=== PATIENT | female | born 1955 | race Two or more races ===

== ENCOUNTER 2020-03-09 16:33 | Outpatient (REF) | payer OTHER, SELFPAY | END 2020-03-09 16:34 | disposition home or self-care (01) | LOC: HO.LAB 16:33 | PROVIDERS: Visit Provider Internal Medicine | DX: Z20.828 Contact with and (suspected) exposure to other viral communicable diseases (principal) | CPT/HCPCS: C9803; U0003 ==

== ENCOUNTER 2020-04-06 12:45 | Outpatient (REF) | payer OTHER, SELFPAY ==
--- NOTE | 2020-04-06 | US_ITS ---
EXAMINATION: US THYROID CLINICAL INFORMATION: Nontoxic goiter. COMPARISON: CT neck 10/24/2016. TECHNIQUE: Linear transducer peters-scale and color Doppler examination with attention to the region of the thyroid. FINDINGS: SIZE: Measurements of the thyroid lobes and nodules are given in sagittal, anteroposterior and transverse dimensions respectively. Right Thyroid Lobe: 4.9 x 1.2 x 1.0 cm, volume 3.1 mL. Parenchyma: The gland echotexture is homogeneous. Thyroid vascularity is normal. Left Thyroid Lobe: 3.2 x 1.0 x 1.2 cm, volume 2.0 mL. Parenchyma: The gland echotexture is homogeneous. Thyroid vascularity is normal. Isthmus: 0.3 cm in maximum AP dimension. RIGHT THYROID LOBE: No nodules. ISTHMUS: No nodules. LEFT THYROID LOBE: No nodules. NODES: No lymphadenopathy is seen in the tissue surrounding the thyroid gland. US/US thyroid IMPRESSION: Normal thyroid ultrasound study..
== END 2020-04-06 12:46 | disposition home or self-care (01) ==
LOC: HO.US 12:45
PROVIDERS: Visit Provider Internal Medicine
DX: E04.9 Nontoxic goiter, unspecified (principal)
CPT/HCPCS: 76536

== ENCOUNTER 2020-07-27 12:19 | Outpatient (REF) | payer OTHER, SELFPAY ==
--- NOTE | ~2020-07-27 | XR_ITS ---
EXAMINATION: XR HAND, RIGHT CLINICAL INFORMATION: Pain right fingers. COMPARISON: None TECHNIQUE: PA, lateral, and oblique views of the right hand. FINDINGS: There is no acute or healing fracture, dislocation, or destructive process. The ulnar variance is neutral. The pronator quadratus fat pad appears normal. There is no carpal joint narrowing or erosive change or definite chondrocalcinosis. MCP joints show no focal narrowing or erosive change. There is borderline spur lateral base 1st proximal phalanx. The interphalangeal joints show no erosive changes. There are mild degenerative changes with joint narrowing and spurring 2nd and 3rd finger DIP joints. There is borderline degenerative changes 5th DIP joint and small spur lateral base interphalangeal joint thumb. XR/XR hand RT min 3V IMPRESSION: 1. No fracture, destructive process, or erosive changes. 2. Mild spurring lateral base 1st proximal phalanx and interphalangeal joint thumb. 3. Degenerative changes DIP joints, greatest index and 3rd finger.
== END 2020-07-27 12:20 | disposition home or self-care (01) ==
LOC: HO.XRAY 12:19
PROVIDERS: PCP Internal Medicine; Visit Provider Internal Medicine
DX: M79.644 Pain in right finger(s) (principal)
CPT/HCPCS: 73130

== ENCOUNTER → 2020-09-06 15:13 | Outpatient (BNVA) | payer OTHER, SELFPAY | PROVIDERS: PCP Internal Medicine; Visit Provider Urology | DX: Z13.89 Encounter for screening for other disorder (principal) | CPT/HCPCS: 99212 ==

== ENCOUNTER → 2021-02-20 12:58 | Outpatient (BNVA) | payer MEDICARE, SELFPAY | PROVIDERS: PCP Internal Medicine; Visit Provider Internal Medicine Pulmonary Disease | DX: J45.909 Unspecified asthma, uncomplicated (principal); R06.00 Dyspnea, unspecified | CPT/HCPCS: 99202 ==

== ENCOUNTER 2021-03-07 12:16 | Outpatient (REF) | payer MEDICARE, SELFPAY ==
--- NOTE | ~2021-03-07 | US_ITS ---
EXAMINATION: US RETROPERITONEAL COMPLETE (RENAL) CLINICAL INFORMATION: Microscopic hematuria, frequency. COMPARISON: Renal ultrasound 06/17/2019 and 11/26/2018. KUB 11/04/2018 and 02/18/2018. CT abdomen and pelvis 11/20/2017. TECHNIQUE: Real-time imaging of the kidneys and bladder. Exam is limited due to body habitus. FINDINGS: RIGHT KIDNEY: 10.9 x 5.3 x 4.8 cm (SAG x AP x TRV). The kidney is normal in size, contour, and echogenicity. Renal cortical thickness is normal. There is a 3 mm echogenic density in the midpole with twinkle artifact suggestive of a small stone. There are 2 small cysts exophytic to the lower pole measuring 9 mm. LEFT KIDNEY: 10.1 x 5.7 x 4.6 cm (SAG x AP x TRV). Visualization of the left kidney is limited due to body habitus, particularly the lower pole. The kidney is normal in size, contour, and echogenicity. Renal cortical thickness is normal. No calculi or focal parenchymal lesions. No hydronephrosis. BLADDER: Well distended and normal. Bilateral ureteral jets are demonstrated. Prevoid bladder volume is 278 mL. Postvoid bladder volume is 28.8 mL. US/US retroperitoneal comp IMPRESSION: Limited exam. Small right renal stone. Small right renal cysts.
--- NOTE | ~2021-03-07 | XR_ITS ---
EXAMINATION: XR CHEST CLINICAL INFORMATION: Asthma. COMPARISON: 09/17/2016 TECHNIQUE: 2 views of the chest were obtained. FINDINGS: Some overall increased markings similar to previous exam. These may be chronic. No convincing evidence for peripheral infiltrate. There is no effusion. The cardiac silhouette is felt to be comparable to previous. The hilar regions are indistinct but not felt to be increasing or enlarged from previous. [id number] degeneration in the thoracic spine. No acute compression injury. XR/XR chest 2V IMPRESSION: Indistinct central hilar structures and some increased markings in the lungs which may be chronic. No area of acute infiltrate. Findings may be consistent with airways/central airways disease. No acute finding.
== END 2021-03-07 12:17 | disposition home or self-care (01) ==
LOC: HO.US 12:16
PROVIDERS: PCP Internal Medicine; Visit Provider Internal Medicine
DX: J45.909 Unspecified asthma, uncomplicated (principal); R31.29 Other microscopic hematuria; R35.0 Frequency of micturition
CPT/HCPCS: 71046; 76770

== ENCOUNTER → 2021-03-13 13:47 | Outpatient (BNVA) | payer MEDICARE, SELFPAY | PROVIDERS: PCP Internal Medicine; Visit Provider Internal Medicine Pulmonary Disease | DX: R06.00 Dyspnea, unspecified (principal) | CPT/HCPCS: 99212 ==

== ENCOUNTER → 2021-03-27 09:27 | Outpatient (BNVA) | payer MEDICARE, SELFPAY | DX: N20.0 Calculus of kidney (principal) | CPT/HCPCS: Q3014 ==

== ENCOUNTER 2021-04-04 13:04 | Outpatient (REF) | payer MEDICARE, SELFPAY ==
--- NOTE | ~2021-04-04 | MM_ITS ---
EXAMINATION: MM SCREENING DIGITAL BREAST TOMOSYNTHESIS, BILATERAL CLINICAL INFORMATION: Screening. Asymptomatic. The lifetime risk of breast cancer based on the Tyrer-Cuzick Model is 2%. COMPARISON: Mammography: 11/08/2019, 11/02/2018, 10/30/2017 TECHNIQUE: Digital breast tomosynthesis is performed in both the craniocaudal and mediolateral oblique views along with computer-aided detection (CAD). Synthesized 2D images are generated from the tomosynthesis. Additional left CC view is provided. FINDINGS: There are scattered areas of fibroglandular density (ACR BI-RADS breast composition Category b). There are no significant masses, abnormal calcifications, or other abnormalities. Tiny circumscribed nodule central right breast is similar to prior exam. There are scattered bilateral vascular calcifications. The axilla and skin contours are unremarkable. MM/MM tomosynthesis screening BI IMPRESSION: No significant changes from prior studies. ASSESSMENT: BI-RADS 2: Benign RECOMMENDATION: Routine annual mammography screening. This patient's information was entered into a reminder system with a target due date for their next mammogram.
== END 2021-04-04 13:05 | disposition home or self-care (01) ==
LOC: HO.MAMMO 13:04
PROVIDERS: Visit Provider Internal Medicine
DX: Z12.31 Encounter for screening mammogram for malignant neoplasm of breast (principal)
CPT/HCPCS: 77063; 77067

== ENCOUNTER 2021-04-16 13:32 | Outpatient (REF) | payer MEDICARE, SELFPAY ==
--- NOTE | 2021-04-16 16:25 | PFT_ITS ---
Forced vital capacity moderately decreased. FEV1 slightly decreased. FEV1/FVC ratio is normal. [id number] is normal. MVV slightly decreased. Post bronchodilator therapy, there is no significant change. Total lung capacity and residual volume are both moderately decreased. Diffusion capacity normal. CONCLUSION: 1. Moderate degree of restrictive pulmonary disorder. 2. obstructive airway disorder and no response to bronchodilator therapy. MD NENA Roa/DYLANL / [phone]
== END 2021-04-16 13:33 | disposition home or self-care (01) ==
LOC: HO.RESP 13:32
PROVIDERS: PCP Internal Medicine; Visit Provider Internal Medicine Pulmonary Disease
DX: R06.00 Dyspnea, unspecified (principal); J45.909 Unspecified asthma, uncomplicated
CPT/HCPCS: 94060; 94727; 94729

== ENCOUNTER → 2021-05-11 14:08 | Outpatient (BNVA) | payer MEDICARE, SELFPAY | PROVIDERS: PCP Internal Medicine; Visit Provider Internal Medicine Pulmonary Disease | DX: R06.00 Dyspnea, unspecified (principal) | CPT/HCPCS: Q3014 ==

== ENCOUNTER 2021-08-28 14:58 | Outpatient (REF) | payer OTHER, SELFPAY ==
--- NOTE | ~2021-08-28 | US_ITS ---
EXAMINATION: US RETROPERITONEAL LIMITED (RENAL ONLY) CLINICAL INFORMATION: Kidney stone. COMPARISON: Previous ultrasound most recent March [address] of the abdomen and pelvis from 2018 TECHNIQUE: Grayscale and color imaging of the kidneys FINDINGS: RIGHT KIDNEY: 11 x 5 x 5.5 cm (SAG x AP x TRV). The kidney is normal in size, contour, and echogenicity. Renal cortical thickness is normal. There are 3 simple cysts, largest measuring 1.2 x 0.9 x 1.2 cm in the upper pole. No calculi. No hydronephrosis. LEFT KIDNEY: 12.1 x 4.9 x 5.3 cm (SAG x AP x TRV). The kidney is normal in size, contour, and echogenicity. Renal cortical thickness is normal. No calculi or focal parenchymal lesions. No hydronephrosis. US/US renal BI IMPRESSION: Small right renal cysts. No stone seen.
== END 2021-08-28 14:59 | disposition home or self-care (01) ==
LOC: HO.US 14:58
PROVIDERS: Visit Provider Urology
DX: N20.0 Calculus of kidney (principal)
CPT/HCPCS: 76775

== ENCOUNTER → 2021-09-13 10:16 | Outpatient (BNVA) | payer OTHER, SELFPAY | PROVIDERS: PCP Internal Medicine; Visit Provider Internal Medicine Pulmonary Disease | DX: J45.909 Unspecified asthma, uncomplicated (principal); R06.00 Dyspnea, unspecified | CPT/HCPCS: 99212 ==

== ENCOUNTER → 2021-09-18 09:25 | Outpatient (BNVA) | payer OTHER, SELFPAY | PROVIDERS: PCP Internal Medicine | DX: N28.1 Cyst of kidney, acquired (principal); N20.0 Calculus of kidney | CPT/HCPCS: Q3014 ==

== ENCOUNTER 2021-12-26 14:34 | Outpatient (REF) | payer OTHER, SELFPAY ==
--- NOTE | ~2021-12-26 | XR_ITS ---
EXAMINATION: XR CHEST 2 VIEWS CLINICAL INFORMATION: Dyspnea. COMPARISON: Prior chest radiographs, most recently 03/07/2021. TECHNIQUE: Frontal and lateral views of the chest were obtained. FINDINGS: The heart, great vessels, pulmonary vasculature and mediastinum are normal. The lungs show no focal infiltrate, effusion or pneumothorax. There is chronic, mild elevation of the right hemidiaphragm. There is no acute osseous abnormality. There is multi-level mild thoracic spondylosis. XR/XR chest 2V IMPRESSION: No active cardiopulmonary disease.
== END 2021-12-26 14:35 | disposition home or self-care (01) ==
LOC: HO.XRAY 14:34
PROVIDERS: PCP Internal Medicine; Visit Provider Internal Medicine Pulmonary Disease
DX: J45.909 Unspecified asthma, uncomplicated (principal); G47.33 Obstructive sleep apnea (adult) (pediatric); R06.00 Dyspnea, unspecified; E66.9 Obesity, unspecified
CPT/HCPCS: 71046; 99212

== ENCOUNTER 2022-04-05 13:08 | Outpatient (REF) | payer OTHER, SELFPAY ==
--- NOTE | ~2022-04-05 | MM_ITS ---
EXAMINATION: MM SCREENING DIGITAL BREAST TOMOSYNTHESIS, BILATERAL CLINICAL INFORMATION: Screening. Asymptomatic. The lifetime risk of breast cancer based on the Tyrer-Cuzick Model is 2%. COMPARISON: Mammography: 04/04/2021, 11/08/2019, 11/02/2018 TECHNIQUE: Digital breast tomosynthesis is performed in both the craniocaudal and mediolateral oblique views along with computer-aided detection (CAD). Synthesized 2D images are generated from the tomosynthesis. FINDINGS: There are scattered areas of fibroglandular density (ACR BI-RADS breast composition Category b). There are no significant masses, abnormal calcifications, or other abnormalities. Parenchymal pattern is similar to prior studies. There is no developing density or architectural abnormality. The axilla and skin contours are unremarkable. No significant changes. MM/MM tomosynthesis screening BI IMPRESSION: No mammographic evidence of malignancy. ASSESSMENT: BI-RADS 1: Negative RECOMMENDATION: Routine annual mammography screening. This patient's information was entered into a reminder system with a target due date for their next mammogram.
== END 2022-04-05 13:09 | disposition home or self-care (01) ==
LOC: HO.MAMMO 13:08
PROVIDERS: PCP Internal Medicine; Visit Provider Internal Medicine
DX: Z12.31 Encounter for screening mammogram for malignant neoplasm of breast (principal)
CPT/HCPCS: 77063; 77067

== ENCOUNTER → 2022-05-21 08:45 | Outpatient (BNVA) | payer OTHER, SELFPAY | PROVIDERS: PCP Internal Medicine; Visit Provider Nurse Practitioner Family | DX: K21.9 Gastro-esophageal reflux disease without esophagitis (principal); K59.04 Chronic idiopathic constipation; R13.10 Dysphagia, unspecified | CPT/HCPCS: 99202 ==

== ENCOUNTER 2022-07-10 14:54 | Outpatient (REF) | payer OTHER, SELFPAY ==
--- NOTE | ~2022-07-10 | US_ITS ---
EXAMINATION: US RETROPERITONEAL LIMITED (RENAL ONLY) CLINICAL INFORMATION: Cyst of kidney, acquired. COMPARISON: Ultrasound retroperitoneal limited (renal only) 08/28/2021. Ultrasound retroperitoneal complete (renal) 03/07/2021. X-ray abdomen KUB 11/04/2018 and 02/18/2018. CT abdomen and pelvis without contrast 11/20/2017. TECHNIQUE: Real-time imaging of the kidneys. FINDINGS: RIGHT KIDNEY: 10.4 x 5.1 x 5.1 cm (SAG x AP x TRV). The kidney is normal in size, contour, and echogenicity. Renal cortical thickness is normal. No renal calculi or hydronephrosis. There is anechoic cyst in the lower pole measuring 0.7 x 0.8 x 0.7 cm, 0.8 x 0.8 x 1.1 cm and midpole measuring 1.2 x 1.2 x 1.2 cm. LEFT KIDNEY: 10.4 x 5.5 x 5.5 cm (SAG x AP x TRV). The kidney is normal in size, contour, and echogenicity. Renal cortical thickness is normal. No calculi or focal parenchymal lesions. No hydronephrosis. US/US renal BI IMPRESSION: 1. Three right renal cysts. 2. No echogenic stones or hydronephrosis seen.
== END 2022-07-10 14:55 | disposition home or self-care (01) ==
LOC: HO.US 14:54
PROVIDERS: PCP Internal Medicine; Visit Provider Nurse Practitioner Family
DX: N20.0 Calculus of kidney (principal); N28.1 Cyst of kidney, acquired
CPT/HCPCS: 76775

== ENCOUNTER → 2022-07-30 13:49 | Outpatient (BNVA) | payer OTHER, SELFPAY | PROVIDERS: PCP Internal Medicine; Visit Provider Internal Medicine Pulmonary Disease | DX: J32.9 Chronic sinusitis, unspecified (principal); J45.909 Unspecified asthma, uncomplicated; G47.33 Obstructive sleep apnea (adult) (pediatric); I73.9 Peripheral vascular disease, unspecified; Z99.89 Dependence on other enabling machines and devices | CPT/HCPCS: 99212 ==

== ENCOUNTER → 2022-09-19 09:22 | Outpatient (BNVA) | payer OTHER, SELFPAY | PROVIDERS: PCP Internal Medicine; Visit Provider Nurse Practitioner Family | DX: N20.0 Calculus of kidney (principal); N28.1 Cyst of kidney, acquired; R39.15 Urgency of urination; R35.0 Frequency of micturition | CPT/HCPCS: 51798; 99212 ==

== ENCOUNTER 2023-01-14 13:02 | Outpatient (AMB) | payer OTHER, SELFPAY ==
--- NOTE | 2023-01-14 13:13 | A.OFFVIS_ITS ---
Intake Intake Visit Reasons: Urgency- follow up Intake Note: Patient is present for follow up frequency/urgency Urology Medications: Oxybutynin, Vitamin B6, ?Pyridium Blood Thinner: none PVR: 44ml's Rail Flaw Detector Operator Required: Yes Rail Flaw Detector Operator Name: EMILY Accompanied by: Spouse Allergies aspirin [ASA] Allergy (Severe, Verified 01/14/23 21:31) FACIAL SWELLING AND DIFFICUTLY SWALLOWING, swelling feathers Allergy (Unknown, Verified 01/14/23 21:31) unknown ibuprofen [From MOTRIN] Allergy (Unknown, Verified 01/14/23 21:31) UNKNOWN Penicillins [PENICILLINS] Allergy (Unknown, Verified 01/14/23 21:31) UNKNOWN hamster Allergy (Unknown, Uncoded 01/14/23 21:31) Unknown Ibuprofen Allergy (Unknown, Uncoded 01/14/23 21:31) hives pcn Allergy (Unknown, Uncoded 01/14/23 21:31) swelling SEAFOOD Allergy (Unknown, Uncoded 01/14/23 21:31) UNKNOWN seafood Allergy (Unknown, Uncoded 01/14/23 21:31) anaphylaxis Medication List - Last Reconciled 01/14/23 by CHELITA Cain-RAFITA atenolol 50 mg PO BEDTIME atorvastatin 40 mg PO DAILY budesonide-formoterol 160-4.5 mcg/actuation (Symbicort) 2 puffs PO BID calcium carbonate-vitamin D3 600 mg-5 mcg (200 unit) 0 tabs PO cetirizine 10 mg PO DAILY cyclobenzaprine 5 mg PO TID PRN ergocalciferol (vitamin D2) 0 mcg PO fluticasone propionate 44 mcg/actuation (Flovent HFA) 2 puffs inhalation BID furosemide 40 mg PO QAM levothyroxine (Synthroid) 50 mcg PO DAILY losartan 50 mg PO DAILY metformin 500 mg PO mirabegron ER (Myrbetriq) 25 mg PO DAILY 90 days nitrofurantoin macrocrystal 50 mg PO BEDTIME 90 days omeprazole 20 mg PO DAILY polyethylene glycol 3350 (Miralax) 17 grams PO DAILY pyridoxine (vitamin B6) 100 mg PO DAILY 90 days sennosides (Natural Senna Laxative) 8.6 mg PO BEDTIME tolnaftate 1% (Antifungal (tolnaftate)) 1 spray topical DAILY HPI HPI Comments History of Present Illness Details Chen is a pleasant Romansh speaking 67 year old female patient Gopi Ledesma who was accompanied by her at today's visit. She presents to the office today for a follow up of her nephrolithiasis and going lower urinary tract symptoms. She has a PMH of JAYCE, asthma, renal cyst, hypertension, hyperlipidemia, and PVD. In discussion with the patient today she reports to be doing and feeling well. She reports compliance with vitamin B6 daily. However, she reports having stopped taking oxybutynin 5 mg daily as she feels this was not working well for her and reports noting facial swelling with this medication. She reports she continues with urinary urgency, urinary diane quency, and episodes of incontinence if not near a bathroom. When asked she reports having had 8 vaginal births in the past. She reports labors varied from short and long. However, most if not all of her babies were average size. She does report following up with a urologist in [place] many years ago and undergoing surgery however she is not sure if it was related to gynecology verses urology. She reports being told many years ago in [place] that she had a prolapsed bladder. However, she reports believing she underwent surgical intervention for repair. Discussed physical assessment of the area for further assessment evaluation. However, patient reports having pulmonology appointment and less than 20 minutes. In discussion with the patient today obtaining HPI information. information is vague and patient reports symptoms vary and are not consistent however then at times reports symptoms to be daily. She reports some days she feels her urinary symptoms are within normal limits however at times continues with urinary frequency and dysuria. In office urinalysis results reviewed with the patient today. PVR 44mL. Discussed pelvic floor therapy verses trial of new medications. Discussed at length importance of drinking adequate amount of water daily. When asked she denies hematuria, dysuria, foul smelling urine, changes to urinary stream, flank pain, fever, and or chills. [facility] Medical History Renal cyst History of kidney stones Sciatica Chronic low back pain Peripheral vascular disease Obesity Hyperlipidemia Acquired hypothyroidism H/O anaphylactic shock H/O ovarian cancer Renal stones Serrated adenoma of colon Surgical History History of surgery Family History Father Prostate cancer Paternal Aunt Breast cancer Maternal Uncle Diabetes Gangrene Social History Alcohol intake: never Patient Tobacco Use Status: Never used Tobacco Review of Systems Const Reports as per HPI Eyes Reports no additional complaints and Reports decreased night vision ENT Reports no additional complaints Card Reports as per HPI Resp Reports as per HPI GI Reports as per HPI Reports as per HPI Musc Reports no additional complaints Neuro Reports no additional complaints Psych Reports no additional complaints Endo Reports no additional complaints Monty/Lymph Reports no additional complaints Aller/Immun Reports no additional complaints Physical Exam Const General: cooperative, healthy appearing, comfortable, no acute distress, well developed, alert and awake Orientation/consciousness: patient oriented x3 Limitations: no limitations HEENT Head: Yes normal to inspection, Yes normocephalic and Yes atraumatic Ears: hearing grossly normal bilaterally Eyes General: appearance normal, both eyes and all related structures Neck Neck: Yes normal visual inspection and Yes trachea midline Chest Chest palpation & inspection: normal inspection of the chest Resp Effort & Inspection: normal respiratory effort and able to speak in complete sentences Cardio Rate: regular rate GI Inspection: Yes normal to inspection General: Yes no CVA tenderness Back/Spine/Pelvis Back: no CVA tenderness Skin General skin exam: no rashes or lesions noted Neuro General: patient oriented x3 Extrem General: Yes normal to inspection Psych Appearance: grossly normal and well kempt Mental Status: mental status grossly normal Speech and movement: Normal speech and movement present and Clear speech present Affect: normal affect Attitude: cooperative Thought process: Normal thought process present Thought content: Normal thought content present Insight: Fair insight present (Psych) Judgement: Fair judgement present (Psych) Office Procedures Post Void Residual Post Residual Void Post Void Residual (PVR): 44 [id number] Void Residual by ultrasound Results AMB Urinalysis, Automated UA Leukoctes 0 Madeleine/uL Last Edit by Betzaida Sheets on 01/14/23 13:48 UA Nitrite Last Edit by Betzaida Sheets on 01/14/23 13:48 UA Urobilinogen 0.2 mg/dL Last Edit by Betzaida Sheets on 01/14/23 13:48 UA Protein 0 mg/dL Last Edit by Betzaida Sykesoz on 01/14/23 13:48 UA pH 8.5 Last Edit by Acshefalidomenica Sykesoz on 01/14/23 13:48 UA Blood 0 Ronald/uL Last Edit by Betzaida Sykesoz on 01/14/23 13:48 UA Specific [place] 1.015 Last Edit by Acsharlene Monyoz on 01/14/23 13:48 UA Ketone Last Edit by Acsharlene Monyoz on 01/14/23 13:48 UA Bilirubin 0 mg/dL Last Edit by Acsharlene Monyoz on 01/14/23 13:48 UA Glucose 0 mg/dL Last Edit by Betzaida Monyoz on 01/14/23 13:48 Results Reviewed Results Reviewed: Laboratory Last Values Urine pH (Auto) 8.5 01/14/23 13:36 Specific [place] (Auto) 1.015 01/14/23 13:36 Urine Protein (Auto) 0 mg/dL 01/14/23 13:36 Glucose (UA)(Auto) 0 mg/dL 01/14/23 13:36 Urine Blood (Auto) 0 Ronald/uL 01/14/23 13:36 Urine Bilirubin (Auto) 0 mg/dL 01/14/23 13:36 Urine Urobilinogen (Auto) 0.2 mg/dL 01/14/23 13:36 Leukocyte Esterase (Auto) 0 Madeleine/uL 01/14/23 13:36 Assessment & Plan Assessment & Plan (1) Urinary urgency: Code(s): R39.15 - Urgency of urination (2) Urinary frequency: Code(s): R35.0 - Frequency of micturition (3) Nephrolithiasis: Code(s): N20.0 - Calculus of kidney (4) Renal cyst: Code(s): N28.1 - Cyst of kidney, acquired Plan In office urinalysis results reviewed with the patient today; as noted above. PVR 44 mL. Stop oxybutynin as patient reports to have stopped taking this medication due to facial swelling. Start Myrbetriq as discussed and prescribed. Discussed at length lifestyle modifications to assist with lower urinary tract symptoms. Continue vitamin B6. Educated, instructed, encouraged to continue drinking plenty of water daily. Continue adding 1 oz of lemon juice to water daily. Discussed near future in office cystoscopy if symptoms persist and/or worsen. Follow-up in 6 weeks with PVR; or sooner with any issues, concerns, and or questions. Orders: Orders AMB Urinalysis Automated Today Z13.9 - Encounter for screening, unspecified AMB Post Void Residual by ultrasound Today R35.0 - Frequency of micturition US retroperitoneal comp Today N20.0 - Calculus of kidney, N28.1 - Cyst of kidney, acquired, R35.0 - Frequency of micturition, R39.15 - Urgency of urination Medications: New mirabegron ER (Myrbetriq) 25 mg PO DAILY 90 days 90 tabs 1RF N32.81 - Overactive bladder, R35.1 - Nocturia Discontinued oxybutynin chloride ER Discontinued Reason: Doctor's Order 5 mg PO DAILY 90 days 90 tabs 1RF Patient Instructions: The patient had an opportunity to ask questions regarding the treatment plan. All questions were answered. Physical exam, labs, and imaging were discussed and reviewed in detail. As well as risks, benefits, and discussion of treatment choices. No major barriers to understanding were identified. The patient expressed understanding and agreement with the above treatment plan. The patient was made aware they should contact our office by phone for worsening of their current condition, the appearance of new symptoms, or with any questions or concerns. Compliance is encouraged with any medications and follow up testing that is ordered. It is a privilege to be allowed the opportunity to participate in? your urological care.? Again, if you have any questions or concerns If you have any questions or concerns please do not hesitate to contact me. The office is [phone]. This note is constructed using voice recognition software. While every effort has been made to ensure accuracy hall supervisor errors may have been included. Yours sincerely, DINA Cain Coding Level of Care Code Est Pt Level 4 (25051) Diagnoses Urinary urgency R39.15 Urinary frequency R35.0 Nephrolithiasis N20.0 Renal cyst N28.1 CPT Codes Post Residual Void - PVR CPT Code: 37876-Leiy Void Residual by ultrasound ([id number])
== END 2023-01-14 14:14 | disposition home or self-care (01) ==
PROVIDERS: PCP Internal Medicine; Visit Provider Nurse Practitioner Family
DX: R39.15 Urgency of urination (principal); R35.0 Frequency of micturition; N20.0 Calculus of kidney; N28.1 Cyst of kidney, acquired
CPT/HCPCS: 99214

== ENCOUNTER → 2023-01-14 13:02 | Outpatient (BNVA) | payer OTHER, SELFPAY | PROVIDERS: PCP Internal Medicine; Visit Provider Nurse Practitioner Family | DX: G47.33 Obstructive sleep apnea (adult) (pediatric) (principal); J45.909 Unspecified asthma, uncomplicated; R06.00 Dyspnea, unspecified; Z79.899 Other long term (current) drug therapy; Z99.89 Dependence on other enabling machines and devices; R39.15 Urgency of urination; R35.0 Frequency of micturition; N20.0 Calculus of kidney; N28.1 Cyst of kidney, acquired | CPT/HCPCS: 51798; 81003; 99212 ==

== ENCOUNTER 2023-01-14 14:23 | Outpatient (AMB) | payer OTHER, SELFPAY ==
[2023-01-14 14:24] VITALS: BP 107/62; PULSE 62; O2SAT 95; BMI 37.7
--- NOTE | 2023-01-14 14:24 | MHC.OFFVIS ---
Intake Vital Signs 01/14/23 14:24 Height 5 ft 1 in Weight 199 lb 8.293 oz BMI 37.7 BP 107/62 Blood Pressure Location Rt brachial Position Sitting Pulse 62 Pulse Source Doppler Pulse Oximetry (%) 95 Oxygen Delivery Method Room Air Intake Visit Reasons: Obstructive sleep apnea Allergies aspirin [ASA] Allergy (Severe, Verified 01/14/23 14:26) FACIAL SWELLING AND DIFFICUTLY SWALLOWING, swelling feathers Allergy (Unknown, Verified 01/14/23 14:26) unknown ibuprofen [From MOTRIN] Allergy (Unknown, Verified 01/14/23 14:26) UNKNOWN Penicillins [PENICILLINS] Allergy (Unknown, Verified 01/14/23 14:26) UNKNOWN hamster Allergy (Unknown, Uncoded 01/14/23 13:35) Unknown Ibuprofen Allergy (Unknown, Uncoded 01/14/23 13:35) hives pcn Allergy (Unknown, Uncoded 01/14/23 13:35) swelling SEAFOOD Allergy (Unknown, Uncoded 01/14/23 13:35) UNKNOWN seafood Allergy (Unknown, Uncoded 01/14/23 13:35) anaphylaxis HPI Obstructive sleep apnea HPI Details 67-year-old lady, nonsmoker, with underlying obesity, CAD, PVD, followed for asthma, dyspnea on exertion, and JAYCE on CPAP. Patient states that her asthma symptoms have been well controlled on Symbicort and as needed albuterol MDI. She denies any recent exacerbations. She continues on Lasix 40 mg daily with good control of all lower extremity edema and orthopnea. Patient also states that her sleep apnea symptoms are well controlled on current CPAP therapy. [facility] Medical History Renal cyst History of kidney stones Sciatica Chronic low back pain Peripheral vascular disease Obesity Hyperlipidemia Acquired hypothyroidism H/O anaphylactic shock H/O ovarian cancer Renal stones Serrated adenoma of colon Surgical History History of surgery Family History Father Prostate cancer Paternal Aunt Breast cancer Maternal Uncle Diabetes Gangrene Social History Alcohol intake: never Patient Tobacco Use Status: Never used Tobacco Review of Systems Const Denies daytime sleepiness, Denies excessive sweating, Denies fatigue, Denies fever(s), Denies lethargy, Denies malaise, Denies night sweats, Denies snoring and Denies weight loss Eyes Denies blurry vision and Denies itchy eyes ENT Denies nasal congestion, Denies post nasal drip, Denies sinus pain, Denies sinus pressure and Denies other ( Thrush) Card Denies chest pain, Denies pedal edema, Denies dyspnea, Denies orthopnea and Denies paroxysmal nocturnal dyspnea Resp Denies cough, Denies hemoptysis, Denies excessive phlegm production, Denies dyspnea, Denies snoring and Denies wheezing GI Denies abdominal pain and Denies heartburn Musc Denies myalgias, Denies arthralgias and Denies joint swelling Skin/Breast Denies rash Neuro Denies memory loss and Denies seizure-like activity Psych Denies abnormal sleep pattern, Denies anxiety and Denies memory loss Endo Denies excessive sweating, Denies fatigue and Denies heat intolerance Monty/Lymph Denies easy bruising Aller/Immun Denies itchy eyes, Denies seasonal rhinorrhea and Denies wheezing Physical Exam Vital Signs: Last Vital Signs Pulse 62 01/14/23 14:24 BP 107/62 01/14/23 14:24 Pulse Ox 95 01/14/23 14:24 Oxygen Delivery Method Room Air 01/14/23 14:24 BMI result Body Mass Index 37.7 Const General: no acute distress and alert Nutritional Appearance: obese Orientation/consciousness: Other orientation findings ( oriented) HEENT Head: Yes atraumatic Eyes General: appearance normal, both eyes and all related structures Sclerae: sclerae normal EOM: EOMs intact bilaterally Neck Neck: Yes supple Lymphatic: no lymphadenopathy noted Resp Effort & Inspection: normal respiratory effort and no use of accessory muscles Auscultation: clear to auscultation bilaterally Cardio Rate: regular rate Rhythm: regular rhythm Heart sounds: no gallops, no murmurs and no rubs Skin General skin exam: other ( warm) Extrem General: No clubbing, No cyanosis and No edema Results AMB Urinalysis, Automated UA Leukoctes 0 Madeleine/uL Last Edit by Betzaida Sheets on 01/14/23 13:48 UA Nitrite Last Edit by Betzaida Sheets on 01/14/23 13:48 UA Urobilinogen 0.2 mg/dL Last Edit by Betzaida Sheets on 01/14/23 13:48 UA Protein 0 mg/dL Last Edit by Betzaida Sheets on 01/14/23 13:48 UA pH 8.5 Last Edit by Betzaida Sheets on 01/14/23 13:48 UA Blood 0 Ronald/uL Last Edit by Betzaida Sheets on 01/14/23 13:48 UA Specific [place] 1.015 Last Edit by Betzaida Sheets on 01/14/23 13:48 UA Ketone Last Edit by Betzaida Sheets on 01/14/23 13:48 UA Bilirubin 0 mg/dL Last Edit by Betzaida Sheets on 01/14/23 13:48 UA Glucose 0 mg/dL Last Edit by Betzaida Sheets on 01/14/23 13:48 Assessment & Plan Assessment & Plan (1) Asthma: Code(s): J45.909 - Unspecified asthma, uncomplicated Plan: Well controlled on Symbicort and albuterol MDI. Continue current regimen. (2) JAYCE (obstructive sleep apnea): Code(s): G47.33 - Obstructive sleep apnea (adult) (pediatric) Plan: Well controlled on current CPAP therapy. Continue CPAP therapy. (3) Dyspnea on exertion: Code(s): R06.00 - Dyspnea, unspecified Plan: Orthopnea, lower extremity edema, and dyspnea on exertion now well controlled on current regimen of Lasix 40 mg daily. Continue current regimen. Coding Level of Care Code Est Pt Level 4 (26485) Diagnoses Asthma J45.909 JAYCE (obstructive sleep apnea) G47.33 Dyspnea on exertion R06.00
== END 2023-01-14 14:46 | disposition home or self-care (01) ==
PROVIDERS: PCP Internal Medicine; Visit Provider Internal Medicine Pulmonary Disease
DX: J45.909 Unspecified asthma, uncomplicated (principal); G47.33 Obstructive sleep apnea (adult) (pediatric); R06.00 Dyspnea, unspecified
CPT/HCPCS: 99214

== ENCOUNTER 2023-02-25 13:34 | Outpatient (AMB) | payer OTHER, SELFPAY ==
--- NOTE | 2023-02-25 13:48 | A.OFFVIS_ITS ---
Intake Intake Visit Reasons: 6w/US/PVR Intake Note: Patient is present for follow up frequency/urgency/PVR Urology Medications: D/C Oxybutynin, Myrbetriq Blood Thinner: none PVR: 61ml's Chief Controller Station Required: Yes Chief Controller Station Name: Keshia Accompanied by: Spouse Allergies aspirin [ASA] Allergy (Severe, Verified 02/25/23 13:57) FACIAL SWELLING AND DIFFICUTLY SWALLOWING, swelling mirabegron [From Myrbetriq] Allergy (Intermediate, Verified 02/25/23 14:24) Headache feathers Allergy (Unknown, Verified 02/25/23 13:57) unknown ibuprofen [From MOTRIN] Allergy (Unknown, Verified 02/25/23 13:57) UNKNOWN Penicillins [PENICILLINS] Allergy (Unknown, Verified 02/25/23 13:57) UNKNOWN hamster Allergy (Unknown, Uncoded 02/25/23 13:57) Unknown Ibuprofen Allergy (Unknown, Uncoded 02/25/23 13:57) hives pcn Allergy (Unknown, Uncoded 02/25/23 13:57) swelling SEAFOOD Allergy (Unknown, Uncoded 02/25/23 13:57) UNKNOWN seafood Allergy (Unknown, Uncoded 02/25/23 13:57) anaphylaxis Medication List - Last Reconciled 02/25/23 by CHELITA Cain-RAFITA atenolol 50 mg PO BEDTIME atorvastatin 40 mg PO DAILY budesonide-formoterol 160-4.5 mcg/actuation (Symbicort) 2 puffs PO BID calcium carbonate-vitamin D3 600 mg-5 mcg (200 unit) 0 tabs PO cetirizine 10 mg PO DAILY cyclobenzaprine 5 mg PO TID PRN ergocalciferol (vitamin D2) 0 mcg PO fluticasone propionate 44 mcg/actuation (Flovent HFA) 2 puffs inhalation BID furosemide 40 mg PO QAM levothyroxine (Synthroid) 50 mcg PO DAILY losartan 50 mg PO DAILY metformin 500 mg PO nitrofurantoin macrocrystal 50 mg PO BEDTIME 90 days omeprazole 20 mg PO DAILY polyethylene glycol 3350 (Miralax) 17 grams PO DAILY pyridoxine (vitamin B6) 100 mg PO DAILY 90 days sennosides (Natural Senna Laxative) 8.6 mg PO BEDTIME tolnaftate 1% (Antifungal (tolnaftate)) 1 spray topical DAILY HPI HPI Comments History of Present Illness Details Chen is a pleasant Mohawk speaking 67 year old female patient Gopi Ledesma who was accompanied by her at today's visit. She presents to the office today for a follow up of her nephrolithiasis and going lower urinary tract symptoms. She has a PMH of JAYCE, asthma, renal cyst, hypertension, hyperlipidemia, and PVD. In discussion with the patient today she reports to be doing and feeling well. Of note, patient was seen approximately 6 weeks ago at which time a retroperitoneal ultrasound was ordered for further assessment evaluation in the patient was started on 25 mg of Myrbetriq daily for ongoing lower urinary tract symptoms. In review of patient's chart does not ap pear retroperitoneal ultrasound was completed. Patient reports having finished trial of Myrbetriq and feels symptoms have improved however discusses experiencing lightheadedness, headache, and dizziness while taking this medication. She reports compliance with vitamin B6 daily. When asked she reports having had 8 vaginal births in the past. She reports labors varied from short and long. However, most if not all of her babies were average size. She does report following up with a urologist in [place] many years ago and undergoing surgery however she is not sure if it was related to gynecology verses urology. She reports being told many years ago in [place] that she had a prolapsed bladder. However, she reports believing she underwent surgical intervention for repair. In office urinalysis results reviewed with the patient today. PVR 61mL. Discussed pelvic floor therapy verses trial of new medications however, patient reports no bothersome urinary issues at this time. Discussed at length importance of drinking adequate amount of water daily. When asked she denies hematuria, dysuria, foul smelling urine, changes to urinary stream, flank pain, fever, and or chills. PFSH Medical History Renal cyst History of kidney stones Sciatica Chronic low back pain Peripheral vascular disease Obesity Hyperlipidemia Acquired hypothyroidism H/O anaphylactic shock H/O ovarian cancer Renal stones Serrated adenoma of colon Surgical History History of surgery Family History Father Prostate cancer Paternal Aunt Breast cancer Maternal Uncle Diabetes Gangrene Social History Alcohol intake: never Patient Tobacco Use Status: Never used Tobacco Review of Systems Const Reports as per HPI Eyes Reports no additional complaints and Reports decreased night vision ENT Reports no additional complaints Card Reports as per HPI Resp Reports as per HPI GI Reports as per HPI Reports as per HPI Musc Reports no additional complaints Neuro Reports no additional complaints Psych Reports no additional complaints Endo Reports no additional complaints Monty/Lymph Reports no additional complaints Aller/Immun Reports no additional complaints Physical Exam Const General: cooperative, healthy appearing, comfortable, no acute distress, well developed, alert and awake Orientation/consciousness: patient oriented x3 Limitations: no limitations HEENT Head: Yes normal to inspection, Yes normocephalic and Yes atraumatic Ears: hearing grossly normal bilaterally Eyes General: appearance normal, both eyes and all related structures Neck Neck: Yes normal visual inspection and Yes trachea midline Chest Chest palpation & inspection: normal inspection of the chest Resp Effort & Inspection: normal respiratory effort and able to speak in complete sentences Cardio Rate: regular rate GI Inspection: Yes normal to inspection General: Yes no CVA tenderness Back/Spine/Pelvis Back: no CVA tenderness Skin General skin exam: no rashes or lesions noted Neuro General: patient oriented x3 Extrem General: Yes normal to inspection Psych Appearance: grossly normal and well kempt Mental Status: mental status grossly normal Speech and movement: Normal speech and movement present and Clear speech present Affect: normal affect Attitude: cooperative Thought process: Normal thought process present Thought content: Normal thought content present Insight: Fair insight present (Psych) Judgement: Fair judgement present (Psych) Office Procedures Post Void Residual Post Residual Void Post Void Residual (PVR): 61 [id number] Void Residual by ultrasound Results AMB Urinalysis, Automated UA Leukoctes 0 Madeleine/uL Last Edit by Betzaida Sheets on 02/25/23 14:08 UA Nitrite Negative Last Edit by Betzaida Sheets on 02/25/23 14:08 UA Urobilinogen 0.2 mg/dL Last Edit by Betzaida Sheets on 02/25/23 14:08 UA Protein 0 mg/dL Last Edit by Betzaida Sheets on 02/25/23 14:08 UA pH 6.0 Last Edit by Betzaida Sheets on 02/25/23 14:08 UA Blood 0 Ronald/uL Last Edit by Betzaida Sheets on 02/25/23 14:08 UA Specific [place] 1.015 Last Edit by Betzaida Sheets on 02/25/23 14:08 UA Ketone Negative Last Edit by Betzaida Sheets on 02/25/23 14:08 UA Bilirubin 0 mg/dL Last Edit by Betzaida Sheets on 02/25/23 14:08 UA Glucose 0 mg/dL Last Edit by Betzaida Sheets on 02/25/23 14:08 Results Reviewed Results Reviewed: Laboratory Last Values Urine pH (Auto) 6.0 02/25/23 13:51 Specific [place] (Auto) 1.015 02/25/23 13:51 Urine Protein (Auto) 0 mg/dL 02/25/23 13:51 Glucose (UA)(Auto) 0 mg/dL 02/25/23 13:51 Urine Ketones (Auto) Negative 02/25/23 13:51 Urine Blood (Auto) 0 Ronald/uL 02/25/23 13:51 Urine Nitrite (Auto) Negative 02/25/23 13:51 Urine Bilirubin (Auto) 0 mg/dL 02/25/23 13:51 Urine Urobilinogen (Auto) 0.2 mg/dL 02/25/23 13:51 Leukocyte Esterase (Auto) 0 Madeleine/uL 02/25/23 13:51 Assessment & Plan Assessment & Plan (1) Renal cyst: Code(s): N28.1 - Cyst of kidney, acquired (2) Nephrolithiasis: Code(s): N20.0 - Calculus of kidney (3) Urinary urgency: Code(s): R39.15 - Urgency of urination (4) Urinary frequency: Code(s): R35.0 - Frequency of micturition Plan In office urinalysis results reviewed with the patient today; as noted above. PVR 61 mL. Will obtain retroperitoneal ultrasound for further assessment evaluation as david hylton Patient reports significant improvement in lower urinary tract symptoms Stop Myrbetriq; will add to allergy list She denies any bothersome urinary issues or concerns at this time. Educated, encouraged, just the importance of drinking plenty of water daily. Continue vitamin B6 as discussed and prescribed. Follow-up in 6 months with imaging to be completed prior; or sooner with any issues, concerns, and or questions. Orders: Orders AMB Post Void Residual by ultrasound Today R35.0 - Frequency of micturition AMB Urinalysis Automated Today Z13.9 - Encounter for screening, unspecified Medications: Discontinued mirabegron ER (Myrbetriq) Discontinued Reason: Doctor's Order 25 mg PO DAILY 90 days 90 tabs 1RF N32.81 - Overactive bladder, R35.1 - Nocturia Patient Instructions: The patient had an opportunity to ask questions regarding the treatment plan. All questions were answered. Physical exam, labs, and imaging were discussed and reviewed in detail. As well as risks, benefits, and discussion of treatment choices. No major barriers to understanding were identified. The patient exp ressed understanding and agreement with the above treatment plan. The patient was made aware they should contact our office by phone for worsening of their current condition, the appearance of new symptoms, or with any questions or concerns. Compliance is encouraged with any medications and follow up testing that is ordered. It is a privilege to be allowed the opportunity to participate in? your urological care.? Again, if you have any questions or concerns If you have any questions or concerns please do not hesitate to contact me. The office is [phone]. This note is constructed using voice recognition software. While every effort has been made to ensure accuracy salon/spa manager errors may have been included. Yours sincerely, DIAN Cain Coding Level of Care Code Est Pt Level 3 (39177) Diagnoses Renal cyst N28.1 Nephrolithiasis N20.0 Urinary urgency R39.15 Urinary frequency R35.0 CPT Codes Post Residual Void - PVR CPT Code: 11305-Lgxq Void Residual by ultrasound ([id number])
== END 2023-02-25 15:20 | disposition home or self-care (01) ==
PROVIDERS: PCP Internal Medicine; Visit Provider Nurse Practitioner Family
DX: N28.1 Cyst of kidney, acquired (principal); N20.0 Calculus of kidney; R39.15 Urgency of urination; R35.0 Frequency of micturition
CPT/HCPCS: 99213

== ENCOUNTER → 2023-02-25 13:34 | Outpatient (BNVA) | payer OTHER, SELFPAY | PROVIDERS: PCP Internal Medicine; Visit Provider Nurse Practitioner Family | DX: N20.0 Calculus of kidney (principal); N28.1 Cyst of kidney, acquired; R39.15 Urgency of urination; R35.0 Frequency of micturition | CPT/HCPCS: 51798; 81003; 99212 ==

== ENCOUNTER 2023-03-17 13:16 | Outpatient (REF) | payer OTHER, SELFPAY ==
--- NOTE | ~2023-03-17 | US_ITS ---
EXAMINATION: US RETROPERITONEAL LIMITED (RENAL ONLY) CLINICAL INFORMATION: Urgency of urination. COMPARISON: Ultrasound retroperitoneal limited 07/10/2022 and 08/28/2021. X-ray abdomen KUB 11/04/2018 and 02/18/2018. CT abdomen and pelvis without contrast 11/20/2017. TECHNIQUE: Real-time imaging of the kidneys. FINDINGS: RIGHT KIDNEY: 10.5 x 5.1 x 5.5 cm (SAG x AP x TRV). The kidney is normal in size, contour, and echogenicity. Renal cortical thickness is normal. No renal calculi or hydronephrosis. Previously noted mid renal cyst is not seen on the current study. Simple 1.2 x 0.9 x 0.9 cm lateral lower pole and simple 0.7 x 0.7 x 0.7 cm lateral lower pole cyst are seen. No imaging follow-up is recommended. LEFT KIDNEY: 11.6 x 5.6 x 4.2 cm (SAG x AP x TRV). The kidney is normal in size, contour, and echogenicity. Renal cortical thickness is normal. No calculi or focal parenchymal lesions. No hydronephrosis. Ultrasound of the bladder has been rescheduled because the patient was not prepped for this study today. This study is rescheduled for 03/31/2023. US/US renal BI IMPRESSION: 1. No significant abnormality of the right kidney. 2. Normal appearance of the left kidney.
== END 2023-03-17 13:17 | disposition home or self-care (01) ==
LOC: HO.US 13:16
PROVIDERS: Visit Provider Nurse Practitioner Family
DX: N20.0 Calculus of kidney (principal); R35.0 Frequency of micturition; R39.15 Urgency of urination
CPT/HCPCS: 76775

== ENCOUNTER 2023-03-31 09:56 | Outpatient (REF) | payer OTHER, SELFPAY ==
[2023-03-31 11:23] LABS: MANUAL DIFF FLAG NO
[2023-03-31 11:40] LABS: Basophils Percent Auto 0.5 % (0-2); Eosinophils Absolute Auto 0.1 X10*3/uL (0.0-0.4); Eosinophils Percent Auto 1.6 % (0-4); Hematocrit 40.1 % (37.0-47.0); Hemoglobin 12.3 g/dl (12.0-16.0); Imm Gran Abs Auto 0.04 X10*3/uL (0.00-0.03); Imm Gran Pct Auto 0.5 % (0.0-0.4); Lymphocytes Absolute Auto 3.4 X10*3/uL (1.2-4.9); Lymphocytes Percent Auto 41.1 % (20-40); Mean Corpuscular HGB Conc 30.7 g/dl (31.0-35.0); Mean Corpuscular Hemoglobin 31.1 pg (27.0-33.0); Mean Corpuscular Volume 101.5 fL (80.0-98.0); Mean Platelet Volume 12.4 fL (9.4-12.3); Monocytes Absolute Auto 0.6 X10*3/uL (0.1-1.2); Monocytes Percent Auto 7.2 % (2-11); Neutrophils Absolute Auto 4.1 x10*3/uL (2.0-8.3); Neutrophils Percent Auto 49.1 % (45-73); Platelet Count 198 X10*3/uL (160-400); Red Blood Count 3.95 X10*6/uL (4.20-5.50); Red Cell Distribution Width 13.4 % (11.0-16.0); White Blood Count 8.4 X10*3/uL (4.8-10.8)
[2023-03-31 11:50] LABS: Alanine Aminotransferase 16 U/L (0-31); Albumin Level 4.1 g/dL (3.5-5.0); Alkaline Phosphatase 92 U/L (39-117); Anion Gap 12 (12-20); Aspartate Amino Transferase 16 U/L (5-31); Bilirubin Direct 0.2 mg/dL (0.0-0.5); Bilirubin Total 0.7 mg/dL (0.0-1.0); Blood Urea Nitrogen 14 mg/dL (9-16); Calcium 9.5 mg/dL (8.4-10.2); Carbon Dioxide 29 mmol/L (22-29); Chloride 105 mmol/L (96-108); Cholesterol 161 mg/dL (<200); Estimated Glomerular Filt Rate > 60; Glucose Random 107 mg/dL (60-115); HDL Cholesterol 44 mg/dL (>40); LDL Cholesterol Calculated 84 mg/dL (<100); Potassium 4.1 mmol/L (3.3-5.1); Sodium 142 mmol/L (135-145); Total Protein 8.1 g/dL (6.5-8.0); Triglycerides 166 mg/dL (<150)
[2023-03-31 12:10] LABS: TSH reflex Free T4 2.32 uIU/mL (0.32-4.0)
== END 2023-03-31 09:57 | disposition home or self-care (01) ==
LOC: HO.HHCL 09:56
PROVIDERS: Visit Provider Internal Medicine
DX: E03.9 Hypothyroidism, unspecified (principal); I10 Essential (primary) hypertension
CPT/HCPCS: 36415; 80048; 80061; 80076; 84443; 85025

== ENCOUNTER 2023-03-31 15:18 | Outpatient (REF) | payer OTHER, SELFPAY ==
--- NOTE | ~2023-03-31 | US_ITS ---
EXAMINATION: US PELVIS LIMITED (BLADDER) CLINICAL INFORMATION: Urinary urgency. COMPARISON: Renal ultrasound 03/17/2023 and 07/10/2022. X-ray KUB 11/04/2018 and 02/18/2018. CT abdomen and pelvis 11/20/2017. TECHNIQUE: Real-time imaging of the bladder. FINDINGS: BLADDER: Partially distended. Bilateral ureteral jets are demonstrated. Prevoid bladder volume is 126 mL. Postvoid bladder volume is 2 mL. US/US bladder IMPRESSION: Postvoid bladder volume of 2 mL with visualization of the bilateral ureteral jets.
== END 2023-03-31 15:19 | disposition home or self-care (01) ==
LOC: HO.US 15:18
PROVIDERS: PCP Internal Medicine; Visit Provider Nurse Practitioner Family
DX: R39.15 Urgency of urination (principal); R35.0 Frequency of micturition; N20.0 Calculus of kidney
CPT/HCPCS: 76857

== ENCOUNTER 2023-04-14 12:12 | Outpatient (REF) | payer OTHER, SELFPAY | END 2023-04-14 12:13 | disposition home or self-care (01) | LOC: HO.MAMMO 12:12 | PROVIDERS: PCP Internal Medicine; Visit Provider Internal Medicine | DX: Z13.89 Encounter for screening for other disorder (principal) ==

== ENCOUNTER 2023-05-14 13:24 | Outpatient (REF) | payer OTHER, SELFPAY ==
--- NOTE | ~2023-05-14 | US_ITS ---
EXAMINATION: MM DIAGNOSTIC DIGITAL BREAST TOMOSYNTHESIS, BILATERAL US BREAST LIMITED, RIGHT CLINICAL INFORMATION: 68-year-old female, complaining of right breast pain in the 4:00 and 6:00 locations. Patient also due for bilateral screening. COMPARISON: Mammography: 04/05/2022, 04/04/2021, 11/08/2019, 11/02/2018 TECHNIQUE: Digital breast tomosynthesis is performed in both the craniocaudal and mediolateral oblique views along with computer-aided detection (CAD). Synthesized 2D images are generated from the tomosynthesis. Areas of right breast pain were marked by the technologist, as guided by the patient. FINDINGS: There are scattered areas of fibroglandular density (ACR BI-RADS breast composition Category b). There are bilateral vascular and a few scattered rare secretory calcifications. There is an oval circumscribed small mass in the mid right breast along the nipple line on the MLO projection, stable from prior examinations and presumably a cyst or small fibroadenoma given stability. This is benign, unchanged from 2019. There are no mammographic abnormalities identified in the 6:00 or 4:00 regions of the right breast, near or abutting the markers. No correlation to the regions of breast pain. Otherwise, there are no suspicious masses, suspicious grouped calcifications, or areas of architectural distortion in either breast. The parenchymal pattern is stable from prior exams. ULTRASOUND: CLINICAL INFORMATION: As above. COMPARISON: None TECHNIQUE: Targeted sonographic evaluation right breast was performed using a high frequency linear transducer. Attention was given to the regions of right breast pain 4:00 and 6:00 axes. The right breast lower inner quadrant and lower outer quadrant were scanned. Selected archived documentation. FINDINGS: RIGHT BREAST: There is a mixture of fatty and fibroglandular tissue. No suspicious mass is seen. There is no pathologic acoustic shadowing. No cystic abnormality. No ultrasonographic correlate to the region of breast pain identified. US/US breast RT limited mamm only IMPRESSION: There are no findings suspicious for malignancy in either breast. Regions of right breast pain 4:00 and 6:00 show no ultrasonographic or mammographic correlates. Recommend clinical assessment and management. Otherwise, recommend resuming routine annual screening mammography. OVERALL ASSESSMENT: Mammography: BI-RADS 2 - Benign Findings Ultrasound: BI-RADS 2 - Benign Findings RECOMMENDATION: 1. Patient should be managed based on the clinical impression. 2. Otherwise, routine annual screening mammography. This patient's information was entered into a reminder system with a target due date for their next mammogram.
== END 2023-05-14 13:25 | disposition home or self-care (01) ==
LOC: HO.MAMMO 13:24
PROVIDERS: PCP Internal Medicine; Visit Provider Internal Medicine
DX: N64.4 Mastodynia (principal)
CPT/HCPCS: 76642; 77062; 77066

== ENCOUNTER → 2023-05-14 14:00 | Outpatient (BNV) | payer OTHER, SELFPAY | PROVIDERS: PCP Internal Medicine; Visit Provider Radiology Diagnostic Radiology | DX: R92.1 Mammographic calcification found on diagnostic imaging of breast (principal) | CPT/HCPCS: 76642; 77062; 77066 ==

== ENCOUNTER 2023-08-26 13:36 | Outpatient (AMB) | payer OTHER, SELFPAY ==
--- NOTE | 2023-08-26 14:05 | MHC.OFFVIS ---
Intake Visit Reasons: 6 month f/u w/ US(set) Intake Note: Patient is present for follow up nephrolithiasis and ultrasound results Urology Medications: none Blood Thinner: none Geophysical Drafter Required: Yes Geophysical Drafter Name: LUKAS NIELSEN-CMI Accompanied by: Unknown Allergies aspirin [ASA] Allergy (Severe, Verified 08/26/23 17:16) FACIAL SWELLING AND DIFFICUTLY SWALLOWING, swelling mirabegron [From Myrbetriq] Allergy (Intermediate, Verified 08/26/23 17:16) Headache feathers Allergy (Unknown, Verified 08/26/23 17:16) unknown ibuprofen [From MOTRIN] Allergy (Unknown, Verified 08/26/23 17:16) UNKNOWN Penicillins [PENICILLINS] Allergy (Unknown, Verified 08/26/23 17:16) UNKNOWN hamster Allergy (Unknown, Uncoded 08/26/23 17:16) Unknown Ibuprofen Allergy (Unknown, Uncoded 08/26/23 17:16) hives pcn Allergy (Unknown, Uncoded 08/26/23 17:16) swelling SEAFOOD Allergy (Unknown, Uncoded 08/26/23 17:16) UNKNOWN seafood Allergy (Unknown, Uncoded 08/26/23 17:16) anaphylaxis Medication List - Last Reconciled 08/26/23 by CHELITA Cain-RAFITA atenolol 50 mg PO BEDTIME atorvastatin 40 mg PO DAILY budesonide-formoterol 160-4.5 mcg/actuation 2 puffs PO BID 30 days calcium carbonate-vitamin D3 600 mg-5 mcg (200 unit) 0 tabs PO cetirizine 10 mg PO DAILY cyclobenzaprine 5 mg PO TID PRN ergocalciferol (vitamin D2) 0 mcg PO fluticasone propionate 44 mcg/actuation (Flovent HFA) 2 puffs inhalation BID furosemide 40 mg PO QAM levothyroxine (Synthroid) 50 mcg PO DAILY losartan 50 mg PO DAILY metformin 500 mg PO omeprazole 20 mg PO DAILY polyethylene glycol 3350 (Miralax) 17 grams PO DAILY sennosides (Natural Senna Laxative) 8.6 mg PO BEDTIME tolnaftate 1% (Antifungal (tolnaftate)) 1 spray topical DAILY HPI Comments Details: Chen is a pleasant Greenlandic speaking 68 year old female patient Gopi Ledesma who was accompanied by her daughter at todays office visit. She presents to the office today for a follow up of her nephrolithiasis and going lower urinary tract symptoms. She has a PMH of JAYCE, asthma, renal cyst, hypertension, hyperlipidemia, and PVD. In discussion with the patient today she reports to be doing and feeling well. Retroperitoneal ultrasound results reviewed with the patient today. Bilateral kidneys with no calculi or hydronephrosis noted. Right kidney with previously noted mid renal cyst is not seen on current study. 1.2 cm and 0.7 cm right lateral lower pole cysts are seen. No imaging follow-up is recommended per radiology report. The bladder is partially distended. Bladder jets are demonstrated. Pre void bladder volume is approximately 130 mL. Postvoid bladder volume is approximately 0 mL. In office urinalysis results reviewed with the patient today. When asked patient denies any bothersome urinary issues or concerns. When asked she denies hematuria, dysuria, foul smelling urine, changes to urinary stream, flank pain, fever, and or chills. She otherwise offers no other issues or concerns at this time. [facility]LY [facility] Medical History Renal cyst History of kidney stones Sciatica Chronic low back pain Peripheral vascular disease Obesity Hyperlipidemia Acquired hypothyroidism H/O anaphylactic shock H/O ovarian cancer Renal stones Serrated adenoma of colon Surgical History History of surgery Family History Father Prostate cancer Paternal Aunt Breast cancer Maternal Uncle Diabetes Gangrene Social History Alcohol intake: never Patient Tobacco Use Status: Never used Tobacco Review of Systems Const Reports as per HPI Eyes Reports no additional complaints and Reports decreased night vision ENT Reports no additional complaints Card Reports as per HPI Resp Reports as per HPI GI Reports as per HPI Reports as per HPI Musc Reports no additional complaints Neuro Reports no additional complaints Psych Reports no additional complaints Endo Reports no additional complaints Monty/Lymph Reports no additional complaints Aller/Immun Reports no additional complaints Physical Exam Const General: cooperative, healthy appearing, comfortable, no acute distress, well developed, alert and awake Orientation/consciousness: patient oriented x3 Limitations: no limitations HEENT Head: Yes normal to inspection, Yes normocephalic and Yes atraumatic Ears: hearing grossly normal bilaterally Eyes General: appearance normal, both eyes and all related structures Neck Neck: Yes normal visual inspection and Yes trachea midline Chest Chest palpation & inspection: normal inspection of the chest Resp Effort & Inspection: normal respiratory effort and able to speak in complete sentences Cardio Rate: regular rate GI Inspection: Yes normal to inspection General: Yes no CVA tenderness Back/Spine/Pelvis Back: no CVA tenderness Skin General skin exam: no rashes or lesions noted Neuro General: patient oriented x3 Extrem General: Yes normal to inspection Psych Appearance: grossly normal and well kempt Mental Status: mental status grossly normal Speech and movement: Normal speech and movement present and Clear speech present Affect: normal affect Attitude: cooperative Thought process: Normal thought process present Thought content: Normal thought content present Insight: Fair insight present (Psych) Judgement: Fair judgement present (Psych) Results AMB Urinalysis, Automated UA Leukoctes 0 Madeleine/uL Last Edit by Wikipixel on 08/26/23 14:13 UA Nitrite Negative Last Edit by Wikipixel on 08/26/23 14:13 UA Urobilinogen 0.2 mg/dL Last Edit by Wikipixel on 08/26/23 14:13 UA Protein 0 mg/dL Last Edit by Wikipixel on 08/26/23 14:13 UA pH 7.0 Last Edit by Wikipixel on 08/26/23 14:13 UA Blood 0 Ronald/uL Last Edit by Wikipixel on 08/26/23 14:13 UA Specific [place] 1.010 Last Edit by Wikipixel on 08/26/23 14:13 UA Ketone Negative Last Edit by Wikipixel on 08/26/23 14:13 UA Bilirubin 0 mg/dL Last Edit by Wikipixel on 08/26/23 14:13 UA Glucose 0 mg/dL Last Edit by Wikipixel on 08/26/23 14:13 Results Reviewed Results Reviewed: Laboratory Last Values Urine pH (Auto) 7.0 08/26/23 14:12 Specific [place] (Auto) 1.010 08/26/23 14:12 Urine Protein (Auto) 0 mg/dL 08/26/23 14:12 Glucose (UA)(Auto) 0 mg/dL 08/26/23 14:12 Urine Ketones (Auto) Negative 08/26/23 14:12 Urine Blood (Auto) 0 Ronald/uL 08/26/23 14:12 Urine Nitrite (Auto) Negative 08/26/23 14:12 Urine Bilirubin (Auto) 0 mg/dL 08/26/23 14:12 Urine Urobilinogen (Auto) 0.2 mg/dL 08/26/23 14:12 Leukocyte Esterase (Auto) 0 Madeleine/uL 08/26/23 14:12 Date of Service: 03/17/23 EXAMINATION: US RETROPERITONEAL LIMITED (RENAL ONLY) FINDINGS: RIGHT KIDNEY: 10.5 x 5.1 x 5.5 cm (SAG x AP x TRV). The kidney is normal in size, contour, and echogenicity. Renal cortical thickness is normal. No renal calculi or hydronephrosis. Previously noted mid renal cyst is not seen on the current study. Simple 1.2 x 0.9 x 0.9 cm lateral lower pole and simple 0.7 x 0.7 x 0.7 cm lateral lower pole cyst are seen. No imaging follow-up is recommended. LEFT KIDNEY: 11.6 x 5.6 x 4.2 cm (SAG x AP x TRV). The kidney is normal in size, contour, and echogenicity. Renal cortical thickness is normal. No calculi or focal parenchymal lesions. No hydronephrosis. Ultrasound of the bladder has been rescheduled because the patient was not prepped for this study today. This study is rescheduled for 03/31/2023. IMPRESSION: 1. No significant abnormality of the right kidney. 2. Normal appearance of the left kidney. Date of Service: 03/31/23 EXAMINATION: US PELVIS LIMITED (BLADDER) FINDINGS: BLADDER: Partially distended. Bilateral ureteral jets are demonstrated. Prevoid bladder volume is 126 mL. Postvoid bladder volume is 2 mL. IMPRESSION: Postvoid bladder volume of 2 mL with visualization of the bilateral ureteral jets. Assessment & Plan Assessment & Plan (1) Renal cyst: Code(s): N28.1 - Cyst of kidney, acquired Category: Medical (2) Nephrolithiasis: Code(s): N20.0 - Calculus of kidney Category: Medical Plan In office urinalysis results reviewed with the patient today; as noted above. Recent retroperitoneal ultrasound results reviewed with the patient today; as noted above. Patient currently denies any bothersome urinary issues or concerns. Discussed, educated, and stressed the importance of drinking water daily. Follow-up in 6 months with [facility]; or sooner with any issues, concerns, and or questions. Orders: Orders AMB Urinalysis Automated Today Z13.9 - Encounter for screening, unspecified Patient Instructions: The patient had an opportunity to ask questions regarding the treatment plan. All questions were answered. Physical exam, labs, and imaging were discussed and reviewed in detail. As well as risks, benefits, and discussion of treatment choices. No major barriers to understanding were identified. The patient expressed understanding and agreement with the above treatment plan. The patient was made aware they should contact our office by phone for worsening of their current condition, the appearance of new symptoms, or with any questions or concerns. Compliance is encouraged with any medications and follow up testing that is ordered. It is a privilege to be allowed the opportunity to participate in? your urological care.? Again, if you have any questions or concerns If you have any questions or concerns please do not hesitate to contact me. The office is [phone]. This note is constructed using voice recognition software. While every effort has been made to ensure accuracy stereo equipment salesperson errors may have been included. Yours sincerely, DINA Cain Coding Level of Care Code Est Pt Level 3 (04303) Diagnoses Renal cyst N28.1 Nephrolithiasis N20.0
== END 2023-08-26 14:40 | disposition home or self-care (01) ==
PROVIDERS: PCP Internal Medicine; Visit Provider Nurse Practitioner Family
DX: N28.1 Cyst of kidney, acquired (principal); N20.0 Calculus of kidney; Z13.9 Encounter for screening, unspecified
CPT/HCPCS: 99213

== ENCOUNTER → 2023-08-26 13:36 | Outpatient (BNVA) | payer OTHER, SELFPAY | PROVIDERS: PCP Internal Medicine; Visit Provider Nurse Practitioner Family | DX: N28.1 Cyst of kidney, acquired (principal); N20.0 Calculus of kidney; I10 Essential (primary) hypertension; E78.5 Hyperlipidemia, unspecified | CPT/HCPCS: 81003; 99212 ==

== ENCOUNTER 2023-09-02 14:18 | Outpatient (AMB) | payer OTHER, SELFPAY ==
--- NOTE | 2023-09-02 14:19 | MHC.OFFVIS ---
Vital Signs 09/02/23 14:20 Height 5 ft Weight 205 lb BMI 40.0 BP 112/60 Blood Pressure Location Rt brachial Position Sitting Pulse 63 Pulse Source Doppler Pulse Oximetry (%) 96 Oxygen Delivery Method Room Air Intake Visit Reasons: jayce Junior Administrative Assistant Required: Yes Junior Administrative Assistant Name: Ines Palma RyderGonzales Allergies aspirin [ASA] Allergy (Severe, Verified 08/26/23 17:16) FACIAL SWELLING AND DIFFICUTLY SWALLOWING, swelling mirabegron [From Myrbetriq] Allergy (Intermediate, Verified 08/26/23 17:16) Headache feathers Allergy (Unknown, Verified 08/26/23 17:16) unknown ibuprofen [From MOTRIN] Allergy (Unknown, Verified 08/26/23 17:16) UNKNOWN Penicillins [PENICILLINS] Allergy (Unknown, Verified 08/26/23 17:16) UNKNOWN hamster Allergy (Unknown, Uncoded 08/26/23 17:16) Unknown Ibuprofen Allergy (Unknown, Uncoded 08/26/23 17:16) hives pcn Allergy (Unknown, Uncoded 08/26/23 17:16) swelling SEAFOOD Allergy (Unknown, Uncoded 08/26/23 17:16) UNKNOWN seafood Allergy (Unknown, Uncoded 08/26/23 17:16) anaphylaxis HPI HPI jayce: Details: 68-year-old lady, nonsmoker, with underlying obesity, CAD, PVD, followed for asthma, dyspnea on exertion, and JAYCE on CPAP. Patient states that her asthma symptoms have been well controlled on Symbicort and as needed albuterol MDI. She denies any recent exacerbations. She continues on Lasix 40 mg daily with good control of all lower extremity edema and orthopnea. Patient sleep apnea symptoms are well controlled CPAP therapy. She denies any recent exacerbations. [facility] Medical History Renal cyst History of kidney stones Sciatica Chronic low back pain Peripheral vascular disease Obesity Hyperlipidemia Acquired hypothyroidism H/O anaphylactic shock H/O ovarian cancer Renal stones Serrated adenoma of colon Surgical History History of surgery Family History Father Prostate cancer Paternal Aunt Breast cancer Maternal Uncle Diabetes Gangrene Social History Alcohol intake: never Patient Tobacco Use Status: Never used Tobacco Review of Systems Const Denies daytime sleepiness, Denies excessive sweating, Denies fatigue, Denies fever(s), Denies lethargy, Denies malaise, Denies night sweats, Denies snoring and Denies weight loss Eyes Denies blurry vision and Denies itchy eyes ENT Denies nasal congestion, Denies post nasal drip, Denies sinus pain, Denies sinus pressure and Denies other ( Thrush) Card Denies chest pain, Denies pedal edema, Denies dyspnea, Denies orthopnea and Denies paroxysmal nocturnal dyspnea Resp Denies cough, Denies hemoptysis, Denies excessive phlegm production, Denies dyspnea, Denies snoring and Denies wheezing GI Denies abdominal pain and Denies heartburn Musc Denies myalgias, Denies arthralgias and Denies joint swelling Skin/Breast Denies rash Neuro Denies memory loss and Denies seizure-like activity Psych Denies abnormal sleep pattern, Denies anxiety and Denies memory loss Endo Denies excessive sweating, Denies fatigue and Denies heat intolerance Monty/Lymph Denies easy bruising Aller/Immun Denies itchy eyes, Denies seasonal rhinorrhea and Denies wheezing Physical Exam Vital Signs: Last Vital Signs Pulse 63 09/02/23 14:20 BP 112/60 09/02/23 14:20 Pulse Ox 96 09/02/23 14:20 Oxygen Delivery Method Room Air 09/02/23 14:20 BMI result Body Mass Index 40.0 Const General: no acute distress and alert Nutritional Appearance: obese Orientation/consciousness: Other orientation findings ( oriented) HEENT Head: Yes atraumatic Eyes General: appearance normal, both eyes and all related structures Sclerae: sclerae normal EOM: EOMs intact bilaterally Neck Neck: Yes supple Lymphatic: no lymphadenopathy noted Resp Effort & Inspection: normal respiratory effort and no use of accessory muscles Auscultation: clear to auscultation bilaterally Cardio Rate: regular rate Rhythm: regular rhythm Heart sounds: no gallops, no murmurs and no rubs Skin General skin exam: other ( warm) Extrem General: No clubbing, No cyanosis and No edema Assessment & Plan Assessment & Plan (1) Asthma: Code(s): J45.909 - Unspecified asthma, uncomplicated Category: Medical Plan: Well controlled on current regimen of Symbicort and albuterol MDI. Continue current regimen. (2) JAYCE (obstructive sleep apnea): Code(s): G47.33 - Obstructive sleep apnea (adult) (pediatric) Category: Medical Plan: Well controlled on current CPAP therapy. Continue CPAP therapy. (3) Dyspnea on exertion: Code(s): R06.00 - Dyspnea, unspecified Category: Medical Plan: Orthopnea and lower extremity edema well controlled on current regimen of Lasix 40 mg daily. Continue current regimen. Coding Level of Care Code Est Pt Level 4 (33030) Diagnoses Asthma J45.909 JAYCE (obstructive sleep apnea) G47.33 Dyspnea on exertion R06.00
[2023-09-02 14:20] VITALS: BP 112/60; PULSE 63; O2SAT 96; BMI 40.0
== END 2023-09-02 14:42 | disposition home or self-care (01) ==
PROVIDERS: PCP Internal Medicine; Visit Provider Internal Medicine Pulmonary Disease
DX: J45.909 Unspecified asthma, uncomplicated (principal); G47.33 Obstructive sleep apnea (adult) (pediatric); R06.00 Dyspnea, unspecified
CPT/HCPCS: 99214

== ENCOUNTER → 2023-09-02 14:18 | Outpatient (BNVA) | payer OTHER, SELFPAY | PROVIDERS: PCP Internal Medicine; Visit Provider Internal Medicine Pulmonary Disease | DX: G47.33 Obstructive sleep apnea (adult) (pediatric) (principal); J45.909 Unspecified asthma, uncomplicated; R06.00 Dyspnea, unspecified | CPT/HCPCS: 99212 ==

== ENCOUNTER 2023-09-09 10:53 | Outpatient (AMB) | payer OTHER, SELFPAY ==
--- NOTE | 2023-09-09 10:55 | A.OFFVIS_ITS ---
Vital Signs 09/09/23 10:56 Height 5 ft Weight 205 lb BMI 40.0 BP 131/66 Blood Pressure Location Lt brachial Position Sitting Pulse 65 Intake Visit Reasons: follow up constipation Intake Note: Patient follow up for Constipation. Patient cc: diarrhea, abdominal pain/bloating, some fatigue, denies any other GI issues. Summer Internship Required: Yes Accompanied by: Daughter Allergies aspirin [ASA] Allergy (Severe, Verified 09/09/23 10:55) FACIAL SWELLING AND DIFFICUTLY SWALLOWING, swelling mirabegron [From Myrbetriq] Allergy (Intermediate, Verified 09/09/23 10:55) Headache feathers Allergy (Unknown, Verified 09/09/23 10:55) unknown ibuprofen [From MOTRIN] Allergy (Unknown, Verified 09/09/23 10:55) UNKNOWN Penicillins [PENICILLINS] Allergy (Unknown, Verified 09/09/23 10:55) UNKNOWN hamster Allergy (Unknown, Uncoded 08/26/23 17:16) Unknown Ibuprofen Allergy (Unknown, Uncoded 08/26/23 17:16) hives pcn Allergy (Unknown, Uncoded 08/26/23 17:16) swelling SEAFOOD Allergy (Unknown, Uncoded 08/26/23 17:16) UNKNOWN seafood Allergy (Unknown, Uncoded 08/26/23 17:16) anaphylaxis HPI HPI follow up constipation: Details: LAST VISIT Dysphagia Will start patient on omeprazole. If her symptoms no approved for I will send her for barium swallow. Patient will also be sent for upper endoscopy. She does have acid reflux. Has been treated in the past, currently not on any medication. GERD (gastroesophageal reflux disease) Discussed with patient avoiding dietary triggers and late night snacking. Staying upright for minimal 3 hours after meals discussed with patient. Patient will be started on omeprazole. When patient returns we will discuss her going for upper endoscopy as well Constipation Will start patient on MiraLax and senna. Patient was also encouraged to increase fluid and activity to promote better bowel motility. I will see her in 6 weeks, sooner on as needed basis. Patient is agreeable to this plan and verbalizes understanding of instructions. She was given the opportunity to ask questions and all questions answered ? Thank you for allowing me to participate in her care Plan Medications New polyethylene glycol 3350 (Miralax) 17 grams PO DAILY 510 grams 2RF sennosides (Natural Senna Laxative) 8.6 mg PO BEDTIME 90 tabs 3RF constipation K59.00 omeprazole 20 mg PO DAILY 90 caps 2RF K21.9 TODAY'S VISIT Patient is here today for follow-up. Patient missed her appointment last year. Patient was supposed to follow-up in July of last year. Patient reports that she has been experiencing frequent postprandial abdominal bloating, feeling gassy. Cramping in the left upper and right upper quadrant. Patient reports that she is not moving her bowels. Constipated for couple days then loose stools. Patient states that she only take Senokot occasionally. Patient goes to latter-day every evening at 07:00 o'clock and she is not taking senna. Patient is not taking MiraLax. Patient takes Pepto-Bismol every day before going to latter-day. Patient reports that she ran out of omeprazole is not taking any PPI. Reports reflux, epigastric burning even when drinking water. Patient denies any nausea or vomiting. Reports dyspepsia without dysphagia or odynophagia. Last colonoscopy in 2018 and recommendation is made for 10 year colonoscopy, however after reviewing biopsy patient had serrated adenoma without high-grade dysplasia or carcinoma and should probably go for another colonoscopy. Patient denies melena, hematochezia, unintentional weight loss or ribbon like stools. [facility] Medical History Renal cyst History of kidney stones Sciatica Chronic low back pain Peripheral vascular disease Obesity Hyperlipidemia Acquired hypothyroidism H/O anaphylactic shock H/O ovarian cancer Renal stones Serrated adenoma of colon Surgical History History of surgery Family History Father Prostate cancer Paternal Aunt Breast cancer Maternal Uncle Diabetes Gangrene Social History Alcohol intake: never Patient Tobacco Use Status: Never used Tobacco Review of Systems Const Denies weight gain and Denies weight loss ENT Reports no additional complaints, Denies dysphagia and Denies odynophagia Card Reports no additional complaints Resp Reports no additional complaints GI Reports abdominal pain (LUQ, RUQ), Denies belching, Denies melena, Reports bloating, Reports constipation, Denies dysphagia, Denies excessive flatus, Reports dyspepsia, Reports heartburn, Denies diarrhea, Reports loose stools, Denies nausea, Denies odynophagia and Denies vomiting Reports no additional complaints Musc Reports no additional complaints Neuro Reports no additional complaints Psych Reports no additional complaints Endo Reports no additional complaints Physical Exam Vital Signs: Last Vital Signs Pulse 65 09/09/23 10:56 BP 131/66 09/09/23 10:56 BMI result Body Mass Index 40.0 Const General: healthy appearing and no acute distress Nutritional Appearance: obese Orientation/consciousness: patient oriented x3 Resp Effort & Inspection: normal respiratory effort, able to speak in complete sentences, no tracheal deviation and symmetric chest movement Auscultation: clear to auscultation bilaterally Cardio Rate: regular rate GI Inspection: Yes normal to inspection, Yes distended and Yes obesity Palpation (GI): Soft to palpation, not firm, nontender and No hepatosplenomegaly present Auscultation: Hypoactive bowel sounds present General: Yes no CVA tenderness Back/Spine/Pelvis Back: no CVA tenderness Skin General skin exam: elasticity normal, turgor normal and dry skin Neuro General: patient oriented x3 Psych Appearance: grossly normal Mental Status: mental status grossly normal Judgement: Good judgement present (Psych) Assessment & Plan Assessment & Plan (1) Dysphagia: Code(s): R13.10 - Dysphagia, unspecified Qualifiers: Dysphagia type: pharyngoesophageal phase Qualified Code(s): R13.14 - Dysphagia, pharyngoesophageal phase (2) GERD (gastroesophageal reflux disease): Code(s): K21.9 - Gastro-esophageal reflux disease without esophagitis Qualifiers: Esophagitis presence: esophagitis presence not specified Qualified Code(s): K21.9 - Gastro-esophageal reflux disease without esophagitis (3) Constipation: Code(s): K59.00 - Constipation, unspecified Qualifiers: Constipation type: slow transit constipation Qualified Code(s): K59.01 - Slow transit constipation (4) Postprandial epigastric pain: Code(s): R10.13 - Epigastric pain (5) Postprandial abdominal bloating: Code(s): R14.0 - Abdominal distension (gaseous) (6) Abdominal pain, LUQ (left upper quadrant): Code(s): R10.12 - Left upper quadrant pain Plan Patient was encouraged to take Senokot every day. Take MiraLax as well to help her eliminate her bowels better. Simethicone on as needed basis. Will change PPI to pantoprazole. Discussed with patient avoiding dietary triggers and late night snacking. Staying upright for minimum 3 hours after meals discussed with patient. Patient will return in 6 weeks so we can discuss going for colonoscopy and upper endoscopy. Both patient and her daughter are agreeable to plan of care and verbalizes understanding of instructions. They were given the opportunity to ask questions and all questions answered. Thank you for allowing me to participate in her care Medications: New pantoprazole take one tablet half an hour before breakfast 40 mg PO DAILY 90 tabs 2RF K21.9 - Gastro-esophageal reflux disease without esophagitis simethicone (Gas Relief (simethicone)) 125 mg PO TID-QID PRN 120 caps 2RF abdominal distention Refilled polyethylene glycol 3350 (Miralax) 17 grams PO DAILY 510 grams 2RF sennosides (Natural Senna Laxative) 8.6 mg PO BEDTIME 90 tabs 3RF constipation K59.00 - Constipation, unspecified Discontinued omeprazole Discontinued Reason: Duplicate 20 mg PO DAILY 90 caps 2RF K21.9 - Gastro- esophageal reflux disease without esophagitis Coding Level of Care Code Est Pt Level 4 (87347) Diagnoses Pharyngoesophageal dysphagia R13.14 Dysphagia type: pharyngoesophageal phase Gastroesophageal reflux disease, unspecified whether esophagitis present K21.9 Esophagitis presence: esophagitis presence not specified Slow transit constipation K59.01 Constipation type: slow transit constipation Postprandial epigastric pain R10.13 Postprandial abdominal bloating R14.0 Abdominal pain, LUQ (left upper quadrant) R10.12 Time Spent (min) 35 Comment 20 minutes spent with patient and additional 15 minutes spent reviewing her records
[2023-09-09 10:56] VITALS: BP 131/66; PULSE 65; BMI 40.0
== END 2023-09-09 11:32 | disposition home or self-care (01) ==
PROVIDERS: PCP Internal Medicine; Visit Provider Nurse Practitioner Family
DX: R13.14 Dysphagia, pharyngoesophageal phase (principal); K21.9 Gastro-esophageal reflux disease without esophagitis; K59.01 Slow transit constipation; R10.13 Epigastric pain; R14.0 Abdominal distension (gaseous); R10.12 Left upper quadrant pain
CPT/HCPCS: 99214

== ENCOUNTER → 2023-09-09 10:53 | Outpatient (BNVA) | payer OTHER, SELFPAY | PROVIDERS: PCP Internal Medicine; Visit Provider Nurse Practitioner Family | DX: K59.01 Slow transit constipation (principal); R13.14 Dysphagia, pharyngoesophageal phase; K21.9 Gastro-esophageal reflux disease without esophagitis; R10.13 Epigastric pain; R14.0 Abdominal distension (gaseous); R10.12 Left upper quadrant pain | CPT/HCPCS: 99212 ==

== ENCOUNTER 2023-10-22 11:34 | Outpatient (AMB) | payer OTHER, SELFPAY ==
--- NOTE | 2023-10-22 11:39 | A.OFFVIS_ITS ---
Vital Signs 10/22/23 11:50 Height 5 ft Weight 205 lb 0.478 oz BMI 40.0 BP 140/64 H Blood Pressure Location Rt brachial Position Sitting Pulse 58 Pulse Source Pulse Oximeter Pulse Oximetry (%) 94 Oxygen Delivery Method Room Air Intake Visit Reasons: 6 weeks follow up Intake Note: Chen presents in office today for a scheduled 6 week FUV. CC: Pt was rx'd simethicone, senna, pantoprazole, and miralax at their last visit. Pt reports that, since starting the medication, her sx have been well managed and she denies any complications. Optical Engineering Technician Required: Yes Optical Engineering Technician Name: Mindi [id number] Allergies aspirin [ASA] Allergy (Severe, Verified 10/22/23 11:49) FACIAL SWELLING AND DIFFICUTLY SWALLOWING, swelling mirabegron [From Myrbetriq] Allergy (Intermediate, Verified 10/22/23 11:49) Headache feathers Allergy (Unknown, Verified 10/22/23 11:49) unknown ibuprofen [From MOTRIN] Allergy (Unknown, Verified 10/22/23 11:49) UNKNOWN Penicillins [PENICILLINS] Allergy (Unknown, Verified 10/22/23 11:49) UNKNOWN hamster Allergy (Unknown, Uncoded 08/26/23 17:16) Unknown Ibuprofen Allergy (Unknown, Uncoded 08/26/23 17:16) hives pcn Allergy (Unknown, Uncoded 08/26/23 17:16) swelling SEAFOOD Allergy (Unknown, Uncoded 08/26/23 17:16) UNKNOWN seafood Allergy (Unknown, Uncoded 08/26/23 17:16) anaphylaxis HPI HPI 6 weeks follow up: Details: LAST VISIT Dysphagia GERD (gastroesophageal reflux disease) Constipation Postprandial epigastric pain Postprandial abdominal bloating Abdominal pain, LUQ (left upper quadrant) Plan Patient was encouraged to take Senokot every day. Take MiraLax as well to help her eliminate her bowels better. Simethicone on as needed basis. Will change PPI to pantoprazole. Discussed with patient avoiding dietary triggers and late night snacking. Staying upright for minimum 3 hours after meals discussed with patient. Patient will return in 6 weeks so we can discuss going for colonoscopy and upper endoscopy. Both patient and her daughter are agreeable to plan of care and verbalizes understanding of instructions. They were given the opportunity to ask questions and all questions answered. ? Thank you for allowing me to participate in her care Medications New pantoprazole take one tablet half an hour before breakfast 40 mg PO DAILY 90 tabs 2RF K21.9 simethicone (Gas Relief (simethicone)) 125 mg PO TID-QID PRN 120 caps 2RF abdominal distention Refilled polyethylene glycol 3350 (Miralax) 17 grams PO DAILY 510 grams 2RF sennosides (Natural Senna Laxative) 8.6 mg PO BEDTIME 90 tabs 3RF constipation K59.00 Discontinued omeprazole Discontinued Reason: Duplicate 20 mg PO DAILY 90 caps 2RF K21.9 TODAY'S VISIT Patient is here today for follow-up. Patient reports that she has been feeling well since last visit. States that pantoprazole is working for her much better. Denies any dyspepsia, dysphagia or odynophagia. Denies any acid reflux. Patient also change some of the food that she is eating. Patient is taking MiraLax in the morning and Senokot at bedtime and she reports that she is moving her bowels better now. Patient denies any melena, hematochezia, unintentional weight loss or ribbon like stools. Patient reports to be feeling well and denies any GI concerning symptoms today. [facility] Medical History Renal cyst History of kidney stones Sciatica Chronic low back pain Peripheral vascular disease Obesity Hyperlipidemia Acquired hypothyroidism H/O anaphylactic shock H/O ovarian cancer Renal stones Serrated adenoma of colon Surgical History History of surgery Family History Father Prostate cancer Paternal Aunt Breast cancer Maternal Uncle Diabetes Gangrene Social History Alcohol intake: never Patient Tobacco Use Status: Never used Tobacco Review of Systems Const Denies weight gain and Denies weight loss ENT Reports no additional complaints, Denies dysphagia and Denies odynophagia Card Reports no additional complaints Resp Reports no additional complaints GI Denies abdominal pain, Denies belching, Denies melena, Denies bloating, Denies change in bowel habits, Denies dysphagia, Denies excessive flatus, Denies dyspepsia, Reports heartburn (occasional), Denies diarrhea, Denies loose stools, Denies nausea, Denies odynophagia and Denies vomiting Musc Reports no additional complaints Neuro Reports no additional complaints Psych Reports no additional complaints Endo Reports no additional complaints Physical Exam Vital Signs: Last Vital Signs Pulse 58 10/22/23 11:50 BP 140/64 H 10/22/23 11:50 Pulse Ox 94 10/22/23 11:50 Oxygen Delivery Method Room Air 10/22/23 11:50 BMI result Body Mass Index 40.0 Const General: healthy appearing and no acute distress Nutritional Appearance: obese Orientation/consciousness: patient oriented x3 Resp Effort & Inspection: normal respiratory effort, able to speak in complete sentences, no tracheal deviation and symmetric chest movement Auscultation: clear to auscultation bilaterally Cardio Rate: regular rate GI Inspection: Yes normal to inspection, Yes distended and Yes obesity Palpation (GI): Soft to palpation, not firm, nontender and No hepatosplenomegaly present Auscultation: Hypoactive bowel sounds present General: Yes no CVA tenderness Back/Spine/Pelvis Back: no CVA tenderness Skin General skin exam: elasticity normal, turgor normal and dry skin Neuro General: patient oriented x3 Psych Appearance: grossly normal Mental Status: mental status grossly normal Judgement: Good judgement present (Psych) Assessment & Plan Assessment & Plan (1) Dysphagia: Code(s): R13.10 - Dysphagia, unspecified Qualifiers: Dysphagia type: unspecified Qualified Code(s): R13.10 - Dysphagia, unspecified (2) GERD (gastroesophageal reflux disease): Code(s): K21.9 - Gastro-esophageal reflux disease without esophagitis Qualifiers: Esophagitis presence: esophagitis presence not specified Qualified Code(s): K21.9 - Gastro-esophageal reflux disease without esophagitis (3) Constipation: Code(s): K59.00 - Constipation, unspecified Qualifiers: Constipation type: slow transit constipation Qualified Code(s): K59.01 - Slow transit constipation (4) Postprandial epigastric pain: Code(s): R10.13 - Epigastric pain (5) Postprandial abdominal bloating: Code(s): R14.0 - Abdominal distension (gaseous) (6) Abdominal pain, LUQ (left upper quadrant): Code(s): R10.12 - Left upper quadrant pain Plan Dysphagia and epigastric pain postprandially results. Patient can continue take pantoprazole in the morning. Continue avoiding dietary triggers and late night snacking. Staying upright for minimum 3 hours after meals discussed with patient. Patient reports that her pain in the left upper quadrant has resolved as well, she is moving her bowels better now. Patient will return in 4 months, we will discuss going for colonoscopy and upper endoscopy. Patient will call o ur office if she will have any GI concerning symptoms. She is agreeable to this plan and verbalizes understanding of instructions. She was given the opportunity to ask questions and all questions answered. Thank you for allowing me to participate in her care Coding Level of Care Code Est Pt Level 3 (23578) Diagnoses Dysphagia, unspecified type R13.10 Dysphagia type: unspecified Gastroesophageal reflux disease, unspecified whether esophagitis present K21.9 Esophagitis presence: esophagitis presence not specified Slow transit constipation K59.01 Constipation type: slow transit constipation Postprandial epigastric pain R10.13 Postprandial abdominal bloating R14.0 Abdominal pain, LUQ (left upper quadrant) R10.12 Time Spent (min) 25 Comment 15 minutes spent with patient and additional 10 minutes spent reviewing her records
[2023-10-22 11:50] VITALS: BP 140/64; PULSE 58; O2SAT 94; BMI 40.0
== END 2023-10-22 13:35 | disposition home or self-care (01) ==
PROVIDERS: PCP Internal Medicine; Visit Provider Nurse Practitioner Family
DX: R13.10 Dysphagia, unspecified (principal); K21.9 Gastro-esophageal reflux disease without esophagitis; K59.01 Slow transit constipation; R10.13 Epigastric pain; R14.0 Abdominal distension (gaseous); R10.12 Left upper quadrant pain
CPT/HCPCS: 99213

== ENCOUNTER → 2023-10-22 11:34 | Outpatient (BNVA) | payer OTHER, SELFPAY | PROVIDERS: PCP Internal Medicine; Visit Provider Nurse Practitioner Family | DX: R13.10 Dysphagia, unspecified (principal); R14.0 Abdominal distension (gaseous); R10.12 Left upper quadrant pain | CPT/HCPCS: 99212 ==

== ENCOUNTER 2023-12-21 11:48 | Emergency (ER) | payer OTHER, SELFPAY ==
--- NOTE | ~2023-12-21 | CT_ITS ---
EXAMINATION: CT HEAD W/O IV CONTRAST CT FACIAL BONES WITH IV CONTRAST CLINICAL INFORMATION: History of headache and right-sided facial pain and right jaw pain, status post surgery. COMPARISON: None TECHNIQUE: Head - Contiguous axial imaging of the head was performed from the skull base to the vertex without the administration of intravenous contrast. Facial bones - Volumetric, helical CT acquisition of the facial bones was obtained during intravenous administration of 85 mL Omnipaque 350; in addition to the standard set of axial images, multiplanar reformatted images were provided in the coronal and sagittal imaging planes. This CT examination was performed using dose optimization techniques as appropriate, variously including the following: *Automated exposure control *Adjustment of mA and/or kV according to patient size (this includes techniques or standardized protocols for targeted exams where dose is matched to indication/reason for exam; i.e. extremities or head) *Use of iterative reconstruction technique DLP: 1118 mGy-cm (total) FINDINGS: HEAD: No evidence of intracranial hemorrhage, major vascular territory infarction, focal mass effect or midline shift. Rock to white matter differentiation is preserved. Mild parenchymal volume loss with commensurate prominence of ventricles and sulci. No hydrocephalus or extra-axial fluid collections. The calvarium is intact and the mastoid air cells and middle ear cavities are clear. FACIAL BONES: The globes and orbital gagnon, including lamina papyracea, are intact. There is a slightly odd shape of each globe which could reflect presence of staphylomas in which scleral-uveal coats are chronically stretched. The orbital apex, optic canals, and retrobulbar fat planes are normal. The maxilla and mandible are intact. There is severe joint space loss with subchondral cystic change and osteophyte formation at the right temporomandibular joint. No evidence of active periodontal disease. Nasal bones, pterygoid plates and zygomatic arches are normal. The paranasal sinuses are well-aerated and the ostiomeatal units are patent. No air-fluid levels within the paranasal sinuses. There is a retropharyngeal course of each internal carotid artery. No soft tissue mass or fluid collection within the face or proximal neck. No focal soft tissue edema. Parotid and submandibular glands are unremarkable. A borderline enlarged level 2A lymph node of the right neck is [address] axis dimension. CT/CT facial bones w IV con IMPRESSION: * No intracranial hemorrhage or other acute intracranial pathology. * The horizontal and vertical buttresses of the face are intact. No acute maxillofacial bone injury. * No evidence of sinusitis, soft tissue abscess or soft tissue mass. 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 * Borderline enlarged level 2A lymph node in the right neck is 1 cm short axis dimension.
--- NOTE | ~2023-12-21 | XR_ITS ---
EXAMINATION: XR chest 2V CLINICAL INFORMATION: Shortness of breath COMPARISON: 2021 TECHNIQUE: XR chest 2V, 2 Views Lungs and Kami: Both lungs are clear. Pleura: Normal. Costophrenic angles are sharp. No pneumothorax. Heart: The heart is normal in size. Mediastinum: The mediastinum is within normal limits.. Bones: Skeletal structures included are normal for patient's age. XR/XR chest 2V IMPRESSION: No radiographic evidence of acute cardiopulmonary disease.
--- NOTE | 2023-12-21 11:50 | ED.GENADULT ---
HPI - General Adult General Chief complaint: Dental/Oral Stated complaint: jaw pain Time Seen by Provider: 12/21/23 12:11 Source: patient, family, RN notes reviewed and hospice consultant Mode of arrival: ambulatory Limitations: language barrier History of Present Illness ED Provider: Jodee Hurd PA-C HPI narrative: This is a 68-year-old female, with a history of CAD, PVD hyperlipidemia, and hypothyroidism, who presents emergency department with complaints of right dental pain status post having molar removed 1 month ago. Patient states that approximately 1 month ago she was seen at the dentist with she had x-rays performed of her dentition which required her to use the molds, she states that later on that evening she developed right-sided facial pain. She states that she then had a mole removed. She states that her facial pain has only worsened. She denies any fevers, chills, chest pain, shortness for breath, abdominal pain, nausea, vomiting or diarrhea. No dental pain, no other complaints or concerns at this time. MD complaint: Right-sided facial pain Onset (ago): month(s) Radiation: non-radiation Relieving factors: none Exacerbating factors: none Associated symptoms: denies other symptoms Treatments prior to arrival: none Related Data Home Medications ?Medication ?Instructions ?Recorded ?Confirmed atorvastatin 40 mg tablet 40 mg PO DAILY 09/06/20 09/19/22 cyclobenzaprine 5 mg tablet 5 mg PO TID PRN 09/06/20 09/19/22 levothyroxine 50 mcg tablet 50 mcg PO DAILY 09/06/20 09/19/22 (Synthroid) losartan 50 mg tablet 50 mg PO DAILY 09/06/20 09/19/22 tolnaftate 1 % topical spray 1 spray topical DAILY 09/06/20 09/19/22 (Antifungal (tolnaftate)) atenolol 50 mg tablet 50 mg PO BEDTIME 09/18/21 09/19/22 calcium carbonate 600 mg-vitamin 0 tab PO 09/18/21 09/19/22 D3 5 mcg (200 unit) tablet cetirizine 10 mg tablet 10 mg PO DAILY 09/18/21 09/19/22 ergocalciferol (vitamin D2) 1,250 0 mcg PO 09/18/21 09/19/22 mcg (50,000 unit) capsule metformin 500 mg tablet 500 mg PO 09/18/21 09/19/22 Previous Rx's ?Medication ?Instructions ?Recorded budesonide-formoterol HFA 160 2 puff PO BID 30 days #10.2 grams 08/07/23 mcg-4.5 mcg/actuation aerosol inhaler polyethylene glycol 3350 17 17 g PO DAILY #510 grams 09/09/23 gram/dose oral powder (Miralax) sennosides 8.6 mg tablet (Natural 8.6 mg PO BEDTIME constipation #90 09/09/23 Senna Laxative) tabs simethicone 125 mg capsule (Gas 125 mg PO TID-QID PRN abdominal 09/09/23 Relief (simethicone)) distention #120 caps pantoprazole 40 mg tablet,delayed 40 mg PO DAILY #90 tabs 12/08/23 release furosemide 40 mg tablet 40 mg PO QAM #30 tabs 12/11/23 oxycodone 5 mg tablet 2.5 mg (1/2 x 5 mg) PO Q6H PRN 12/21/23 severe pain (scale score 7-10) #4 tabs prednisone 20 mg tablet 20 mg PO DAILY 4 days #4 tabs 12/21/23 Allergies Allergy/AdvReac Type Severity Reaction Status Date / Time aspirin [ASA] Allergy Severe FACIAL Verified 12/21/23 11:58 SWELLING AND DIFFICUTLY SWALLOWING, swelling mirabegron [From Myrbetriq] Allergy Intermediate Headache Verified 12/21/23 11:58 feathers Allergy Unknown unknown Verified 12/21/23 11:58 ibuprofen [From MOTRIN] Allergy Unknown UNKNOWN Verified 12/21/23 11:58 Penicillins [PENICILLINS] Allergy Unknown UNKNOWN Verified 12/21/23 11:58 hamster Allergy Unknown Unknown Uncoded 08/26/23 17:16 Ibuprofen Allergy Unknown hives Uncoded 08/26/23 17:16 pcn Allergy Unknown swelling Uncoded 08/26/23 17:16 SEAFOOD Allergy Unknown UNKNOWN Uncoded 08/26/23 17:16 seafood Allergy Unknown anaphylaxis Uncoded 08/26/23 17:16 Review of Systems Review of Systems: Yes all other systems are reviewed and are negative Constitutional: Constitutional: Reports as per [facility] Past Medical History Medical History Renal cyst History of kidney stones Sciatica Chronic low back pain Peripheral vascular disease Obesity Hyperlipidemia Acquired hypothyroidism H/O anaphylactic shock H/O ovarian cancer Renal stones Serrated adenoma of colon Surgical History History of surgery Family History Family History Father Prostate cancer Paternal Aunt Breast cancer Maternal Uncle Diabetes Gangrene Social History Social History Unable to assess alcohol history related to: Unknown Alcohol intake: never Patient Tobacco Use Status: Never used Tobacco Smoked in Last 30 Days: No Use of substances other than those prescribed or required for medical reasons: Unknown Advance Directives: Yes Advance Directives Information Provided: Yes Advance Directives on File: No Physical Exam ED Vital Signs: Vital Signs - 24 hr 12/21/23 11:52 12/21/23 18:04 Temperature 98.7 F 97.7 F Pulse Rate 86 71 Respiratory Rate 18 16 Blood Pressure 155/55 H 150/92 H Pulse Oximetry 96 99 Oxygen Delivery Method Room Air Room Air BMI result Body Mass Index 40.1 Const General: cooperative, comfortable and no acute distress Orientation/consciousness: patient oriented x3 Limitations: no limitations HENMT Other: Tenderness palpation along the right TMJ, no edema noted. Dentition in poor repair, no gingival erythema, fluctuance or induration. No evidence of abscess. She is speaking in full sentences under no acute distress. Head: Yes normal to inspection, Yes normocephalic and Yes atraumatic Ears: hearing grossly normal bilaterally and TM's normal bilaterally General nose exam: Normal external nose present Face and sinus: Yes normal facial exam Mouth: Normal oral and palatal mucosa present, oropharynx normal and moist mucous membranes Throat: Yes posterior oropharynx normal Eyes General: appearance normal, both eyes and all related structures Eyelids: Yes eyelids normal Conjunctivae: conjunctivae normal Sclerae: sclerae normal Pupils: Equal, round and reactive pupils present EOM: EOMs intact bilaterally Neck Neck: Yes normal visual inspection, Yes full ROM and Yes no lymphadenopathy Lymphatic: no lymphadenopathy noted Chest Chest palpation & inspection: normal inspection of the chest Resp Effort & Inspection: normal respiratory effort and able to speak in complete sentences Auscultation: clear to auscultation bilaterally, no crackles, no rales, no rhonchi and no wheezes Cardio Rate: regular rate Rhythm: regular rhythm Heart sounds: S1 normal heart sound present and S2 normal heart sound present GI Inspection: Yes normal to inspection Skin General skin exam: no rashes or lesions noted Trauma: no lacerations or abrasions Wounds: no wounds Neuro General: patient oriented x3 and moves all extremities Cranial nerves: Yes CN's II-XII intact bilaterally and Yes Equal, round and reactive pupils present Cognition (Neuro): normal cognition Motor exam (neuro): 5/5 motor strength present throughout Extrem General: Yes normal to inspection Right upper extremity: normal to inspection Left upper extremity: normal to inspection Right lower extremity: normal to inspection Left lower extremity: normal to inspection Course Course Course Narrative: This is a Rapid Medical Exam performed in triage by Tiara Robins PA-C. Full HPI, ROS and PE to be performed by primary ED provider. 68 year-old F w/ PMHx asthma, JAYCE, nephrolithiasis, presenting to the ED c/o R sided facial/dental pain s/p molar removal 1 mos ago. States they are planning another procedure. Also reports SOB & dysuria. PE: diaphoretic, +r sided facial ttp & mild swelling. poor dentition. uvula midline Plan: EKG, labs, CXR, UA Reevaluation(s) Reevaluation #1: Workup returns, labs within normal limits, CT facial bones revealing severe osteoarthritis of the right TMJ, as well as borderline enlarged level 2 a lymph node in the right neck. I discussed these findings with patient, electronics processing supervisor at bedside as well as and daughter. They will follow-up with her PCP tomorrow. Patient reports that her pain is severe therefore was given oral oxycodone and prednisone. Given strict return precautions. She understands and agrees with plan. Patient stable for discharge. Medications Administered Discontinued Medications Generic Name Dose Route Start Last Admin Trade Name Freq PRN Reason Stop Dose Admin Iohexol 85 ml 12/21/23 14:29 12/21/23 14:30 Iohexol 350 Mg/Ml 100 Ml Infus..Btl IV 12/21/23 14:30 85 ml ONCE ONE Administration Oxycodone HCl 2.5 mg 12/21/23 17:45 12/21/23 17:53 Oxycodone Hcl Immed Release 5 Mg Tablet PO 12/21/23 17:46 2.5 mg ONCE ONE Administration Prednisone 20 mg 12/21/23 17:45 12/21/23 17:53 Prednisone 20 Mg Tablet PO 12/21/23 17:46 20 mg ONCE ONE Administration Medical Decision Making Medical Decision Making [facility] Narrative: This is a 24-hpeo-mia-female who presents emergency department with complaints of right-sided facial pain x1 month. On arrival, vital signs within normal limits. She has exquisite tenderness overlying her right TMJ, she is able to open and close her jaw however reporting this is painful. She has been taking Tylenol for her symptoms which has provided her without any relief. Given recent surgery, concern for infection. She has no obvious overlying erythema, warmth, or edema to her face, or within the oral cavity. Other differentials considered including ACS. Labs, EKG, face CT, head CT, and chest x-ray ordered, EKG also ordered Differential Diagnosis Differential Diagnoses: The differential diagnosis associated with the presentation includes TMJ, abscess, dental decay, dental fracture Lab Data [facility] Lab Attestation statement: I reviewed the patient's lab results. No leukocytosis, stable H&H, troponin less than 2.7, BNP 46. 12/21/23 12:35 12/21/23 12:35 Labs: Lab Results 12/21/23 Range/Units 12:35 WBC 10.7 (4.8-10.8) X10*3/uL RBC 3.83 L (4.20-5.50) X10*6/uL Hgb 12.3 (12.0-16.0) g/dl Hct 38.2 (37.0-47.0) % MCV 99.7 H (80.0-98.0) fL MCH 32.1 (27.0-33.0) pg MCHC 32.2 (31.0-35.0) g/dl RDW 13.4 (11.0-16.0) % Plt Count 208 (160-400) X10*3/uL MPV 12.0 (9.4-12.3) fL Immature Gran % (Auto) 0.4 (0.0-0.4) % Neut % (Auto) 66.4 (45-73) % Lymph % (Auto) 25.2 (20-40) % [place] % (Auto) 7.2 (2-11) % Eos % (Auto) 0.5 (0-4) % Baso % (Auto) 0.3 (0-2) % Lymph # (Auto) 2.7 (1.2-4.9) X10*3/uL [place] # (Auto) 0.8 (0.1-1.2) X10*3/uL Eos # (Auto) 0.1 (0.0-0.4) X10*3/uL Baso # (Auto) 0.0 (0.0-0.2) X10*3/uL Abs Immat Gran (auto) 0.04 H (0.00-0.03) X10*3/uL Absolute Neuts (auto) 7.1 (2.0-8.3) x10*3/uL Absolute Nucleated RBC 0.000 (0.0-0.012) X10*3/uL Nucleated RBC % (auto) 0.0 (0.0-0.2) /100WBC Sodium 142 (135-145) mmol/L Potassium 4.0 (3.3-5.1) mmol/L Chloride 105 (96-108) mmol/L Carbon Dioxide 26 (22-29) mmol/L Anion Gap 15 (12-20) BUN 10 (9-16) mg/dL Creatinine 0.83 (0.5-1.4) mg/dL Estim Creat Clear Calc 64.2 Estimated GFR > 60 Random Glucose 116 H (60-115) mg/dL Calcium 9.7 (8.4-10.2) mg/dL Magnesium 2.0 (1.6-2.6) mg/dL Total Bilirubin 1.1 H (0.0-1.0) mg/dL Direct Bilirubin 0.4 (0.0-0.5) mg/dL AST 16 (5-31) U/L ALT 20 (0-31) U/L Alkaline Phosphatase 86 (39-117) U/L Troponin I High Sens < 2.7 (<3.5-17.0) ng/L B-Natriuretic Peptide 46 (<100) pg/mL Total Protein 7.9 (6.5-8.0) g/dL Albumin 4.2 (3.5-5.0) g/dL Urine Color Yellow Urine Appearance Clear Urine pH 7.0 (5.0-9.0) Ur Specific [place] <= 1.005 (1.005-1.025) Urine Protein Negative (Neg-Trace) mg/dL Urine Glucose (UA) Negative (Negative) mg/dL Urine Ketones Negative (Negative) mg/dL Urine Blood Negative (Negative) Urine Nitrite Negative (Negative) Ur Leukocyte Esterase Negative (Negative) Independent Interpretation I performed an independent interpretation of an: EKG Interpretation: EKG NSR at a ventricular rate of 79 beats per minute, SC interval 120, QT QTC 360/for 12, no ST elevation or depression. Similar-appearing EKG from September 10, 2018 Radiology Impression Discussion of test interpretation with radiology: I have reviewed the radiologist's reading. Radiologist Impression: CT/CT facial bones w IV con IMPRESSION: * No intracranial hemorrhage or other acute intracranial pathology. * The horizontal and vertical buttresses of the face are intact. No acute maxillofacial bone injury. * No evidence of sinusitis, soft tissue abscess or soft tissue mass. 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 * Borderline enlarged level 2A lymph node in the right neck is 1 cm short axis dimension. Dictated By: Kofi Rosado MD XR/XR chest 2V IMPRESSION: No radiographic evidence of acute cardiopulmonary disease. Dictated By: Vivienne Loredo MD Independent Historian Clinical information obtained from an independent historian. History obtained from or confirmed by: Spouse Discharge Plan Discharge Clinical Impression: Osteoarthritis of right temporomandibular joint Patient Disposition: Home, Self-Care Instructions: Osteoarthritis (ED) Additional Instructions: You were seen in the emergency department due to right-sided jaw pain. Your workup today was reassuring. You have severe osteoarthritis of the right TMJ. Please continue taking Tylenol as needed for pain. I also started you on prednisone 20 mg for the next 5 days, start this tomorrow as this may help decrease inflammation. You may take oxycodone only needed for severe pain only. We gave you a dose in the department today. Any new or worsening symptoms occur including but not limited to fevers, chills, severe chest pain, shortness breath, severe headache, please return for re-evaluation. Prescriptions: New prednisone 20 mg tablet 20 mg PO DAILY 4 Days Qty: 4 0RF oxycodone 5 mg tablet 2.5 mg PO Q6H PRN (Reason: severe pain (scale score 7-10)) Qty: 4 0RF Rx Instructions: Partial Fill upon patient request. No Action budesonide-formoterol 160-4.5 mcg/actuation HFA aerosol inhaler 2 puff PO BID 30 Days Qty: 10.2 6RF pantoprazole 40 mg tablet,delayed release (DR/EC) 40 mg PO DAILY Qty: 90 2RF Rx Instructions: take one tablet half an hour before breakfast furosemide 40 mg tablet 40 mg PO QAM Qty: 30 6RF atorvastatin 40 mg tablet 40 mg PO DAILY Antifungal (tolnaftate) 1 % aerosol,spray 1 spray topical DAILY cyclobenzaprine 5 mg tablet 5 mg PO TID PRN losartan 50 mg tablet 50 mg PO DAILY levothyroxine [Synthroid] 50 mcg tablet 50 mcg PO DAILY ergocalciferol (vitamin D2) 1,250 mcg (50,000 unit) capsule 0 mcg PO atenolol 50 mg tablet 50 mg PO BEDTIME cetirizine 10 mg tablet 10 mg PO DAILY metformin 500 mg tablet 500 mg PO calcium carbonate-vitamin D3 600 mg-5 mcg (200 unit) tablet 0 tab PO polyethylene glycol 3350 [Miralax] 17 gram/dose powder 17 g PO DAILY Qty: 510 2RF sennosides [Natural Senna Laxative] 8.6 mg tablet 8.6 mg PO BEDTIME Qty: 90 3RF simethicone [Gas Relief (simethicone)] 125 mg capsule 125 mg PO TID-QID PRN (Reason: abdominal distention) Qty: 120 2RF Interventions: ED Discharge Assessment Last Done: 12/21/23 18:04 Discharge Date/Time: 12/21/23 18:05 Print Language: Kinyarwanda
[2023-12-21 11:52] VITALS: BP 155/55; PULSE 86; RESP 18; TEMP 37.1; O2SAT 96; BMI 40.1
--- NOTE | 2023-12-21 11:56 | ECG_ITS ---
Test Reason : SOB Blood Pressure : / mmHG Vent. Rate : 079 BPM Atrial Rate : 079 BPM P-R Int : 120 ms QRS Dur : 082 ms QT Int : 360 ms P-R-T Axes : -03 -17 037 degrees QTc Int : 412 ms Normal sinus rhythm Nonspecific ST abnormality Abnormal ECG When compared with ECG of 10-SEP-2018 09:19, No significant change was found Referred By: Tiara Robins Electronically Signed By:GEGE NICHOLSON
[2023-12-21 12:40] LABS: MANUAL DIFF FLAG NO
[2023-12-21 12:43] LABS: Basophils Percent Auto 0.3 % (0-2); Eosinophils Absolute Auto 0.1 X10*3/uL (0.0-0.4); Eosinophils Percent Auto 0.5 % (0-4); Hematocrit 38.2 % (37.0-47.0); Hemoglobin 12.3 g/dl (12.0-16.0); Imm Gran Abs Auto 0.04 X10*3/uL (0.00-0.03); Imm Gran Pct Auto 0.4 % (0.0-0.4); Lymphocytes Absolute Auto 2.7 X10*3/uL (1.2-4.9); Lymphocytes Percent Auto 25.2 % (20-40); Mean Corpuscular HGB Conc 32.2 g/dl (31.0-35.0); Mean Corpuscular Hemoglobin 32.1 pg (27.0-33.0); Mean Corpuscular Volume 99.7 fL (80.0-98.0); Monocytes Absolute Auto 0.8 X10*3/uL (0.1-1.2); Monocytes Percent Auto 7.2 % (2-11); Neutrophils Absolute Auto 7.1 x10*3/uL (2.0-8.3); Neutrophils Percent Auto 66.4 % (45-73); Platelet Count 208 X10*3/uL (160-400); Red Blood Count 3.83 X10*6/uL (4.20-5.50); Red Cell Distribution Width 13.4 % (11.0-16.0); White Blood Count 10.7 X10*3/uL (4.8-10.8)
[2023-12-21 12:50] LABS: Appearance Urine Clear; Color Urine Yellow; Glucose Urine UA Negative (Negative); Leukocyte Esterase Urine Negative (Negative); Nitrite Urine Negative (Negative); Specific Gravity - Urine <= 1.005 (1.005-1.025); Urine Blood Negative (Negative); Urine Ketones Negative (Negative); Urine Protein Negative (Neg-Trace)
[2023-12-21 12:58] LABS: Alanine Aminotransferase 20 U/L (0-31); Albumin Level 4.2 g/dL (3.5-5.0); Alkaline Phosphatase 86 U/L (39-117); Anion Gap 15 (12-20); Aspartate Amino Transferase 16 U/L (5-31); Bilirubin Direct 0.4 mg/dL (0.0-0.5); Bilirubin Total 1.1 mg/dL (0.0-1.0); Blood Urea Nitrogen 10 mg/dL (9-16); Calcium 9.7 mg/dL (8.4-10.2); Carbon Dioxide 26 mmol/L (22-29); Chloride 105 mmol/L (96-108); Creatinine Clr Calc Pharmacy 64.2; Estimated Glomerular Filt Rate > 60; Glucose Random 116 mg/dL (60-115); Sodium 142 mmol/L (135-145); Total Protein 7.9 g/dL (6.5-8.0)
[2023-12-21 13:01] LABS: B Type Natriuretic Peptide 46 pg/mL (<100)
[2023-12-21 13:06] LABS: Troponin-I High Sensitivity < 2.7 ng/L (<3.5-17.0)
[2023-12-21] MEDS: iohexoL 350 MG/ML 100 ML INFUS..BTL 85 ML IV (14:30)
[2023-12-21] MEDS: predniSONE 20 MG TABLET PO (17:53)
[2023-12-21] MEDS: oxyCODONE HCl Immed Release 5 MG TABLET 2.5 MG PO (17:53)
[2023-12-21 18:04] VITALS: BP 150/92; PULSE 71; RESP 16; TEMP 36.5; O2SAT 99
== END 2023-12-21 18:05 | disposition home or self-care (01) ==
PROVIDERS: Physician Assistant; Emergency Provider Emergency Medicine; PCP Internal Medicine
DX: R68.84 Jaw pain (principal); R51.9 Headache, unspecified; R06.02 Shortness of breath; R94.31 Abnormal electrocardiogram [ECG] [EKG]; I25.10 Atherosclerotic heart disease of native coronary artery without angina pectoris; Z79.899 Other long term (current) drug therapy
CPT/HCPCS: 36415; 70450; 70487; 71046; 80048; 80076; 81003; 83735; 83880; 84484; 85025; 93005; 99284; Q9967

== ENCOUNTER 2024-02-20 12:05 | Outpatient (AMB) | payer OTHER, SELFPAY ==
[2024-02-20 12:11] VITALS: BP 120/56; PULSE 68; O2SAT 93; BMI 40.6
--- NOTE | 2024-02-20 12:11 | MHC.OFFVIS ---
Vital Signs 02/20/24 12:11 Height 5 ft Weight 208 lb 1.862 oz BMI 40.6 BP 120/56 L Blood Pressure Location Lt brachial Position Sitting Pulse 68 Pulse Source Pulse Oximeter Pulse Oximetry (%) 93 Oxygen Delivery Method Room Air Intake Visit Reasons: GERD and Constipation Intake Note: Relevant Flags or Indicators ? Requires Child Care Education Coordinator? Tangela Siddiqui presents in office today for a scheduled ~2 month FUV. CC; Since last visit; labs ordered ? recent ED visit. Rx ordered ? no. Diagnostics/images ordered ? recent ED visit. Relevant GI Sx as reported per pt? Reflux ?Painful Swallowing ? Fecal abnormalities o?? Discolored -- Pt states that it has been very dark lately. o?? Constipation Pt also reporting R flank / back pain -- chronic sx. ? Hx of any recent surgeries? None Child Care Education Coordinator Required: Yes Child Care Education Coordinator Services: Child Care Education Coordinator Present Child Care Education Coordinator Name: [facility] batter [facility] Accompanied by: Family/Other Allergies aspirin [ASA] Allergy (Severe, Verified 02/20/24 12:12) FACIAL SWELLING AND DIFFICUTLY SWALLOWING, swelling mirabegron [From Myrbetriq] Allergy (Intermediate, Verified 02/20/24 12:12) Headache feathers Allergy (Unknown, Verified 02/20/24 12:12) unknown ibuprofen [From MOTRIN] Allergy (Unknown, Verified 02/20/24 12:12) UNKNOWN Penicillins [PENICILLINS] Allergy (Unknown, Verified 02/20/24 12:12) UNKNOWN hamster Allergy (Unknown, Uncoded 08/26/23 17:16) Unknown Ibuprofen Allergy (Unknown, Uncoded 08/26/23 17:16) hives pcn Allergy (Unknown, Uncoded 08/26/23 17:16) swelling SEAFOOD Allergy (Unknown, Uncoded 08/26/23 17:16) UNKNOWN seafood Allergy (Unknown, Uncoded 08/26/23 17:16) anaphylaxis HPI HPI GERD and Constipation: Details: LAST VISIT: Dysphagia GERD (gastroesophageal reflux disease) Constipation Postprandial epigastric pain Postprandial abdominal bloating Abdominal pain, LUQ (left upper quadrant) Plan Dysphagia and epigastric pain postprandially results. Patient can continue take pantoprazole in the morning. Continue avoiding dietary triggers and late night snacking. Staying upright for minimum 3 hours after meals discussed with patient. Patient reports that her pain in the left upper quadrant has resolved as well, she is moving her bowels better now. Patient will return in 4 months, we will discuss going for colonoscopy and upper endoscopy. Patient will call our office if she will have any GI concerning symptoms. She is agreeable to this plan and verbalizes understanding of instructions. She was given the opportunity to ask questions and all questions answered. TODAY'S VISIT Patient is here today for follow-up. Patient reports that she continues to have trouble swallowing different type of food. Sometimes feels like the food is sticking specially rice or bread. Patient is taking pantoprazole in the morning and for the most part states that her acid reflux is suppressed. Patient continues to have constipation. Take Senokot in the evening, however she is not having bowel movements daily. Bowel movements every 2-3 days and does not feel like she empties completely. Patient does admit occasional postprandial loose stool. Denies melena, hematochezia, unintentional weight loss or ribbon like stools. Patient is planning to go to [place] for [place] till middle of May. Patient reports occasional abdominal cramping specially if no bowel movements. Cramping usually in the middle of her abdomen and upper abdomen above the umbilicus. [facility] Medical History Renal cyst History of kidney stones Sciatica Chronic low back pain Peripheral vascular disease Obesity Hyperlipidemia Acquired hypothyroidism H/O anaphylactic shock H/O ovarian cancer Renal stones Serrated adenoma of colon Surgical History History of surgery Family History Father Prostate cancer Paternal Aunt Breast cancer Maternal Uncle Diabetes Gangrene Social History Unable to assess alcohol history related to: Unknown Alcohol intake: never Patient Tobacco Use Status: Never used Tobacco Review of Systems Const Denies weight gain and Denies weight loss ENT Reports no additional complaints, Reports dysphagia and Denies odynophagia Card Reports no additional complaints Resp Reports no additional complaints GI Denies abdominal pain, Denies belching, Denies melena, Denies bloating, Denies change in bowel habits, Reports constipation, Reports dysphagia, Denies excessive flatus, Denies dyspepsia, Reports heartburn, Denies diarrhea, Denies loose stools, Denies nausea, Denies odynophagia and Denies vomiting Reports no additional complaints Musc Reports no additional complaints Neuro Reports no additional complaints Psych Reports no additional complaints Endo Reports no additional complaints Physical Exam Vital Signs: Last Vital Signs Pulse 68 02/20/24 12:11 BP 120/56 L 02/20/24 12:11 Pulse Ox 93 02/20/24 12:11 Oxygen Delivery Method Room Air 02/20/24 12:11 BMI result Body Mass Index 40.6 Const General: healthy appearing and no acute distress Nutritional Appearance: obese Orientation/consciousness: patient oriented x3 Resp Effort & Inspection: normal respiratory effort, able to speak in complete sentences, no tracheal deviation and symmetric chest movement Auscultation: clear to auscultation bilaterally Cardio Rate: regular rate GI Inspection: Yes normal to inspection, Yes distended and Yes obesity Palpation (GI): Soft to palpation, not firm, nontender and No hepatosplenomegaly present Auscultation: Hypoactive bowel sounds present General: Yes no CVA tenderness Back/Spine/Pelvis Back: no CVA tenderness Skin General skin exam: elasticity normal, turgor normal and dry skin Neuro General: patient oriented x3 Psych Appearance: grossly normal Mental Status: mental status grossly normal Judgement: Good judgement present (Psych) Assessment & Plan Assessment & Plan (1) Dysphagia: Code(s): R13.10 - Dysphagia, unspecified Qualifiers: Dysphagia type: pharyngoesophageal phase Qualified Code(s): R13.14 - Dysphagia, pharyngoesophageal phase (2) GERD (gastroesophageal reflux disease): Code(s): K21.9 - Gastro-esophageal reflux disease without esophagitis Qualifiers: Esophagitis presence: esophagitis presence not specified Qualified Code(s): K21.9 - Gastro-esophageal reflux disease without esophagitis (3) Constipation: Code(s): K59.00 - Constipation, unspecified Qualifiers: Constipation type: slow transit constipation Qualified Code(s): K59.01 - Slow transit constipation (4) Postprandial epigastric pain: Code(s): R10.13 - Epigastric pain (5) Postprandial abdominal bloating: Code(s): R14.0 - Abdominal distension (gaseous) (6) Abdominal pain, LUQ (left upper quadrant): Code(s): R10.12 - Left upper quadrant pain (7) Family history of colon cancer: Code(s): Z80.0 - Family history of malignant neoplasm of digestive organs Plan Continues to have mid, upper abdominal pain and left upper abdominal pain. Exam is negative, abdomen is soft, normal bowel sounds. Will start patient on Dulcolax. Increase fluid intake and activity to promote better bowel motility. Continue taking pantoprazole daily. Patient will call our office before she goes to [place] if she will continue to have symptoms we might change her PPI to Nexium. I will see her in May when she returns. Message sent to surgical schedulers to book upper endoscopy and colonoscopy for patient. We will discuss prep and what to expect before during and after procedure next visit. Patient was instructed to avoid dietary triggers and late night snacking. Eating smaller meals and more often. She is agreeable to current plan of care and verbalizes understanding of instructions. She was given the opportunity to ask questions and all questions answered. Thank you for allowing me to participate in her care Medications: New bisacodyl (Dulcolax (bisacodyl)) 10 mg (2 x 5 mg) PO BEDTIME 180 tabs 4RF Refilled pantoprazole take one tablet half an hour before breakfast 40 mg PO DAILY 90 tabs 2RF K21.9 - Gastro-esophageal reflux disease without esophagitis Discontinued sennosides (Natural Senna Laxative) Discontinued Reason: Doctor's Order 8.6 mg PO BEDTIME 90 tabs 3RF constipation K59.00 - Constipation, unspecified Coding Level of Care Code Est Pt Level 3 (93752) Diagnoses Pharyngoesophageal dysphagia R13.14 Dysphagia type: pharyngoesophageal phase Gastroesophageal reflux disease, unspecified whether esophagitis present K21.9 Esophagitis presence: esophagitis presence not specified Slow transit constipation K59.01 Constipation type: slow transit constipation Postprandial epigastric pain R10.13 Postprandial abdominal bloating R14.0 Abdominal pain, LUQ (left upper quadrant) R10.12 Family history of colon cancer Z80.0 Time Spent (min) 30 Comment 20 minutes spent with patient and additional 10 minutes spent reviewing her records
== END 2024-02-20 12:46 | disposition home or self-care (01) ==
PROVIDERS: PCP Internal Medicine; Visit Provider Nurse Practitioner Family
DX: R13.14 Dysphagia, pharyngoesophageal phase (principal); K21.9 Gastro-esophageal reflux disease without esophagitis; K59.01 Slow transit constipation; R10.13 Epigastric pain; R14.0 Abdominal distension (gaseous); R10.12 Left upper quadrant pain; Z80.0 Family history of malignant neoplasm of digestive organs
CPT/HCPCS: 99213

== ENCOUNTER → 2024-02-20 12:05 | Outpatient (BNVA) | payer OTHER, SELFPAY | PROVIDERS: PCP Internal Medicine; Visit Provider Nurse Practitioner Family | DX: R13.14 Dysphagia, pharyngoesophageal phase (principal); K21.9 Gastro-esophageal reflux disease without esophagitis; K59.01 Slow transit constipation; R10.13 Epigastric pain; R10.12 Left upper quadrant pain; R14.0 Abdominal distension (gaseous); Z80.0 Family history of malignant neoplasm of digestive organs | CPT/HCPCS: 99212 ==

== ENCOUNTER 2024-02-24 13:21 | Outpatient (AMB) | payer OTHER, SELFPAY ==
--- NOTE | 2024-02-24 13:32 | A.OFFVIS_ITS ---
Intake Visit Reasons: 6m/PVR Intake Note: Patient presents today for follow up on: urgency and frequency Urology Medications: none Blood Thinner: none PVR:0ml's Flower Arranger Required: Yes Flower Arranger Name: EMILY MIGUELMAYKEL Accompanied by: Unknown Allergies aspirin [ASA] Allergy (Severe, Verified 02/24/24 20:29) FACIAL SWELLING AND DIFFICUTLY SWALLOWING, swelling mirabegron [From Myrbetriq] Allergy (Intermediate, Verified 02/24/24 20:29) Headache feathers Allergy (Unknown, Verified 02/24/24 20:29) unknown ibuprofen [From MOTRIN] Allergy (Unknown, Verified 02/24/24 20:29) UNKNOWN Penicillins [PENICILLINS] Allergy (Unknown, Verified 02/24/24 20:29) UNKNOWN hamster Allergy (Unknown, Uncoded 02/24/24 20:29) Unknown Ibuprofen Allergy (Unknown, Uncoded 02/24/24 20:29) hives pcn Allergy (Unknown, Uncoded 02/24/24 20:29) swelling SEAFOOD Allergy (Unknown, Uncoded 02/24/24 20:29) UNKNOWN seafood Allergy (Unknown, Uncoded 02/24/24 20:29) anaphylaxis Medication List - Last Reconciled 02/24/24 by CHELITA Cain-RAFITA atenolol 50 mg PO BEDTIME atorvastatin 40 mg PO DAILY bisacodyl (Dulcolax (bisacodyl)) 10 mg (2 x 5 mg) PO BEDTIME budesonide-formoterol 160-4.5 mcg/actuation 2 puffs PO BID 30 days calcium carbonate-vitamin D3 600 mg-5 mcg (200 unit) 0 tabs PO cetirizine 10 mg PO DAILY cyclobenzaprine 5 mg PO TID PRN ergocalciferol (vitamin D2) 0 mcg PO furosemide 40 mg PO QAM levothyroxine (Synthroid) 50 mcg PO DAILY losartan 50 mg PO DAILY metformin 500 mg PO pantoprazole 40 mg PO DAILY polyethylene glycol 3350 (Miralax) 17 grams PO DAILY simethicone (Gas Relief (simethicone)) 125 mg PO TID-QID PRN tolnaftate 1% (Antifungal (tolnaftate)) 1 spray topical DAILY HPI Comments Details: Chen is a pleasant Bulgarian speaking 68 year old female patient Gopi Ledesma who was accompanied by her significant other at [facility] office. She has a PMH of JAYCE, asthma, renal cyst, hypertension, hyperlipidemia, and PVD. She presents to the office today for follow-up of her nephrolithiasis and ongoing lower urinary tract symptoms. In discussion with the patient today she reports having had no bothersome urinary issues or concerns since her last office visit here 6 months ago. We discussed obtaining more recent renal imaging as patient with a history of nephrolithiasis. In office urinalysis results reviewed with the patient today. When asked patient denies any bothersome urinary issues or concerns. When asked she denies hematuria, dysuria, foul smelling urine, changes to urinary stream, flank pain, fever, and or chills. She otherwise offers no other issues or concerns at this time. [facility] Medical History Renal cyst History of kidney stones Sciatica Chronic low back pain Peripheral vascular disease Obesity Hyperlipidemia Acquired hypothyroidism H/O anaphylactic shock H/O ovarian cancer Renal stones Serrated adenoma of colon Surgical History History of surgery Family History Father Prostate cancer Paternal Aunt Breast cancer Maternal Uncle Diabetes Gangrene Social History Unable to assess alcohol history related to: Unknown Alcohol intake: never Patient Tobacco Use Status: Never used Tobacco Review of Systems Const Reports as per HPI Eyes Reports no additional complaints and Reports decreased night vision ENT Reports no additional complaints Card Reports as per HPI Resp Reports as per HPI GI Reports as per HPI Reports as per HPI Musc Reports no additional complaints Neuro Reports no additional complaints Psych Reports no additional complaints Endo Reports no additional complaints Monty/Lymph Reports no additional complaints Aller/Immun Reports no additional complaints Physical Exam Const General: cooperative, healthy appearing, comfortable, no acute distress, well developed, alert and awake Orientation/consciousness: patient oriented x3 Limitations: no limitations HEENT Head: Yes normal to inspection, Yes normocephalic and Yes atraumatic Ears: hearing grossly normal bilaterally Eyes General: appearance normal, both eyes and all related structures Neck Neck: Yes normal visual inspection and Yes trachea midline Chest Chest palpation & inspection: normal inspection of the chest Resp Effort & Inspection: normal respiratory effort and able to speak in complete sentences Cardio Rate: regular rate GI Inspection: Yes normal to inspection General: Yes no CVA tenderness Back/Spine/Pelvis Back: no CVA tenderness Skin General skin exam: no rashes or lesions noted Neuro General: patient oriented x3 Extrem General: Yes normal to inspection Psych Appearance: grossly normal and well kempt Mental Status: mental status grossly normal Speech and movement: Normal speech and movement present and Clear speech present Affect: normal affect Attitude: cooperative Thought process: Normal thought process present Thought content: Normal thought content present Insight: Fair insight present (Psych) Judgement: Fair judgement present (Psych) Office Procedures Post Void Residual Post Residual Void Post Void Residual (PVR): 0 [id number]-[id number] Void Residual by ultrasound Results AMB Urinalysis, Automated UA Leukoctes 0 Madeleine/uL Last Edit by Animeeple on 02/24/24 14:08 UA Nitrite Last Edit by Animeeple on 02/24/24 14:08 UA Urobilinogen 0.2 mg/dL Last Edit by Animeeple on 02/24/24 14:08 UA Protein 0 mg/dL Last Edit by Animeeple on 02/24/24 14:08 UA pH 8.0 Last Edit by Animeeple on 02/24/24 14:08 UA Blood 0 Ronald/uL Last Edit by Animeeple on 02/24/24 14:08 UA Specific [place] 1.005 Last Edit by Animeeple on 02/24/24 14:08 UA Ketone Last Edit by Animeeple on 02/24/24 14:08 UA Bilirubin 0 mg/dL Last Edit by Animeeple on 02/24/24 14:08 UA Glucose 0 mg/dL Last Edit by Animeeple on 02/24/24 14:08 Results Reviewed Results Reviewed: Laboratory Last Values Urine pH (Auto) 8.0 02/24/24 13:39 Specific [place] (Auto) 1.005 02/24/24 13:39 Urine Protein (Auto) 0 mg/dL 02/24/24 13:39 Glucose (UA)(Auto) 0 mg/dL 02/24/24 13:39 Urine Blood (Auto) 0 Ronald/uL 02/24/24 13:39 Urine Bilirubin (Auto) 0 mg/dL 02/24/24 13:39 Urine Urobilinogen (Auto) 0.2 mg/dL 02/24/24 13:39 Leukocyte Esterase (Auto) 0 Madeleine/uL 02/24/24 13:39 Assessment & Plan Assessment & Plan (1) Renal cyst: Code(s): N28.1 - Cyst of kidney, acquired Category: Medical (2) Nephrolithiasis: Code(s): N20.0 - Calculus of kidney Category: Medical Plan In office urinalysis results reviewed with the patient today; as noted above. She currently denies any bothersome urinary issues or concerns. She reports be happy with current voiding parameters. Will obtain KUB for further assessment evaluation as patient with a history of nephrolithiasis previous imaging 6 months ago noted no nephrolithiasis. Discussed, educated, and stressed the importance of adequate hydration relation to nephrolithiasis. Follow-up in 1-3 months once imaging is completed; or sooner with any issues, concerns, and or questions. Orders: Orders AMB Urinalysis Automated Today Z13.9 - Encounter for screening, unspecified AMB Post Void Residual by ultrasound Today R35.0 - Frequency of micturition XR KUB Today N20.0 - Calculus of kidney Patient Instructions: The patient had an opportunity to ask questions regarding the treatment plan. All questions were answered. Physical exam, labs, and imaging were discussed and reviewed in detail. As well as risks, benefits, and discussion of treatment choices. No major barriers to understanding were identified. The patient expressed understanding and agreement with the above treatment plan. The patient was made aware they should contact our office by phone for worsening of their current condition, the appearance of new symptoms, or with any questions or concerns. Compliance is encouraged with any medications and follow up testing that is ordered. It is a privilege to be allowed the opportunity to participate in? your urological care.? Again, if you have any questions or concerns If you have any questions or concerns please do not hesitate to contact me. The office is [phone]. This note is constructed using voice recognition software. While every effort has been made to ensure accuracy dispensing optician errors may have been included. Yours sincerely, CHELITA Cain-RAFITA Coding Level of Care Code Est Pt Level 3 (72897) Complex EM visit Add On G2211 Diagnoses Renal cyst N28.1 Nephrolithiasis N20.0 CPT Codes Post Residual Void - PVR CPT Code: 72929-Sgmw Void Residual by ultrasound ([id number])
== END 2024-02-24 14:14 | disposition home or self-care (01) ==
PROVIDERS: PCP Internal Medicine; Visit Provider Nurse Practitioner Family
DX: N28.1 Cyst of kidney, acquired (principal); N20.0 Calculus of kidney; Z13.9 Encounter for screening, unspecified
CPT/HCPCS: 99213; G2211

== ENCOUNTER → 2024-02-24 13:21 | Outpatient (BNVA) | payer OTHER, SELFPAY | PROVIDERS: PCP Internal Medicine; Visit Provider Nurse Practitioner Family | DX: N28.1 Cyst of kidney, acquired (principal); N20.0 Calculus of kidney; R35.0 Frequency of micturition | CPT/HCPCS: 51798; 81003; 99212 ==

== ENCOUNTER 2024-03-03 14:16 | Outpatient (AMB) | payer OTHER, SELFPAY ==
[2024-03-03 14:27] VITALS: BP 108/67; PULSE 66; O2SAT 96; BMI 40.8
--- NOTE | 2024-03-03 14:27 | MHC.OFFVIS ---
Vital Signs 03/03/24 14:27 Height 5 ft Weight 209 lb BMI 40.8 BP 108/67 Blood Pressure Location Rt brachial Position Sitting Pulse 66 Pulse Source Doppler Pulse Oximetry (%) 96 Oxygen Delivery Method Room Air Intake Visit Reasons: jayce Research And Evaluation Manager Required: Yes Research And Evaluation Manager Name: Ines Palma RyderGonzales Allergies aspirin [ASA] Allergy (Severe, Verified 03/03/24 14:28) FACIAL SWELLING AND DIFFICUTLY SWALLOWING, swelling mirabegron [From Myrbetriq] Allergy (Intermediate, Verified 03/03/24 14:28) Headache feathers Allergy (Unknown, Verified 03/03/24 14:28) unknown ibuprofen [From MOTRIN] Allergy (Unknown, Verified 03/03/24 14:28) UNKNOWN Penicillins [PENICILLINS] Allergy (Unknown, Verified 03/03/24 14:28) UNKNOWN hamster Allergy (Unknown, Uncoded 02/24/24 20:29) Unknown Ibuprofen Allergy (Unknown, Uncoded 02/24/24 20:29) hives pcn Allergy (Unknown, Uncoded 02/24/24 20:29) swelling SEAFOOD Allergy (Unknown, Uncoded 02/24/24 20:29) UNKNOWN seafood Allergy (Unknown, Uncoded 02/24/24 20:29) anaphylaxis HPI HPI jayce: Details: 68-year-old lady, nonsmoker, with underlying obesity, CAD, PVD, followed for asthma, dyspnea on exertion, and JAYCE on CPAP. Patient states that her asthma symptoms have been well controlled on Symbicort and as needed albuterol MDI. She denies any recent exacerbations. Patient's sleep apnea symptoms are controlled on CPAP therapy. Recently she was not fully compliant with her diuretic regimen that led to worsening fluid retention and orthopnea with paroxysmal nocturnal dyspnea. [facility] Medical History Renal cyst History of kidney stones Sciatica Chronic low back pain Peripheral vascular disease Obesity Hyperlipidemia Acquired hypothyroidism H/O anaphylactic shock H/O ovarian cancer Renal stones Serrated adenoma of colon Surgical History History of surgery Family History Father Prostate cancer Paternal Aunt Breast cancer Maternal Uncle Diabetes Gangrene Social History Unable to assess alcohol history related to: Unknown Alcohol intake: never Patient Tobacco Use Status: Never used Tobacco Review of Systems Const Denies daytime sleepiness, Denies excessive sweating, Denies fatigue, Denies fever(s), Denies lethargy, Denies malaise, Denies night sweats, Denies snoring and Denies weight loss Eyes Denies blurry vision and Denies itchy eyes ENT Denies nasal congestion, Denies post nasal drip, Denies sinus pain, Denies sinus pressure and Denies other ( Thrush) Card Denies chest pain, Reports pedal edema, Denies dyspnea, Reports orthopnea and Reports paroxysmal nocturnal dyspnea Resp Denies cough, Denies hemoptysis, Denies excessive phlegm production, Denies dyspnea, Denies snoring and Denies wheezing GI Denies abdominal pain and Denies heartburn Musc Denies myalgias, Denies arthralgias and Denies joint swelling Skin/Breast Denies rash Neuro Denies memory loss and Denies seizure-like activity Psych Denies abnormal sleep pattern, Denies anxiety and Denies memory loss Endo Denies excessive sweating, Denies fatigue and Denies heat intolerance Monty/Lymph Denies easy bruising Aller/Immun Denies itchy eyes, Denies seasonal rhinorrhea and Denies wheezing Physical Exam Vital Signs: Last Vital Signs Pulse 66 03/03/24 14:27 BP 108/67 03/03/24 14:27 Pulse Ox 96 03/03/24 14:27 Oxygen Delivery Method Room Air 03/03/24 14:27 BMI result Body Mass Index 40.8 Const General: no acute distress and alert Nutritional Appearance: not obese Orientation/consciousness: Other orientation findings ( oriented) HEENT Head: Yes atraumatic Eyes General: appearance normal, both eyes and all related structures Sclerae: sclerae normal EOM: EOMs intact bilaterally Neck Neck: Yes supple Lymphatic: no lymphadenopathy noted Resp Effort & Inspection: normal respiratory effort and no use of accessory muscles Auscultation: clear to auscultation bilaterally Cardio Rate: regular rate Rhythm: regular rhythm Heart sounds: no gallops, no murmurs and no rubs Skin General skin exam: other ( warm) Extrem General: No clubbing, No cyanosis and Yes edema (1+ bilateral) Office Procedures 6 Minute Walk SPO2 % at rest: 95 Pulse at rest: 65 SPO2 % during excercise: 94 Pulse during excercise: 90 SPO2 % after excercise: 95 Pulse after excercise: 83 Distance in yards walked: 290 Antonina Score: 2 Performance Observations:: pt walked for 290 yds, no dyspnea but pt. c/o of vertigo, has been happening quite often. No respiratory distress no need of oxygen at this time 10014 - 6 Minute Walk Assessment & Plan Assessment & Plan (1) JAYCE (obstructive sleep apnea): Code(s): G47.33 - Obstructive sleep apnea (adult) (pediatric) Category: Medical Plan: Well controlled on CPAP therapy. Continue CPAP therapy. (2) Asthma: Code(s): J45.909 - Unspecified asthma, uncomplicated Category: Medical Plan: Well controlled on current regimen of Symbicort and albuterol MDI. Continue current regimen. (3) Dyspnea on exertion: Code(s): R06.00 - Dyspnea, unspecified Category: Medical Plan: Appears to be related to worsening lower extremity edema and fluid retention as patient has not been using her diuretic consistently. Patient has been encouraged to continue with her furosemide 40 mg daily on a consistent basis and to reassess symptoms. In office supplemental oxygen evaluation/6 minute walk test performed. At this time patient does not require supplemental oxygen to maintain normal oximetry with exertion. (4) Orthopnea: Code(s): R06.01 - Orthopnea Category: Medical Plan: Secondary to fluid retention, expect to improve with consistent diuretic use. Orders: Orders AMB 6 minute walk Today G47.33 - Obstructive sleep apnea (adult) (pediatric) Coding Level of Care Code Est Pt Level 4 (62754) Complex EM visit Add On G2211 Diagnoses JAYCE (obstructive sleep apnea) G47.33 Asthma J45.909 Dyspnea on exertion R06.00 Orthopnea R06.01 CPT Codes Coding ([id number])
[2024-03-03 15:03] VITALS: PULSE 65; O2SAT 95
== END 2024-03-03 15:00 | disposition home or self-care (01) ==
LOC: HO.HPS 14:17
PROVIDERS: PCP Internal Medicine; Visit Provider Internal Medicine Pulmonary Disease
DX: G47.33 Obstructive sleep apnea (adult) (pediatric) (principal); J45.909 Unspecified asthma, uncomplicated; R06.00 Dyspnea, unspecified; R06.01 Orthopnea
CPT/HCPCS: 94618; 99214; G2211

== ENCOUNTER → 2024-03-03 14:16 | Outpatient (BNVA) | payer OTHER, SELFPAY | PROVIDERS: PCP Internal Medicine; Visit Provider Internal Medicine Pulmonary Disease | DX: G47.33 Obstructive sleep apnea (adult) (pediatric) (principal); J45.909 Unspecified asthma, uncomplicated; E66.9 Obesity, unspecified; R06.00 Dyspnea, unspecified; Z68.41 Body mass index [BMI] 40.0-44.9, adult; Z99.89 Dependence on other enabling machines and devices | CPT/HCPCS: 94618; 99212 ==

== ENCOUNTER 2024-06-03 09:03 | Outpatient (REF) | payer OTHER, SELFPAY ==
--- NOTE | ~2024-06-03 | XR_ITS ---
EXAMINATION: XR ABDOMEN 1 VIEW (KUB) HISTORY: N20.0 - Calculus of kidney COMPARISON: Comparison is made with the prior examination dated 11/04/2018. FINDINGS: Three supine views of the abdomen are submitted. The bowel gas pattern is unremarkable, without evidence of mechanical obstruction. There is a moderate amount of stool throughout the colon. There are phleboliths in the pelvis. No calcifications are identified overlying the renal shadows. There are surgical clips in the right upper quadrant. There are no abnormal soft tissue masses. The bones are intact. XR/XR KUB IMPRESSION: No suspicious calcifications are identified. Electronically signed by: Earle Vigil MD 06/03/2024 10:11 AM AJITH
--- OUTSIDE RECORDS SUMMARY | 2024-06-03 12:07 | XMS_ITS | Encounter Summary ---
Author Organization [employer] Address [address] [place] [address] [address] [place] [address] Care Team Providers Care Digital Imager Name Role Phone Michelle Coombs MD Primary Care Provide r Reason for Visit * Reason Comments Med Refill Encounter Details Date Type Department Care Team (Late st Contact Info) Description 03/11/2023 Refill [facility] [address] [place] [address] [phone] Michelle Coombs MD [address] [place] [address] [phone] Social History Tobacco Use Types Packs/Day Years Used Date Smoking Tobacco: Never Assessed Comments Unknown Sex and Gender Information Value Date Recorded Sex Assigned at Female 03/04/2022 10:17 AM EDT Legal Sex Female 10:17 AM EDT Gender Identity Female 03/04/2022 10:17 AM EDT Sexual Orientation Straight 03/04/2022 10 :17 AM EDT documented as of this encounter Plan of Treatment Upcoming Encounters Date Type Department Care Team (Late Contact Info) Description 07/21/2024 2:15 PM EDT Office Visit [facility] [address] [place], [place] [phone] Michelle Coombs MD [address] [place], [place] [phone] documented as of this encounter Visit Diagnoses Not on filedocumented in this encounter Care Teams Digital Imager Relationship Specialty Start Date End Date Michelle Coombs MD [address] [place] [address] PCP - General Family Medicine 11/30/18 documented as of this encounter
--- OUTSIDE RECORDS SUMMARY | 2024-06-03 12:07 | XMS_ITS | Encounter Summary ---
Author Organization [employer] Address [address] [place] [address] [address] [place] [address] Care Team Providers Care Manager Field Sales Name Role Phone Michelle Coombs MD Primary Care Provide r Encounter Details Date Type Department Care Team (Late Contact Info) Description 05/21/2022 Orders Only [facility] [address] [place] [address] Florence Hahn ANP [address] [place] [address] Social History Tobacco Use Types Packs/Day Years [...] Description 07/21/2024 2:15 PM EDT Office Visit [facility] [address] [place], [place] [phone] Michelle Coombs MD [address] [place], [place] [phone] documented as of this encounter Visit Diagnoses Not on filedocumented in this encounter Care Teams Manager Field Sales Relationship Specialty Start Date End Date Michelle Coombs MD [address] [place] [address] PCP - General Family Medicine 11/30/18 documented as of this encounter
--- OUTSIDE RECORDS SUMMARY | 2024-06-03 12:07 | XMS_ITS | Clinical Summary ---
Author Organization [employer] Address [address] [place] [address] [address] [place] [address] Care Team Providers Care Cafe Site Attendant Name Role Phone Michelle Coombs MD Primary Care Provide r Allergies Active Allergy Reactions Criticality Noted Date Comments Aspirin 08/16/2016 Other reaction(s): swelling Ibuprofen High 08/24/2016 Other reaction(s): Hives Lisinopril 12/04/2016 Other reaction(s): burning lips Shellfish Allergy 07/01/2023 Medications omeprazole (PriLOSEC) [address] capsule Take 1 capsule by mouth every 12 (twelve) hours. 1 Active Symbicort 160-4.5 MCG/ACT inhaler 3 Active ergocalciferol (Vitamin D2) 1.25 MG (30136 UT) capsule TAKE 1 CAPSULE BY MOUTH ONCE WEEKLY FRIDAY MORNING 2 Active furosemide (Lasix) 40 MG tablet 3 Active oxybutynin XL (Ditropan-XL) 5 MG 24 hr tablet TAKE 1 TABLET BY MOUTH EVERYDAY AT NOON 2 Active HM ClearLax 17 GM/SCOOP powder 3 Active pyridoxine (Vitamin B-6) 100 MG tablet 3 Active senna (Senokot) 8.6 MG tablet 3 Active Myrbetriq 25 MG 24 hr tablet Take 25 mg by mouth in the morning. 3 Active tiZANidine (Zanaflex) 4 MG tabletIndications :Costochondritis Take 1 tablet (4 mg) by mouth every 8 (eight) hours if needed for muscle spasms for up to 10 days. 30 tablet 3 Active Calcium + Vitamin D3 600-5 MG-MCG tabletIndications :Vitamin D deficiency TAKE 2 TABLETS BY MOUTH EVERY DAY IN THE EVENING 180 tablet 3 4 Active atenolol (Tenormin) 50 MG tablet TAKE 1 TABLET BY MOUTH AT BEDTIME 90 tablet 3 4 Active Acetaminophen Extra Strength 500 MG tabletIndications :Breast pain, right TAKE 2 TABLETS BY MOUTH EVERY 8 HOURS NEEDED FOR MILD PAIN 30 tablet 1 4 Active atorvastatin (Lipitor) 40 MG tablet TAKE 1 TABLET BY MOUTH AT BEDTIME 90 tablet 3 4 Active metFORMIN (Glucophage) 500 MG tablet TAKE 1 TABLET BY MOUTH TWICE DAILY IN THE MORNING AND IN THE EVENING 180 tablet 3 4 Active levothyroxine (Synthroid, Levoxyl) 50 MCG tablet TAKE 1 TABLET BY MOUTH EVERY MORNING 90 tablet 3 4 Active losartan (Cozaar) 50 MG tabletIndications :Essential hypertension TAKE 1 TABLET BY MOUTH EVERYDAY AT NOON 90 tablet 4 Active cetirizine (ZyrTEC) 10 MG tabletIndications :Seasonal allergic rhinitis, unspecified trigger TAKE 1 TABLET BY MOUTH EVERYDAY AT NOON 90 tablet 4 Active Active Problems Problem Noted Date Diagnosed Date Acute bacterial conjunctivitis of left eye 06/30 Blurring of visual image 06/30/2023 Epigastric pain 06/30/2023 H. pylori infection 06/30/2023 Excessive tear production 06/30/2023 Impaired glucose tolerance 06/30/2023 Major depressive disorder 06/30/2023 Microscopic hematuria 06/30/2023 Pain in left arm 06/30/2023 Pigmented skin lesion 06/30/2023 Tremor 06/30/2023 Breast pain, right 04/16/2023 Costochondritis 04/16/2023 Serrated polyp of colon 04/10/2023 Positive colorectal cancer screening using Colog uard test 04/10/2023 Rash and nonspecific skin eruption 03/19/2023 Acute conjunctivitis of both eyes 03/19/2023 Colon cancer screening 03/19/2023 Assessment & Plan (07/01/2023 11:24 AM EST): Patient with positive cologuard waiting for GI appointment for colonoscopy Constipation 06/10/2022 Dyspnea on exertion 06/10/2022 Osteoarthritis of right knee 06/10/2022 Prediabetes 06/10/2022 Assessment & Plan (04/14/2024 2:45 PM EST): Today extensive discussion was done about life style modifications I advise healthy diet (low calorie) and cardiovascular exercise Assessment & Plan (07/01/2023 11:24 AM EST): Today extensive discussion was done about life style modifications I advise healthy diet (low calorie) and cardiovascular exercise Assessment & Plan (03/19/2023 11:02 AM EST): Today extensive discussion was done about life style modifications I advise healthy diet (low calorie) and cardiovascular exercise Peripheral arterial occlusive disease 10/22/2019 Arthralgia of temporomandibular joint 09/07/2018 Chest discomfort 09/07/2018 Tremor of both hands 09/07/2018 Trapezius muscle spasm 06/09/2018 Tinea cruris 11/17/2017 Kidney stone 11/03/2017 Osteoarthritis of hip 04/01/2017 Pain in female pelvis 10/11/2016 Current episode of major dep ressive disorder without prior episode 09/17/2016 Acquired hypothyroidism 08/16/2016 Fibromyalgia 08/16/2016 Assessment & Plan (04/14/2024 2:45 PM EST): Patient was educated about multidisciplinary approach for her condition, it was advise cardiovascular exercise, maintain hydration, treat anxiety/depression and take medications as directed Essential hypertension 08/16/2016 Assessment & Plan (04/14/2024 2:44 PM EST): I advised: - Aerobic exercise to reduce BP. Initial goal of 30 min walk 3-5x/week. Increase as tolerated. - low-sodium diet (goal: <2g/day) and heart healthy diet such as DASH to reduce BP and prevent ASCVD. - Home BP monitoring 1-2 x day with goal of <140/90. - Seek immediate medical attention for chest pain, palpitations, SOB, syncope, or sudden changes in mental status. - Do not change or discontinue current prescriptions without first consulting health care provider Assessment & Plan (07/01/2023 11:23 AM EST): Maintenance: BMP: up to date Lipid Panel: up to date ASCVD Risk: on atorvastatin 40mg daily - Aerobic exercise to reduce BP. Initial goal of 30 min walk 3-5x/week. Increase as tolerated. - low-sodium diet (goal: <2g/day) and heart healthy diet such as DASH to reduce BP and prevent ASCVD. - Home BP monitoring 1-2 x day with goal of <140/90. - Seek immediate medical attention for chest pain, palpitations, SOB, syncope, or sudden changes in mental status. - Do not change or discontinue current prescriptions without first consulting health care provider Assessment & Plan (03/19/2023 11:01 AM EST): Maintenance: BMP: ordered Lipid Panel: ordered ASCVD Risk: on atorvastatin 40mg - Aerobic exercise to reduce BP. Initial goal of 30 min walk 3-5x/week. Increase as tolerated. - low-sodium diet (goal: <2g/day) and heart healthy diet such as DASH to reduce BP and prevent ASCVD. - Home BP monitoring 1-2 x day with goal of <140/90. - Seek immediate medical attention for chest pain, palpitations, SOB, syncope, or sudden changes in mental status. - Do not change or discontinue current prescriptions without first consulting health care provider Hyperlipidemia 08/16/2016 Obesity (BMI 30-39.9) 08/16/2016 Resolved Problems Problem Noted Date Diagnosed Date Resolved Date Impairment of balance 01/20/20182023 Encounters Date Type Department Care Team Description 06/03/2024 Orders Only [facility] External Provider, [facility] 04/14/2024 Refill [facility] [address] [place] [address] Michelle Bergman MD Essential hypertension; Seasonal allergic rhinitis, unspecified trigger 04/14/2024 Telephone [facility] [address] [place] [address] Michelle Coombs MD Med Refill 04/09/2024 3:15 PM EST Telemedicine [facility] [address] [place] [address] Michelle Coombs MD Essential hypertension (Primary Dx); Fibromyalgia; Prediabetes 04/09/2024 Telephone [facility] [address] [place] [address] Michelle Coombs MD Pre-visit Planning 04/09/2024 Travel 03/04/2024 Refill [facility] [address] [place] [address] Michelle Coombs MD from Last 3 Months Immunizations Name Administration Dates Next Due Influenza High-dose Quadriva lent Preservative Free 03/19/2023,02/15/2022 Influenza injectable quadriv alent preservative free 04/10/2021,06/09/2018,02/25/2017 Influenza, High Dose Seasona l, Preservative Free 03/25/2019 Pneumococcal Conjugate PCV 13 06/09/2018 Pneumococcal Conjugate PCV 20 03/19/2023 RSV Bivalent 07/04/2023 Tdap 11/18/2018 Zoster, live 04/01/2017 Family History Medical History Relation Name Comments Prostate cancer Father Uterine cancer Mother Relation Name Status Comments Father Mother Social History Tobacco Use Types Packs/Day Years Used Date Smoking Tobacco: Never Smokeless Tobacco: Never Tobacco Cessation:Counseling Given: Not Answered Depression Answer Date Recorded Patient Health Questionnaire-9 Score 0 04/16/2023 Patient Health Questionnaire-9 Score 0 04/16/2023 Last PHQ-9: Questionnaire Data Not on file 1 06/17/2022 Housing Stability Answer Date Recorded What is your housing situation today? I have erin fern 04/16/[address] you li ve. Do you have problems with any of the following? None of the above 04/16/2023 Food Insecurity Answer Date Recorded Within the past 12 months, y ou worried that your food would run out before you got money to buy more: Never True 04/16/2023 Within the past 12 months,th e food you bought just didn't last and you didn't have enough money to get more: Never True Transportation Answer Date Recorded In the past 12 months, has l ack of transportation kept you from medical appts, meetings, work or from getting things needed for daily living? No 04/16/2023 Utilities Answer Date Recorded In the past 12 months, has t he electric, gas, oil or water company threatened to shut off services in your home? No 04/16/2023 Depression Answer Date Recorded Patient Health Questionnaire-2 Score 0 04/16/2023 Comments Unknown Sex and Gender Information Value Date Recorded Sex Assigned at Female 03/04/2022 10:17 AM EDT Legal Sex Female 10:17 AM EDT Gender Identity Female 03/04/2022 10:17 AM EDT Sexual Orientation Straight 03/04/2022 10 :17 AM EDT Last Filed Vital Signs Vital Sign Reading Time Taken Comments Blood Pressure 135/68 07/01/2023 10:50 AM EST Pulse 68 07/01/2023 10:50 AM EST Temperature 36.1 ??C (97 ??F) 07/01/2023 10:50 AM EST Respiratory Rate 18 07/01/2023 10:50 AM EST Oxygen Saturation 91% 07/01/2023 10:50 AM EST Inhaled Oxygen Concentration - - Weight 92.2 kg (203 lb 3.2 oz) 07/01/2023 10:50 AM EST Height 152.4 cm (5') 07/01/2023 10:50 AM EST Body Mass Index 39.68 07/01/2023 10:50 AM EST Plan of Treatment Upcoming Encounters Date Type Department Care Team (Late st Contact Info) Description 07/21/2024 2:15 PM EDT Office Visit [facility] [address] [place] [address] Michelle Coombs MD [address] [place] [address] Health Maintenance Due Date Last Done Comments CT Colonography 1955 FIT 1955 FOBT 1955 Sigmoidoscopy 1955 Alcohol/Substance Use Screening 1965 Hepatitis C Screening 1971 Zoster Vaccines (2 of 3) 05/27/2017 04/01/2017 Colonoscopy 05/23/2022 05/23/2017 Colorectal Cancer Screening 04/01/2023 COVID-19 Vaccine ( season) 2024 04/10/2021, 07/25/2020, 07/04/2020 Influenza Vaccine (#1) 2024 3, 02/15/2022, 04/10/2021, Additional history exists Diabetes: Hemoglobin A1C 03/19/2024 023, 02/20/2022, 08/14/2021, Additional history exists Tobacco Screening 04/03/2024 04/03/2023 Depression Screening 04/16/2024 04/16/2023, 04/16/20 SDOH Screening 04/16/2024 04/16/2023 Mammogram 05/14/2024 05/14/2023, 05/05, 04/05/2022, Additional history exists FIT DNA/Cologuard 03/31/2026 03/31/2023 Lipid Panel 03/31/2028 03/31/2023, 02/02, 08/14/2021, Additional history exists DTaP/Tdap/Td Vaccines (2 - Td or Tdap) 11/18/2028 11/18/2018 Pneumococcal Vaccine: 50+ Years Completed 03/19/2023, 06/09/2018 RSV Patients and Patients Aged 60 years or older Completed 07/04/2023 HIB Vaccines Aged Out No longer eligi ble based on patient's age to complete this topic HPV Vaccines Aged Out No longer eligi ble based on patient's age to complete this topic Hepatitis A Vaccines Aged Out No long er eligible based on patient's age to complete this topic Hepatitis B Vaccines Aged Out No long er eligible based on patient's age to complete this topic IPV Vaccines Aged Out No longer eligi ble based on patient's age to complete this topic Meningococcal Vaccine Aged Out No zamzam cece eligible based on patient's age to complete this topic RSV under 20 months Aged Out No longe r eligible based on patient's age to complete this topic Rotavirus Vaccines Aged Out No longer eligible based on patient's age to complete this topic Procedures Procedure Name Priority Date/Time Associated Diagnosis Comments XR KUB AND UPRIGHT 2 VIEWS Routine 06/03/2024 9:15 AM EST BI MAMMOGRAM DIAGNOSTIC TOMOSYNTHESIS BILATERAL Routine 05/14/2023 2:25 PM EST LAB COLOGUARD?? COLON CANCER SCREEN Routine 03/31/2023 11:40 AM EST Colon cancer screening LIPID PANEL, STANDARD Routine 03/31/2023 9:58 AM EST Essential hypertension POCT GLYCATED HEMOGLOBIN, TOTAL Routine 03/19/2023 10:48 AM EST Prediabetes HM COLONOSCOPY Routine 05/23/2017 from Last 3 Months or Most Recently Relevant to Health Maintenance Results * XR KUB and Upright 2 Views (06/03/2024 9:15 AM EST) Anatomical Region Laterality Modality Radiographic Olga ging 06/03/2024 9:15 AM EST Narrative 06/03/2024 10:14 AM EST ? [facility] ?[address] ?[place] [address] ?XRay Report ? Signed ? Patient: Colon Colon,Chen ?MR#: MM ?? [id number] ? : 1955 ?Acct:[id number] ? Age/Sex: 69 / F ?ADM Date: 06/03/24 ? Loc: HO.XRAY ? Attending Dr: Tia MERLOS-BC ? Ordering Physician: Tia IrahetaBC ?? Date of Service: 06/03/24 ?? Procedure(s): XR KUB ?? Accession Number(s): [id number] ? cc: Michelle Coombs MD; Tia IrahetaP-BC ? EXAMINATION: ??XR ABDOMEN 1 VIEW (KUB) ? HISTORY: N20.0 - Calculus of kidney ? COMPARISON: Comparison is made with the prior examination dated ?? 11/04/2018. ? FINDINGS: ??Three supine views of the abdomen are submitted. ?? The bowel ?? gas pattern is unremarkable, without evidence of mechanical ?? obstruction. There is a moderate amount of stool throughout the colon. ? There are phleboliths in the pelvis. No calcifications are identified ?? overlying the renal shadows. There are surgical clips in the right ?? upper quadrant. ?? There are no abnormal soft tissue masses. ??The bones ?? are intact. ? XR/XR KUB ?? IMPRESSION: ?? No suspicious calcifications are identified. ? Electronically signed by: ??Earle Vigil MD ??06/03/2024 10:11 AM EST ? Dictated By: ?Earle Vigil MD ? Signed By: ?<Electronically signed by Earle Vigil MD in OV> ?06/03/24 1011 ? DD/ 0915 ? TD/TT: 06/03/2423 ? Media Job Titles: ? Procedure Note Donotrobertinterpreter, Image - 06/03/2024 [place] [address] XRay Report Signed Patient: Laith Ascencio#: MM [id number] : 1955cct:[id number] Age/Sex: 69 / FADM Date: 06/03/24 Loc: [facility] Attending Dr: Tia ARROYO Ordering Physician: Tia Iraheta Date of Service: 06/03/24 Procedure(s): XR KUB Accession Number(s): [id number] cc: Michelle Coombs MD; Tia Iraheta EXAMINATION: XR ABDOMEN 1 VIEW (KUB) HISTORY: N20.0 - Calculus of kidney COMPARISON: Comparison is made with the prior examination dated 11/04/2018. FINDINGS: Three supine views of the abdomen are submitted. The bowel gas pattern is unremarkable, without evidence of mechanical obstruction. There is a moderate amount of stool throughout the colon. There are phleboliths in the pelvis. No calcifications are identified overlying the renal shadows. There are surgical clips in the right upper quadrant. There are no abnormal soft tissue masses. The bones are intact. XR/XR KUB IMPRESSION: No suspicious calcifications are identified. Electronically signed by: Earle Vigil MD 06/03/2024 10:11 AM EST RP Dictated By: Earle Vigil MD Signed By: <Electronically signed by Earle Vigil MD in OV> 06/03/24 1011 DD/ TD/TT: 06/03/24 09 Media Job Titles: [facility] External Provider IMG XR PROCEDURES Final Result * BI Mammogram Diagnostic Tomosynthesis Bilateral (05/14/2023 2:25 PM EST) Anatomical Region Laterality Modality Breast Bilateral Mammography 05/14/2023 2:25 PM EST Narrative 05/14/2023 3:04 PM EST ? [facility] [place] ? [address] ?[place] [address] ? Mammography Report ? Signed ? Patient: Colon Colon,Chen ?MR#: MM ?? [id number] ? : 1955 ?Acct:[id number] ? Age/Sex: 68 / F ?ADM Date: 05/14/23 ? Loc: HO.MAMMO ? Attending Dr: Michelle Ledesma MD ? Ordering Physician: Michelle Coombs MD ?Results: ?? 1Negative ? Date of Service: 05/14/23 ?Follow Up: 1 Year From Orig ?? inal Mammogram ? Procedure(s): MM tomosynthesis diagnostic BI ?? Accession Number(s): [id number] ? cc: Michelle Coombs MD ? EXAMINATION: ?? MM DIAGNOSTIC DIGITAL BREAST TOMOSYNTHESIS, BILATERAL ?? US BREAST LIMITED, RIGHT ? CLINICAL INFORMATION: ? 68-year-old female, complaining of right breast pain in the 4:00 and ?? 6:00 locations. Patient also due for bilateral screening. ? COMPARISON: ?? Mammography: 04/05/2022, 04/04/2021, 11/08/2019, 11/02/2018 ? TECHNIQUE: ?? Digital breast tomosynthesis is performed in both the craniocaudal and ?? mediolateral oblique views along with computer-aided detection (CAD). ?? Synthesized 2D images are generated from the tomosynthesis. Areas of ?? right breast pain were marked by the technologist, as guided by the ?? patient. ? FINDINGS: ?? There are scattered areas of fibroglandular density (ACR BI-RADS breast ?? composition Category b). There are bilateral vascular and a few ?? scattered rare secretory calcifications. There is an oval circumscribed ?? small mass in the mid right breast along the nipple line on the MLO ?? projection, stable from prior examinations and presumably a cyst or ?? small fibroadenoma given stability. This is benign, unchanged from ?? 2019. ? There are no mammographic abnormalities identified in the 6:00 or 4:00 ?? regions of the right breast, near or abutting the markers. No ?? correlation to the regions of breast pain. ? Otherwise, there are no suspicious masses, suspicious grouped ?? calcifications, or areas of architectural distortion in either breast. ?? The parenchymal pattern is stable from prior exams. ? ULTRASOUND: ?? CLINICAL INFORMATION: ?? As above. ? COMPARISON: ?? None ? TECHNIQUE: ?? Targeted sonographic evaluation right breast was performed using a high ?? frequency linear transducer. Attention was given to the regions of ?? right breast pain 4:00 and 6:00 axes. The right breast lower inner ?? quadrant and lower outer quadrant were scanned. Selected archived ?? documentation. ? FINDINGS: ? RIGHT BREAST: There is a mixture of fatty and fibroglandular tissue. ?? No suspicious mass is seen. ??There is no pathologic acoustic shadowing. ?? No cystic abnormality. No ultrasonographic correlate to the region of ?? breast pain identified. ? MM/MM tomosynthesis diagnostic BI ?? IMPRESSION: ?? There are no findings suspicious for malignancy in either breast. ? Regions of right breast pain 4:00 and 6:00 show no ultrasonographic or ?? mammographic correlates. Recommend clinical assessment and management. ? Otherwise, recommend resuming routine annual screening mammography. ? OVERALL ASSESSMENT: ?? Mammography: BI-RADS 2 - Benign Findings ?? Ultrasound: BI-RADS 2 - Benign Findings ? RECOMMENDATION: ?? 1. Patient should be managed based on the clinical impression. ? 2. Otherwise, routine annual screening mammography. ? This patient's information was entered into a reminder system with a ?? target due date for their next mammogram. ? Dictated By: ?Elgin Hackett MD ? Signed By: ?<Electronically signed by Elgin Hackett MD in OV> ?05/14/23 1501 ? DD/ 1425 ? TD/TT: ? Media Job Titles: ? Procedure Note Willard, Image - 05/14/2023 [facility] [address] [place], [place] [address] Mammography Report Signed Patient: Laith Ascencio#: MM [id number] : 3Acct:[id number] Age/Sex: 68 / FADM Date: 05/14/23 Loc: HO.MAMMO Attending Dr: Michelle Ledesma MD Ordering Physician: Michelle Coombs MDResults: 1Negative Date of Service: 05/14/23Follow Up: 1 Year From Orig inal Mammogram Procedure(s): MM tomosynthesis diagnostic BI Accession Number(s): [id number] cc: Michelle Coombs MD EXAMINATION: MM DIAGNOSTIC DIGITAL BREAST TOMOSYNTHESIS, BILATERAL US BREAST LIMITED, RIGHT CLINICAL INFORMATION: 68-year-old female, complaining of right breast pain in the 4:00 and 6:00 locations. Patient also due for bilateral screening. COMPARISON: Mammography: 04/05/2022, 04/04/2021, 11/08/2019, 11/02/2018 TECHNIQUE: Digital breast tomosynthesis is performed in both the craniocaudal and mediolateral oblique views along with computer-aided detection (CAD). Synthesized 2D images are generated from the tomosynthesis. Areas of right breast pain were marked by the technologist, as guided by the patient. FINDINGS: There are scattered areas of fibroglandular density (ACR BI-RADS breast composition Category b). There are bilateral vascular and a few scattered rare secretory calcifications. There is an oval circumscribed small mass in the mid right breast along the nipple line on the MLO projection, stable from prior examinations and presumably a cyst or small fibroadenoma given stability. This is benign, unchanged from 2019. There are no mammographic abnormalities identified in the 6:00 or 4:00 regions of the right breast, near or abutting the markers. No correlation to the regions of breast pain. Otherwise, there are no suspicious masses, suspicious grouped calcifications, or areas of architectural distortion in either breast. The parenchymal pattern is stable from prior exams. ULTRASOUND: CLINICAL INFORMATION: As above. COMPARISON: None TECHNIQUE: Targeted sonographic evaluation right breast was performed using a high frequency linear transducer. Attention was given to the regions of right breast pain 4:00 and 6:00 axes. The right breast lower inner quadrant and lower outer quadrant were scanned. Selected archived documentation. FINDINGS: RIGHT BREAST: There is a mixture of fatty and fibroglandular tissue. No suspicious mass is seen. There is no pathologic acoustic shadowing. No cystic abnormality. No ultrasonographic correlate to the region of breast pain identified. MM/MM tomosynthesis diagnostic BI IMPRESSION: There are no findings suspicious for malignancy in either breast. Regions of right breast pain 4:00 and 6:00 show no ultrasonographic or mammographic correlates. Recommend clinical assessment and management. Otherwise, recommend resuming routine annual screening mammography. OVERALL ASSESSMENT: Mammography: BI-RADS 2 - Benign Findings Ultrasound: BI-RADS 2 - Benign Findings RECOMMENDATION: 1. Patient should be managed based on the clinical impression. 2. Otherwise, routine annual screening mammography. This patient's information was entered into a reminder system with a target due date for their next mammogram. Dictated By: Elgin Hackett MD Signed By: <Electronically signed by Elgin Hackett MD in OV> 05/14/23 1501 DD/ 1425 TD/TT: Media Job Titles: Michelle Ledesma MD IMG BI PROCEDURES Fin al Result * (ABNORMAL) Cologuard?? colon cancer screening (03/31/2023 11:40 AM EST) Cologuard Result Positive( A) Negative 04/07/2023 5:40 PM EST [employer] (CLIA #:[id number]) Comment: POSITIVE TEST RESULT. A positive Cologuard result should be followed with a colonoscopy or visual examination of the colon. The normal value (reference range) for this assay is negative. TEST DESCRIPTION: Composite algorithmic analysis of stool DNA-biomarkers with hemoglobin immunoassay. ?? Quantitative values of individual biomarkers are not reportable and are not associated with individual biomarker result reference ranges. Cologuard is intended for colorectal cancer screening of adults of either sex, 45 years or older, who are at average-risk for colorectal cancer (CRC). Cologuard has been approved for use by the [place] FDA. The performance of Cologuard was established in a cross sectional study of average-risk adults aged 50-84. Cologuard performance in patients ages 45 to 49 years was estimated by sub-group analysis of near-age groups. Colonoscopies performed for a positive result may find as the most clinically significant lesion: colorectal cancer [4.0%], advanced adenoma (including sessile serrated polyps greater than or equal to 1cm diameter) [20%] or non- advanced adenoma [31%]; or no colorectal neoplasia [45%]. These estimates are derived from a prospective cross-sectional screening study of 10,000 individuals at average risk for colorectal cancer who were screened with both Cologuard and colonoscopy. (Urmila Yu al, N Engl J Med 2014;370(14):6228-2088.) Cologuard may produce a false negative or false positive result (no colorectal cancer or precancerous polyp present at colonoscopy follow up). A negative Cologuard test result does not guarantee the absence of CRC or advanced adenoma (pre-cancer). The current Cologuard screening interval is every 3 years. ([place] [employer] and [place] Multi-Society Task Force). Cologuard performance data in a 10,000 patient pivotal study using colonoscopy as the reference method can be accessed at the following location: [email or web address].com/results. Additional description of the Cologuard test process, warnings and precautions can be found at www.SnoopWallrd.com. Stool specimen (specimen) 03/31/2023 11:40 AM EST 04/01/2023 5:06 PM EST Michelle Ledesma MD LAB MOLECULAR DIAGNOS TICS ORDERABLES Final Result [facility] (CLIA #:[id number]) [place] [address], * (ABNORMAL) Lipid Panel, Standard (03/31/2023 9:58 AM EST) Triglycerides 166(H) <150 mg/dL [facility] Comment:Desirable Triglyceri de: less than 150 mg/dLBorderline High Triglyceride 150-199 mg/dLHigh Triglyceride: 200-499 mg/dLVery High Triglyceride: greater than or equal to 5OO mg/dL Cholesterol 161 <200 mg/dL [facility] Comment:Desirable Cholestero l: less than 200 mg/dLBorderline High Cholesterol: 200-239 mg/dLHigh Cholesterol: greater than 239 mg/dL LDL Cholesterol Calculated 84 <100 mg/dL [facility] Comment:Desirable LDL: less than 100 mg/dLNear Optimal/Above Optimal LDL: 110- 129 mg/dLBorderline High LDL: 130-159 mg/dLHigh LDL: 160-189 mg/dLVery High LDL: greater than or equal to 190 mg/dL HDL Cholesterol 44 >40 mg/dL [facility] Comment:Desirable HDL: great er than 40 mg/dL Note: This HDL assay may give artificially low results in patients with liver disease. Blood Venous blood specimen / Unknown 03/31/2023 9:58 AM EST 03/31/2023 11:20 AM EST Michelle Ledesma MD LAB BLOOD ORDERABLES Final Result [facility] [address] [place] [phone] * (ABNORMAL) POCT A1C (03/19/2023 10:48 AM EST) Hemoglobin A1C 6.2(A) 4.0 - 6.0 % Blood 03/19/2023 10:4 8 AM EST Michelle Ledesma MD POINT OF CARE TEST EN TER/EDIT ORDERABLES Final Result * Colonoscopy (05/23/2017) Historical Provider HEALTH MAINTENANCE Final Result from Last 3 Months or Most Recently Relevant to Health Maintenance Insurance [facility] [id number] Care Teams Cafe Site Attendant Relationship Specialty Start Date End Date Michelle Coombs MD [address] [place] [address] PCP - General Family Medicine 11/30/18
--- OUTSIDE RECORDS SUMMARY | 2024-06-03 12:07 | XMS_ITS | Encounter Summary ---
Author Organization [email or web address] Address [address] [place] [address] 7 [place] [address] Care Team Providers Care Group Dynamics Instructor Name Role Phone Michelle Coombs MD Primary Care Provide r Reason for Visit * Reason Comments Med Refill Encounter Details Date Type Department Care Team ([facility] st Contact Info) Description 10/01/2023 Refill [facility] [address] [place] [address] Michelle Coombs MD [address] [place], [place] [phone] Costochondritis Social History Tobacco Use Types Packs/Day Years Used Date Smoking Tobacco: Never Smokeless Tobacco: Never Depression Answer Date Recorded Patient Health Questionnaire-9 Score 0 04/16/2023 Patient Health Questionnaire-9 Score 0 04/16/2023 Last PHQ-9: Questionnaire Data Not on file 1 06/17/2022 Housing Stability Answer Date Recorded What is your housing situation today? 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
--- OUTSIDE RECORDS SUMMARY | 2024-06-03 12:07 | XMS_ITS | Encounter Summary ---
Author Organization [employer] Address [address] [place] [address] 7 [place] [address] Care Team Providers Care Organic Chemist Name Role Phone Michelle Coombs MD Primary Care Provide r Reason for Visit * Reason Onset Date Comments Triage 08/05/2022 Encounter Details Date Type Department Care Team ([facility] st Contact Info) Description 08/05/2022 Telephone [facility] [address] [place], [place] [phone] Michelle Coombs MD [address] [place], [place] [phone] Triage Social History Tobacco Use Types Packs/Day Years Used Date Smoking Tobacco: Never Assessed Comments Unknown Sex and Gender Information Value Date Recorded Sex Assigned at Female 03/04/2022 10:17 AM EDT Legal Sex Female 10:17 AM EDT Gender Identity Female 03/04/2022 10:17 AM EDT Sexual Orientation Straight 03/04/2022 10 :17 AM EDT documented as of this encounter Miscellaneous Notes * Telephone Encounter - Shima Strauss RN - 08/05/2022 1:09 PM EDT Triage call with [employer] [place] [id number] Pt spouse, Jose, reports Pt has had Covid since 08/01. Pt was tested x2 and positive each time. Pt Main symptoms are cough, fever. Pt is not having difficulty breathing and has used nebulizer treatment with good effect. Pt fever is tactile no thermometer. Home care information reviewed. Pt is given the phone number for tele visit for possible paxlovid, though Pt is feeling better today. [phone] given to Pt spouse who wrote this down on a paper. Pt spouse is asking about home covid tests referred to [facility] pharmacy. No further questions offered. Protocol Used: COVID-19 - Diagnosed or Suspected (Adult) Protocol-Based Disposition: Home Care Positive Triage Question: * [1] COVID-19 diagnosed by positive lab test (e.g., PCR, rapid self-test kit) AND [2] mild symptoms (e.g., cough, fever, others) AND [3] no complications or SOB * All higher-acuity triage questions were negative Care Advice Discussed: * Reassurance and Education - Positive COVID-19 Lab Test and Mild Symptoms * General Care Advice for COVID-19 Symptoms * Cough Medicines * Humidifier * Coughing Spells * Pain and Fever Medicines * Mild Stomach and Intestinal Symptoms During COVID-19 Illness * Reasons To Call Back - Fever over 103 F (39.4 C) - Fever lasts over 3 days - Fever returns after being gone for 24 hours - Chest pain or difficulty breathing occurs - You become worse * Telephone Encounter - Tiffanie Tyson - 08/05/2022 11:23 AM EDT Symptom: COVID-19 Suspected Outcome: Schedule a same-day appointment or talk to a nurse or provider today Reason: No high acuity concerns reported by caller The caller accepted this outcome Please contact pt Spouse at [phone] Requesting for the Treatment documented in this encounter Plan of Treatment Upcoming Encounters Date Type Department Care Team (Late st Contact Info) Description 07/21/2024 2:15 PM EDT Office Visit [facility] [address] [place] [phone] Michelle Coombs MD [address] [place], [place] [phone] documented as of this encounter Visit Diagnoses Not on filedocumented in this encounter Care Teams Organic Chemist Relationship Specialty Start Date End Date Michelle Coombs MD [address] [place] [address] PCP - General Family Medicine 11/30/18 documented as of this encounter
--- OUTSIDE RECORDS SUMMARY | 2024-06-03 12:07 | XMS_ITS | Encounter Summary ---
Author Organization [employer] [facility] Address [address] [place] [address] 7 [place] [address] Care Team Providers Care Tip Cementer Name Role Phone Michelle Coombs MD Primary Care Provide r Encounter Details Date Type Department Care Team (Late Contact Info) Description 01/21/2023 Orders Only [facility] [address] [place] [phone] Provider, Bbuba, Social History Tobacco Use Types Packs/Day Years [...] Upcoming Encounters Date Type Department Care Team ([facility] Contact Info) Description 07/21/2024 2:15 PM EDT Office Visit [facility] [address] [place] [address] [phone] Michelle Coombs MD [address] [place] [address] [phone] documented as of this encounter Procedures Procedure Name Priority Date/Time Associated Diagnosis Comments COLONOSCOPY Routine 05/23/2017 documented in this encounter Results * Hm Colonoscopy (05/23/2017) Historical Provider HEALTH MAINTENANCE Final Result documented in this encounter Visit Diagnoses Not on filedocumented in this encounter Care Teams Tip Cementer Relationship Specialty Start Date End Date Michelle Coombs MD [address] [place] [address] PCP - General Family Medicine 11/30/18 documented as of this encounter
== END 2024-06-03 09:04 | disposition home or self-care (01) ==
LOC: HO.XRAY 09:03
PROVIDERS: PCP Internal Medicine; Visit Provider Nurse Practitioner Family
DX: N20.0 Calculus of kidney (principal)
CPT/HCPCS: 74018

== ENCOUNTER → 2024-06-03 09:08 | Outpatient (BNV) | payer OTHER, SELFPAY | PROVIDERS: PCP Internal Medicine; Visit Provider Radiology Diagnostic Radiology | DX: N20.0 Calculus of kidney (principal) | CPT/HCPCS: 74018 ==

== ENCOUNTER 2024-06-03 14:04 | Outpatient (AMB) | payer OTHER, SELFPAY ==
--- NOTE | 2024-06-03 14:07 | A.OFFVIS_ITS ---
Intake Visit Reasons: Follow-up in 3 months with KUB prior Intake Note: Patient presents today for tele visit follow up on: kidney stone and kub -ray * imaging completed: 06/03/24 Urology Medications: none Blood Thinner: none Software Systems Engineer Required: Yes Software Systems Engineer Name: Allergies aspirin [ASA] Allergy (Severe, Verified 06/03/24 14:24) FACIAL SWELLING AND DIFFICUTLY SWALLOWING, swelling mirabegron [From Myrbetriq] Allergy (Intermediate, Verified 06/03/24 14:24) Headache feathers Allergy (Unknown, Verified 06/03/24 14:24) unknown ibuprofen [From MOTRIN] Allergy (Unknown, Verified 06/03/24 14:24) UNKNOWN Penicillins [PENICILLINS] Allergy (Unknown, Verified 06/03/24 14:24) UNKNOWN hamster Allergy (Unknown, Uncoded 06/03/24 14:24) Unknown Ibuprofen Allergy (Unknown, Uncoded 06/03/24 14:24) hives pcn Allergy (Unknown, Uncoded 06/03/24 14:24) swelling SEAFOOD Allergy (Unknown, Uncoded 06/03/24 14:24) UNKNOWN seafood Allergy (Unknown, Uncoded 06/03/24 14:24) anaphylaxis Medication List - Last Reconciled 06/03/24 by CHELITA Cain-RAFITA atenolol 50 mg PO BEDTIME atorvastatin 40 mg PO DAILY bisacodyl (Dulcolax (bisacodyl)) 10 mg (2 x 5 mg) PO BEDTIME budesonide-formoterol 160-4.5 mcg/actuation 2 puffs PO BID 30 days calcium carbonate-vitamin D3 600 mg-5 mcg (200 unit) 0 tabs PO cetirizine 10 mg PO DAILY cyclobenzaprine 5 mg PO TID PRN ergocalciferol (vitamin D2) 0 mcg PO furosemide 40 mg PO QAM levothyroxine (Synthroid) 50 mcg PO DAILY losartan 50 mg PO DAILY metformin 500 mg PO pantoprazole 40 mg PO DAILY polyethylene glycol 3350 (Miralax) 17 grams PO DAILY simethicone (Gas Relief (simethicone)) 125 mg PO TID-QID PRN tolnaftate 1% (Antifungal (tolnaftate)) 1 spray topical DAILY HPI Comments Details: Chen is a pleasant Dutch speaking 69 year old female patient Gopi Ledesma who was accompanied by her significant other at [facility] office. She has a PMH of JAYCE, asthma, renal cyst, hypertension, hyperlipidemia, and PVD. She is being followed up on today via telehealth for her history of nephrolithasis. In discussion with the patient today she reports to be doing and feeling well. She denies having had any bothersome urinary issues or concerns since her last office visit here. She discusses having recently come back from [place] and has been experiencing a fungal like rash underneath her left breast. Recent KUB results reviewed with the patient today. 05/29 no suspicious calcified locations are identified. When asked she denies hematuria, dysuria, foul smelling urine, changes to urinary stream, flank pain, fever, and or chills. She otherwise offers no other issues or concerns at this time. [facility] Medical History Renal cyst History of kidney stones Sciatica Chronic low back pain Peripheral vascular disease Obesity Hyperlipidemia Acquired hypothyroidism H/O anaphylactic shock H/O ovarian cancer Renal stones Serrated adenoma of colon Surgical History History of surgery Family History Father Prostate cancer Paternal Aunt Breast cancer Maternal Uncle Diabetes Gangrene Social History Unable to assess alcohol history related to: Unknown Alcohol intake: never Patient Tobacco Use Status: Never used Tobacco Review of Systems Const Reports as per HPI Eyes Reports no additional complaints and Reports decreased night vision ENT Reports no additional complaints Card Reports as per HPI Resp Reports as per HPI GI Reports as per HPI Reports as per HPI Musc Reports no additional complaints Neuro Reports no additional complaints Psych Reports no additional complaints Endo Reports no additional complaints Monty/Lymph Reports no additional complaints Aller/Immun Reports no additional complaints Physical Exam Const General: cooperative Orientation/consciousness: oriented to person Resp Effort & Inspection: able to speak in complete sentences Neuro General: oriented to person Psych Speech and movement: Clear speech present Attitude: cooperative Thought process: Normal thought process present Thought content: Normal thought content present Insight: Fair insight present (Psych) Judgement: Fair judgement present (Psych) Telehealth Telehealth Telehealth Platform: Sensus Experience Location of provider rendering services: practice address Location of patient: address on file Patient Identification confirmed using: Name, : Yes Telehealth method: voice only Patient verbally consented to treatment: Yes Patient verbally consented to billing insurance company: Yes Patient informed of any privacy concerns related to visit: Yes Minutes spent on Phone/Video with Pt.: 15 Results Reviewed Results Reviewed: Date of Service: 06/03/24 Procedure(s): XR KUB HISTORY: N20.0 - Calculus of kidney COMPARISON: Comparison is made with the prior examination dated 11/04/2018. FINDINGS: Three supine views of the abdomen are submitted. The bowel gas pattern is unremarkable, without evidence of mechanical obstruction. There is a moderate amount of stool throughout the colon. There are phleboliths in the pelvis. No calcifications are identified overlying the renal shadows. There are surgical clips in the right upper quadrant. There are no abnormal soft tissue masses. The bones are intact. IMPRESSION: No suspicious calcifications are identified. Assessment & Plan Assessment & Plan (1) Nephrolithiasis: Code(s): N20.0 - Calculus of kidney Category: Medical Plan Recent KUB results reviewed with the patient today; as noted above. Patient currently denies any bothersome urinary issues or concerns. She reports be happy with current voiding parameters. Discussed, educated, and stressed the importance of adequate hydration relation to nephrolithiasis as well as overall health and well-being. Continue adding 1 oz of lemon juice to water daily. Will obtain renal ultrasound in 6 months. Follow-up in 6 months with imaging to be completed prior; or sooner with any issues, concerns, and or questions. Orders: Orders US renal BI 6 Months N20.0 - Calculus of kidney Medications: New nystatin apply to affected area 1 appl topical TID 60 grams 0RF 30 days Patient Instructions: The patient had an opportunity to ask questions regarding the treatment plan. All questions were answered. Physical exam, labs, and imaging were discussed and reviewed in detail. As well as risks, benefits, and discussion of treatment choices. No major barriers to understanding were identified. The patient expressed understanding and agreement with the above treatment plan. The patient was made aware they should contact our office by phone for worsening of their current condition, the appearance of new symptoms, or with any questions or concerns. Compliance is encouraged with any medications and follow up testing that is ordered. It is a privilege to be allowed the opportunity to participate in? your urological care.? Again, if you have any questions or concerns If you have any questions or concerns please do not hesitate to contact me. The office is [phone]. This note is constructed using voice recognition software. While every effort has been made to ensure accuracy chair trimmer errors may have been included. Yours sincerely, DINA Cain Coding Level of Care Code Tele Est Pt Level 3 (09666) Diagnoses Nephrolithiasis N20.0
--- OUTSIDE RECORDS SUMMARY | 2024-06-03 17:56 | XMS_ITS | Encounter Summary ---
Author Organization [employer] Address [address] [place] [address] 7 [place] [address] Care Team Providers Care Photographer Name Role Phone Michelle Coombs MD Primary Care Provide r Reason for Visit * Reason Comments Med Refill Encounter Details Date Type Department Care Team ([facility] st Contact Info) Description 10/01/2023 Refill [facility] [address] [place] [phone] Michelle Coombs MD [address] [place], [place] [phone] Costochondritis Social History Tobacco Use Types Packs/Day [...] Description 07/21/2024 2:15 PM EDT Office Visit [facility] [address] [place] [phone] Michelle Coombs MD [address] [place] [address] documented as of this encounter 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
--- OUTSIDE RECORDS SUMMARY | 2024-06-03 17:56 | XMS_ITS | Encounter Summary ---
Author Organization [employer] [facility] Address [address] [place] [address] 7 [place] [address] Care Team Providers Care Safety Tech Name Role Phone Michelle Coombs MD Primary Care Provide r Reason for Visit * Reason Comments Med Refill Encounter Details Date Type Department Care Team (Late st Contact Info) Description 03/11/2023 Refill [facility] [address] [place] [phone] Michelle Coombs MD [address] [place] [address] [phone] Social History Tobacco Use Types Packs/Day Years [...] Description 07/21/2024 2:15 PM EDT Office Visit [facility] [address] [place], [place] [phone] Michelle Coombs MD [address] [place], [place] [phone] documented as of this encounter Visit Diagnoses Not on filedocumented in this encounter Care Teams Safety Tech Relationship Specialty Start Date End Date Michelle Coombs MD [address] [place] [address] PCP - General Family Medicine 11/30/18 documented as of this encounter
--- OUTSIDE RECORDS SUMMARY | 2024-06-03 17:57 | XMS_ITS | Clinical Summary ---
Author Organization [employer] Address [address] [place] [address] 7t [place] [address] Care Team Providers Care Rn Traveling Name Role Phone Michelle Coombs MD Primary [...] 3 Active ergocalciferol (Vitamin D2) 1.25 MG (05523 UT) capsule TAKE 1 CAPSULE BY MOUTH [...] Department Care Team Description 06/03/2024 Orders Only [facility] External Provider, [facility] 04/14/2024 Refill [facility]INE [address] [place] [address] Michelle Bergman MD Essential hypertension; Seasonal allergic rhinitis, unspecified trigger 04/14/2024 Telephone [facility]INE [address] [place] [address] Michelle Coombs MD Med Refill 04/09/2024 3:15 PM EST Telemedicine [facility]INE [address] [place] [address] Michelle Coomsb MD Essential hypertension (Primary Dx); Fibromyalgia; Prediabetes 04/09/2024 Telephone [facility]INE [address] [place] [address] Michelle Coombs MD Pre-visit Planning 04/09/2024 Travel 03/04/2024 Refill [facility] [address] [place] [address] Michelle Coombs MD from Last 3 Months [...] 2:15 PM EDT Office Visit [facility] [address] [place] [address] Michelle Coombs MD [address] [place] [address] Health Maintenance Due Date Last Done Comments [...] EST Narrative 06/03/2024 10:14 AM EST ? [facility] ?[address] ?[place] [address] ?XRay Report ? Signed ? Patient: Colon Colon,Chen ?MR#: MM ?? [id number] ? : 1955 ?Acct:[id number] ? Age/Sex: 69 / F ?ADM Date: 06/03/24 ? Loc: HO.XRAY ? Attending Dr: Tia MERLOS-BC ? Ordering Physician: Tai IrahetaBC ?? Date of Service: 06/03/24 ?? Procedure(s): XR KUB ?? Accession Number(s): [id number] ? cc: Michelle Coombs MD; Tia IrahetaP-BC [...] ? DD/ 0915 ? TD/TT: 06/03/2423 ? Bag Filler: ? Procedure Note Donotrobertinterpreter, Image - 06/03/2024 [place] [address] XRay Report Signed Patient: Laith Ascencio#: MM [id number] : 1955cct:[id number] Age/Sex: 69 / FADM Date: 06/03/24 Loc: RODRIGO Attending Dr: Tia ARROYO Ordering Physician: Tia Iraheta Date of Service: 06/03/24 Procedure(s): XR KUB Accession Number(s): [id number] cc: Michelle Coombs MD; Tia Iraheta EXAMINATION: [...] OV> 06/03/24 1011 DD/ TD/TT: 06/03/24 09 Bag Filler: [facility] External Provider IMG XR PROCEDURES Final Result * BI Mammogram Diagnostic Tomosynthesis Bilateral (05/14/2023 2:25 PM EST) Anatomical Region Laterality Modality Breast Bilateral Mammography 05/14/2023 2:25 PM EST Narrative 05/14/2023 3:04 PM EST ? [facility] [place] ? [address] ?[place] [address] ? Mammography Report ? Signed ? Patient: Colon Colon,Chen ?MR#: MM ?? [id number] ? : 1955 ?Acct:[id number] ? Age/Sex: 68 / F ?ADM Date: 05/14/23 ? Loc: HO.MAMMO ? Attending Dr: Michelle Ledesma MD ? Ordering Physician: Michelle Coomsb MD ?Results: ?? 1Negative ? Date of Service: 05/14/23 ?Follow Up: 1 Year From Orig ?? inal Mammogram ? Procedure(s): MM tomosynthesis diagnostic BI ?? Accession Number(s): [id number] ? cc: Michelle Coombs MD ? EXAMINATION: [...] 1501 ? DD/ 1425 ? TD/TT: ? Bag Filler: ? Procedure Note Willard, Image - 05/14/2023 [facility] [address] [place], [place] [address] Mammography Report Signed Patient: Laith Ascencio#: [id number] : 3Acct:[id number] Age/Sex: 68 / FADM Date: 05/14/23 Loc: HO.MAMMO Attending Dr: Michelle Ledesma MD Ordering Physician: Michelle Coombs MDResults: 1Negative Date of Service: 05/14/23Follow Up: 1 Year From Orig inal Mammogram Procedure(s): MM tomosynthesis diagnostic BI Accession Number(s): [id number] cc: Michelle Coombs MD EXAMINATION: MM DIAGNOSTIC [...] in OV> 05/14/23 1501 DD/ 1425 TD/TT: Bag Filler: Michelle Ledesma MD IMG BI PROCEDURES Fin al Result * (ABNORMAL) Cologuard?? colon cancer screening (03/31/2023 11:40 AM EST) Cologuard Result Positive( A) Negative 04/07/2023 5:40 PM EST [facility] (CLIA #:[id number]) Comment: POSITIVE TEST RESULT. A positive Cologuard [...] (Urmila Yu al, N Engl J Med 2014;370(14):3578-3147.) Cologuard may produce a false negative or false positive result (no colorectal cancer or precancerous polyp present at colonoscopy follow up). A negative Cologuard test result does not guarantee the absence of CRC or advanced adenoma (pre-cancer). The current Cologuard screening interval is every 3 years. ([place] [employer] Society and U.S. Multi-Society Task Force). Cologuard performance data in a 10,000 patient pivotal study using colonoscopy as the reference method can be accessed at the following location: www.ePetWorld.com/results. Additional description of the Cologuard test process, warnings and precautions can be found at www.Plantigard.com. Stool specimen (specimen) 03/31/2023 11:40 AM EST 04/01/2023 5:06 PM EST Michelle Ledesma MD LAB MOLECULAR DIAGNOS TICS ORDERABLES Final Result [facility] (CLIA #:[id number]) [place] [address], * (ABNORMAL) Lipid Panel, Standard (03/31/2023 9:58 AM EST) Triglycerides 166(H) <150 mg/dL [facility] Comment:Desirable Triglyceri de: less than 150 mg/dLBorderline High Triglyceride 150-199 mg/dLHigh Triglyceride: 200-499 mg/dLVery High Triglyceride: greater than or equal to 5OO mg/dL Cholesterol 161 <200 mg/dL [facility] Comment:Desirable Cholestero l: less than 200 mg/dLBorderline High Cholesterol: 200-239 mg/dLHigh Cholesterol: greater than 239 mg/dL LDL Cholesterol Calculated 84 <100 mg/dL [facility] Comment:Desirable LDL: less than 100 mg/dLNear Optimal/Above Optimal LDL: 110- 129 mg/dLBorderline High LDL: 130-159 mg/dLHigh LDL: 160-189 mg/dLVery High LDL: greater than or equal to 190 mg/dL HDL Cholesterol 44 >40 mg/dL [facility] Comment:Desirable HDL: great er than 40 mg/dL Note: This HDL assay may give artificially low results in patients with liver disease. Blood Venous blood specimen / Unknown 03/31/2023 9:58 AM EST 03/31/2023 11:20 AM EST Michelle Ledesma MD LAB BLOOD ORDERABLES Final Result [facility] [address] [place] [address] [phone] * (ABNORMAL) POCT A1C (03/19/2023 10:48 AM EST) Hemoglobin A1C 6.2(A) 4.0 - 6.0 % Blood 03/19/2023 10:4 8 AM EST Michelle Ledesma MD POINT OF CARE TEST EN TER/EDIT ORDERABLES Final Result * Colonoscopy (05/23/2017) Historical Provider HEALTH MAINTENANCE Final Result from Last 3 Months or Most Recently Relevant to Health Maintenance Insurance [facility] [place] [id number] Care Teams Rn Traveling Relationship Specialty Start Date End Date Michelle Coombs MD [address] [place] [address] PCP - General Family Medicine 11/30/18
--- OUTSIDE RECORDS SUMMARY | 2024-06-03 17:57 | XMS_ITS | Encounter Summary ---
Author Organization [employer] [facility] Address [address] [place] [address] 7 [place] [address] Care Team Providers Care Community Relations Representative Name Role Phone Michelle Coombs MD Primary Care Provide r Encounter Details Date Type Department Care Team (Late Contact Info) Description 01/21/[address] [facility] MEDICINE [address] [place] [phone] Provider, Bubba, Social History Tobacco Use Types Packs/Day Years [...] Upcoming Encounters Date Type Department Care Team ([facility] Contact Info) Description 07/21/2024 2:15 PM EDT Office Visit [facility] MEDICINE [address] [place] [address] [phone] Michelle Coombs MD [address] [place] [address] [phone] documented as of this encounter Procedures Procedure Name Priority Date/Time Associated Diagnosis Comments COLONOSCOPY Routine 05/23/2017 documented in this encounter Results * Hm Colonoscopy (05/23/2017) Historical Provider HEALTH MAINTENANCE Final Result documented in this encounter Visit Diagnoses Not on filedocumented in this encounter Care Teams Community Relations Representative Relationship Specialty Start Date End Date Michelle Coombs MD [address] [place] [address] PCP - General Family Medicine 11/30/18 documented as of this encounter
--- OUTSIDE RECORDS SUMMARY | 2024-06-03 17:57 | XMS_ITS | Encounter Summary ---
Author Organization [employer] Address [address] [place] [address] 7 [place] [address] Care Team Providers Care Proteomics Scientist Name Role Phone Michelle Coombs MD Primary Care Provide r Reason for Visit * Reason Onset Date Comments Triage 08/05/2022 Encounter Details Date Type Department Care Team ([facility] st Contact Info) Description 08/05/2022 Telephone [facility] MEDICINE [address] [place], [place] [phone] Michelle Coombs MD [address] [place], [place] [phone] Triage Social History Tobacco Use Types Packs/Day [...] 08/05/2022 1:09 PM EDT Triage call with [employer] [place] [id number] Pt spouse, Jose, reports Pt [...] paxlovid, though Pt is feeling better today. [phone] given to Pt spouse who wrote this down on a paper. Pt spouse is asking about home covid tests referred to [facility] pharmacy. No further questions offered. Protocol [...] this outcome Please contact pt Spouse at [phone] Requesting for the Treatment documented in this encounter Plan of Treatment Upcoming Encounters Date Type Department Care Team (Late st Contact Info) Description 07/21/2024 2:15 PM EDT Office Visit [facility] MEDICINE [address] [place] [address] Michelle Coombs MD [address] [place], [place] [phone] documented as of this encounter Visit Diagnoses Not on filedocumented in this encounter Care Teams Proteomics Scientist Relationship Specialty Start Date End Date Michelle Coombs MD [address] [place] [address] PCP - General Family Medicine 11/30/18 documented as of this encounter
--- OUTSIDE RECORDS SUMMARY | 2024-06-03 17:57 | XMS_ITS | Encounter Summary ---
Author Organization [employer] Address [address] [facility] 7t [place] [address] Care Team Providers Care Director Part Name Role Phone Michelle Coombs MD Primary Care Provide r Encounter Details Date Type Department Care Team ([facility] Contact Info) Description 06/03/2024 Orders Only [facility] External Provider, [facility] Social History Tobacco Use Types Packs/Day Years [...] the past 12 months, has t he [employer], gas, oil or water [employer] threatened to shut off services in your [...] Description 07/21/2024 2:15 PM EDT Office Visit [facility] MEDICINE [address] [place] [address] Michelle Coombs MD [address] [place] [address] documented as of this encounter Procedures Procedure Name Priority Date/Time Associated Diagnosis Comments XR KUB AND UPRIGHT 2 VIEWS Routine 06/03/2024 9:15 AM EST documented in this encounter Results * XR KUB and Upright 2 Views (06/03/2024 9:15 AM EST) Anatomical Region Laterality Modality Radiographic Olga ging 06/03/2024 9:15 AM EST Narrative 06/03/2024 10:14 AM EST ? [facility] ?[address] ?[place] [address] ?XRay Report ? Signed ? Patient: Colon Colon,Chen ?MR#: MM ?? [id number] ? : 1955 ?Acct:[id number] ? Age/Sex: 69 / F ?ADM Date: 01/30/25 ? Loc: HO.XRAY ? Attending Dr: Tia Iraheta GENERAL OPHTHALMOLOGIST-BC ? Ordering Physician: Tia Iraheta ?? Date of Service: 06/03/24 ?? Procedure(s): XR KUB ?? Accession Number(s): [id number] ? cc: Michelle Coombs MD; Tia Iraheta ? EXAMINATION: ??XR ABDOMEN 1 VIEW (KUB) [...] ??Earle Vigil MD ??06/03/2024 10:11 AM EST ?? RP ? Dictated By: ?Earle Vigil MD ? Signed By: ?<Electronically signed by Earle Vigil MD in OV> ?06/03/24 1011 ? DD/ ? TD/TT: 06/03/[address] ? Dental Manager: ? Procedure Note Jazlynerik, Image - 06/03/2024 [place] [address] XRay Report Signed Patient: Laith Ascencio#: [id number] : 3Acct:[id number] Age/Sex: 69 / FADM Date: 06/03/24 Loc: RODRIGO Attending Dr: Tia ARROYO Ordering Physician: Tia Iraheta Date of Service: 06/03/24 Procedure(s): XR KUB Accession Number(s): [id number] cc: Michelle Coombs MD; Tia Iraheta EXAMINATION: [...] Vigil MD in OV> 06/03/24 1011 DD/ 0915 TD/TT: 06/03/24 0923 Dental Manager: [facility] External Provider IMG XR PROCEDURES Final Result documented in this encounter Visit Diagnoses Not on filedocumented in this encounter Additional Health Concerns Assessment Noted Time PHQ-9 Depression Total Score: 0 04/16/20 23 11:45 AM EST documented as of this encounter Care Teams Director Part Relationship Specialty Start Date End Date Michelle Coombs MD [address] [place] [phone] PCP - General Family Medicine 11/30/18 documented as of this encounter
--- OUTSIDE RECORDS SUMMARY | 2024-06-03 17:57 | XMS_ITS | Encounter Summary ---
Author Organization [employer] Address [address] [place] [address] 7 [place] [address] Care Team Providers Care Fiber Glass Worker Name Role Phone Michelle Coombs MD Primary Care Provide r Encounter Details Date Type Department Care Team (Late Contact Info) Description 05/21/2022 Orders Only [facility] [address] [place] [address] Florence Hahn ANP [address] [place] [address] Social History Tobacco Use Types Packs/Day Years [...] Description 07/21/2024 2:15 PM EDT Office Visit [facility] MEDICINE [address] [place], [place] [phone] Michelle Coombs MD [address] [place], [place] [phone] documented as of this encounter Visit Diagnoses Not on filedocumented in this encounter Care Teams Fiber Glass Worker Relationship Specialty Start Date End Date Michelle Coombs MD [address] [place] [address] PCP - General Family Medicine 11/30/18 documented as of this encounter
== END 2024-06-03 15:09 | disposition home or self-care (01) ==
LOC: HO.HUSH 14:04
PROVIDERS: PCP Internal Medicine; Visit Provider Nurse Practitioner Family
DX: N20.0 Calculus of kidney (principal)
CPT/HCPCS: 98013

== ENCOUNTER 2024-07-08 08:22 | Day surgery (SDC) | payer OTHER, SELFPAY ==
[2024-07-06 13:36] VITALS: BMI 40.6
--- NOTE | 2024-07-07 08:48 | HO.ANESPROP2 ---
Documented by User: Apryl Macias NP 07/07/24 08:49 HPI - Anesthesia Eval Consult details Narrative: 69yo F for Upper Endoscopy and Colonoscopy [facility] Active Problems Active Problems: All Active Problems Orthopnea (Acute) Sinusitis (Acute) JAYCE (obstructive sleep apnea) (Acute) Asthma (Acute) Dyspnea on exertion (Acute) Nephrolithiasis (Acute) Urinary frequency (Acute) Urinary urgency (Acute) Renal cyst (Acute) Past Medical History Medical History Renal cyst History of kidney stones Sciatica Chronic low back pain Peripheral vascular disease Obesity Hyperlipidemia Acquired hypothyroidism H/O ovarian cancer Renal stones Serrated adenoma of colon Family History Family History Father Prostate cancer Paternal Aunt Breast cancer Maternal Uncle Diabetes Gangrene Surgical History Surgical History History of surgery Social History Social History Do you presently have visiting nurse or other home services: No Unable to assess alcohol history related to: Unknown Alcohol intake: never Patient Tobacco Use Status: Never used Tobacco Use of substances other than those prescribed or required for medical reasons: No Have you been hit, kicked, punched, or otherwise hurt by someone within the past year? If so, by whom?: No Are you DNR?: No Advance Directives: No Advance Directives Information Provided: Yes Recently lost weight without trying: No Meds Allergies Allergy/AdvReac Type Severity Reaction Status Date / Time aspirin [ASA] Allergy Severe FACIAL Verified 06/03/24 14:24 SWELLING AND DIFFICUTLY SWALLOWING, swelling seafood Allergy Severe Anaphylaxis Verified 07/06/24 13:31 mirabegron [From Myrbetriq] Allergy Intermediate Headache Verified 06/03/24 14:24 feathers Allergy Unknown unknown Verified 06/03/24 14:24 ibuprofen [From MOTRIN] Allergy Unknown UNKNOWN Verified 06/03/24 14:24 Penicillins [PENICILLINS] Allergy Unknown UNKNOWN Verified 06/03/24 14:24 hamster Allergy Unknown Unknown Uncoded 06/03/24 14:24 Home Medications ?Medication ?Instructions ?Recorded ?Confirmed ?Last Taken ?Type atorvastatin 40 mg tablet 40 mg PO DAILY 09/06/20 07/06/24 Unknown History cyclobenzaprine 5 mg tablet 5 mg PO TID PRN Muscle Spasm 09/06/20 07/06/24 Unknown History levothyroxine 50 mcg tablet 50 mcg PO DAILY 09/06/20 07/06/24 Unknown History (Synthroid) losartan 50 mg tablet 50 mg PO DAILY 09/06/20 07/06/24 Unknown History tolnaftate 1 % topical spray 1 spray topical DAILY 09/06/20 07/06/24 Unknown History (Antifungal (tolnaftate)) atenolol 50 mg tablet 50 mg PO BEDTIME 09/18/21 07/06/24 Unknown History calcium 600 mg (as 1 tab PO DAILY 09/18/21 07/06/24 Unknown History carbonate)-vitamin D3 5 mcg (200 unit) tablet cetirizine 10 mg tablet 10 mg PO DAILY 09/18/21 07/06/24 Unknown History ergocalciferol (vitamin D2) 1,250 1,250 mcg PO DAILY 09/18/21 07/06/24 Unknown History mcg (50,000 unit) capsule metformin 500 mg tablet 500 mg PO BID 09/18/21 07/06/24 Unknown History Exam Height,Weight and Vital Signs: Height 5 ft Weight 94.347 kg Narrative Narrative: EKG 2023 Vent. Rate : 079 BPM Atrial Rate : 079 BPM P-R Int : 120 ms QRS Dur : 082 ms QT Int : 360 ms P-R-T Axes : -03 -17 037 degrees QTc Int : 412 ms Normal sinus rhythm Nonspecific ST abnormality Abnormal ECG When compared with ECG of 10-SEP-2018 09:19, No significant change was found Assessment and Plan Assessment Anesthesia Assessment: Chart Reviewed Documented by User: Jie Reyes MD 07/08/24 10:41 [facility] Past Medical History Medical History Renal cyst History of kidney stones Sciatica Chronic low back pain Peripheral vascular disease Obesity Hyperlipidemia Acquired hypothyroidism H/O ovarian cancer Renal stones Serrated adenoma of colon Family History Family History Father Prostate cancer Paternal Aunt Breast cancer Maternal Uncle Diabetes Gangrene Surgical History Surgical History History of surgery History of Problems with Anesthesia: No Social History Social History Do you presently have visiting nurse or other home services: No Unable to assess alcohol history related to: Unknown Alcohol intake: never Patient Tobacco Use Status: Never used Tobacco Use of substances other than those prescribed or required for medical reasons: No Have you been hit, kicked, punched, or otherwise hurt by someone within the past year? If so, by whom?: No Are you DNR?: No Advance Directives: No Advance Directives Information Provided: Yes Recently lost weight without trying: No Meds Allergies Allergy/AdvReac Type Severity Reaction Status Date / Time aspirin [ASA] Allergy Severe FACIAL Verified 06/03/24 14:24 SWELLING AND DIFFICUTLY SWALLOWING, swelling seafood Allergy Severe Anaphylaxis Verified 07/06/24 13:31 mirabegron [From Myrbetriq] Allergy Intermediate Headache Verified 06/03/24 14:24 feathers Allergy Unknown unknown Verified 06/03/24 14:24 ibuprofen [From MOTRIN] Allergy Unknown UNKNOWN Verified 06/03/24 14:24 Penicillins [PENICILLINS] Allergy Unknown UNKNOWN Verified 06/03/24 14:24 hamster Allergy Unknown Unknown Uncoded 06/03/24 14:24 Home Medications ?Medication ?Instructions ?Recorded ?Confirmed ?Last Taken ?Type atorvastatin 40 mg tablet 40 mg PO DAILY 09/06/20 07/06/24 Unknown History cyclobenzaprine 5 mg tablet 5 mg PO TID PRN Muscle Spasm 09/06/20 07/06/24 Unknown History levothyroxine 50 mcg tablet 50 mcg PO DAILY 09/06/20 07/06/24 Unknown History (Synthroid) losartan 50 mg tablet 50 mg PO DAILY 09/06/20 07/06/24 Unknown History tolnaftate 1 % topical spray 1 spray topical DAILY 09/06/20 07/06/24 Unknown History (Antifungal (tolnaftate)) atenolol 50 mg tablet 50 mg PO BEDTIME 09/18/21 07/06/24 Unknown History calcium 600 mg (as 1 tab PO DAILY 09/18/21 07/06/24 Unknown History carbonate)-vitamin D3 5 mcg (200 unit) tablet cetirizine 10 mg tablet 10 mg PO DAILY 09/18/21 07/06/24 Unknown History ergocalciferol (vitamin D2) 1,250 1,250 mcg PO DAILY 09/18/21 07/06/24 Unknown History mcg (50,000 unit) capsule metformin 500 mg tablet 500 mg PO BID 09/18/21 07/06/24 Unknown History Exam Airway Mallampati Class: III TM Dist: >3cm Neck ROM: Full Loose/Missing/Broken Teeth: Yes, Upper and Lower Heart: RRR Lungs: CTA Assessment and Plan Assessment Anesthesia Assessment: Anesthesia Plan Discussed Final Anesthetic Review History of Problems with Anesthesia: No NPO: Yes ASA Class: III Final Preanesthetic Review: Meds/Allgs Chart Reviewed, Consent Obtained/Reviewed and Anes Risks/Benef Reviewed Patient Risk: Intermediate Procedure Risk: Intermediate Anesthetic Plan Anesthetic Plan: MAC: Disposition: Standard PACU
[2024-07-08 09:00] VITALS: BP 158/50; PULSE 81; RESP 16; TEMP 36.7; O2SAT 96
[2024-07-08] MEDS: Lactated Ringers 1,000 ML 100 ML IVCONT (09:13)
[2024-07-08 09:18] LABS: Glucose, Whole Blood 108 mg/dL (60-115)
--- NOTE | 2024-07-08 09:47 | P.HPSUR_ITS ---
Pre-Procedural Eval Section A - 24 Hr Update-Section A only Date of Service: 07/08/24 Section B - Complete if H&P > 30 days Chief Complaint: Dysphagia, LUQ pain, hx of polyps Details of Present Illness: Renal cyst History of kidney stones Sciatica Chronic low back pain Peripheral vascular disease Obesity Hyperlipidemia Acquired hypothyroidism H/O anaphylactic shock H/O ovarian cancer Renal stones Serrated adenoma of colon Family History Father Prostate cancer Paternal Aunt Breast cancer Maternal Uncle Diabetes Gangrene Present Medications: see Short Stay Collaborative assessment Allergies: Allergies Allergy/AdvReac Type Severity Reaction Status Date / Time aspirin [ASA] Allergy Severe FACIAL Verified 06/03/24 14:24 SWELLING AND DIFFICUTLY SWALLOWING, swelling seafood Allergy Severe Anaphylaxis Verified 07/06/24 13:31 mirabegron [From Myrbetriq] Allergy Intermediate Headache Verified 06/03/24 14:24 feathers Allergy Unknown unknown Verified 06/03/24 14:24 ibuprofen [From MOTRIN] Allergy Unknown UNKNOWN Verified 06/03/24 14:24 Penicillins [PENICILLINS] Allergy Unknown UNKNOWN Verified 06/03/24 14:24 hamster Allergy Unknown Unknown Uncoded 06/03/24 14:24 Review of Systems Review of Systems Comment: Ten point ROS negative Exam Exam Comment: Gen appear: No acute distress HEENT: no icterus Chest: No overt resp distress Abd: soft, nontender, nondistended Psych: Stable affect, answering questions appropriately Neuro: A/Ox3 noted to move all extremities spontaneously Ext: no peripheral edema Plan Diagnosis/Plan: Unchanged I have reviewed the history and physical and performed a pertinent physical examination on my patient. No changes have occurred unless specified. Time Spent With Patient Time: Total time managing care of this patient today ____ minutes.
--- NOTE | 2024-07-08 10:53 | P.OPN-COLO_ITS ---
Colonoscopy Operative Note Operative Note Date of Service: 07/08/24 Narrative: Procedure: Upper endoscopy and colonoscopy Indication: Dysphagia, hx of polyps Endoscopist: Danielle Jara MD Anesthesia Provider: Dr Ladonna Reyes Anesthesia type: MAC Instrument: [id number]-H190 and [id number]-[id number] EGD Procedure:?? The procedure, indications, preparation and potential complications were reviewed with the patient with the help of English intepreter, who indicated understanding and gave written informed consent to proceed. The endoscope was introduced through the mouth, and advanced to the 2nd part of the duodenum. The mucosa was carefully examined on slow withdrawal of the endoscope. The patient tolerated the procedure well. There were no immediate complications.? EGD Findings:? * Esophagus:? Normal esophageal mucosa was noted. The Z-line was at 35 cm displaced upwards by hiatal hernia with the diaphragmatic pinch at 37 cm. Cold forceps biopsies were taken from middle and lower esophagus to rule out eosinophilic esophagitis. * Stomach:? Normal gastric mucosa. Retroflexion was performed in the cardia with a Hill grade 2 hiatal hernia. Random cold forceps biopsies were taken from the stomach. * Duodenum:? Normal duodenal mucosa. Additional intervention: Soft tip Savary wire was introduced through the biopsy channel of the gastroscope and advanced to the antrum. ?The gastroscope was then backed out. ?Savary Onur bougie was advanced over the guidewire and the esophagus was dilated to 18 mm with resistance felt. ?On relook, no heme or tear was noted. ? Colonoscopy Procedure:? The patient was then turned for the colonoscopy. A digital rectal exam was performed which was abnormal for ext hemorrhoids.? A distal attachment cap was affixed to the tip of the scope and the colonoscope was then inserted through the anus and advanced through the colon and advanced to the cecum at 75 cm and terminal ileum.? Appendiceal orifice and ileocecal valve were identified. Mucosa was carefully examined under high definition white light as the instrument was slowly withdrawn in a retrograde panoramic fashion. Retroflexion was performed in rectum. The procedure was not difficult. The quality of the prep was BBPS: 2+3+2 = adequate Withdrawal time 6 minutes Limitations: No limitations Findings: Mucosa: Normal colon and terminal ileum mucosa. Protruding lesions: * 1 sessile polyp of size 6 mm noted in the sigmoid colon. Cold snare polypectomy was performed. The polyp was completely removed and retrieved. * Medium internal hemorrhoids without stigmata of recent bleeding. Impression: 1. Normal esophagus (biopsy, dilation) 2. Hiatal hernia 3. Normal stomach (biopsy) 4. Normal duodenum 5. Normal colon and terminal ileum mucosa 6. One polyp removed 5. Internal hemorrhoids Recommendations:?? * Follow-up path results * Avoid NSAIDs * H Pylori treatment if biopsies + * Repeat colonoscopy for CRC screening in 7-10 years if polyp is an adenoma.
[2024-07-08 10:57] VITALS: BP 97/42; PULSE 66; RESP 18; TEMP 36.1; O2SAT 98
[2024-07-08 11:12] VITALS: BP 126/45; PULSE 77; RESP 18; TEMP 36.1; O2SAT 96
== END 2024-07-08 11:41 | disposition home or self-care (01) ==
PROVIDERS: PCP Internal Medicine; Visit Provider Internal Medicine
PROC: (CPT 45385; principal; 2024-07-08 10:20)
DX: Z12.11 Encounter for screening for malignant neoplasm of colon (principal); D12.5 Benign neoplasm of sigmoid colon; K64.8 Other hemorrhoids; Z86.0101 Personal history of adenomatous and serrated colon polyps; K21.00 Gastro-esophageal reflux disease with esophagitis, without bleeding; K44.9 Diaphragmatic hernia without obstruction or gangrene; R13.14 Dysphagia, pharyngoesophageal phase; E78.5 Hyperlipidemia, unspecified; E66.9 Obesity, unspecified; Z68.41 Body mass index [BMI] 40.0-44.9, adult; Z87.442 Personal history of urinary calculi; Z79.899 Other long term (current) drug therapy
CPT/HCPCS: 45385; 43248; 43239; 82947; 88305; 88313; 88342; C1769; J2003; J2704

== ENCOUNTER → 2024-07-08 08:22 | Outpatient (BNV) | payer OTHER, SELFPAY | PROVIDERS: PCP Internal Medicine; Visit Provider Internal Medicine | DX: Z12.11 Encounter for screening for malignant neoplasm of colon (principal); Z86.0100 Personal history of colon polyps, unspecified; D12.5 Benign neoplasm of sigmoid colon; K64.8 Other hemorrhoids; R13.10 Dysphagia, unspecified | CPT/HCPCS: 43239; 43248; 45385 ==

== ENCOUNTER 2024-07-22 09:13 | Outpatient (REF) | payer OTHER, SELFPAY ==
--- OUTSIDE RECORDS SUMMARY | 2024-07-22 09:57 | XMS_ITS | Encounter Summary ---
Author Organization [employer] Address [address] [place] [address] [address] [place] [address] Care Team Providers Care Warehouse Laborer Name Role Phone Michelle Coombs MD Primary Care Provide r Encounter Details Date Type Department Care Team ([facility] st Contact Info) Description 01/21/2023 Orders Only [facility] [address] [place] [address] Provider, Bubba, Social History Tobacco Use Types Packs/Day Years Used Date Smoking Tobacco: Never Assessed Comments Unknown Sex and Gender Information Value Date Recorded Sex Assigned at Female 03/04/2022 10:17 AM EDT Legal Sex Female 10:17 AM EDT Gender Identity Female 03/04/2022 10:17 AM EDT Sexual Orientation Straight 03/04/2022 10 :17 AM EDT documented as of this encounter Plan of Treatment Not on file documented as of this encounter Procedures Procedure Name Priority Date/Time Associated Diagnosis Comments COLONOSCOPY Routine 05/23/2017 documented in this encounter Results * Colonoscopy (05/23/2017) Historical Provider HEALTH MAINTENANCE Final Result documented in this encounter Visit Diagnoses Not on filedocumented in this encounter Care Teams Warehouse Laborer Relationship Specialty Start Date End Date Michelle Coombs MD [address] [place], [place] [phone] PCP - General Family Medicine 11/30/18 documented as of this encounter
--- OUTSIDE RECORDS SUMMARY | 2024-07-22 09:57 | XMS_ITS | Encounter Summary ---
Author Organization [employer] Address [address] [place] [address] [address] [place] [address] Care Team Providers Care Molding Manager Name Role Phone Michelle Coombs MD Primary Care Provide r Reason for Referral * Imaging (Routine) - Authorized Specialty Diagnoses / Procedures Referred By Rebeca schrader Referred To Contact Radiology Diagnoses Asymptomatic menopausal state Procedures BD DEXA Axial Michelle Coombs MD [address] [place] [id number] Phone: tel: fax: [address] Phone: tel: fax: Referral ID Status Reason Start Date Expiration Date V isits Requested Visits Authorized [id number] Authorized 07/21/2024 07/21/2025 1 1 * Imaging (Routine) - Authorized Specialty Diagnoses / Procedures Referred By Rebeca schrader Referred To Contact Radiology Diagnoses Breast cancer screening by mammogram Procedures BI Mammogram Screening Tomosynthesis Bilateral Michelle Coombs MD [address] [place] [id number] Phone: tel: fax: [address] Phone: tel: fax: Referral ID Status Reason Start Date Expiration Date V isits Requested Visits Authorized [id number] Authorized 07/21/2024 07/21/2025 1 1 Reason for Visit * Reason Comments Follow-up Encounter Details Date Type Department Care Team (Late st Contact Info) Description 07/21/2024 2:15 PM EDT Office Visit [facility] [address] [place] [address] Michelle Coombs MD [address] [place], [place] [phone] Chronic bilateral low back pain, unspecified whether sciatica present (Primary Dx); Essential hypertension; Prediabetes; Breast cancer screening by mammogram; Asymptomatic menopausal state; Dietary counseling; Exercise counseling; Class 3 severe obesity due to excess calories with serious comorbidity and body mass index (BMI) of 40.0 to 44.9 in adult (CMS/[facility]) Social History Tobacco Use Types Packs/Day Years [...] AM EDT documented as of this encounter Last Filed Vital Signs Vital Sign Reading Time Taken Comments Blood Pressure 140/60 07/21/2024 2:16 PM EDT Pulse 68 07/21/2024 2:16 PM EDT Temperature 36.6 ??C (97.8 ??F) 07/21/2024 2:16 PM ED T Respiratory Rate 20 07/21/2024 2:16 PM EDT Oxygen Saturation - - Inhaled Oxygen Concentration - - Weight 94.1 kg (207 lb 8 oz) 07/21/2024 2:16 PM EDT Height 152.4 cm (5') 07/21/2024 2:16 PM EDT Body Mass Index 40.52 07/21/2024 2:16 PM EDT documented in this encounter Progress Notes * Michelle Ledesma MD - 07/21/2024 2:15 PM EDT SUBJECTIVE: Chen Palma is a 69 y.o. year old female who presents for Chronic Disease Management . Acute Concerns: Patient reports she has been having acute on chronic lower back pain but states that when she takesTylenol it gets much better Patient presented with heart and endoscopy and colonoscopy done by GI she has a follow-up appointment with them for review of results reports current Patient is noted longer taking calcium with vitamin D she would like to know if she needs to keep taking vitamin D or not Social History Social History Narrative Not on file Patient Active Problem List Diagnosis Acquired hypothyroidism Fibromyalgia Constipation Dyspnea on exertion Essential hypertension Hyperlipidemia Osteoarthritis of hip Osteoarthritis of right knee Peripheral arterial occlusive disease (CMS/HCC) Prediabetes Arthralgia of temporomandibular joint Rash and nonspecific skin eruption Acute conjunctivitis of both eyes Colon cancer screening Serrated polyp of colon Positive colorectal cancer screening using Cologuard test Breast pain, right Costochondritis Acute bacterial conjunctivitis of left eye Blurring of visual image Chest discomfort Epigastric pain H. pylori infection Excessive tear production Impaired glucose tolerance Kidney stone Major depressive disorder Current episode of major depressive disorder without prior episode Microscopic hematuria Obesity (BMI 30-39.9) Pain in left arm Pigmented skin lesion Pain in female pelvis Tremor of both hands Tremor Trapezius muscle spasm Tinea cruris Chronic bilateral low back pain Breast cancer screening by mammogram Asymptomatic menopausal state Class 3 severe obesity due to excess calories with serious comorbidity and body mass index (BMI) of40.0 to 44.9 in adult ([facility]) Family History Problem Relation Name Age of Onset Uterine cancer Mother Prostate cancer Father Review of Systems Constitutional: Negative. HENT: Negative. Respiratory: Negative. Cardiovascular: Negative. Musculoskeletal: Positive for arthralgias, back pain and myalgias. OBJECTIVE: Vitals: 07/21/24 1416 BP: (!) 140/60 BP Location: Left arm Patient Position: Sitting BP Cuff Size: Large adult Pulse: 68 Resp: 20 Temp: 97.8 ??F (36.6 ??C) TempSrc: Temporal Weight: 207 lb 8 oz (94.1 kg) Height: 5' (1.524 m) Physical Exam Constitutional: Appearance: Normal appearance. Cardiovascular: Rate and Rhythm: Normal rate and regular rhythm. Pulmonary: Effort: Pulmonary effort is normal. Breath sounds: Normal breath sounds. Abdominal: General: Abdomen is flat. Palpations: Abdomen is soft. Musculoskeletal: Right lower leg: No edema. Left lower leg: No edema. Neurological: Mental Status: She is alert. Follow Up: Follow up in about 4 weeks (around 08/18/2024) for televisit review of labs weight discussion . Current Outpatient Medications on File Prior to Visit Medication Sig Dispense Refill Acetaminophen Extra Strength 500 MG tablet TAKE 2 TABLETS BY MOUTH EVERY 8 HOURS NEEDED FOR MILDPAIN 30 tablet 1 atenolol (Tenormin) 50 MG tablet TAKE 1 TABLET BY MOUTH AT BEDTIME 90 tablet 3 atorvastatin (Lipitor) 40 MG tablet TAKE 1 TABLET BY MOUTH AT BEDTIME 90 tablet 3 cetirizine (ZyrTEC) 10 MG tablet TAKE 1 TABLET BY MOUTH EVERYDAY AT NOON 90 tablet 0 ergocalciferol (Vitamin D2) 1.25 MG (09116 UT) capsule TAKE 1 CAPSULE BY MOUTH ONCE WEEKLY FRIDAYMOR furosemide (Lasix) 40 MG tablet HM ClearLax 17 GM/SCOOP powder levothyroxine (Synthroid, Levoxyl) 50 MCG tablet TAKE 1 TABLET BY MOUTH EVERY MORNING 90 tablet 3 losartan (Cozaar) 50 MG tablet TAKE 1 TABLET BY MOUTH EVERYDAY AT NOON 90 tablet 0 metFORMIN (Glucophage) 500 MG tablet TAKE 1 TABLET BY MOUTH TWICE DAILY IN THE MORNING AND IN THE EVENING 180 tablet 3 Myrbetriq 25 MG 24 hr tablet Take 25 mg by mouth in the morning. omeprazole (PriLOSEC) [address] capsule Take 1 capsule by mouth every 12 (twelve) hours. oxybutynin XL (Ditropan-XL) 5 MG 24 hr tablet TAKE 1 TABLET BY MOUTH EVERYDAY AT NOON pyridoxine (Vitamin B-6) 100 MG tablet senna (Senokot) 8.6 MG tablet Symbicort 160-4.5 MCG/ACT inhaler tiZANidine (Zanaflex) 4 MG tablet TAKE 1 TABLET BY MOUTH EVERY 8 HOURS NEEDED FOR MUSCLE SPASMS FOR UP TO 10 DAYS 30 tablet 0 [DISCONTINUED] Calcium + Vitamin D3 600-5 MG-MCG tablet TAKE 2 TABLETS BY MOUTH EVERY DAY IN THE EVENING 180 tablet 3 [DISCONTINUED] cetirizine (ZyrTEC) 10 MG tablet TAKE 1 TABLET BY MOUTH EVERYDAY AT NOON 90 tablet 0 [DISCONTINUED] losartan (Cozaar) 50 MG tablet TAKE 1 TABLET BY MOUTH EVERYDAY AT NOON 90 tablet 0 No current facility-administered medications on file prior to visit. Problem List Items Addressed This Visit Chronic bilateral low back pain - Primary Apply heat on affected area Acetaminophen as needed Essential hypertension Blood pressure borderline high I advised low-sodium diet and to take her medications every day as prescribed Relevant Medications zoster vaccine-recombinant adjuvanted (Shingrix) 50 MCG/0.5ML vaccine Other Relevant Orders CBC auto differential Comprehensive Metabolic Panel Hemoglobin A1c HIV-1/2 Antigen and Antibodies, Fourth Generation, with Reflexes Hepatitis C Antibody with Reflex to HCV, RNA, Quantitative, Real-Time PCR Lipid Panel, Standard Vitamin D, 25-Hydroxy, Total, Immunoassay TSH with Reflex to Free T4 Prediabetes Extensive counseling about healthy diet and exercise done today, A1c will be checked with labs Relevant Orders CBC auto differential Comprehensive Metabolic Panel Hemoglobin A1c HIV-1/2 Antigen and Antibodies, Fourth Generation, with Reflexes Hepatitis C Antibody with Reflex to HCV, RNA, Quantitative, Real-Time PCR Lipid Panel, Standard Vitamin D, 25-Hydroxy, Total, Immunoassay TSH with Reflex to Free T4 Breast cancer screening by mammogram Relevant Orders BI Mammogram Screening Tomosynthesis Bilateral Asymptomatic menopausal state Relevant Orders BD DEXA Axial Class 3 severe obesity due to excess calories with serious comorbidity and body mass index (BMI) of40.0 to 44.9 in adult ([facility]) Extensive counseling about healthy diet done today I will order labs and I will review them with patient for next steps for weight loss Other Visit Diagnoses Dietary counseling Exercise counseling documented in this encounter Miscellaneous Notes * Assessment & Plan Note - Michelle Ledesma MD - 07/21/2024 4:28 PM EDT Associated Problem(s): Chronic bilateral low back pain Apply heat on affected area Acetaminophen as needed * Assessment & Plan Note - Michelle Ledesma MD - 07/21/2024 4:28 PM EDT Associated Problem(s): Class 3 severe obesity due to excess calories with serious comorbidity and body mass index (BMI) of 40.0 to 44.9 in adult ([facility]) Extensive counseling about healthy diet done today I will order labs and I will review them with patient for next steps for weight loss * Assessment & Plan Note - Michelle Ledesma MD - 07/21/2024 4:27 PM EDT Associated Problem(s): Prediabetes Extensive counseling about healthy diet and exercise done today, A1c will be checked with labs * Assessment & Plan Note - Michelle Ledesma MD - 07/21/2024 4:27 PM EDT Associated Problem(s): Essential hypertension Blood pressure borderline high I advised low-sodium diet and to take her medications every day as prescribed documented in this encounter Plan of Treatment Scheduled Orders Name Type Priority Associated Diagnoses Orde r Schedule CBC auto differential Lab Routine Essential hypertension Prediabetes Expected: 07/21/2024 (Approximate), Expires: 07/21/2025 Comprehensive Metabolic Panel Lab Routine Essential hypertension Prediabetes Expected: 07/21/2024 (Approximate), Expires: 07/21/2025 Hemoglobin A1c Lab Routine Essential hypertension Prediabetes Expected: 07/21/2024 (Approximate), Expires: 07/21/2025 HIV-1/2 Antigen and Antibodies, Fourth Generation, with Reflexes Lab Routine Essential hypertension Prediabetes Expected: 07/21/2024 (Approximate), Expires: 07/21/2025 Hepatitis C Antibody with Reflex to HCV, RNA, Quantitative, Real-Time PCR Lab Routine Essential hypertension Prediabetes Expected: 07/21/2024, Expires: 07/21/2025 Lipid Panel, Standard Lab Routine Essential hypertension Prediabetes Expected: 07/21/2024 (Approximate), Expires: 07/21/2025 Vitamin D, 25-Hydroxy, Total, Immunoassay Lab Routine Essential hypertension Prediabetes Expected: 07/21/2024 (Approximate), Expires: 07/21/2025 TSH with Reflex to Free T4 Lab Routine Essential hypertension Prediabetes Expected: 07/21/2024 (Approximate), Expires: 07/21/2025 BI Mammogram Screening Tomosynthesis Bilateral Imaging Routine Breast cancer screening by mammogram Expected: 07/21/2024, Expires: 09/20/2025 BD DEXA Axial Imaging Routine Asymptomatic menopausal state Expected: 07/21/2024, Expires: 07/21/2025 documented as of this encounter Visit Diagnoses Diagnosis Chronic bilateral low back pain, unspecified whether sciatica present- Primary Essential hypertension Unspecified essential hypertension Prediabetes Other abnormal glucose Breast cancer screening by mammogram Asymptomatic menopausal state Dietary counseling Dietary surveillance and counseling Exercise counseling Class 3 severe obesity due to excess calories with serious comorbidity and body mass index (BMI) of 40.0 to 44.9 in adult (CMS/HCC) documented in this encounter Additional Health Concerns Assessment Noted Time PHQ-9 Depression Total Score: 0 04/16/20 23 11:45 AM EST documented as of this encounter Care Teams Molding Manager Relationship Specialty Start Date End Date Michelle Coombs MD [address] [place] [address] PCP - General Family Medicine 11/30/18 documented as of this encounter
--- OUTSIDE RECORDS SUMMARY | 2024-07-22 09:57 | XMS_ITS | Encounter Summary ---
Author Organization [employer] Address [address] [place] [address] Care Team Providers Care Technical Photographer Name Role Phone Michelle Coombs MD Primary Care Provide r Encounter Details Date Type Department Care Team (Latest Contact Info) Description 07/21/2024 Travel Social History Tobacco Use Types Packs/Day Years [...] on file documented as of this encounter Visit Diagnoses Not on filedocumented in this encounter Additional Health Concerns Assessment Noted Time PHQ-9 Depression Total Score: 0 04/16/20 11:45 AM EST documented as of this encounter Care Teams Technical Photographer Relationship Specialty Start Date End Date Michelle Coombs MD [address] [place] [address] PCP - General Family Medicine 11/30/18 documented as of this encounter
--- OUTSIDE RECORDS SUMMARY | 2024-07-22 09:57 | XMS_ITS | Clinical Summary ---
Author Organization [employer] Address [address] [place] [address] 7[address] [place] [address] Care Team Providers Care Air Quality Consultant Name Role Phone Michelle Coombs MD Primary Care Provide r Allergies Active Allergy Reactions Criticality Noted Date Comments Aspirin 08/16/2016 Other reaction(s): swelling Ibuprofen High 08/24/2016 Other reaction(s): Hives Lisinopril 12/04/2016 Other reaction(s): burning lips Shellfish Allergy 07/01/2023 Medications omeprazole (PriLOSEC) [address] capsule Take 1 capsule by mouth every 12 (twelve) hours. 08/03/19 21 Active Symbicort 160-4.5 MCG/ACT inhaler 05/17/19 23 Active ergocalciferol (Vitamin D2) 1.25 MG (44443 UT) capsule TAKE 1 CAPSULE BY MOUTH ONCE WEEKLY FRIDAY MORNING 04/17/20 22 Active furosemide (Lasix) 40 MG tablet 05/17/19 23 Active oxybutynin XL (Ditropan-XL) 5 MG 24 hr tablet TAKE 1 TABLET BY MOUTH EVERYDAY AT NOON 03/22/20 22 Active HM ClearLax 17 GM/SCOOP powder 05/21/19 23 Active pyridoxine (Vitamin B-6) 100 MG tablet 05/17/19 23 Active senna (Senokot) 8.6 MG tablet 05/21/19 23 Active Myrbetriq 25 MG 24 hr tablet Take 25 mg by mouth in the morning. 01/15/20 23 Active atorvastatin (Lipitor) 40 MG tablet TAKE 1 TABLET BY MOUTH AT BEDTIME 90 tablet 3 03/04/20 24 Active metFORMIN (Glucophage) 500 MG tablet TAKE 1 TABLET BY MOUTH TWICE DAILY IN THE MORNING AND IN THE EVENING 180 tablet 3 03/04/20 24 Active levothyroxine (Synthroid, Levoxyl) 50 MCG tablet TAKE 1 TABLET BY MOUTH EVERY MORNING 90 tablet 3 03/04/20 24 Active tiZANidine (Zanaflex) 4 MG tabletIndication s:Costochondriti s TAKE 1 TABLET BY MOUTH EVERY 8 HOURS NEEDED FOR MUSCLE SPASMS FOR UP TO 10 DAYS 30 tablet 06/29/19 25 Active Acetaminophen Extra Strength 500 MG tabletIndication s:Breast pain, right TAKE 2 TABLETS BY MOUTH EVERY 8 HOURS NEEDED FOR MILD PAIN 30 tablet 1 06/29/19 25 Active atenolol (Tenormin) 50 MG tablet TAKE 1 TABLET BY MOUTH AT BEDTIME 90 tablet 3 07/08/19 25 Active losartan (Cozaar) 50 MG tabletIndication s:Essential hypertension TAKE 1 TABLET BY MOUTH EVERYDAY AT NOON 90 tablet 07/17/19 25 Active cetirizine (ZyrTEC) 10 MG tabletIndication s:Seasonal allergic rhinitis, unspecified trigger TAKE 1 TABLET BY MOUTH EVERYDAY AT NOON 90 tablet 07/17/19 25 Active tiZANidine (Zanaflex) 4 MG tabletIndication s:Costochondriti s Take 1 tablet (4 mg) by mouth every 8 (eight) hours if needed for muscle spasms for up to 10 days. 30 tablet 04/16/20 23 025 Discontinued atenolol (Tenormin) 50 MG tablet TAKE 1 TABLET BY MOUTH AT BEDTIME 90 tablet 3 08/11/19 24 025 Discontinued Acetaminophen Extra Strength 500 MG tabletIndication s:Breast pain, right TAKE 2 TABLETS BY MOUTH EVERY 8 HOURS NEEDED FOR MILD PAIN 30 tablet 1 12/17/19 24 025 Discontinued losartan (Cozaar) 50 MG tabletIndication s:Essential hypertension TAKE 1 TABLET BY MOUTH EVERYDAY AT NOON 90 tablet 04/14/20 24 025 Discontinued cetirizine (ZyrTEC) 10 MG tabletIndication s:Seasonal allergic rhinitis, unspecified trigger TAKE 1 TABLET BY MOUTH EVERYDAY AT NOON 90 tablet 04/14/20 025 Discontinued Calcium + Vitamin D3 600-5 MG-MCG tabletIndication s:Vitamin D deficiency TAKE 2 TABLETS BY MOUTH EVERY DAY IN THE EVENING 180 tablet 3 06/10/19 25 025 Discontinued zoster vaccine-recombin ant adjuvanted (Shingrix) 50 MCG/0.5ML vaccineIndicatio ns:Essential hypertension Inject 0.5 mL (50 mcg) into the muscle 1 (one) time for 1 dose. 0.5 mL 07/22/19 025 Active Problems Problem Noted Date Diagnosed Date Chronic bilateral low back pain 07/21/2024 Assessment & Plan (07/21/2024 4:28 PM EDT): Apply heat on affected area Acetaminophen as needed Breast cancer screening by mammogram 07/21/2024 Asymptomatic menopausal state 07/21/2024 Class 3 severe obesity due t o excess calories with serious comorbidity and body mass index (BMI) of 40.0 to 44.9 in adult 07/21/2024 Assessment & Plan (07/21/2024 4:28 PM EDT): Extensive counseling about healthy diet done today I will order labs and I will review them with patient for next steps for weight loss Acute bacterial conjunctivitis of left eye 06/30 [...] knee 06/10/2022 Prediabetes 06/10/2022 Assessment & Plan (07/21/2024 4:27 PM EDT): Extensive counseling about healthy diet and exercise done today, A1c will be checked with labs Assessment & Plan (04/14/2024 2:45 PM EST): [...] directed Essential hypertension 08/16/2016 Assessment & Plan (07/21/2024 4:27 PM EDT): Blood pressure borderline high I advised low-sodium diet and to take her medications every day as prescribed Assessment & Plan (04/14/2024 2:44 PM EST): [...] Encounters Date Type Department Care Team Description 07/21/2024 2:15 PM EDT Office Visit [facility] [address] [place] [phone] Michelle Coombs MD Chronic bilateral low back pain, unspecified whether sciatica present (Primary Dx); Essential hypertension; Prediabetes; Breast cancer screening by mammogram; Asymptomatic menopausal state; Dietary counseling; Exercise counseling; Class 3 severe obesity due to excess calories with serious comorbidity and body mass index (BMI) of 40.0 to 44.9 in adult ([facility]) 07/21/2024 Travel 07/16/2024 Refill [facility] [address] [place] [address] Michelle Coombs MD Essential hypertension; Seasonal allergic rhinitis, unspecified trigger 07/08/2024 Orders Only GENERIC EXTERNAL DATA DEPARTMENT Provider, [facility] External Data 07/07/2024 Refill [facility] [address] [place], [place] [phone] Michelle Coombs MD 06/29/2024 Refill [facility] [address] [place], [place] [phone] Michelle Coombs MD Costochondritis; Breast pain, right 06/08/2024 Refill [facility] [address] [place], [place] [phone] Michelle Coombs MD Vitamin D deficiency 06/03/2024 Orders Only [facility] External Provider, [facility] from Last 3 Months Immunizations Name Administration [...] 20 07/21/2024 2:16 PM EDT Oxygen Saturation 91% 07/01/2023 10:50 AM EST Inhaled Oxygen Concentration - - Weight 94.1 kg (207 lb 8 oz) 07/21/2024 2:16 PM EDT Height 152.4 cm (5') 07/21/2024 2:16 PM EDT Body Mass Index 40.52 07/21/2024 2:16 PM EDT Plan of Treatment Health Maintenance Due Date Last Done Comments CT Colonography 1955 FIT 1955 FOBT 1955 Sigmoidoscopy 1955 Alcohol/Substance Use Screening 1965 Hepatitis C Screening 1971 Zoster Vaccines (2 of 3) 05/27/2017 04/01/2017 Colonoscopy 05/23/2022 05/23/2017 Colorectal Cancer Screening 04/01/2023 COVID-19 Vaccine ( season) 2024 04/10/2021, 07/25/2020, 07/04/2020 Influenza Vaccine (#1) 2024 , 02/15/2022, 04/10/2021, Additional history exists Diabetes: Hemoglobin A1C 03/19/2024 023, 02/20/2022, 08/14/2021, Additional history exists Depression Screening 04/16/2024 04/16/2023, 04/16/20 23 SDOH Screening 04/16/2024 04/16/2023 Mammogram 05/14/2024 05/14/2023, 05/05, 04/05/2022, Additional history exists Tobacco Screening 07/21/2025 07/21/2024 FIT DNA/Cologuard 03/31/2026 03/31/2023 Lipid Panel 03/31/2028 [...] Procedure Name Priority Date/Time Associated Diagnosis Comments HEMATOXYLIN AND EOSIN STAIN Routine 07/08/2024 10:33 AM EST GLUCOSE, WHOLE BLOOD Routine 07/08/2024 9:15 AM EST XR KUB AND UPRIGHT 2 VIEWS Routine [...] Recently Relevant to Health Maintenance Results * Hematoxylin and Eosin Stain (07/08/2024 10:33 AM EST) 07/08/2024 10:3 3 AM EST 07/08/2024 12:03 PM EST [facility] - 07/12/2024 12:14 PM EDT ----- ------- Name: Colon Colon,Chen ? Age/Sex: 69/F ? : 1955 Unit#: [id number] ?? Attend Dr: Danielle Jara MD ?Re07/08/24 ?Status: DEP SDC ? Location: HO.SSS ?Disch: ? ----- ------- SPEC : [id number] ? RECD: 07/08/24-3 ? STATUS: ??SOUT ? REQ NUM: [id number] ? YOSELYN: 07/08/24-3 ? SUBM DR: Danielle Jara MD ? ENTERED: ??07/08/24-1212 ?SP TYPE: Surgical ? OTHR DR: Michelle Coombs MD ? ORDERED: ??HE Stain/12, Gross Micro L4/4, IHC, Special st. 2, H. pylori, AB/PAS ? Diagnosis ?? A. ??Stomach, random, biopsy: ??Oxyntic mucosa within normal limits; no Helicobacter ?? organisms seen. ? B. ??Esophagus, lower, biopsy: ??Squamous epithelium within normal limits; no inflammation ?? seen. ? C. ??Esophagus, middle, biopsy: ??Active esophagitis (maximum eosinophil count 2 per high ?? powered field). ? D. ??Colon, sigmoid, polypectomy: ??Fragments of tubular adenoma; negative for high-grade ?? dysplasia or carcinoma. ?Clinical History Pre-Op Dx: ??Dysphagia, LUQ pain, hx of polyps Post-Op Dx: Hiatal hernia, diverticulosis, colon polyp ?Microscopic Description A-D. ??Microscopic sections examined. ??No metaplastic changes are seen, supported by AB/PAS stains (A); no Helicobacter organisms are seen, supported by H. pylori immunostain (A). ? Material Received ?? A. Random gastric ?? B. Lower esophagus ?? C. Middle esophagus ?? D. Sigmoid polyp ? Gross Description Received in four parts. Part A: ??Received in formalin labeled random gastric? are 3 abrams-pink irregular and rectangular tissue fragments ranging 0.2-0.45 cm, submitted in toto in a cassette labeled A. Part B: ??Received in formalin labeled ?lower esophagus? are 2 peters- abrams irregular tissue fragments each measuring 0.25 cm, submitted in toto in a cassette labeled B. Part C: ??Received in formalin labeled ?middle esophagus? are 4 peters- white irregular and rectangular tissue fragments ranging from 0.2 to 0.4 cm, submitted in toto in a cassette labeled C. ? CONTINUED ON NEXT PAGE ----- ------- Name: Colon Colon,Chen ? Age/Sex: 69/F ? : 1955 Unit#: [id number] ?? Attend Dr: Danielle Jara MD ?Re07/08/24 ?Status: DEP SDC ? Location: HO.SSS ?Disch: ? ----- ------- SPEC : [id number] ? RECD: 07/08/24-3 ? STATUS: ??SOUT ? REQ NUM: [id number] ? YOSELYN: 07/08/24-1033 ? SUBM DR: Danielle Jara MD ? ENTERED: ??07/08/24-1212 ?SP TYPE: Surgical ? OTHR DR: Michelle Coombs MD ? ORDERED: ??HE Stain/12, Gross Micro L4/4, IHC, Special st. 2, H. pylori, AB/PAS ? Gross Description ?(Continued) Part D: ??Received in formalin labeled ?sigmoid polyp? are 2 abrams-pink papular tissue fragments measuring 0.45 and 0.7 cm, submitted in toto in a cassette labeled D. ??CEDS Special studies ordered and performed: Immunostain for H. pylori on A; AB/PAS stains on A Copies To: ?? Michelle Coombs MD ?? [facility] ?? [address] ?? [place] ?? [phone] ?? Danielle Jara MD ?? [facility] ?? [address] ?? [place] ?? [phone] ?? [email or web address] ----- ------- Signed (signature on file) Roly Michaels MD 07/12/241213 ? ----- ------- ? END OF REPORT ? us Generic External Data Provider LAB BLOOD ORDERAB LES Final Result [facility] [address] [place] [id number] [phone] * Glucose, Whole Blood (07/08/2024 9:15 AM EST) Glucose, Whole Blood 108 60 - 115 mg/dL [facility] Comment:METER #: [id number] 07/08/2024 9:15 AM EST 07/08/2024 9:18 AM EST us Generic External Data Provider LAB BLOOD ORDERAB LES Final Result [facility] [address] [place] [id number] [phone] * XR KUB and Upright 2 Views (06/03/2024 9:15 AM EST) Anatomical Region Laterality Modality Radiographic Olga ging 06/03/2024 9:15 AM EST Narrative 06/03/2024 10:14 AM EST ? [facility] ?[address] ?[place] [address] ?XRay Report ? Signed ? Patient: Colon Colon,Chen ?MR#: MM ?? [id number] ? : 1955 ?Acct:[id number] ? Age/Sex: 69 / F ?ADM Date: 06/03/24 ? Loc: HO.XRAY ? Attending Dr: Tia ARROYO ? Ordering Physician: Tia Iraheta ?? Date of Service: 06/03/24 ?? Procedure(s): XR KUB ?? Accession Number(s): [id number] ? cc: Michelle Coombs MD; Tia Iraheta [...] ?06/03/24 1011 ? DD/ 0915 ? TD/TT: 06/03/24 0923 ? Engineering Test Mechanic: ? Procedure Note Donotuseinterpreter, Image - 06/03/[address] [address] XRay Report Signed Patient: Laith Ascencio#: [id number] : 1955cct:[id number] Age/Sex: 69 / FADM Date: 06/03/24 Loc: RODRIGO Attending Dr: Tia ARROYO Ordering Physician: Tia Iraheta Date of Service: 06/03/24 Procedure(s): XR KUB Accession Number(s): [id number] cc: Michelle Coombs MD; Tia Iraheta EXAMINATION: [...] Earle Vigil MD 06/03/2024 10:11 AM EST Dictated By: Earle Vigil MD Signed By: <Electronically signed by Earle Vigil MD in OV> 06/03/24 1011 DD/ TD/TT: 06/03/24922 Engineering Test Mechanic: [facility] External Provider IMG XR PROCEDURES Final Result * BI Mammogram Diagnostic Tomosynthesis Bilateral (05/14/2023 2:25 PM EST) Anatomical Region Laterality Modality Breast Bilateral Mammography 05/14/2023 2:25 PM EST Narrative 05/14/2023 3:04 PM EST ? [facility] ? [address] ?[place] [address] ? Mammography Report ? Signed ? Patient: Colon Colon,Chen ?MR#: MM ?? [id number] ? : 1955 ?Acct:[id number] ? Age/Sex: 68 / F ?ADM Date: 05/14/23 ? Loc: HO.MAMMO ? Attending Dr: Michelle Ledesma MD ? Ordering Physician: Michelle Coombs MD ?Results: ?? 1Negative ? Date of Service: 05/14/23 ?Follow Up: 1 Year From Orig ?? inal Mammogram ? Procedure(s): MM tomosynthesis diagnostic BI ?? Accession Number(s): [id number] ? cc: Michelle Coombs MD ? EXAMINATION: [...] signed by Elgin Hackett MD in OV> ?/02/25 1501 ? DD/ 1425 ? TD/TT: ? Engineering Test Mechanic: ? Procedure Note Donariellerobertbronsonter, Image - 05/14/2023 [place] [facility] [address] [place] [id number] Mammography Report Signed Patient: aLith Ascencio#: [id number] : 3Acct:[id number] Age/Sex: 68 / FADM Date: 05/14/23 Loc: HIWOTO Attending Dr: Michelle Ledesma MD Ordering Physician: Michelle Coombs MDResults: 1Negative Date of Service: 05/14/23Follow Up: 1 Year From Orig inal Mammogram Procedure(s): MM tomosynthesis diagnostic BI Accession Number(s): [id number] cc: Michelle Coombs MD EXAMINATION: MM DIAGNOSTIC [...] in OV> 05/14/23 1501 DD/ 1425 TD/TT: Engineering Test Mechanic: us Michelle Ledesma MD IMG BI PROCEDURES Fin al Result * (ABNORMAL) Cologuard?? colon cancer screening (03/31/2023 11:40 AM EST) Cologuard Result Positive( A) Negative 04/07/2023 5:40 PM EST [facility] (CLIA #:[id number]) Comment: POSITIVE TEST RESULT. A positive Cologuard [...] (Urmila Yu al, N Engl J Med 2014;370(14):0661-9918.) Cologuard may produce a false negative or false positive result (no colorectal cancer or precancerous polyp present at colonoscopy follow up). A negative Cologuard test result does not guarantee the absence of CRC or advanced adenoma (pre-cancer). The current Cologuard screening interval is every 3 years. ([place] [employer] and U.S. Multi-Society Task Force). Cologuard performance data in a 10,000 patient pivotal study using colonoscopy as the reference method can be accessed at the following location: www.exactlabs.com/results. Additional description of the Cologuard test process, warnings and precautions can be found at www.cologuard.com. Stool specimen (specimen) 03/31/2023 11:40 AM EST 04/01/2023 5:06 PM EST us Michelle Ledesma MD LAB MOLECULAR DIAGNOS TICS ORDERABLES Final Result [facility] (CLIA #:[id number]) [place] [address], [place] [phone] * (ABNORMAL) Lipid Panel, Standard (03/31/2023 9:58 AM EST) Triglycerides 166(H) <150 mg/dL [facility] Comment:Desirable Triglyceri de: less than 150 mg/dLBorderline High Triglyceride 150-199 mg/dLHigh Triglyceride: 200-499 mg/dLVery High Triglyceride: greater than or equal to 5OO mg/dL Cholesterol 161 <200 mg/dL [facility] Comment:Desirable Cholestero l: less than 200 mg/dLBorderline High Cholesterol: 200-239 mg/dLHigh Cholesterol: greater than 239 mg/dL LDL Cholesterol Calculated 84 <100 mg/dL [facility] Comment:Desirable LDL: less than 100 mg/dLNear Optimal/Above Optimal LDL: 110- 129 mg/dLBorderline High LDL: 130-159 mg/dLHigh LDL: 160-189 mg/dLVery High LDL: greater than or equal to 190 mg/dL HDL Cholesterol 44 >40 mg/dL [facility] Comment:Desirable HDL: great er than 40 mg/dL Note: This HDL assay may give artificially low results in patients with liver disease. Blood Venous blood specimen / Unknown 03/31/2023 9:58 AM EST 03/31/2023 11:20 AM EST us Michelle Ledesma MD LAB BLOOD ORDERABLES Final Result [facility] [address] [place] [phone] * (ABNORMAL) POCT A1C (03/19/2023 10:48 AM EST) Hemoglobin A1C 6.2(A) 4.0 - 6.0 % Blood 03/19/2023 10:4 8 AM EST us Michelle Ledesma MD POINT OF CARE TEST EN TER/EDIT ORDERABLES Final Result * Colonoscopy (05/23/2017) us Historical Provider HEALTH MAINTENANCE Final Result from Last 3 Months or Most Recently Relevant to Health Maintenance Insurance [facility] Care Teams Air Quality Consultant Relationship Specialty Start Date End Date Michelle Coombs MD [address] [place] [address] PCP - General Family Medicine 11/30/18
--- OUTSIDE RECORDS SUMMARY | 2024-07-22 09:57 | XMS_ITS | Encounter Summary ---
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
--- OUTSIDE RECORDS SUMMARY | 2024-07-22 09:57 | XMS_ITS | Encounter Summary ---
Author Organization [employer] Address [address] [place] [address] 7 [place] [address] Care Team Providers Care Ibm Mainframe Developer Name Role Phone Michelle Coombs MD Primary Care Provide r Reason for Visit * Reason Comments Med Refill Encounter Details Date Type Department Care Team ([facility] st Contact Info) Description 10/01/2023 Refill [facility] [address] [place] [address] Michelle Coombs MD [address] [place], [place] [phone] Costochondritis Social History Tobacco Use Types Packs/Day [...] documented as of this encounter Care Teams Ibm Mainframe Developer Relationship Specialty Start Date End Date Michelle Coombs MD [address] [place] [address] PCP - General Family Medicine 11/30/18 documented as of this encounter
--- OUTSIDE RECORDS SUMMARY | 2024-07-22 09:57 | XMS_ITS | Encounter Summary ---
Author Organization [employer] Address [address] [place] [address] 7 [place] [address] Care Team Providers Care Store Hand Name Role Phone Michelle Coombs MD Primary Care Provide r Reason for Visit * Reason Comments Med Refill Encounter Details Date Type Department Care Team ([facility] st Contact Info) Description 07/16/2024 Refill [facility] [address] [place] [address] Michelle Coombs MD [address] [place], [place] [phone] Essential hypertension; Seasonal allergic rhinitis, unspecified trigger Social History Tobacco Use Types Packs/Day Years [...] as of this encounter Visit Diagnoses Diagnosis Essential hypertension Unspecified essential hypertension Seasonal allergic rhinitis, unspecified trigger documented in this encounter Additional Health Concerns Assessment Noted Time PHQ-9 Depression Total Score: 0 04/16/20 23 11:45 AM EST documented as of this encounter Care Teams Store Hand Relationship Specialty Start Date End Date Michelle Coombs MD [address] [place] [address] PCP - General Family Medicine 11/30/18 documented as of this encounter
--- OUTSIDE RECORDS SUMMARY | 2024-07-22 09:57 | XMS_ITS | Encounter Summary ---
Author Organization [employer] Address [address] [place] [address] 7 [place] [address] Care Team Providers Care Tax Clerk Name Role Phone Michelle Coombs MD Primary Care Provide r Reason for Visit * Reason Comments Med Refill Encounter Details Date Type Department Care Team (Late st Contact Info) Description 03/11/2023 Refill [facility] [address] [place], [place] [phone] Michelle Coombs MD [address] [place], [place] [phone] Social History Tobacco Use Types Packs/Day Years [...] on filedocumented in this encounter Care Teams Tax Clerk Relationship Specialty Start Date End Date Michelle Coombs MD [address] [place], [place] [phone] PCP - General Family Medicine 11/30/18 documented as of this encounter
--- OUTSIDE RECORDS SUMMARY | 2024-07-22 09:57 | XMS_ITS | Encounter Summary ---
Author Organization [employer] Address [address] [facility] [address] [place] [address] Care Team Providers Care Cloth Finisher Name Role Phone Michelle Coombs MD Primary Care Provide r Encounter Details Date Type Department Care Team ([facility] Contact Info) Description 07/08/2024 Orders Only GENERIC EXTERNAL DATA DEPARTMENT Provider, Generic External Data Social History Tobacco Use Types Packs/Day Years [...] WHOLE BLOOD Routine 07/08/2024 9:15 AM EST documented in this encounter Results * Hematoxylin and Eosin Stain (07/08/2024 10:33 AM EST) 07/08/2024 10:3 3 AM EST 07/08/2024 12:03 PM EST [facility] - 07/12/2024 12:14 PM EDT ----- ------- Name: Colon Colon,Chen ? Age/Sex: 69/F ? : 1955 Unit#: [id number] ?? Attend Dr: Danielle Jara MD ?Re07/08/24 ?Status: DEP SDC ? Location: HO.SSS ?Disch: ? ----- ------- SPEC : [id number] ? RECD: 07/08/24-3 ? STATUS: ??SOUT ? REQ NUM: [id number] ? YOSELYN: 07/08/24-1033 ? SUBM DR: Danielle Jara MD ? ENTERED: ??07/08/24-2 ?SP TYPE: Surgical ? OTHR DR: Michelle [...] ? Age/Sex: 69/F ? : 1955 Unit#: [id number] ?? Attend Dr: Danielle Jara MD ?Re07/08/24 ?Status: DEP SDC ? Location: HO.SSS ?Disch: ? ----- ------- SPEC : [id number] ? RECD: 07/08/24-1203 ? STATUS: ??SOUT ? REQ NUM: [id number] ? YOSELYN: 07/08/24-1033 ? SUBM DR: Danielle [...] Copies To: ?? Michelle Coombs MD ?? [facility] ?? [address] ?? [place] [address] ?? [phone] ?? Danielle Jara MD ?? [facility] ?? [address] ?? [place] [address] ?? [phone] ?? [email or web address] ----- ------- Signed (signature on file) Roly Michaels MD 07/12/241213 ? ----- ------- ? END OF REPORT ? us Generic External Data Provider LAB BLOOD ORDERAB LES Final Result Performing Organization Address [facility] de Phone Number [facility] [address] [place] [address] [phone] * Glucose, Whole Blood (07/08/2024 9:15 AM EST) Glucose, Whole Blood 108 60 - 115 mg/dL [facility] Comment:METER #: [id number] 07/08/2024 9:15 AM EST 07/08/2024 9:18 AM EST Generic External Data Provider LAB BLOOD ORDERAB LES Final Result Performing Organization Address [facility] de Phone Number [facility] [address] [place] [address] [phone] documented in this encounter Visit Diagnoses Not on filedocumented in this encounter Additional Health Concerns Assessment Noted Time PHQ-9 Depression Total Score: 0 04/16/20 23 11:45 AM EST documented as of this encounter Care Teams Cloth Finisher Relationship Specialty Start Date End Date Michelle Coombs MD [address] [place] [address] PCP - General Family Medicine 11/30/18 documented as of this encounter
--- OUTSIDE RECORDS SUMMARY | 2024-07-22 09:57 | XMS_ITS | Encounter Summary ---
Author Organization [employer] Address [address] [place] [address] 7 [place] [address] Care Team Providers Care Machine Turner Name Role Phone Michelle Coombs MD Primary Care Provide r Reason for Visit * Reason Comments Med Refill Encounter Details Date Type Department Care Team ([facility] st Contact Info) Description 07/07/2024 Refill [facility] MED[facility]INE [address] [place] [address] Michelle Coombs MD [address] [place], [place] [phone] Social History Tobacco Use Types Packs/Day Years [...] documented as of this encounter Care Teams Machine Turner Relationship Specialty Start Date End Date Michelle Coombs MD [address] [place] [address] PCP - General Family Medicine 11/30/18 documented as of this encounter
--- OUTSIDE RECORDS SUMMARY | 2024-07-22 09:58 | XMS_ITS | Encounter Summary ---
Author Organization [employer] Address [address] [place] [address] 7t [place] [address] Care Team Providers Care Medical Delivery Technician Name Role Phone Michelle Coombs MD Primary Care Provide r Encounter Details Date Type Department Care Team (Late st Contact Info) Description 05/21/2022 Orders Only [facility] CH[facility] MED & PEDS [address] [place] [address] Florence Hahn, ANP [address] [place] [address] Social History Tobacco Use Types Packs/Day Years [...] on filedocumented in this encounter Care Teams Medical Delivery Technician Relationship Specialty Start Date End Date Michelle Coombs MD [address] [place], [place] [phone] PCP - General Family Medicine 11/30/18 documented as of this encounter
--- OUTSIDE RECORDS SUMMARY | 2024-07-22 09:58 | XMS_ITS | Encounter Summary ---
Author Organization [employer] Address [address] [place] [address] 7 [place] [address] Care Team Providers Care Prom Burn Off Operator Name Role Phone Michelle Coombs MD Primary Care Provide r Reason for Visit * Reason Onset Date Comments Triage 08/05/2022 Encounter Details Date Type Department Care Team ([facility] st Contact Info) Description 08/05/2022 Telephone [facility] MEDICINE [address] [place], [place] [phone] Michelle Coombs MD [address] [place], [place] [phone] Triage Social History Tobacco Use Types Packs/Day [...] 08/05/2022 1:09 PM EDT Triage call with [employer] [place] [id number] Pt spouse, Jose, reports Pt [...] paxlovid, though Pt is feeling better today. [phone] given to Pt spouse who wrote this down on a paper. Pt spouse is asking about home covid testsreferred to [facility] pharmacy. No further questions offered. Protocol Used: [...] this outcome Please contact pt Spouse at [phone] Requesting for the Treatment documented in this encounter Plan of Treatment Not on file documented as of this encounter Visit Diagnoses Not on filedocumented in this encounter Care Teams Prom Burn Off Operator Relationship Specialty Start Date End Date Michelle Coombs MD [address] [place] [phone] PCP - General Family Medicine 11/30/18 documented as of this encounter
[2024-07-22 11:28] LABS: MANUAL DIFF FLAG NO
[2024-07-22 11:42] LABS: Basophils Percent Auto 0.3 % (0-2); Eosinophils Absolute Auto 0.1 X10*3/uL (0.0-0.4); Eosinophils Percent Auto 1.3 % (0-4); Hematocrit 37.4 % (37.0-47.0); Hemoglobin 11.6 g/dl (12.0-16.0); Imm Gran Abs Auto 0.03 X10*3/uL (0.00-0.03); Imm Gran Pct Auto 0.3 % (0.0-0.4); Lymphocytes Absolute Auto 3.7 X10*3/uL (1.2-4.9); Lymphocytes Percent Auto 40.9 % (20-40); Mean Corpuscular Hemoglobin 30.7 pg (27.0-33.0); Mean Corpuscular Volume 98.9 fL (80.0-98.0); Mean Platelet Volume 12.8 fL (9.4-12.3); Monocytes Absolute Auto 0.7 X10*3/uL (0.1-1.2); Monocytes Percent Auto 7.2 % (2-11); Neutrophils Absolute Auto 4.6 x10*3/uL (2.0-8.3); Platelet Count 180 X10*3/uL (160-400); Red Blood Count 3.78 X10*6/uL (4.20-5.50); White Blood Count 9.1 X10*3/uL (4.8-10.8)
[2024-07-22 11:48] LABS: Estimated Average Glucose 134 mg/dL; Hemoglobin A1C 140.2477 umol/L; Hemoglobin A1c % 6.3 % (<6.0); Total Hemoglobin (HGBA1C) 3075.9861 umol/L
[2024-07-22 12:15] LABS: Alanine Aminotransferase 15 U/L (0-31); Albumin Level 3.9 g/dL (3.5-5.0); Alkaline Phosphatase 88 U/L (39-117); Anion Gap 11 (12-20); Aspartate Amino Transferase 19 U/L (5-31); Bilirubin Total 0.6 mg/dL (0.0-1.0); Blood Urea Nitrogen 16 mg/dL (9-16); Calcium 9.2 mg/dL (8.4-10.2); Carbon Dioxide 29 mmol/L (22-29); Chloride 106 mmol/L (96-108); Cholesterol 147 mg/dL (<200); Estimated Glomerular Filt Rate > 60; Glucose Random 106 mg/dL (60-115); HDL Cholesterol 42 mg/dL (>40); LDL Cholesterol Calculated 71 mg/dL (<100); Potassium 4.4 mmol/L (3.3-5.1); Sodium 142 mmol/L (135-145); TSH reflex Free T4 3.79 uIU/mL (0.32-4.0); Total Protein 7.7 g/dL (6.5-8.0); Triglycerides 170 mg/dL (<150); Vitamin D 25-OH Total 16.3 ng/mL (>30)
[2024-07-22 12:22] LABS: HIV AB/AG Nonreactive (Nonreactive); HIV Num 1 0.08 S/CO (0.00-0.99); ~HepC Num1 0.12 S/CO (0.00-0.79); ~Hepatitis C Antibody Nonreactive (Nonreactive)
== END 2024-07-22 09:14 | disposition home or self-care (01) ==
LOC: HO.HHCL 09:13
PROVIDERS: Visit Provider Internal Medicine
DX: I10 Essential (primary) hypertension (principal); R73.03 Prediabetes
CPT/HCPCS: 36415; 80053; 80061; 82306; 83036; 84443; 85025; 86803; 87389

== ENCOUNTER 2024-07-28 14:16 | Outpatient (AMB) | payer OTHER, SELFPAY ==
[2024-07-28 14:19] VITALS: BP 122/58; PULSE 65; O2SAT 96; BMI 40.0
--- NOTE | 2024-07-28 14:19 | A.OFFVIS_ITS ---
Vital Signs 07/28/24 14:19 Height 5 ft Weight 205 lb BMI 40.0 BP 122/58 L Blood Pressure Location Lt brachial Position Sitting Pulse 65 Pulse Source Doppler Pulse Oximetry (%) 96 Oxygen Delivery Method Room Air Intake Visit Reasons: Obstructive sleep apnea Hotel Maintenance Technician Required: Yes Hotel Maintenance Technician Name: Ines MartinezDarrionGonzales Allergies aspirin [ASA] Allergy (Severe, Verified 07/28/24 14:28) FACIAL SWELLING AND DIFFICUTLY SWALLOWING, swelling seafood Allergy (Severe, Verified 07/28/24 14:28) Anaphylaxis mirabegron [From Myrbetriq] Allergy (Intermediate, Verified 07/28/24 14:28) Headache feathers Allergy (Unknown, Verified 07/28/24 14:28) unknown ibuprofen [From MOTRIN] Allergy (Unknown, Verified 07/28/24 14:28) UNKNOWN Penicillins [PENICILLINS] Allergy (Unknown, Verified 07/28/24 14:28) UNKNOWN hamster Allergy (Unknown, Uncoded 06/03/24 14:24) Unknown HPI HPI Obstructive sleep apnea: Details: 69-year-old lady, nonsmoker, with underlying obesity, CAD, PVD, followed for asthma, dyspnea on exertion, and JAYCE on CPAP. Patient states that her asthma symptoms have been well controlled on Symbicort and as needed albuterol MDI. She denies any recent exacerbations. Patient's sleep apnea symptoms are controlled on CPAP therapy. Her orthopnea lower extremity edema improved on steady furosemide regimen. She denies recent exacerbation. [facility] Medical History Renal cyst History of kidney stones Sciatica Chronic low back pain Peripheral vascular disease Obesity Hyperlipidemia Acquired hypothyroidism H/O ovarian cancer Renal stones Serrated adenoma of colon Surgical History History of surgery Family History Father Prostate cancer Paternal Aunt Breast cancer Maternal Uncle Diabetes Gangrene Social History Do you presently have visiting nurse or other home services: No Unable to assess alcohol history related to: Unknown Alcohol intake: never Patient Tobacco Use Status: Never used Tobacco Review of Systems Const Denies daytime sleepiness, Denies excessive sweating, Denies fatigue, Denies fever(s), Denies lethargy, Denies malaise, Denies night sweats, Denies snoring and Denies weight loss Eyes Denies blurry vision and Denies itchy eyes ENT Denies nasal congestion, Denies post nasal drip, Denies sinus pain, Denies sinus pressure and Denies other ( Thrush) Card Denies chest pain, Denies pedal edema, Denies dyspnea, Denies orthopnea and Denies paroxysmal nocturnal dyspnea Resp Denies cough, Denies hemoptysis, Denies excessive phlegm production, Denies dyspnea, Denies snoring and Denies wheezing GI Denies abdominal pain and Denies heartburn Musc Denies myalgias, Denies arthralgias and Denies joint swelling Skin/Breast Denies rash Neuro Denies memory loss and Denies seizure-like activity Psych Denies abnormal sleep pattern, Denies anxiety and Denies memory loss Endo Denies excessive sweating, Denies fatigue and Denies heat intolerance Monty/Lymph Denies easy bruising Aller/Immun Denies itchy eyes, Denies seasonal rhinorrhea and Denies wheezing Physical Exam Vital Signs: Last Vital Signs Pulse 65 07/28/24 14:19 BP 122/58 L 07/28/24 14:19 Pulse Ox 96 07/28/24 14:19 Oxygen Delivery Method Room Air 07/28/24 14:19 BMI result Body Mass Index 40.0 Const General: no acute distress and alert Nutritional Appearance: obese Orientation/consciousness: Other orientation findings ( oriented) HEENT Head: Yes atraumatic Eyes General: appearance normal, both eyes and all related structures Sclerae: sclerae normal EOM: EOMs intact bilaterally Neck Neck: Yes supple Lymphatic: no lymphadenopathy noted Resp Effort & Inspection: normal respiratory effort and no use of accessory muscles Auscultation: clear to auscultation bilaterally Cardio Rate: regular rate Rhythm: regular rhythm Heart sounds: no gallops, no murmurs and no rubs Skin General skin exam: other ( warm) Extrem General: No clubbing, No cyanosis and No edema Assessment & Plan Assessment & Plan (1) Asthma: Code(s): J45.909 - Unspecified asthma, uncomplicated Category: Medical Plan: Well controlled on regimen of Symbicort and albuterol MDI. Continue current regimen. (2) JAYCE (obstructive sleep apnea): Code(s): G47.33 - Obstructive sleep apnea (adult) (pediatric) Category: Medical Plan: Controlled on CPAP therapy when patient uses her CPAP. Patient has been encouraged to use her CPAP more consistently. (3) Orthopnea: Code(s): R06.01 - Orthopnea Category: Medical Plan: Improved control on current regimen Lasix 40 mg daily. Continue current regimen. Coding Level of Care Code Est Pt Level 4 (95044) Diagnoses Asthma J45.909 JAYCE (obstructive sleep apnea) G47.33 Orthopnea R06.01
--- OUTSIDE RECORDS SUMMARY | 2024-07-28 17:10 | XMS_ITS | Encounter Summary ---
Author Organization [employer] Address [address] [place] [address] 7 [place] [address] Care Team Providers Care Hydrochloric Manufacturing Supervisor Name Role Phone Michelle Coombs MD Primary Care Provide r Encounter Details Date Type Department Care Team (Late Contact Info) Description 05/21/2022 Orders Only [facility] CHC MED & PEDS [address] [place] [address] Florence Hahn ANP [address] [place] [address] Social History Tobacco Use Types Packs/Day Years [...] Department Care Team (Late Contact Info) Description 09/15/2024 11:30 AM EDT Telemedicine [facility] MEDICINE [address] [place] [address] Michelle Coombs MD [address] [place], [place] [phone] documented as of this encounter Visit Diagnoses Not on filedocumented in this encounter Care Teams Hydrochloric Manufacturing Supervisor Relationship Specialty Start Date End Date Michelle Coombs MD [address] [place] [address] PCP - General Family Medicine 11/30/18 documented as of this encounter
--- OUTSIDE RECORDS SUMMARY | 2024-07-28 17:10 | XMS_ITS | Encounter Summary ---
Author Organization [employer] Address [address] [facility] 7t [place] [address] Care Team Providers Care Stick Puller Name Role Phone Michelle Coombs MD Primary Care Provide r Encounter Details Date Type Department Care Team ([facility] Contact Info) Description 07/08/2024 Orders Only [...] Care Team (Late st Contact Info) Description 09/15/2024 11:30 AM EDT Telemedicine [facility] MEDICINE 230 [place], [place] [phone] Michelle Coombs MD [address] [place] [address] documented as of this encounter Procedures Procedure Name Priority Date/Time Associated Diagnosis Comments HEMATOXYLIN AND EOSIN STAIN Routine 07/08/2024 10:33 AM EST GLUCOSE, WHOLE BLOOD Routine 07/08/2024 9:15 AM EST documented in this encounter Results * Hematoxylin and Eosin Stain (07/08/2024 10:33 AM EST) 07/08/2024 10:3 3 AM EST 07/08/2024 12:03 PM EST [facility] LABS - 07/12/2024 12:14 PM EDT ----- ------- Name: Colon Colon,Chen ? Age/Sex: 69/F ? : 1955 Unit#: [id number] ?? Attend Dr: Danielle Jara MD ?Re07/08/24 ?Status: DEP SDC ? Location: HO.SSS ?Disch: ? ----- ------- SPEC : [id number] ? RECD: 07/08/24-1203 ? STATUS: ??SOUT ? REQ NUM: [id number] ? YOSELYN: 07/08/24-1033 ? SUBM DR: Danielle [...] ? Age/Sex: 69/F ? : 1955 Unit#: [id number] ?? Attend Dr: Danielle Jara MD ?Re07/08/24 ?Status: DEP SDC ? Location: HO.SSS ?Disch: ? ----- ------- SPEC : [id number] ? RECD: 07/08/24-1203 ? STATUS: ??SOUT ? REQ NUM: [id number] ? YOSELYN: 07/08/24-1033 ? SUBM DR: Danielle [...] Copies To: ?? Michelle Coombs MD ?? [facility] ?? [address] [facility] ?? [place] [address] ?? [phone] ?? Danielle Jara MD ?? [facility] ?? [address] ?? [place] [address] ?? [phone] ?? [email or web address] ----- ------- Signed (signature on file) Roly Michaels MD 07/12/244 ? ----- ------- ? END OF REPORT ? us Generic External Data Provider LAB BLOOD ORDERAB LES Final Result [facility] [address] [place] [address] [phone] * Glucose, Whole Blood (07/08/2024 9:15 AM EST) [facility] Glucose, Whole Blood 108 60 - 115 mg/dL [facility] Comment:METER #: [id number] 07/08/2024 9:15 AM EST 07/08/2024 9:18 AM EST us Generic External Data Provider LAB BLOOD ORDERAB LES Final Result [facility] [address] [place] [address] [phone] documented in this encounter Visit Diagnoses Not on filedocumented in this encounter Additional Health Concerns Assessment Noted Time PHQ-9 Depression Total Score: 0 04/16/20 23 11:45 AM EST documented as of this encounter Care Teams Stick Puller Relationship Specialty Start Date End Date Michelle Coombs MD [address] [place] [address] PCP - General Family Medicine 11/30/18 documented as of this encounter
--- OUTSIDE RECORDS SUMMARY | 2024-07-28 17:10 | XMS_ITS | Encounter Summary ---
Author Organization [employer] Address [address] [place] [address] 7 [place] [address] Care Team Providers Care Last Putter Away Name Role Phone Michelle Coombs MD Primary Care Provide r Encounter Details Date Type Department Care Team (Late Contact Info) Description 01/21/2023 Orders Only [facility] MEDICINE [address] [place] [phone] Provider, Bubba, Social History Tobacco Use Types [...] Upcoming Encounters Date Type Department Care Team ([facility] Contact Info) Description 09/15/2024 11:30 AM EDT Telemedicine [facility] MEDICINE [address] [place] [address] [phone] Michelle Coombs MD [address] [place] [address] [phone] documented as of this encounter Procedures Procedure Name Priority Date/Time Associated Diagnosis Comments COLONOSCOPY Routine 05/23/2017 documented in this encounter Results * Hm Colonoscopy (05/23/2017) Historical Provider HEALTH MAINTENANCE Final Result documented in this encounter Visit Diagnoses Not on filedocumented in this encounter Care Teams Last Putter Away Relationship Specialty Start Date End Date Michelle Coombs MD [address] [place] [address] PCP - General Family Medicine 11/30/18 documented as of this encounter
--- OUTSIDE RECORDS SUMMARY | 2024-07-28 17:10 | XMS_ITS | Encounter Summary ---
Author Organization [employer] Address [address] [place] [address] 7 [place] [address] Care Team Providers Care Flat Finisher Name Role Phone Michelle Coombs MD Primary Care Provide r Reason for Visit * Reason Comments Med Refill Encounter Details Date Type Department Care Team (Late st Contact Info) Description 06/29/2024 Refill [facility] MEDICINE [address] [place] [address] Michelle Coombs MD [address] [place], [place] [phone] Costochondritis; Breast pain, right Social History Tobacco [...] Info) Description 09/15/2024 11:30 AM EDT Telemedicine [facility] MEDICINE [address] [place] [phone] Michelle Coombs MD [address] [place] [address] documented as of this encounter 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
--- OUTSIDE RECORDS SUMMARY | 2024-07-28 17:10 | XMS_ITS | Encounter Summary ---
Author Organization [employer] Address [address] [place] [address] 7 [place] [address] Care Team Providers Care Time Analysis Clerk Name Role Phone Michelle Coombs MD Primary Care Provide r Reason for Visit * Reason Comments Med Refill Encounter Details Date Type Department Care Team ([facility] st Contact Info) Description 10/01/2023 Refill [facility] MEDICINE [address] [place] [address] Michelle Coombs MD [address] [place], [place] [phone] Costochondritis Social History Tobacco Use Types Packs/Day [...] Info) Description 09/15/2024 11:30 AM EDT Telemedicine [facility] MEDICINE [address] [place] [phone] Michelle Coombs MD [address] [place] [address] documented as of this encounter Visit Diagnoses Diagnosis Costochondritis Tietze's disease documented in this encounter Additional Health Concerns Assessment Noted Time PHQ-9 Depression Total Score: 0 04/16/20 23 11:45 AM EST documented as of this encounter Care Teams Time Analysis Clerk Relationship Specialty Start Date End Date Michelle Coombs MD [address] [place] [phone] PCP - General Family Medicine 11/30/18 documented as of this encounter
--- OUTSIDE RECORDS SUMMARY | 2024-07-28 17:10 | XMS_ITS | Clinical Summary ---
Author Organization [email or web address] Address [address] [place] [address] 7[address] [place] [address] Care Team Providers Care Bicycle Racer Name Role Phone Michelle Coombs MD Primary [...] 23 Active ergocalciferol (Vitamin D2) 1.25 MG (62445 UT) capsule TAKE 1 CAPSULE BY MOUTH [...] Description 07/21/2024 2:15 PM EDT Office Visit [facility] [address] [place] [phone] Michelle Coombs MD Chronic bilateral low back pain, unspecified whether sciatica present (Primary Dx); Essential hypertension; Prediabetes; Breast cancer screening by mammogram; Asymptomatic menopausal state; Dietary counseling; Exercise counseling; Class 3 severe obesity due to excess calories with serious comorbidity and body mass index (BMI) of 40.0 to 44.9 in adult ([facility]) 07/21/2024 Travel 07/16/2024 Refill [facility] [address] [place] [address] Michelle Coombs MD Essential hypertension; Seasonal allergic rhinitis, unspecified trigger 07/08/2024 Orders Only GENERIC EXTERNAL DATA DEPARTMENT Provider, [facility] External Data 07/07/2024 Refill [facility] [address] [place], [place] [phone] Michelle Coombs MD 06/29/2024 Refill [facility] [address] [place], [place] [phone] Michelle Coombs MD Costochondritis; Breast pain, right 06/08/2024 Refill [facility] [address] [place], [place] [phone] Michelle Coombs MD Vitamin D deficiency 06/03/2024 Orders Only [facility] External Provider, [facility] from Last 3 Months Immunizations Name [...] 07/21/2024 2:16 PM EDT Plan of Treatment Upcoming Encounters Date Type Department Care Team (Late st Contact Info) Description 09/15/2024 11:30 AM EDT Telemedicine [facility] [address] [place] [address] Michelle Coombs MD [address] [place] [address] Health Maintenance Due Date Last Done Comments CT Colonography 1955 FIT 1955 FOBT 1955 Sigmoidoscopy 1955 Alcohol/Substance Use Screening 1965 Zoster Vaccines (2 of 3) 05/27/2017 04/01/2017 Colonoscopy 05/23/2022 05/23/2017 Colorectal Cancer Screening 04/01/2023 COVID-19 Vaccine ( season) 2024 04/10/2021, 07/25/2020, 07/04/2020 Influenza Vaccine (#1) 2024 , 02/15/2022, 04/10/2021, Additional history exists Depression Screening 04/16/2024 04/16/2023, 04/16/20 SDOH Screening 04/16/2024 04/16/2023 Mammogram 07/21/2025 07/21/2024, 05/05, 05/14/2023, Additional history exists Tobacco Screening 07/21/2025 07/21/2024 Diabetes: Hemoglobin A1C 07/22/2025 025, 03/19/2023, 02/20/2022, Additional history exists FIT DNA/Cologuard 03/31/2026 03/31/2023 DTaP/Tdap/Td Vaccines (2 - Td or Tdap) 11/18/2028 11/18/2018 Lipid Panel 07/22/2029 07/22/2024, 03/06, 02/20/2022, Additional history exists Pneumococcal Vaccine: 50+ Years Completed 03/19/2023, 06/09/2018 RSV Patients and Patients Aged 60 years or older Completed 07/04/2023 Hepatitis C Screening Completed 07/22/2024 HIB Vaccines Aged Out No longer eligi [...] Procedure Name Priority Date/Time Associated Diagnosis Comments HEMOGLOBIN A1C Routine 07/22/2024 9:22 AM EDT Essential hypertension Prediabetes CBC WITH AUTO DIFFERENTIAL Routine 07/22/2024 9:22 AM EDT Essential hypertension Prediabetes TSH W/REFLEX TO FT4 Routine 07/22/2024 7 :22 AM EDT Essential hypertension Prediabetes VITAMIN D,25-OH,TOTAL,IA Routine 07/22/2024 7:22 AM EDT Essential hypertension Prediabetes LIPID PANEL, STANDARD Routine 07/22/2024 7:22 AM EDT Essential hypertension Prediabetes HEPATITIS C AB W/REFL TO HCV RNA, QN, PCR Routine 07/22/2024 7:22 AM EDT Essential hypertension Prediabetes HIV 1/2 ANTIGEN/ANTIBODY, FOURTH GENERATION W/RFL Routine 07/22/2024 7:22 AM EDT Essential hypertension Prediabetes COMPREHENSIVE METABOLIC PANEL Routine 07/22/2024 7:22 AM EDT Essential hypertension Prediabetes BI MAMMOGRAM SCREENING TOMOSYNTHESIS BILATERAL Routine 07/21/2024 Breast cancer screening by mammogram HEMATOXYLIN AND EOSIN STAIN Routine 07/08/2024 10:33 AM EST GLUCOSE, WHOLE BLOOD Routine 07/08/2024 9:15 AM EST XR KUB AND UPRIGHT 2 VIEWS Routine 06/03/2024 9:15 AM EST LAB COLOGUARD?? COLON CANCER SCREEN Routine 03/31/2023 11:40 AM EST Colon cancer screening HM COLONOSCOPY Routine 05/23/2017 from Last 3 Months or Most Recently Relevant to Health Maintenance Results * (ABNORMAL) CBC auto differential (07/22/2024 9:22 AM EDT) White Blood Count 9.1 4.8 - 10.8 X10*3/uL [facility] Red Blood Count 3.78(L) 4.20 - 5.50 X10*6/uL [facility] Hemoglobin 11.6(L) 12.0 - 16.0 g/dl [facility] Hematocrit 37.4 37.0 - 47.0 % [facility] Mean Corpuscular Volume 98.9(H) 80.0 - 98.0 fL [facility] Mean Corpuscular Hemoglobin 30.7 27.0 - 33.0 pg [facility] Mean Corpuscular HGB Conc 31.0 31.0 - 35.0 g/dl [facility] Red Cell Distribution Width 14.0 11.0 - 16.0 % [facility] Platelet Count 180 160 - 400 X10*3/uL [facility] Mean Platelet Volume 12.8(H) 9.4 - 12.3 fL [facility] Neutrophils Percent Auto 50.0 45 - 73 % [facility] Imm Gran Pct Auto 0.3 0.0 - 0.4 % [facility] Lymphocytes Percent Auto 40.9(H) 20 - 40 % [facility] Monocytes Percent Auto 7.2 2 - 11 % [facility] Eosinophils Percent Auto 1.3 0 - 4 % [facility] Basophils Percent Auto 0.3 0 - 2 % [facility] NRBC Pct Auto 0.0 0.0 - 0.2 /100WBC [facility] Neutrophils Absolute Auto 4.6 2.0 - 8.3 x10*3/uL [facility] Imm Gran Abs Auto 0.03 0.00 - 0.03 X10*3/uL [facility] Lymphocytes Absolute Auto 3.7 1.2 - 4.9 X10*3/uL [facility] Monocytes Absolute Auto 0.7 0.1 - 1.2 X10*3/uL [facility] Eosinophils Absolute Auto 0.1 0.0 - 0.4 X10*3/uL [facility] Basophils Absolute Auto 0.0 0.0 - 0.2 X10*3/uL [facility] NRBC Abs Auto 0.000 0.0 - 0.012 X10*3/uL [facility] Blood Venous blood specimen / Unknown 07/22/2024 9:22 AM EDT 07/22/2024 11:21 AM EDT Michelle Ledesma MD LAB BLOOD ORDERABLES Final Result [facility] [address] [place] [address] [phone] * (ABNORMAL) Hemoglobin A1c (07/22/2024 9:22 AM EDT) Hemoglobin A1c 6.3(H) <6.0 % [facility] Comment:Hemoglobin A1C Refer ence Range Adults: 4.8 - 6.0 % Non diabetic: < 6.0 % Goal: < 7.0 %Additional Action Suggested: > 8.0 %Note: Hemoglobin A1c results are invalid for patients with abnormal amounts of HbF. Blood transfusions may impact the HbA1c concentration in the patient sample. Estimated Average Glucose 134 mg/dL [facility] Comment:eAG = Estimated ave rage glucose which is %A1C expressed asaverage glucose, using the formula of the F9H-ZmippluYpcplrm Glucose study (ADAG), Diabetes Care, Vol.31,#8,2007 Blood Venous blood specimen / Unknown 07/22/2024 9:22 AM EDT 07/22/2024 11:21 AM EDT us Michelle Ledesma MD LAB BLOOD ORDERABLES Final Result Performing Organization Address City/[facility]/ZIP Co de Phone Number [facility] [address] [place] [address] [phone] * (ABNORMAL) Vitamin D, 25-Hydroxy, Total, Immunoassay (07/22/2024 7:22 AM EDT) Pathologist [facility] Vitamin D 25-OH Total 16.3(L) >30 ng/mL [facility] Comment: Health Based Reference Values*< 20 ??ng/mL ??Fkcbkjnti97-09 ng/mL ??Insufficient> 30 ??ng/mL ??Sufficient*Ubaldo RIVERA. N Engl J Med. 2007;357:266-280There is no well-established upper level of normal vitamin Dlevels. Some laboratories use 50 ng/mL as an upper limit ofnormal. However, toxicity is patient-dependent and may occurat any level. Careful correlation with the patient'spresentation is necessary and, if there is concern forvitamin D toxicity, treatment should be consideredirrespective of the serum level.Care must be taken in interpreting Vitamin D results fromdifferent laboratories and methodologies. ??Published datademonstrated that results from patients undergoinghemodialysis may show a negative bias when tested withvarious automated 25-OH vitamin D assays when compared toLC- MS/MS.When testing samples from patients whose predominant form ofVitamin D is Vitamin D2, such as patients receiving VitaminD2 supplementation, results that are subtherapeutic shouldbe confirmed with another method such as LC-MS/MS. Blood Venous blood specimen / Unknown 07/22/2024 7:22 AM EDT 07/22/2024 11:21 AM EDT us Michelle Ledesma MD LAB BLOOD ORDERABLES Final Result Performing Organization Address City/[facility]/ZIP Co de Phone Number [facility] [address] [place] [address] [phone] * TSH with Reflex to Free T4 (07/22/2024 7:22 AM EDT) TSH reflex Free T4 3.79 0.32 - 4.0 uIU/mL [facility] Blood Venous blood specimen / Unknown 07/22/2024 7:22 AM EDT 07/22/2024 11:21 AM EDT us Michelle Ledesma MD LAB BLOOD ORDERABLES Final Result Performing Organization Address City/[facility]/ZIP Co de Phone Number [facility] [address] [place] [phone] * Hepatitis C Antibody with Reflex to HCV, RNA, Quantitative, Real-Time PCR (07/22/2024 7:22 AM EDT) Pathologist [facility] Hepatitis C Antibody Nonreactive Nonreactive [facility] Comment:Antibodies to HCV no t detected; does not exclude early acuteHCV infection. Blood Venous blood specimen / Unknown 07/22/2024 7:22 AM EDT 07/22/2024 11:21 AM EDT us Michelle Ledesma MD LAB BLOOD ORDERABLES Final Result Performing Organization Address City/[facility] Co de Phone Number [facility] [address] [place] [phone] * HIV-1/2 Antigen and Antibodies, Fourth Generation, with Reflexes (07/22/2024 7:22 AM EDT) Pathologist [facility] HIV AB/AG Nonreactive Nonreactive [facility] Comment:HIV-1 p24 Ag and/or HIV-1/HIV-2 Ab not detected.A test result that is nonreactive does not exclude thepossibility of exposure to or infection with HIV-1 and/orHIV-2. Nonreactive results in this assay for individualswith prior exposure to HIV-1 and/or HIV-2 may be due toantigen and antibody levels that are below the limit ofdetection of this assay.The [address] HIV Ag/Ab Combo assay result andsupplemental assay results should be interpreted inconjunction with the patient's clinical presentation,history and other laboratory results. If the results areinconsistent with clinical evidence, additional testing issuggested to confirm the result. Blood Venous blood specimen / Unknown 07/22/2024 7:22 AM EDT 07/22/2024 11:21 AM EDT us Michelle Ledesma MD LAB BLOOD ORDERABLES Final Result Performing Organization Address City/[facility] Co de Phone Number [facility] [address] [place] [phone] * (ABNORMAL) Lipid Panel, Standard (07/22/2024 7:22 AM EDT) Triglycerides 170(H) <150 mg/dL [facility] Comment:Desirable Triglyceri de: less than 150 mg/dLBorderline High Triglyceride 150-199 mg/dLHigh Triglyceride: 200-499 mg/dLVery High Triglyceride: greater than or equal to 5OO mg/dL Cholesterol 147 <200 mg/dL [facility] Comment:Desirable Cholestero l: less than 200 mg/dLBorderline High Cholesterol: 200-239 mg/dLHigh Cholesterol: greater than 239 mg/dL LDL Cholesterol Calculated 71 <100 mg/dL [facility] Comment:Desirable LDL: less than 100 mg/dLNear Optimal/Above Optimal LDL: 110- 129 mg/dLBorderline High LDL: 130-159 mg/dLHigh LDL: 160-189 mg/dLVery High LDL: greater than or equal to 190 mg/dL HDL Cholesterol 42 >40 mg/dL [facility] Comment:Desirable HDL: great er than 40 mg/dL Note: This HDL assay may give artificially low results in patients with liver disease. Blood Venous blood specimen / Unknown 07/22/2024 7:22 AM EDT 07/22/2024 11:21 AM EDT us Michelle Ledesma MD LAB BLOOD ORDERABLES Final Result [facility] [address] [place] [phone] * (ABNORMAL) Comprehensive Metabolic Panel (07/22/2024 7:22 AM EDT) Sodium 142 135 - 145 mmol/L [facility] Potassium 4.4 3.3 - 5.1 mmol/L [facility] Chloride 106 96 - 108 mmol/L [facility] Carbon Dioxide 29 22 - 29 mmol/L [facility] Anion Gap 11(L) 12 - 20 [facility] Urea Nitrogen (BUN) 16 9 - 16 mg/dL [facility] Creatinine, Serum 0.83 0.5 - 1.4 mg/dL [facility] Estimated Glomerular Filt Rate >60 [facility] Comment:Chronic Kidney Disea se: Estimated GFR < 60 mL/min/1.28t6Qygdct Kidney Disease: Estimated GFR < 15 mL/min/1.73m2 Glucose 106 60 - 115 mg/dL [facility] Calcium 9.2 8.4 - 10.2 mg/dL [facility] Bilirubin, Total 0.6 0.0 - 1.0 mg/dL [facility] Aspartate Amino Transferase 19 5 - 31 U/L [facility] Alanine Aminotransferase 15 0 - 31 U/L [facility] Total Protein 7.7 6.5 - 8.0 g/dL [facility] Albumin Level 3.9 3.5 - 5.0 g/dL [facility] Alkaline Phosphatase 88 39 - 117 U/L [facility] Blood Venous blood specimen / Unknown 07/22/2024 7:22 AM EDT 07/22/2024 11:21 AM EDT us Michelle Ledesma MD LAB BLOOD ORDERABLES Final Result [facility] [address] [place] [address] [phone] * BI Mammogram Screening Tomosynthesis Bilateral (07/21/2024) Anatomical Region Laterality Modality Breast Bilateral Mammography us Michelle Ledesma MD IMG BI PROCEDURES Fin al Result * Hematoxylin and Eosin Stain (07/08/2024 10:33 AM EST) 07/08/2024 10:3 3 AM EST 07/08/2024 12:03 PM EST Narrative [facility] - 07/12/2024 12:14 PM EDT ----- ------- Name: Colon Colon,Chen ? Age/Sex: 69/F ? : 1955 Unit#: [id number] ?? Attend Dr: Danielle Jara MD ?Re07/08/24 ?Status: DEP SDC ? Location: HO.SSS ?Disch: ? ----- ------- SPEC : [id number] ? RECD: 07/08/24-1202 ? STATUS: ??SOUT ? REQ NUM: [id number] ? YOSELYN: 07/08/24-1033 ? SUBM DR: Danielle [...] ? Age/Sex: 69/F ? : 1955 Unit#: [id number] ?? Attend Dr: Danielle Jara MD ?Re07/08/24 ?Status: DEP SDC ? Location: HO.SSS ?Disch: ? ----- ------- SPEC : [id number] ? RECD: 07/08/24-1202 ? STATUS: ??SOUT ? REQ NUM: [id number] ? YOSELYN: 07/08/24-1033 ? SUBM DR: Danielle [...] Copies To: ?? Michelle Coombs MD ?? [facility] ?? [address] ?? [place] [address] ?? [phone] ?? Danielle Jara MD ?? [facility] ?? [address] ?? [place] [address] ?? [phone] ?? [email or web address] ------- Signed (signature on file) Roly Michaels MD 07/12/24 1214 ? ----- ------- ? END OF REPORT ? Generic External Data Provider LAB BLOOD ORDERAB LES Final Result Performing Organization Address [facility] de Phone Number [facility] [address] [place] [address] [phone] * Glucose, Whole Blood (07/08/2024 9:15 AM EST) Glucose, Whole Blood 108 60 - 115 mg/dL [facility] Comment:METER #: [id number] 07/08/2024 9:15 AM EST 07/08/2024 9:18 AM EST Generic External Data Provider LAB BLOOD ORDERAB LES Final Result Performing Organization Address [facility] de Phone Number [facility] [address] [place] [address] [phone] * XR KUB and Upright 2 Views (06/03/2024 9:15 AM EST) Anatomical Region Laterality Modality Radiographic Olga ging 06/03/2024 9:15 AM EST Narrative 06/03/2024 10:14 AM EST ? [facility] ?[address] ?[place] [address] ?XRay Report ? Signed ? Patient: Colon Colon,Chen ?MR#: [id number] ?? [id number] ? : 1955 ?Acct:[id number] ? Age/Sex: 69 / F ?ADM Date: /30/25 ? Loc: HO.XRAY ? Attending Dr: Tia ARROYO ? Ordering Physician: Tia Iraheta ?? Date of Service: 06/03/24 ?? Procedure(s): XR KUB ?? Accession Number(s): [id number] ? cc: Michelle Coombs MD; Tia Iraheta [...] ?06/03/24 1011 ? DD/ 0915 ? TD/TT: 06/03/24922 ? Finishing Area Operator: ? Procedure Note Mariola Lamar - 06/03/[address] [address] XRay Report Signed Patient: Laith Ascencio#: [id number] : 3Acct:[id number] Age/Sex: 69 / FADM Date: 06/03/24 Loc: ROD[facility]IG[facility] Attending Dr: Tia RIVERAP- Ordering Physician: Tia Iraheta Date of Service: 06/03/24 Procedure(s): XR KUB Accession Number(s): [id number] cc: Michelle Coombs MD; Tia Iraheta [facility] EXAMINATION: XR ABDOMEN 1 VIEW (KUB) HISTORY: [...] 06/03/24 1011 DD/ 0915 TD/TT: 06/03/24 0923 Finishing Area Operator: [facility] External Provider IMG XR PROCEDURES Final Result * (ABNORMAL) Cologuard?? colon cancer screening (03/31/2023 11:40 AM EST) Cologuard Result Positive( A) Negative 04/07/2023 5:[address] [facility] (CLIA #:[id number]) Comment: POSITIVE TEST RESULT. A positive Cologuard [...] (Urmila Yu al, N Engl J Med 2014;370(14):5647-0425.) Cologuard may produce a false negative or false positive result (no colorectal cancer or precancerous polyp present at colonoscopy follow up). A negative Cologuard test result does not guarantee the absence of CRC or advanced adenoma (pre-cancer). The current Cologuard screening interval is every 3 years. ([place] [employer] Society and U.S. Multi-Society Task Force). Cologuard performance data in a 10,000 patient pivotal study using colonoscopy as the reference method can be accessed at the following location: www.[employer]/results. Additional description of the Cologuard test process, warnings and precautions can be found at [email or web address].com.com. Stool specimen (specimen) 03/31/2023 11:40 AM EST 04/01/2023 5:06 PM EST Michelle Ledesma MD LAB MOLECULAR DIAGNOS TICS ORDERABLES Final Result [facility] (CLIA #:[id number]) [address] [place] [address], * Colonoscopy (05/23/2017) Historical Provider HEALTH MAINTENANCE Final Result from Last 3 Months or Most Recently Relevant to Health Maintenance Insurance [facility] Care Teams Bicycle Racer Relationship Specialty Start Date End Date Michelle Coombs MD [address] [place] [address] PCP - General Family Medicine 11/30/18
--- OUTSIDE RECORDS SUMMARY | 2024-07-28 17:10 | XMS_ITS | Encounter Summary ---
Author Organization [employer] Address [address] [place] [address] [address] [place] [address] Care Team Providers Care Nurse Practitioner Manager Name Role Phone Michelle Coombs MD Primary Care Provide r Reason for Visit * Reason Comments Med Refill Encounter Details Date Type Department Care Team ([facility] st Contact Info) Description 07/16/2024 Refill [facility] [address] [place] [address] Michelle Coombs MD [address] [place], [place] [phone] Essential hypertension; Seasonal allergic rhinitis, unspecified trigger [...] Info) Description 09/15/2024 11:30 AM EDT Telemedicine [facility] [address] [place] [phone] Michelle Coombs MD [address] [place] [address] documented as of this encounter Visit Diagnoses Diagnosis Essential hypertension Unspecified essential hypertension Seasonal allergic rhinitis, unspecified trigger documented in this encounter Additional Health Concerns Assessment Noted Time PHQ-9 Depression Total Score: 0 04/16/20 23 11:45 AM EST documented as of this encounter Care Teams Nurse Practitioner Manager Relationship Specialty Start Date End Date Michelle Coombs MD [address] [place] [phone] PCP - General Family Medicine 11/30/18 documented as of this encounter
--- OUTSIDE RECORDS SUMMARY | 2024-07-28 17:10 | XMS_ITS | Encounter Summary ---
Author Organization [employer] Address [address] [place] [address] 7 [place] [address] Care Team Providers Care Humanities Instructor Name Role Phone Michelle Coombs MD Primary Care Provide r Reason for Visit * Reason Comments Med Refill Encounter Details Date Type Department Care Team (Late st Contact Info) Description 03/11/2023 Refill [facility] [address] [place] [address] [phone] Michelle Coombs MD [address] [place] [address] [phone] Social History Tobacco Use Types Packs/Day Years [...] Info) Description 09/15/2024 11:30 AM EDT Telemedicine [facility] [address] [place], [place] [phone] Michelle Coombs MD [address] [place], [place] [phone] documented as of this encounter Visit Diagnoses Not on filedocumented in this encounter Care Teams Humanities Instructor Relationship Specialty Start Date End Date Michelle Coombs MD [address] [place] [address] PCP - General Family Medicine 11/30/18 documented as of this encounter
--- OUTSIDE RECORDS SUMMARY | 2024-07-28 17:10 | XMS_ITS | Encounter Summary ---
Author Organization [employer] Address [address] [place] [address] [address] [place] [address] Care Team Providers Care Trailer Mechanic Name Role Phone Michelle oCombs MD Primary Care Provide r Reason for Visit * Reason Onset Date Comments Triage 08/05/2022 Encounter Details Date Type Department Care Team ([facility] st Contact Info) Description 08/05/2022 Telephone [facility] [address] [place], [place] [phone] Michelle Coombs MD [address] [place], [place] [phone] Triage Social History Tobacco Use Types Packs/Day [...] 08/05/2022 1:09 PM EDT Triage call with [employer] [place] [id number] Pt spouse, Jose, reports Pt [...] paxlovid, though Pt is feeling better today. [phone] given to Pt spouse who wrote this down on a paper. Pt spouse is asking about home covid testsreferred to [facility] pharmacy. No further questions offered. Protocol Used: [...] this outcome Please contact pt Spouse at [phone] Requesting for the Treatment documented in this encounter Plan of Treatment Upcoming Encounters Date Type Department Care Team (Late st Contact Info) Description 09/15/2024 11:30 AM EDT Telemedicine [facility] [address] [place] [phone] Michelle Coombs MD [address] [place] [address] documented as of this encounter Visit Diagnoses Not on filedocumented in this encounter Care Teams Trailer Mechanic Relationship Specialty Start Date End Date Michelle Coombs MD [address] [place] [address] PCP - General Family Medicine 11/30/18 documented as of this encounter
--- OUTSIDE RECORDS SUMMARY | 2024-07-28 17:10 | XMS_ITS | Encounter Summary ---
Author Organization [employer] Address [address] [facility] [address] [place] [address] Care Team Providers Care Stone Product Fabricator Name Role Phone Michelle Coombs MD Primary [...] Info) Description 09/15/2024 11:30 AM EDT Telemedicine [facility] [address] [place] [address] Michelle Coombs MD [address] [place] [address] documented as of this encounter Visit Diagnoses Not on filedocumented in this encounter Additional Health Concerns Assessment Noted Time PHQ-9 Depression Total Score: 0 04/16/20 23 11:45 AM EST documented as of this encounter Care Teams Stone Product Fabricator Relationship Specialty Start Date End Date Michelle Coombs MD [address] [place] [address] PCP - General Family Medicine 11/30/18 documented as of this encounter
--- OUTSIDE RECORDS SUMMARY | 2024-07-28 17:10 | XMS_ITS | Encounter Summary ---
Author Organization [employer] Address [address] [place] [address] 7 [place] [address] Care Team Providers Care Photo Specialist Name Role Phone Michelle Coombs MD Primary Care Provide r Reason for Referral * Imaging (Routine) - Authorized Specialty Diagnoses / Procedures Referred By Rebeca schrader Referred To Contact Radiology Diagnoses Asymptomatic menopausal state Procedures BD DEXA Axial Michelle Coombs MD [address] [place] [phone] Phone: tel: fax: [address] Phone: tel: fax: Referral ID Status Reason Start Date Expiration Date V isits Requested Visits Authorized [id number] Authorized 07/21/2024 07/21/2025 1 1 * Imaging (Routine) - Authorized Specialty Diagnoses / Procedures Referred By Rebeca schrader Referred To Contact Radiology Diagnoses Breast cancer screening by mammogram Procedures BI Mammogram Screening Tomosynthesis Bilateral Michelle Coombs MD [address] [place] [phone] Phone: tel: fax: [address] Phone: tel: fax: Referral ID Status Reason Start Date Expiration Date V isits Requested Visits Authorized [id number] Authorized 07/21/2024 07/21/2025 1 1 Reason for Visit * Reason Comments Follow-up Encounter Details Date Type Department Care Team (Late st Contact Info) Description 07/21/2024 2:15 PM EDT Office Visit [facility] [address] [place] [address] Michelle Coombs MD [address] [place], [place] [phone] Chronic bilateral low back pain, unspecified whether sciatica present (Primary Dx); Essential hypertension; Prediabetes; Breast cancer screening by mammogram; Asymptomatic menopausal state; Dietary counseling; Exercise counseling; Class 3 severe obesity due to excess calories with serious comorbidity and body mass index (BMI) of 40.0 to 44.9 in adult ([facility]) Social History Tobacco Use Types Packs/Day Years [...] index (BMI) of40.0 to 44.9 in adult ([facility]) Family History Problem Relation Name Age of [...] tablet 0 ergocalciferol (Vitamin D2) 1.25 MG (59460 UT) capsule TAKE 1 CAPSULE BY MOUTH [...] index (BMI) of40.0 to 44.9 in adult ([facility]) Extensive counseling about healthy diet done today [...] (BMI) of 40.0 to 44.9 in adult ([facility]) Extensive counseling about healthy diet done today [...] Info) Description 09/15/2024 11:30 AM EDT Telemedicine [facility] [address] [place], [place] [phone] Michelle Coombs MD [address] [place], [place] [phone] Scheduled Orders Name Type Priority Associated Diagnoses Orde r Schedule BD DEXA Axial Imaging Routine Asymptomatic menopausal state Expected: 07/21/2024, Expires: 07/21/2025 documented as of this encounter Procedures Procedure Name Priority Date/Time Associated Diagnosis Comments CBC WITH AUTO DIFFERENTIAL Routine 07/22/2024 9:22 AM EDT Essential hypertension Prediabetes HEMOGLOBIN A1C Routine 07/22/2024 9:22 AM EDT Essential hypertension Prediabetes VITAMIN D,25-OH,TOTAL,IA Routine 07/22/2024 7:22 AM EDT Essential hypertension Prediabetes TSH W/REFLEX TO FT4 Routine 07/22/2024 7 :22 AM EDT Essential hypertension Prediabetes HEPATITIS C [...] Routine 07/21/2024 Breast cancer screening by mammogram documented in this encounter Results * (ABNORMAL) Hemoglobin A1c (07/22/2024 9:22 AM EDT) Hemoglobin A1c 6.3(H) <6.0 % [facility] Comment:Hemoglobin A1C Refer ence Range Adults: 4.8 - 6.0 % Non diabetic: < 6.0 % Goal: < 7.0 %Additional Action Suggested: > 8.0 %Note: Hemoglobin A1c results are invalid for patients with abnormal amounts of HbF. Blood transfusions may impact the HbA1c concentration in the patient sample. Estimated Average Glucose 134 mg/dL [facility] Comment:eAG = Estimated ave rage glucose which is %A1C expressed asaverage glucose, using the formula of the A4K-TftekfcDdozdhh Glucose study (ADAG), Diabetes Care, Vol.31,#8,Dec. 2007 Blood Venous blood specimen / Unknown 07/22/2024 9:22 AM EDT 07/22/2024 11:21 AM EDT us Michelle Ledesma MD LAB BLOOD ORDERABLES Final Result [facility] [address] [place] [phone] * (ABNORMAL) CBC auto differential (07/22/2024 9:22 AM EDT) White Blood Count 9.1 4.8 - 10.8 X10*3/uL [facility] Red Blood Count 3.78(L) 4.20 - 5.50 X10*6/uL [facility] Hemoglobin 11.6(L) 12.0 - 16.0 g/dl [facility] Hematocrit 37.4 37.0 - 47.0 % [facility] Mean Corpuscular Volume 98.9(H) 80.0 - 98.0 fL [facility] Mean Corpuscular Hemoglobin 30.7 27.0 - 33.0 pg [facility] Mean Corpuscular HGB Conc 31.0 31.0 - 35.0 g/dl [facility] Red Cell Distribution Width 14.0 11.0 - 16.0 % [facility] Platelet Count 180 160 - 400 X10*3/uL [facility] Mean Platelet Volume 12.8(H) 9.4 - 12.3 fL [facility] Neutrophils Percent Auto 50.0 45 - 73 % [facility] Imm Gran Pct Auto 0.3 0.0 - 0.4 % [facility] Lymphocytes Percent Auto 40.9(H) 20 - 40 % [facility] Monocytes Percent Auto 7.2 2 - 11 % [facility] Eosinophils Percent Auto 1.3 0 - 4 % [facility] Basophils Percent Auto 0.3 0 - 2 % [facility] NRBC Pct Auto 0.0 0.0 - 0.2 /100WBC [facility] Neutrophils Absolute Auto 4.6 2.0 - 8.3 x10*3/uL [facility] Imm Gran Abs Auto 0.03 0.00 - 0.03 X10*3/uL [facility] Lymphocytes Absolute Auto 3.7 1.2 - 4.9 X10*3/uL [facility] Monocytes Absolute Auto 0.7 0.1 - 1.2 X10*3/uL [facility] Eosinophils Absolute Auto 0.1 0.0 - 0.4 X10*3/uL [facility] Basophils Absolute Auto 0.0 0.0 - 0.2 X10*3/uL [facility] NRBC Abs Auto 0.000 0.0 - 0.012 X10*3/uL [facility] Blood Venous blood specimen / Unknown 07/22/2024 9:22 AM EDT 07/22/2024 11:21 AM EDT us Michelle Ledesma MD LAB BLOOD ORDERABLES Final Result [facility] [address] [place] [phone] [phone] * TSH with Reflex to Free T4 (07/22/2024 7:22 AM EDT) TSH reflex Free T4 3.79 0.32 - 4.0 uIU/mL [facility] Blood Venous blood specimen / Unknown 07/22/2024 7:22 AM EDT 07/22/2024 11:21 AM EDT us Michelle Ledesma MD LAB BLOOD ORDERABLES Final Result [facility] [address] [place] [phone] * (ABNORMAL) Vitamin D, 25-Hydroxy, Total, Immunoassay (07/22/2024 7:22 AM EDT) Vitamin D 25-OH Total 16.3(L) >30 ng/mL [facility] Comment: Health Based Reference Values*< 20 ??ng/mL ??Ksbptbvvx51-44 ng/mL ??Insufficient> 30 ??ng/mL ??Sufficient*Ubaldo RIVERA. N [...] BLOOD ORDERABLES Final Result Performing Organization Address [facility] Co de Phone Number [facility] [address] [place] [address] [phone] * (ABNORMAL) Lipid Panel, Standard (07/22/2024 7:22 AM EDT) Triglycerides 170(H) <150 mg/dL [facility] Comment:Desirable Triglyceri de: less than 150 mg/dLBorderline High Triglyceride 150-199 mg/dLHigh Triglyceride: 200-499 mg/dLVery High Triglyceride: greater than or equal to 5OO mg/dL Cholesterol 147 <200 mg/dL [facility] Comment:Desirable Cholestero l: less than 200 mg/dLBorderline High Cholesterol: 200-239 mg/dLHigh Cholesterol: greater than 239 mg/dL LDL Cholesterol Calculated 71 <100 mg/dL [facility] Comment:Desirable LDL: less than 100 mg/dLNear Optimal/Above Optimal LDL: 110- 129 mg/dLBorderline High LDL: 130-159 mg/dLHigh LDL: 160-189 mg/dLVery High LDL: greater than or equal to 190 mg/dL HDL Cholesterol 42 >40 mg/dL [facility] Comment:Desirable HDL: great er than 40 mg/dL Note: This HDL assay may give artificially low results in patients with liver disease. Blood Venous blood specimen / Unknown 07/22/2024 7:22 AM EDT 07/22/2024 11:21 AM EDT us Michelle Ledesma MD LAB BLOOD ORDERABLES Final Result Performing Organization Address City/[facility]/ZIP Co de Phone Number [facility] [address] [place] [address] [phone] * Hepatitis C Antibody with Reflex to HCV, RNA, Quantitative, Real-Time PCR (07/22/2024 7:22 AM EDT) [facility] Hepatitis C Antibody Nonreactive Nonreactive [facility] Comment:Antibodies to HCV no t detected; does not exclude early acuteHCV infection. Blood Venous blood specimen / Unknown 07/22/2024 7:22 AM EDT 07/22/2024 11:21 AM EDT Michelle Ledesma MD LAB BLOOD ORDERABLES Final Result Performing Organization Address City/[facility]/ZIP Co de Phone Number [facility] [address] [place] [address] [phone] * HIV-1/2 Antigen and Antibodies, Fourth Generation, with Reflexes (07/22/2024 7:22 AM EDT) [facility] HIV AB/AG Nonreactive Nonreactive [facility] Comment:HIV-1 p24 Ag and/or HIV-1/HIV-2 Ab not detected.A test result that is nonreactive does not exclude thepossibility of exposure to or infection with HIV-1 and/orHIV-2. Nonreactive results in this assay for individualswith prior exposure to HIV-1 and/or HIV-2 may be due toantigen and antibody levels that are below the limit ofdetection of this assay.The [employer] HIV Ag/Ab Combo assay result andsupplemental assay results should be interpreted inconjunction with the patient's clinical presentation,history and other laboratory results. If the results areinconsistent with clinical evidence, additional testing issuggested to confirm the result. Blood Venous blood specimen / Unknown 07/22/2024 7:22 AM EDT 07/22/2024 11:21 AM EDT us Michelle Ledesma MD LAB BLOOD ORDERABLES Final Result Performing Organization Address City/[facility]/ZIP Co de Phone Number [facility] [address] [place] [address] [phone] * (ABNORMAL) Comprehensive Metabolic Panel (07/22/2024 7:22 AM EDT) Sodium 142 135 - 145 mmol/L [facility] Potassium 4.4 3.3 - 5.1 mmol/L [facility] Chloride 106 96 - 108 mmol/L [facility] Carbon Dioxide 29 22 - 29 mmol/L [facility] Anion Gap 11(L) 12 - 20 [facility] Urea Nitrogen (BUN) 16 9 - 16 mg/dL [facility] Creatinine, Serum 0.83 0.5 - 1.4 mg/dL [facility] Estimated Glomerular Filt Rate >60 [facility] Comment:Chronic Kidney Disea se: Estimated GFR < 60 mL/min/1.63a8Iutvrw Kidney Disease: Estimated GFR < 15 mL/min/1.73m2 Glucose 106 60 - 115 mg/dL [facility] Calcium 9.2 8.4 - 10.2 mg/dL [facility] Bilirubin, Total 0.6 0.0 - 1.0 mg/dL [facility] Aspartate Amino Transferase 19 5 - 31 U/L [facility] Alanine Aminotransferase 15 0 - 31 U/L [facility] Total Protein 7.7 6.5 - 8.0 g/dL [facility] Albumin Level 3.9 3.5 - 5.0 g/dL [facility] Alkaline Phosphatase 88 39 - 117 U/L [facility] Blood Venous blood specimen / Unknown 07/22/2024 7:22 AM EDT 07/22/2024 11:21 AM EDT us Michlele Ledesma MD LAB BLOOD ORDERABLES Final Result [facility] [address] [place], [place] [phone] * BI Mammogram Screening Tomosynthesis Bilateral (07/21/2024) Anatomical Region Laterality Modality Breast Bilateral Mammography us Michelle Ledesma MD IMG BI PROCEDURES Fin al Result documented in this encounter Visit Diagnoses Diagnosis Chronic bilateral low back pain, unspecified whether sciatica present- Primary Essential hypertension Unspecified essential hypertension Prediabetes Other abnormal glucose Breast cancer screening by mammogram Asymptomatic menopausal state Dietary counseling Dietary surveillance and counseling Exercise counseling Class 3 severe obesity due to excess calories with serious comorbidity and body mass index (BMI) of 40.0 to 44.9 in adult ([facility]) documented in this encounter Additional Health Concerns Assessment Noted Time PHQ-9 Depression Total Score: 0 04/16/20 23 11:45 AM EST documented as of this encounter Care Teams Photo Specialist Relationship Specialty Start Date End Date Michelle Coombs MD [address] [place] [address] PCP - General Family Medicine 11/30/18 documented as of this encounter
--- OUTSIDE RECORDS SUMMARY | 2024-07-28 17:10 | XMS_ITS | Encounter Summary ---
Author Organization [employer] Address [address] [place] [address] 7 [place] [address] Care Team Providers Care Lactation Coordinator Name Role Phone Michelle Coombs MD Primary Care Provide r Reason for Visit * Reason Comments Med Refill Encounter Details Date Type Department Care Team ([facility] st Contact Info) Description 07/07/2024 Refill [facility] [address] [place] [address] Michelle Coombs MD [address] [place], [place] [phone] Social History Tobacco Use Types Packs/Day Years [...] Info) Description 09/15/2024 11:30 AM EDT Telemedicine [facility] [address] [place] [phone] Michelle Coombs MD [address] [place] [phone] documented as of this encounter Visit Diagnoses Not on filedocumented in this encounter Additional Health Concerns Assessment Noted Time PHQ-9 Depression Total Score: 0 04/16/20 23 11:45 AM EST documented as of this encounter Care Teams Lactation Coordinator Relationship Specialty Start Date End Date Michelle Coombs MD [address] [place] [phone] PCP - General Family Medicine 11/30/18 documented as of this encounter
== END 2024-07-28 14:53 | disposition home or self-care (01) ==
LOC: HO.HPS 14:16
PROVIDERS: PCP Internal Medicine; Visit Provider Internal Medicine Pulmonary Disease
DX: J45.909 Unspecified asthma, uncomplicated (principal); G47.33 Obstructive sleep apnea (adult) (pediatric); R06.01 Orthopnea
CPT/HCPCS: 99214

== ENCOUNTER → 2024-07-28 14:16 | Outpatient (BNVA) | payer OTHER, SELFPAY | PROVIDERS: PCP Internal Medicine; Visit Provider Internal Medicine Pulmonary Disease | DX: G47.33 Obstructive sleep apnea (adult) (pediatric) (principal); J45.909 Unspecified asthma, uncomplicated; R06.01 Orthopnea; E66.9 Obesity, unspecified; Z68.41 Body mass index [BMI] 40.0-44.9, adult; Z99.89 Dependence on other enabling machines and devices | CPT/HCPCS: 99212 ==

== ENCOUNTER 2024-09-15 12:57 | Outpatient (REF) | payer OTHER, SELFPAY ==
--- NOTE | ~2024-09-15 | MM_ITS ---
EXAMINATION: DXA BONE DENSITY AXIAL HISTORY: screening for colonoscopy TECHNIQUE: [place] Dual energy absorptiometry (DEXA) of the lumbar spine, total left hip, and femoral neck was performed. COMPARISON: There are no prior studies for comparison. FINDINGS: The bone mineral density of the lumbar spine is 1.392 with a T-score of 1.6, and a Z-score of 2.3. This is indicative of normal bone mineral density. The bone mineral density of the left total hip is 1.322 with a T-score of 2.5, and a Z-score of 3.3. This is indicative of normal bone mineral density. The bone mineral density of the left femoral neck is 1.163 with a T-score of 0.9, and a Z-score of 2.0. This is indicative of normal bone mineral density. MM/XR DEXA axial skeleton IMPRESSION: Based on bone mineral density, and according to World Health Organization (WHO) criteria, the diagnosis is consistent with normal bone mineral density. All bone density values are in grams per centimeter squared (g/cm2). Statistically, 68% of repeat scans fall within 1 SD (+/- 0.010 g/cm2 for AP spine L1-L4) and 1 SD (+/- 0.012 g/cm2 for femur total) [employer] is a trademark of the [employer] [place] [facility] Metabolic Bone Disease, a World Health Organization (WHO) Collaborating Center. Electronically signed by: Earle Vigil MD 09/15/2024 02:12 PM EDT
== END 2024-09-15 12:58 | disposition home or self-care (01) ==
LOC: HO.MAMMO 12:57
PROVIDERS: PCP Internal Medicine; Visit Provider Internal Medicine
DX: Z12.31 Encounter for screening mammogram for malignant neoplasm of breast (principal); Z13.820 Encounter for screening for osteoporosis; Z78.0 Asymptomatic menopausal state
CPT/HCPCS: 77063; 77067; 77080

== ENCOUNTER → 2024-09-15 13:30 | Outpatient (BNV) | payer OTHER, SELFPAY | PROVIDERS: PCP Internal Medicine; Visit Provider Radiology Diagnostic Radiology | DX: E28.39 Other primary ovarian failure (principal) | CPT/HCPCS: 77080 ==

== ENCOUNTER 2024-09-23 08:41 | Outpatient (REF) | payer OTHER, SELFPAY ==
[2024-09-23 11:34] LABS: Folate 13.5 ng/mL (> or = 4.0); Vitamin B12 260 pg/mL (200-900)
[2024-09-24 18:53] LABS: Homocysteine 6.8 umol/L (< or = 13.4)
[2024-09-27 12:13] LABS: Methylmalonic Acid 365 nmol/L (69-390)
== END 2024-09-23 08:42 | disposition home or self-care (01) ==
LOC: HO.HHCL 08:41
PROVIDERS: PCP Internal Medicine; Visit Provider Internal Medicine
DX: D53.9 Nutritional anemia, unspecified (principal)
CPT/HCPCS: 36415; 82607; 82746; 83090; 83921

== ENCOUNTER 2025-01-18 09:09 | Outpatient (REF) | payer OTHER, SELFPAY ==
--- NOTE | ~2025-01-18 | US_ITS ---
CLINICAL HISTORY: N20.0 - Calculus of kidney US renal Comparison: 03/17/2023 Findings: Right kidney 11.2 cm length. No significant focal abnormality. 1.2 and 0.7 cm cysts. Left kidney 11.8 cm length. 5 mm lower pole nonobstructing stone. No hydronephrosis identified. No bilateral hydronephrosis. Normal bilateral renal echogenicity. Incidental fatty infiltration of the liver. Impression: Nonobstructing 5 mm left stone Otherwise unremarkable This document has been electronically signed by: Lamine Barnes MD on 01/18/2025 20:08:18
--- OUTSIDE RECORDS SUMMARY | 2025-01-18 11:28 | XMS_ITS | Encounter Summary ---
Author Organization [employer] Address [address] [place] [address] Care Team Providers Care Proctologist Name Role Phone Michelle Coombs MD Primary Care Provide r Reason for Visit * Reason Onset Date Comments NOV RECALL 01/13/2025 Encounter Details Date Type Department Care Team (Late st Contact Info) Description 01/13/2025 Telephone [facility] [address] [place] [address] Michelle Coombs MD [address] [place] [phone] NOV RECALL Social History Tobacco Use Types Packs/Day Years Used Date Smoking Tobacco: Never Smokeless Tobacco: Never Alcohol Use Standard Drinks/Week Comments Never 0 (1 standard drink = 0.6 oz pur e alcohol) Depression Answer Date Recorded Patient Health Questionnaire-9 Score 4 12/23/2024 Patient Health Questionnaire-9 Score 4 12/23/2024 Last PHQ-9: Questionnaire Data Not on file 0 12/23/2024 Housing Stability Answer Date Recorded What is your housing situation today? I have erin fern 12/16/[address] you li ve. Do you have problems with any of the following? None of the above 12/16/2024 Food Insecurity Answer Date Recorded Within the past 12 months, y ou worried that your food would run out before you got money to buy more: Never True 12/16/2024 Within the past 12 months,th e food you bought just didn't last and you didn't have enough money to get more: Never True Transportation Answer Date Recorded In the past 12 months, has l ack of transportation kept you from medical appts, meetings, work or from getting things needed for daily living? No 12/16/2024 Utilities Answer Date Recorded In the past 12 months, has t he electric, gas, oil or water company threatened to shut off services in your home? No 12/16/2024 Depression Answer Date Recorded Patient Health Questionnaire-2 Score 0 12/23/2024 Internet Access Answer Date Recorded Internet Access Q1 Yes 12/16/2024 Internet Access Q2 Not on file 12/16/2024 Comments No Sex and Gender Information Value Date Recorded Sex Assigned at Female 03/04/2022 10:17 AM EDT Legal Sex Female 10:17 AM EDT Gender Identity Female 03/04/2022 10:17 AM EDT Sexual Orientation Straight 03/04/2022 10 :17 AM EDT documented as of this encounter Miscellaneous Notes * Telephone Encounter - Pastora Ross [place] - 01/13/2025 9:02 AM EDT T\C to pt to schedule a (NOV RECALL) f\u with pcp. Pt agreed to come in on 04/04/2025 at 1:30 Pm. Mailed appt info. documented in this encounter Plan of Treatment Upcoming Encounters Date Type Department Care Team ([facility] st Contact Info) Description 04/04/2025 1:30 PM EST Office Visit [facility] [address] [place] [address] Michelle Coombs MD [address] [place] [address] documented as of this encounter Visit Diagnoses Not on filedocumented in this encounter Additional Health Concerns Assessment Noted Time PHQ-9 Depression Total Score: 4 12/24/19 25 1:45 PM EDT documented as of this encounter Care Teams Proctologist Relationship Specialty Start Date End Date Michelle Coombs MD [address] [place] [address] PCP - General Family Medicine 11/30/18 documented as of this encounter
--- OUTSIDE RECORDS SUMMARY | 2025-01-18 11:28 | XMS_ITS | Encounter Summary ---
Author Organization [employer] Address [address] [place] [address] Care Team Providers Care Finger Cobbler Name Role Phone Michelle Coombs MD Primary Care Provide r Reason for Visit * Reason Onset Date Comments Triage 08/05/2022 Encounter Details Date Type Department Care Team ([facility] st Contact Info) Description 08/05/2022 Telephone [facility] [address] [place] [address] Michelle Coombs MD [address] [place] [address] Triage Social History Tobacco Use Types Packs/Day [...] 08/05/2022 1:09 PM EDT Triage call with Mellette Stitcher Set Up Operator Automatic ID [id number] Pt spouse, Jose, reports Pt [...] paxlovid, though Pt is feeling better today. [phone] given to Pt spouse who wrote this down on a paper. Pt spouse is asking about home covid tests referred to [facility] pharmacy. No further questions offered. Protocol Used: [...] this outcome Please contact pt Spouse at [phone] Requesting for the Treatment documented in this encounter Plan of Treatment Upcoming Encounters Date Type Department Care Team (Late st Contact Info) Description 04/04/2025 1:30 PM EST Office Visit [facility] [address] [place] [address] Michelle Coombs MD [address] [place], [place] [phone] documented as of this encounter Visit Diagnoses Not on filedocumented in this encounter Care Teams Finger Cobbler Relationship Specialty Start Date End Date Michelle Coombs MD [address] [place] [address] PCP - General Family Medicine 11/30/18 documented as of this encounter
--- OUTSIDE RECORDS SUMMARY | 2025-01-18 11:28 | XMS_ITS | Encounter Summary ---
Author Organization [employer] Address [address] [place] [address] Care Team Providers Care Manager Pharmacy Name Role Phone Michelle Coombs MD Primary Care Provide r Reason for Visit * Reason Comments Med Refill Encounter Details Date Type Department Care Team (Late Contact Info) Description 03/11/2023 Refill [facility] [address] [place] [phone] Michelle Coombs MD [address] [place] [address] [phone] Social History Tobacco Use Types Packs/Day Years [...] Department Care Team (Late Contact Info) Description 04/04/2025 1:30 PM EST Office Visit [facility] [address] [place] [phone] Michelle Coombs MD [address] [place] [phone] documented as of this encounter Visit Diagnoses Not on filedocumented in this encounter Care Teams Manager Pharmacy Relationship Specialty Start Date End Date Michelle Coombs MD [address] [place] [address] PCP - General Family Medicine 11/30/18 documented as of this encounter
--- OUTSIDE RECORDS SUMMARY | 2025-01-18 11:28 | XMS_ITS | Clinical Summary ---
Author Organization [employer] Address [address] [facility] 7[address] [place] [address] Care Team Providers Care Farmworker Livestock Name Role Phone Michelle Coombs MD Primary Care Provide r Allergies Active Allergy Reactions Criticality Noted Date Comments Aspirin 08/16/2016 Other reaction(s): swelling Ibuprofen High 08/24/2016 Other reaction(s): Hives Lisinopril 12/04/2016 Other reaction(s): burning lips Shellfish Allergy 07/01/2023 Medications omeprazole (PriLOSEC) [address] capsule Take 1 capsule by mouth every 12 (twelve) hours. 021 Active Symbicort 160-4.5 MCG/ACT inhaler 023 Active furosemide (Lasix) 40 MG tablet 023 Active oxybutynin XL (Ditropan-XL) 5 MG 24 hr tablet TAKE 1 TABLET BY MOUTH EVERYDAY AT NOON 022 Active HM ClearLax 17 GM/SCOOP powder 023 Active pyridoxine (Vitamin B-6) 100 MG tablet 023 Active senna (Senokot) 8.6 MG tablet 023 Active Myrbetriq 25 MG 24 hr tablet Take 25 mg by mouth in the morning. 023 Active atorvastatin (Lipitor) 40 MG tablet TAKE 1 TABLET BY MOUTH AT BEDTIME 90 tablet 3 024 Active metFORMIN (Glucophage) 500 MG tablet TAKE 1 TABLET BY MOUTH TWICE DAILY IN THE MORNING AND IN THE EVENING 180 tablet 3 10/31/2 024 Active levothyroxine (Synthroid, Levoxyl) 50 MCG tablet TAKE 1 TABLET BY MOUTH EVERY MORNING 90 tablet 3 Active atenolol (Tenormin) 50 MG tablet TAKE 1 TABLET BY MOUTH AT BEDTIME 90 tablet 3 Active lidocaine (Lidoderm) 5 % patchIndications: Acute pain of left knee Apply 1 patch topically Once per day. Remove & discard patch within 12 hours or as directed by MD. 30 patch 1 Active folic acid (Folvite) 1 MG tabletIndications :Macrocytic anemia TAKE 1 TABLET BY MOUTH EVERY MORNING 30 tablet 2 Active cyanocobalamin (Vitamin B-12) 1000 MCG tabletIndications :Macrocytic anemia TAKE 1 TABLET BY MOUTH EVERY MORNING 30 tablet 2 Active tiZANidine (Zanaflex) 4 MG tabletIndications :Chronic right shoulder pain Take 1 tablet (4 mg) by mouth every 8 (eight) hours if needed for muscle spasms. 30 tablet 2 Active Acetaminophen Extra Strength 500 MG tabletIndications :Chronic right shoulder pain Take 2 tablets (1,000 mg) by mouth every 8 (eight) hours if needed (take for pain as needed). 30 tablet 2 Active diphenhydrAMINE (BENADryl) 25 MG tabletIndications :Seasonal allergies Take 1 tablet (25 mg) by mouth every 8 (eight) hours if needed for itching. 30 tablet 2 025 2024 Active Ketotifen Fumarate 0.035 % solutionIndicatio ns:Allergic conjunctivitis of both eyes Administer 1 drop into affected eye(s) every 12 (twelve) hours if needed (use for itchiness and tearing). 5 mL 1 Active clotrimazole-beta methasone (Lotrisone) creamIndications: Rash Apply topically 2 times daily for 28 days. 45 g 025 2024 Active ergocalciferol (Vitamin D2) 1.25 MG (50729 UT) capsuleIndication s:Vitamin D deficiency TAKE 1 CAPSULE BY MOUTH ONCE WEEKLY ON Friday 4 capsule 3 09/09/2 025 Active cetirizine (ZyrTEC) 10 MG tabletIndications :Seasonal allergic rhinitis, unspecified trigger TAKE 1 TABLET BY MOUTH EVERYDAY AT NOON 90 tablet 025 Active losartan (Cozaar) 50 MG tabletIndications :Essential hypertension Take 1 tablet (50 mg) by mouth Once per day. 90 tablet 025 Active ergocalciferol (Vitamin D2) 1.25 MG (99712 UT) capsule TAKE 1 CAPSULE BY MOUTH ONCE WEEKLY Friday 022 2024 Discontinued tiZANidine (Zanaflex) 4 MG tabletIndications :Costochondritis TAKE 1 TABLET BY MOUTH EVERY 8 HOURS NEEDED FOR MUSCLE SPASMS FOR UP TO 10 DAYS 30 tablet 025 2024 Discontinued(R eorder (will not trigger notification to Pharmacy)) Acetaminophen Extra Strength 500 MG tabletIndications :Breast pain, right TAKE 2 TABLETS BY MOUTH EVERY 8 HOURS NEEDED FOR MILD PAIN 30 tablet 1 025 2024 Discontinued(R eorder (will not trigger notification to Pharmacy)) ergocalciferol (Vitamin D-2) 1.25 MG (35456 UT) capsuleIndication s:Vitamin D deficiency Take 1 capsule (1.25 mg) by mouth 1 (one) time per week. 4 capsule 3 025 2024 Discontinued cetirizine (ZyrTEC) 10 MG tabletIndications :Seasonal allergic rhinitis, unspecified trigger TAKE 1 TABLET BY MOUTH EVERYDAY AT NOON 90 tablet 025 2024 Discontinued(R eorder (will not trigger notification to Pharmacy)) losartan (Cozaar) 50 MG tabletIndications :Essential hypertension TAKE 1 TABLET BY MOUTH EVERYDAY AT NOON 90 tablet 025 2024 Discontinued(R eorder (will not trigger notification to Pharmacy)) Active Problems Problem Noted Date Diagnosed Date Chronic right shoulder pain 12/23/2024 Seasonal allergies 12/23/2024 Allergic conjunctivitis of both eyes 12/23/2024 Rash 12/23/2024 Acute pain of left knee 09/15/2024 Macrocytic anemia 09/15/2024 Vitamin D deficiency 09/15/2024 Chronic bilateral low back pain 07/21/2024 Assessment [...] knee 06/10/2022 Prediabetes 06/10/2022 Assessment & Plan (09/15/2024 11:38 AM EDT): Today extensive discussion was done about life style modifications I advise healthy diet (low calorie) and cardiovascular exercise Assessment & Plan (07/21/2024 4:27 PM EDT): [...] directed Essential hypertension 08/16/2016 Assessment & Plan (12/23/2024 1:01 PM EDT): I advised: - Aerobic exercise to reduce [...] consulting health care provider Assessment & Plan (07/21/2024 4:27 PM EDT): [...] Encounters Date Type Department Care Team Description 01/14/2025 Refill [facility] [address] [place] [address] Michelle Coombs MD Seasonal allergic rhinitis, unspecified trigger; Essential hypertension 01/13/2025 Telephone [facility] [address] [place] [address] Michelle Coombs MD NOV RECALL 01/10/2025 Refill [facility] [address] [place] [address] Michelle Coombs MD Vitamin D deficiency 12/23/2024 11:00 AM EDT Office Visit [facility] [address] [place] [phone] Michelle Coombs MD Essential hypertension (Primary Dx); Chronic right shoulder pain; Seasonal allergies; Allergic conjunctivitis of both eyes; Rash 12/23/2024 Travel 12/21/2024 Telephone [facility] [address] [place] [address] Michelle Coombs MD Chart Prep 12/16/2024 Patient Outreach [facility] [address] [place] [address] Michelle Coombs MD Pre-visit Planning (SDOH screening negative and Tobacco screening negative) 12/09/2024 Refill [facility] [address] [place] [address] Michelle Coombs MD Macrocytic anemia from Last 3 Months Immunizations Immunization Administration Dates Next Due Influenza High-dose Quadriva lent Preservative Free 03/19/2023,02/15/2022 Influenza injectable quadriv alent preservative free 04/10/2021,06/09/2018,02/25/2017 Influenza, High Dose Seasona l, Preservative Free 03/25/2019 Pneumococcal Conjugate PCV 13 06/09/2018 Pneumococcal Conjugate PCV 20 03/19/2023 RSV Bivalent 07/04/2023 Tdap 11/18/2018 Zoster, Recombinant 12/02/2024 Zoster, live 04/01/2017 Family History Medical History Relation Name Comments Prostate cancer Father Uterine cancer Mother Relation Name Status Comments Father Mother Social History Tobacco Use Types Packs/Day Years Used Date Smoking Tobacco: Never Smokeless Tobacco: Never Tobacco Cessation:Counseling Given: Not Answered Alcohol Use Standard Drinks/Week Comments Never 0 (1 standard drink = 0.6 oz pur e alcohol) Depression Answer Date Recorded Patient Health Questionnaire-9 Score 4 12/23/2024 Patient Health Questionnaire-9 Score 4 12/23/2024 Last PHQ-9: Questionnaire Data Not on file 0 12/23/2024 Housing Stability Answer Date Recorded What is your housing situation today? I have erin shirley 12/16/[address] you li [...] Sign Reading Time Taken Comments Blood Pressure 132/60 12/23/2024 11:03 AM EDT Pulse 64 12/23/2024 11:03 AM EDT Temperature 36.6 C (97.9 F) 12/23/2024 11:03 AM EDT Respiratory Rate 19 12/23/2024 11:03 AM EDT Oxygen Saturation 97% 12/23/2024 11:03 AM EDT Inhaled Oxygen Concentration - - Weight 94.8 kg (209 lb) 12/23/2024 11:03 AM EDT Height 152.4 cm (5') 12/23/2024 11:03 AM EDT Body Mass Index 40.82 12/23/2024 11:03 AM EDT Plan of Treatment Upcoming Encounters Date Type Department Care Team (Late st Contact Info) Description 04/04/2025 1:30 PM EST Office Visit [facility] [address] [place] [address] Michelle Coombs MD [address] [place] [address] Health Maintenance Due Date Last Done Comments CT Colonography 1955 FIT 1955 Sigmoidoscopy 1955 FOBT 03/31/2024 03/31/2023 COVID-19 Vaccine ( season) 2025 04/10/2021, 07/25/2020, 07/04/2020 Influenza Vaccine (#1) 2025 , 02/15/2022, 04/10/2021, Additional history exists Zoster Vaccines (3 of 3) 01/27/2025 12/02/2024, 03/06 Mammogram 09/15/2025 09/15/2024, 05/05, 05/14/2023, Additional history exists SDOH Screening 12/16/2025 12/16/2024 Alcohol/Substance Use Screening 12/23/2025 12/23/2024 Depression Screening 12/23/2025 12/23/2024, 12/24/19 25 Diabetes: Hemoglobin A1C 12/23/2025 025, 07/22/2024, 03/19/2023, Additional history exists Tobacco Screening 12/23/2025 12/23/2024 FIT DNA/Cologuard 03/31/2026 03/31/2023 DTaP/Tdap/Td Vaccines (2 - Td or Tdap) 11/18/2028 11/18/2018 Colonoscopy 07/08/2029 07/08/2024, 05/23/2017 Colorectal Cancer Screening 07/08/2029 Lipid Panel 07/22/2029 07/22/2024, 03/06, 02/20/2022, Additional [...] patient's age to complete this topic Meningococcal B Vaccine Aged Out No l onger eligible based on patient's age to complete [...] Procedure Name Priority Date/Time Associated Diagnosis Comments POCT GLYCATED HEMOGLOBIN, TOTAL Routine 12/23/2024 11:32 AM EDT Essential hypertension BI MAMMOGRAM SCREENING TOMOSYNTHESIS BILATERAL Routine 09/15/2024 1:15 PM EDT Breast cancer screening by mammogram HEPATITIS C AB W/REFL TO HCV RNA, QN, PCR Routine 07/22/2024 7:22 AM EDT Essential hypertension Prediabetes LIPID PANEL, STANDARD Routine 07/22/2024 7:22 AM EDT Essential hypertension Prediabetes HM COLONOSCOPY Routine 07/08/2024 LAB COLOGUARD COLON CANCER SCREEN Routine 03/31/2023 11:40 AM EST Colon cancer screening from Last 3 Months or Most Recently Relevant to Health Maintenance Results * (ABNORMAL) POCT HGB A1C (12/23/2024 11:32 AM EDT) Hemoglobin A1C 6.2(A) 4.0 - 5.7 % QC Media Lot # [id number] Lot# Expiration Date Blood 12/23/2024 11:3 2 AM EDT Michelle Ledesma MD POINT OF CARE TEST EN TER/EDIT ORDERABLES Final Result * BI Mammogram Screening Tomosynthesis Bilateral (09/15/2024 1:15 PM EDT) Anatomical Region Laterality Modality Breast Bilateral Mammography 09/15/2024 1:15 PM EDT Narrative 09/24/2024 2:32 PM EDT [facility] [address] [place] [address] Mammography Report Signed Patient: Chen Ascencio MR#: [id number] : 1955 Acct:[id number] Age/Sex: 69 / F ADM Date: 09/15/24 Loc: HO.MAMMO Attending Dr: Michelle Ledesma MD Ordering Physician: Michelle Coombs MD Results: 1Negative Date of Service: 09/15/24 Follow Up: 1 Year From Orig ina Mammogram Procedure(s): MM tomosynthesis screening BI Accession Number(s): [id number] cc: Michelle Coombs MD EXAMINATION: MM SCREENING DIGITAL BREAST TOMOSYNTHESIS, BILATERAL CLINICAL INFORMATION: Screening. Asymptomatic. COMPARISON: Mammography: Comparison is made with available priors TECHNIQUE: Digital breast mammography with tomosynthesis is performed in both the craniocaudal and mediolateral oblique views along with computer-aided detection (CAD). FINDINGS: There are scattered areas of fibroglandular density (ACR BI-RADS breast composition Category b). There are no significant masses, abnormal calcifications, or other abnormalities. MM/MM tomosynthesis screening BI IMPRESSION: No mammographic evidence of malignancy. ASSESSMENT: BI-RADS BI-RADS 1 - Negative RECOMMENDATION: Routine annual mammography screening. 1 year F/U This examination should not preclude the clinical evaluation of a suspicious palpable abnormality. This patient's information was entered into a reminder system with a target due date for their next mammogram. Electronically signed by: Estefany Almaraz DO 09/24/2024 02:29 PM EDT Dictated By: Estefany Almaraz DO Signed By: <Electronically signed by Estefany Almaraz DO in OV> 09/24/24 1429 DD/ 1315 TD/TT: 09/15/24 1333 Medication Specialist: Procedure Note Donotuseinterpreter, Image - 09/24/2024 [facility] [address] [place] [address] Mammography Report Signed Patient: Laith Ascencio#: [id number] : 1955cct:[id number] Age/Sex: 69 / FADM Date: 09/15/24 Loc: HO.MAMMO Attending Dr: Michelle Ledesma MD Ordering Physician: Michelle Coombs MDResults: 1Negative Date of Service: 09/15/24Follow Up: 1 Year From Orig inal Mammogram Procedure(s): MM tomosynthesis screening BI Accession Number(s): [id number] cc: Michelle Coombs MD EXAMINATION: MM SCREENING DIGITAL BREAST TOMOSYNTHESIS, BILATERAL CLINICAL INFORMATION: Screening. Asymptomatic. COMPARISON: Mammography: Comparison is made with available priors TECHNIQUE: Digital breast mammography with tomosynthesis is performed in both the craniocaudal and mediolateral oblique views along with computer-aided detection (CAD). FINDINGS: There are scattered areas of fibroglandular density (ACR BI-RADS breast composition Category b). There are no significant masses, abnormal calcifications, or other abnormalities. MM/MM tomosynthesis screening BI IMPRESSION: No mammographic evidence of malignancy. ASSESSMENT: BI-RADS BI-RADS 1 - Negative RECOMMENDATION: Routine annual mammography screening. 1 year F/U This examination should not preclude the clinical evaluation of a suspicious palpable abnormality. This patient's information was entered into a reminder system with a target due date for their next mammogram. Electronically signed by: Estefany Almaraz DO 09/24/2024 02:29 PM EDT RP Dictated By: Estefany Almaraz DO Signed By: <Electronically signed by Estefany Almaraz DO in OV> 09/24/24 1429 DD/ 1315 TD/TT: 09/15/24 1333 Medication Specialist: Michelle Ledesma MD IMG BI PROCEDURES Jj jayson Result - Final * Hepatitis C Antibody with Reflex to HCV, RNA, Quantitative, Real-Time PCR (07/22/2024 7:22 AM EDT) Hepatitis C Antibody Nonreactive Nonreactive [facility] Comment:Antibodies to HCV no t detected; does not exclude early acuteHCV infection. Blood Venous blood specimen / Unknown 07/22/2024 7:22 AM EDT 07/22/2024 11:21 AM EDT Michelle Ledesma MD LAB BLOOD ORDERABLES Final Result [facility] [address] [place] [phone] * (ABNORMAL) Lipid Panel, Standard (07/22/2024 7:22 AM EDT) Triglycerides 170(H) <150 mg/dL [facility] Comment:Desirable Triglyceri de: less than 150 mg/dLBorderline High Triglyceride 150-199 mg/dLHigh Triglyceride: 200-499 mg/dLVery High Triglyceride: greater than or equal to 5OO mg/dL Cholesterol 147 <200 mg/dL [facility] Comment:Desirable Cholestero l: less than 200 mg/dLBorderline High Cholesterol: 200-239 mg/dLHigh Cholesterol: greater than 239 mg/dL LDL Cholesterol Calculated 71 <100 mg/dL [facility] Comment:Desirable LDL: less than 100 mg/dLNear Optimal/Above Optimal LDL: 110- 129 mg/dLBorderline High LDL: 130-159 mg/dLHigh LDL: 160-189 mg/dLVery High LDL: greater than or equal to 190 mg/dL HDL Cholesterol 42 >40 mg/dL [facility] Comment:Desirable HDL: great er than 40 mg/dL Note: This HDL assay may give artificially low results in patients with liver disease. Blood Venous blood specimen / Unknown 07/22/2024 7:22 AM EDT 07/22/2024 11:21 AM EDT Michelle Ledesma MD LAB BLOOD ORDERABLES Final Result [facility] [address] [place] [phone] * Colonoscopy (07/08/2024) Colonoscopy Normal Normal [facility] Provider HEALTH MAINTENANCE Final Result * (ABNORMAL) Cologuard?? colon cancer screening (03/31/2023 11:40 AM EST) Cologuard Result Positive( A) Negative 04/07/2023 5:40 PM EST [facility] (CLIA #:[id number]) Comment: POSITIVE TEST RESULT. A positive Cologuard result should be followed with a colonoscopy or visual examination of the colon. The normal value (reference range) for this assay is negative. TEST DESCRIPTION: Composite algorithmic analysis of stool DNA-biomarkers with hemoglobin immunoassay. Quantitative values of individual biomarkers are not [...] (Urmila Yu al, N Engl J Med 2014;370(14):4214-5104.) Cologuard may produce a false negative or false positive result (no colorectal cancer or precancerous polyp present at colonoscopy follow up). A negative Cologuard test result does not guarantee the absence of CRC or advanced adenoma (pre-cancer). The current Cologuard screening interval is every 3 years. ([place] Cancer Society and [place].S. Multi-Society Task Force). Cologuard performance data in a 10,000 patient pivotal study using colonoscopy as the reference method can be accessed at the following location: [email or web address]/results. Additional description of the Cologuard test process, warnings and precautions can be found at [email or web address]. Stool specimen (specimen) 03/31/2023 11:40 AM EST 04/01/2023 5:06 PM EST Michelle Ledesma MD LAB MOLECULAR DIAGNOS TICS ORDERABLES Final Result [facility] (CLIA #:[id number]) [place] [address], [place] [phone] from Last 3 Months or Most Recently Relevant to Health Maintenance Insurance [facility] SKILLED NURSING OPTIONS (HMO D-SNP) LIDIA MIGUEL [id number] Care Teams Farmworker Livestock Relationship Specialty Start Date End Date Michelle Coombs MD [address] [place] [address] [place] [address] PCP - General Family Medicine 11/30/18
--- OUTSIDE RECORDS SUMMARY | 2025-01-18 11:28 | XMS_ITS | Encounter Summary ---
Author Organization [employer] Address [address] [place] [address] Care Team Providers Care Film Touch Up Inspector Name Role Phone Michelle Coombs MD Primary Care Provide r Encounter Details Date Type Department Care Team ([facility] st Contact Info) Description 01/14/2025 Refill [facility] [address] [place] [address] Michelle Coombs MD [address] [place], [place] [phone] Seasonal allergic rhinitis, unspecified trigger; Essential hypertension Social History Tobacco Use Types Packs/Day Years [...] 04/04/2025 1:30 PM EST Office Visit [facility] [address] [place] [address] Michelle Coombs MD [address] [place] [address] documented as of this encounter Visit Diagnoses Diagnosis Seasonal allergic rhinitis, unspecified trigger Essential hypertension Unspecified essential hypertension documented in this encounter Additional Health Concerns Assessment Noted Time PHQ-9 Depression Total Score: 4 12/24/19 25 1:45 PM EDT documented as of this encounter Care Teams Film Touch Up Inspector Relationship Specialty Start Date End Date Michelle Coombs MD [address] [place] [address] PCP - General Family Medicine 11/30/18 documented as of this encounter
--- OUTSIDE RECORDS SUMMARY | 2025-01-18 11:28 | XMS_ITS | Encounter Summary ---
Author Organization [employer] Address [address] [facility] [address]t [place] [address] Care Team Providers Care Police Lieutenant Patrol Name Role Phone Michelle Coombs MD Primary Care Provide r Encounter Details Date Type Department Care Team (Late st Contact Info) Description 05/21/2022 Orders Only [facility] [address] [place] [address] Florence Hahn ANP [address] [place] [address] Social History Tobacco Use Types Packs/Day Years [...] Description 04/04/2025 1:30 PM EST Office Visit [facility] [address] [place] [address] Michelle Coombs MD [address] [place] [address] documented as of this encounter Visit Diagnoses Not on filedocumented in this encounter Care Teams Police Lieutenant Patrol Relationship Specialty Start Date End Date Michelle Coombs MD [address] [place] [address] PCP - General Family Medicine 11/30/18 documented as of this encounter
--- OUTSIDE RECORDS SUMMARY | 2025-01-18 11:28 | XMS_ITS | Encounter Summary ---
Author Organization [employer] Address [address] [address] [facility] [place] [address] Care Team Providers Care Concrete Carpenter Name Role Phone Michelle Coombs MD Primary Care Provide r Reason for Visit * Reason Comments Med Refill Encounter Details Date Type Department Care Team ([facility] st Contact Info) Description 10/01/2023 Refill [facility] [address] [place] [address] Michelle Coombs MD [address] [place], [place] [phone] Costochondritis Social History Tobacco Use Types Packs/Day [...] Description 04/04/2025 1:30 PM EST Office Visit [facility] [address] [place] [phone] Michelle Coombs MD [address] [place] [phone] documented as of this encounter Visit Diagnoses Diagnosis Costochondritis Tietze's disease documented in this encounter Additional Health Concerns Assessment Noted Time PHQ-9 Depression Total Score: 0 04/16/20 23 11:45 AM EST documented as of this encounter Care Teams Concrete Carpenter Relationship Specialty Start Date End Date Michelle Coombs MD [address] [place] [phone] PCP - General Family Medicine 11/30/18 documented as of this encounter
--- OUTSIDE RECORDS SUMMARY | 2025-01-18 11:28 | XMS_ITS | Encounter Summary ---
Author Organization [employer] [facility] Address [address] [facility] 7t [place] [address] Care Team Providers Care Radio Tower Technician Name Role Phone Michelle Coombs MD Primary Care Provide r Encounter Details Date Type Department Care Team (Late Contact Info) Description 01/21/2023 Orders Only [facility] [address] [place] [phone] Provider, Historical, Social History Tobacco Use Types Packs/Day Years [...] Upcoming Encounters Date Type Department Care Team ([facility] Contact Info) Description 04/04/2025 1:30 PM EST Office Visit [facility] [address] [place] [phone] Michelle Coombs MD [address] [place] [phone] documented as of this encounter Procedures Procedure Name Priority Date/Time Associated Diagnosis Comments COLONOSCOPY Routine 05/23/2017 documented in this encounter Results * Hm Colonoscopy (05/23/2017) Historical Provider HEALTH MAINTENANCE Final Result documented in this encounter Visit Diagnoses Not on filedocumented in this encounter Care Teams Radio Tower Technician Relationship Specialty Start Date End Date Michelle Coombs MD [address] [place] [address] PCP - General Family Medicine 11/30/18 documented as of this encounter
== END 2025-01-18 09:10 | disposition home or self-care (01) ==
LOC: HO.US 09:09
PROVIDERS: PCP Internal Medicine; Visit Provider Nurse Practitioner Family
DX: N20.0 Calculus of kidney (principal)
CPT/HCPCS: 76775

== ENCOUNTER → 2025-01-18 09:11 | Outpatient (BNV) | payer OTHER, SELFPAY | PROVIDERS: PCP Internal Medicine; Visit Provider Radiology Diagnostic Radiology | DX: N20.0 Calculus of kidney (principal) | CPT/HCPCS: 76775 ==

== ENCOUNTER 2025-02-08 15:10 | Outpatient (AMB) | payer OTHER, SELFPAY ==
[2025-02-08 15:24] VITALS: BP 117/67; PULSE 67; O2SAT 96; BMI 40.5
--- NOTE | 2025-02-08 15:24 | A.OFFVIS_ITS ---
Vital Signs 02/08/25 15:24 Height 5 ft Weight 207 lb 3.752 oz BMI 40.5 BP 117/67 Blood Pressure Location Rt brachial Position Sitting Pulse 67 Pulse Source Pulse Oximeter Pulse Oximetry (%) 96 Oxygen Delivery Method Room Air Intake Visit Reasons: caitlyn Allergies aspirin (ASA) Allergy (Severe, Verified 02/08/25 15:29) FACIAL SWELLING AND DIFFICUTLY SWALLOWING, swelling seafood Allergy (Severe, Verified 02/08/25 15:29) Anaphylaxis mirabegron (From Myrbetriq) Allergy (Intermediate, Verified 02/08/25 15:29) Headache feathers Allergy (Unknown, Verified 02/08/25 15:29) unknown ibuprofen (From MOTRIN) Allergy (Unknown, Verified 02/08/25 15:29) UNKNOWN Penicillins (PENICILLINS) Allergy (Unknown, Verified 02/08/25 15:29) UNKNOWN hamster Allergy (Unknown, Uncoded 06/03/24 14:24) Unknown HPI HPI caitlyn: Details: 69-year-old lady, nonsmoker, with underlying obesity, CAD, PVD, followed for ast hma, dyspnea on exertion, and CAITLYN on CPAP. With asthma symptoms well controlled on Symbicort and as needed albuterol MDI. She denies any recent exacerbations. Patient's sleep apnea symptoms are controlled on CPAP therapy, though recently she did have several upper respiratory infections reducing her compliance. Her orthopnea lower extremity edema improved on steady furosemide regimen. She den ies recent exacerbation. [facility] Medical History Renal cyst History of kidney stones Sciatica Chronic low back pain Peripheral vascular disease Obesity Hyperlipidemia Acquired hypothyroidism H/O ovarian cancer Renal stones Serrated adenoma of colon Surgical History History of surgery Family History Father Prostate cancer Paternal Aunt Breast cancer Maternal Uncle Diabetes Gangrene Social History Do you presently have visiting nurse or other home services: No Alcohol intake: never Patient Tobacco Use Status: Never used Tobacco Review of Systems Const Denies daytime sleepiness, Denies excessive sweating, Denies fatigue, Denies fever(s), Denies lethargy, Denies malaise, Denies night sweats, Denies snoring and Denies weight loss Eyes Denies blurry vision and Denies itchy eyes ENT Denies nasal congestion, Denies post nasal drip, Denies sinus pain, Denies sinus pressure and Denies other ( Thrush) Card Denies chest pain, Denies pedal edema, Denies dyspnea, Denies orthopnea and Denies paroxysmal nocturnal dyspnea Resp Denies cough, Denies hemoptysis, Denies excessive phlegm production, Denies dyspnea, Denies snoring and Denies wheezing GI Denies abdominal pain and Denies heartburn Musc Denies myalgias, Denies arthralgias and Denies joint swelling Skin/Breast Denies rash Neuro Denies memory loss and Denies seizure-like activity Psych Denies abnormal sleep pattern, Denies anxiety and Denies memory loss Endo Denies excessive sweating, Denies fatigue and Denies heat intolerance Monty/Lymph Denies easy bruising Aller/Immun Denies itchy eyes, Denies seasonal rhinorrhea and Denies wheezing Physical Exam Vital Signs: Last Vital Signs Pulse 67 02/08/25 15:24 BP 117/67 02/08/25 15:24 Pulse Ox 96 02/08/25 15:24 Oxygen Delivery Method Room Air 02/08/25 15:24 BMI result Body Mass Index 40.5 Const General: no acute distress and alert Nutritional Appearance: obese Orientation/consciousness: Other orientation findings ( oriented) HEENT Head: Yes atraumatic Eyes General: appearance normal, both eyes and all related structures Sclerae: sclerae normal EOM: EOMs intact bilaterally Neck Neck: Yes supple Lymphatic: no lymphadenopathy noted Resp Effort & Inspection: normal respiratory effort and no use of accessory muscles Auscultation: clear to auscultation bilaterally Cardio Rate: regular rate Rhythm: regular rhythm Heart sounds: no gallops, no murmurs and no rubs Skin General skin exam: other ( warm) Extrem General: No clubbing, No cyanosis and No edema Assessment & Plan Assessment & Plan (1) Asthma: Code(s): J45.909 - Unspecified asthma, uncomplicated Category: Medical Plan: Well controlled on current regimen of Symbicort and albuterol MDI. Continue cu rrent regimen. (2) CAITLYN (obstructive sleep apnea): Code(s): G47.33 - Obstructive sleep apnea (adult) (pediatric) Category: Medical Plan: Overall well controlled on CPAP therapy. Over the last months patient has had multiple upper respiratory infections reducing her CPAP compliance. (3) Orthopnea: Code(s): R06.01 - Orthopnea Category: Medical Plan: Well controlled on current furosemide therapy. Continue Lasix at 40 mg daily. Coding Level of Care Code Est Pt Level 4 (73688) Complex EM visit Add On G2211 Diagnoses Asthma J45.909 CAITLYN (obstructive sleep apnea) G47.33 Orthopnea R06.01
--- OUTSIDE RECORDS SUMMARY | 2025-02-08 18:26 | XMS_ITS | Encounter Summary ---
Author Organization [employer] Address [address] [facility] 7t [place] [address] Care Team Providers Care Forest Worker Name Role Phone Michelle Coombs MD Primary Care Provide r Encounter Details Date Type Department Care Team (Late st Contact Info) Description 05/21/2022 Orders Only [facility] & PEDS [address] [place] [address] Florence Hahn ANP [address] [place] [address] Social History Tobacco Use Types Packs/Day Years [...] 04/04/2025 1:30 PM EST Office Visit [facility]INE [address] [place] [address] Michelle Coombs MD [address] [place] [address] documented as of this encounter Visit Diagnoses Not on filedocumented in this encounter Care Teams Forest Worker Relationship Specialty Start Date End Date Michelle Coombs MD [address] [place] [address] PCP - General Family Medicine 11/30/18 documented as of this encounter
--- OUTSIDE RECORDS SUMMARY | 2025-02-08 18:26 | XMS_ITS | Encounter Summary ---
Author Organization [employer] [facility] Address [address] [facility] 7t [place] [address] Care Team Providers Care Wax Pot Tender Name Role Phone Michelle Coombs MD Primary Care Provide r Encounter Details Date Type Department Care Team (Late st Contact Info) Description 01/21/2023 Orders Only [facility] MED[facility]INE [address] [place] [phone] Provider, Historical, Social History Tobacco Use Types [...] Upcoming Encounters Date Type Department Care Team ([facility] Contact Info) Description 04/04/2025 1:30 PM EST Office Visit [facility] MED[facility] [address] [place] [phone] Michelle Coombs MD [address] [place] [phone] documented as of this encounter Procedures Procedure Name Priority Date/Time Associated Diagnosis Comments COLONOSCOPY Routine 05/23/2017 documented in this encounter Results * Hm Colonoscopy (05/23/2017) Historical Provider HEALTH MAINTENANCE Final Result documented in this encounter Visit Diagnoses Not on filedocumented in this encounter Care Teams Wax Pot Tender Relationship Specialty Start Date End Date Michelle Coombs MD [address] [place] [address] PCP - General Family Medicine 11/30/18 documented as of this encounter
--- OUTSIDE RECORDS SUMMARY | 2025-02-08 18:26 | XMS_ITS | Clinical Summary ---
Author Organization [employer] Address [address] [facility] 7t [place] [address] Care Team Providers Care Tobacco Farmworker Name Role Phone Michelle Coombs MD Primary [...] BY MOUTH EVERY MORNING 90 tablet 3 024 Active atenolol (Tenormin) 50 MG tablet TAKE 1 TABLET BY MOUTH AT BEDTIME 90 tablet 3 Active lidocaine (Lidoderm) 5 % patchIndications: Acute pain of left knee Apply 1 patch topically Once per day. Remove & discard patch within 12 hours or as directed by MD. 30 patch 1 025 Active folic acid (Folvite) 1 MG tabletIndications :Macrocytic anemia TAKE 1 TABLET BY MOUTH EVERY MORNING 30 tablet 2 025 Active cyanocobalamin (Vitamin B-12) 1000 MCG tabletIndications :Macrocytic anemia TAKE 1 TABLET BY MOUTH EVERY MORNING 30 tablet 2 025 Active tiZANidine (Zanaflex) 4 MG tabletIndications :Chronic right shoulder pain Take 1 tablet (4 mg) by mouth every 8 (eight) hours if needed for muscle spasms. 30 tablet 2 025 Active Acetaminophen Extra Strength 500 MG tabletIndications :Chronic right shoulder pain Take 2 tablets (1,000 mg) by mouth every 8 (eight) hours if needed (take for pain as needed). 30 tablet 2 025 Active diphenhydrAMINE (BENADryl) 25 MG tabletIndications :Seasonal allergies Take 1 tablet (25 mg) by mouth every 8 (eight) hours if needed for itching. 30 tablet 2 025 Active Ketotifen Fumarate 0.035 % solutionIndicatio ns:Allergic conjunctivitis of both eyes Administer 1 drop into affected eye(s) every 12 (twelve) hours if needed (use for itchiness and tearing). 5 mL 1 025 Active ergocalciferol (Vitamin D2) 1.25 MG (12829 UT) capsuleIndication s:Vitamin D deficiency TAKE 1 CAPSULE BY MOUTH ONCE WEEKLY ON FRIDAY MORNING 4 capsule 3 025 Active cetirizine (ZyrTEC) 10 MG tabletIndications :Seasonal allergic rhinitis, unspecified trigger TAKE 1 TABLET BY MOUTH EVERYDAY AT NOON 90 tablet 025 Active losartan (Cozaar) 50 MG tabletIndications :Essential hypertension Take 1 tablet (50 mg) by mouth Once per day. 90 tablet 025 Active ergocalciferol (Vitamin D2) 1.25 MG (40275 UT) capsule TAKE 1 CAPSULE BY MOUTH ONCE WEEKLY FRIDAY MORNING 022 2024 Discontinued ergocalciferol (Vitamin D-2) 1.25 MG (16211 UT) capsuleIndication s:Vitamin D deficiency Take 1 [...] eorder (will not trigger notification to Pharmacy)) clotrimazole-beta methasone (Lotrisone) creamIndications: Rash Apply topically 2 times daily for 28 days. 45 g 025 2024 Active Problems Problem Noted Date Diagnosed Date [...] Encounters Date Type Department Care Team Description 01/18/2025 Orders Only [facility] External Provider, [facility] 01/14/2025 Refill [facility] [address] [place] [address] Michelle Coombs MD Seasonal allergic rhinitis, unspecified trigger; Essential hypertension 01/13/2025 Telephone [facility] P[facility] [address] [place], [place] [phone] Michelle Coombs MD NOV RECALL 01/10/2025 Refill [facility] [address] [place] [phone] Michelle Coombs MD Vitamin D deficiency 12/23/2024 11:00 AM EDT Office Visit [facility] [address] [place] [phone] Michelle Coombs MD Essential hypertension (Primary Dx); Chronic right shoulder pain; Seasonal allergies; Allergic conjunctivitis of both eyes; Rash 12/23/2024 Travel 12/21/2024 Telephone [facility] [address] [place] [address] Michelle Coombs MD Chart Prep 12/16/2024 Patient Outreach [facility] [address] [place] [phone] Michelle Coombs MD Pre-visit Planning (SDOH screening negative and Tobacco screening negative) 12/09/2024 Refill [facility] [address] [place] [phone] Michelle Coombs MD Macrocytic anemia from Last [...] PM EST Office Visit [facility] [address] [place] [address] Michelle Coombs MD [address] [place] [address] Health Maintenance Due Date Last Done Comments [...] 12/23/2025 12/23/2024 Depression Screening 12/23/2025 12/23/2024, 12/24/19 Diabetes: Hemoglobin A1C 12/23/2025 025, 07/22/2024, 03/19/2023, [...] Procedure Name Priority Date/Time Associated Diagnosis Comments US RENAL COMPLETE Routine 01/18/2025 8:0 8 PM EDT POCT GLYCATED HEMOGLOBIN, TOTAL Routine 12/23/2024 11:32 [...] Recently Relevant to Health Maintenance Results * US Renal Complete (01/18/2025 8:08 PM EDT) Anatomical Region Laterality Modality Kidney Ultrasound 01/18/2025 8:08 PM EDT Narrative 01/18/2025 8:10 PM EDT [address] [address] Ultrasound Report Signed Patient: Chen Ascencio MR#: [id number] : 1955 Acct:[id number] Age/Sex: 69 / F ADM Date: 01/18/25 Loc: HO.US Attending Dr: Tia ARROYO Ordering Physician: Tia Iraheta Date of Service: 01/18/25 Procedure(s): US renal BI Accession Number(s): [id number] cc: Michelle Coombs MD; Tia Iraheta Reason for Exam: N20.0 - Calculus of kidney CLINICAL HISTORY: N20.0 - Calculus of kidney US renal Comparison: 03/17/2023 Findings: Right kidney 11.2 cm length. No significant focal abnormality. 1.2 and 0.7 cm cysts. Left kidney 11.8 cm length. 5 mm lower pole nonobstructing stone. No hydronephrosis identified. No bilateral hydronephrosis. Normal bilateral renal echogenicity. Incidental fatty infiltration of the liver. Impression: Nonobstructing 5 mm left stone Otherwise unremarkable This document has been electronically signed by: Lamine Barnes MD on 01/18/2025 20:08:18 Dictated By: Lamine Barnes MD Signed By: <Electronically signed by Lamine Barnes MD in OV> 01/18/252008 DD/ 07 TD/TT: 01/18/252007 Document Processing Specialist: Procedure Note Donotuseinterpreter, Image - 01/18/[address] [address] Ultrasound Report Signed Patient: Arlyn AscencioR#: [id number] : 1955cct:[id number] Age/Sex: 69 / FADM Date: 01/18/25 Loc: HO.US Attending Dr: Tia ARROYO Ordering Physician: Tia Iraheta Date of Service: 01/18/25 Procedure(s): US renal BI Accession Number(s): [id number] cc: Michelle Coombs MD; Tia Iraheta [facility] Reason for Exam: N20.0 - Calculus of kidney CLINICAL HISTORY: N20.0 - Calculus of kidney US renal Comparison: 03/17/2023 Findings: Right kidney 11.2 cm length. No significant focal abnormality. 1.2 and 0.7 cm cysts. Left kidney 11.8 cm length. 5 mm lower pole nonobstructing stone. No hydronephrosis identified. No bilateral hydronephrosis. Normal bilateral renal echogenicity. Incidental fatty infiltration of the liver. Impression: Nonobstructing 5 mm left stone Otherwise unremarkable This document has been electronically signed by: Lamine Barnes MD on 01/18/2025 20:08:18 Dictated By: Lamine Barnes MD Signed By: <Electronically signed by Lamine Barnes MD in OV> 01/18/252008 DD/ 07 TD/TT: 01/18/252007 Document Processing Specialist: [facility] External Provider IMG US PROCEDURES Edited Result - Final * (ABNORMAL) POCT HGB A1C (12/23/2024 11:32 [...] PM EDT Narrative 09/24/2024 2:32 PM EDT [facility] [address] [place], [place] [address] Mammography Report Signed Patient: Colon Colon,Chen MR#: [id number] : 1955 Acct:[id number] Age/Sex: 69 / F ADM Date: 09/15/24 Loc: HO.MAMMO Attending Dr: Michelle Ledesma MD Ordering Physician: Michelle Coombs MD Results: 1Negative Date of Service: 09/15/24 Follow Up: 1 Year From Orig inal Mammogram Procedure(s): MM tomosynthesis screening BI Accession Number(s): [id number] cc: Michelle Coombs MD EXAMINATION: MM SCREENING [...] 09/24/24 1429 DD/ 1315 TD/TT: 09/15/24 1333 Document Processing Specialist: Procedure Note Donotuseinterpreter, Image - 09/24/2024 [facility] [address] [place] [address] Dr. [place], [place] [address] Mammography Report Signed Patient: Arlyn AscencioR#: [id number] : 1955cct:[id number] Age/Sex: 69 / FADM Date: 09/15/24 Loc: HO.MAMMO Attending Dr: Michelle Ledesma MD Ordering Physician: Michelle Coombs MDResults: 1Negative Date of Service: 09/15/24Follow Up: 1 Year From Orig ina Mammogram Procedure(s): MM tomosynthesis screening BI Accession Number(s): [id number] cc: Michelle Coombs MD EXAMINATION: MM SCREENING [...] 09/24/24 1429 DD/ 1315 TD/TT: 09/15/24 1333 Document Processing Specialist: us Michelle Ledesma MD IMG BI PROCEDURES Jj jayson Result - Final * Hepatitis C Antibody with Reflex to HCV, RNA, Quantitative, Real-Time PCR (07/22/2024 7:22 AM EDT) Hepatitis C Antibody Nonreactive Nonreactive [facility] Comment:Antibodies to HCV no t detected; does not exclude early acuteHCV infection. Blood Venous blood specimen / Unknown 07/22/2024 7:22 AM EDT 07/22/2024 11:21 AM EDT us Michelle Ledesma MD LAB BLOOD ORDERABLES Final Result Performing Organization Address [facility]/ZIP Co de Phone Number [facility] [address] [place] [phone] * (ABNORMAL) Lipid Panel, Standard (07/22/2024 7:22 AM EDT) Triglycerides 170(H) <150 mg/dL [facility] Comment:Desirable Triglyceri de: less than 150 mg/dLBorderline High Triglyceride 150-199 mg/dLHigh Triglyceride: 200-499 mg/dLVery High Triglyceride: greater than or equal to 5OO mg/dL Cholesterol 147 <200 mg/dL [facility] Comment:Desirable Cholestero l: less than 200 mg/dLBorderline High Cholesterol: 200-239 mg/dLHigh Cholesterol: greater than 239 mg/dL LDL Cholesterol Calculated 71 <100 mg/dL [facility] Comment:Desirable LDL: less than 100 mg/dLNear Optimal/Above Optimal LDL: 110- 129 mg/dLBorderline High LDL: 130-159 mg/dLHigh LDL: 160-189 mg/dLVery High LDL: greater than or equal to 190 mg/dL HDL Cholesterol 42 >40 mg/dL [facility] Comment:Desirable HDL: great er than 40 mg/dL Note: This HDL assay may give artificially low results in patients with liver disease. Blood Venous blood specimen / Unknown 07/22/2024 7:22 AM EDT 07/22/2024 11:21 AM EDT us Michelle Ledesma MD LAB BLOOD ORDERABLES Final Result Performing Organization Address City/[facility]/ZIP Co de Phone Number [facility] [address] [place] [phone] * Hm Colonoscopy (07/08/2024) Colonoscopy Normal Normal us Historical Provider [facility] Final Result * (ABNORMAL) Cologuard?? colon cancer screening (03/31/2023 11:40 AM EST) Cologuard Result Positive( A) Negative 04/07/2023 5:40 PM EST [employer] (CLIA #:[id number]) Comment: POSITIVE TEST RESULT. A positive Cologuard [...] (Urmila Yu al, N Engl J Med 2014;370(14):6579-4384.) Cologuard may produce a false negative or false positive result (no colorectal cancer or precancerous polyp present at colonoscopy follow up). A negative Cologuard test result does not guarantee the absence of CRC or advanced adenoma (pre-cancer). The current Cologuard screening interval is every 3 years. ([place] [employer] Society and U.S. Multi-Society Task Force). Cologuard performance data in a 10,000 patient pivotal study using colonoscopy as the reference method can be accessed at the following location: www.[employer]/results. Additional description of the Cologuard test process, warnings and precautions can be found at www.colEnthuserd.com. Stool specimen (specimen) 03/31/2023 11:40 AM EST 04/01/2023 5:06 PM EST Michelle Ledesma MD LAB MOLECULAR DIAGNOS TICS ORDERABLES Final Result [employer] (CLIA #:[id number]) [address]idy [place] [address], [place] [phone] from Last 3 Months or Most Recently Relevant to Health Maintenance Insurance [employer] [facility] (O D-SNP) Care Teams Tobacco Farmworker Relationship Specialty Start Date End Date Michelle Coombs MD [address] [place] [address] PCP - General Family Medicine 11/30/18
--- OUTSIDE RECORDS SUMMARY | 2025-02-08 18:26 | XMS_ITS | Encounter Summary ---
Author Organization [employer] Address [address] [facility] 7t [place] [address] Care Team Providers Care Graduate Fellow Name Role Phone Michelle Coombs MD Primary Care Provide r Reason for Visit * Reason Comments Med Refill Encounter Details Date Type Department Care Team (Late Contact Info) Description 03/11/2023 Refill [facility] MED[facility] [address] [place] [phone] Michelle Coombs MD [address] [place] [phone] Social History Tobacco Use Types Packs/Day Years [...] Description 04/04/2025 1:30 PM EST Office Visit [facility] MED[facility] [address] [place] [phone] Michelle Coombs MD [address] [place] [address] [phone] documented as of this encounter Visit Diagnoses Not on filedocumented in this encounter Care Teams Graduate Fellow Relationship Specialty Start Date End Date Michelle Coombs MD [address] [place] [address] PCP - General Family Medicine 11/30/18 documented as of this encounter
--- OUTSIDE RECORDS SUMMARY | 2025-02-08 18:26 | XMS_ITS | Encounter Summary ---
Author Organization [employer] Address [address] [facility] [address] [place] [address] Care Team Providers Care Nursing Program Coordinator Name Role Phone Michelle Coombs MD Primary Care Provide r Reason for Visit * Reason Onset Date Comments Triage 08/05/2022 Encounter Details Date Type Department Care Team ([facility] st Contact Info) Description 08/05/2022 Telephone [facility] [address] [place] [address] Michelle Coombs MD [address] [place] [address] Triage Social History Tobacco Use Types Packs/Day [...] 08/05/2022 1:09 PM EDT Triage call with Gregg [place] [id number] Pt spouse, Jose, reports Pt [...] paxlovid, though Pt is feeling better today. [phone] given to Pt spouse who wrote this down on a paper. Pt spouse is asking about home covid tests referred to [facility] pharmacy. No further questions offered. Protocol [...] this outcome Please contact pt Spouse at [phone] Requesting for the Treatment documented in this encounter Plan of Treatment Upcoming Encounters Date Type Department Care Team (Late st Contact Info) Description 04/04/2025 1:30 PM EST Office Visit [facility] [address] [place] [address] Michelle Coombs MD [address] [place], [place] [phone] documented as of this encounter Visit Diagnoses Not on filedocumented in this encounter Care Teams Nursing Program Coordinator Relationship Specialty Start Date End Date Michelle Coombs MD [address] [place] [address] PCP - General Family Medicine 11/30/18 documented as of this encounter
--- OUTSIDE RECORDS SUMMARY | 2025-02-08 18:26 | XMS_ITS | Encounter Summary ---
Author Organization [employer] Address [address] [facility] [address] [place] [address] Care Team Providers Care Wellness Manager Name Role Phone Michelle Coombs MD Primary Care Provide r Reason for Visit * Reason Comments Med Refill Encounter Details Date Type Department Care Team ([facility] st Contact Info) Description 10/01/2023 Refill [facility] [address] [place] [address] Michelle Coombs MD [address] [place], [place] [phone] Costochondritis Social History Tobacco Use Types Packs/Day [...] Office Visit [facility] [address] [place] [phone] Michelle Coombs MD [address] [place] [phone] documented as of this encounter Visit Diagnoses Diagnosis Costochondritis Tietze's disease documented in this encounter Additional Health Concerns Assessment Noted Time PHQ-9 Depression Total Score: 0 04/16/20 23 11:45 AM EST documented as of this encounter Care Teams Wellness Manager Relationship Specialty Start Date End Date Michelle Coombs MD [address] [place] [phone] PCP - General Family Medicine 11/30/18 documented as of this encounter
== END 2025-02-08 15:45 | disposition home or self-care (01) ==
LOC: HO.HPS 15:11
PROVIDERS: PCP Internal Medicine; Visit Provider Internal Medicine Pulmonary Disease
DX: J45.909 Unspecified asthma, uncomplicated (principal); G47.33 Obstructive sleep apnea (adult) (pediatric); R06.01 Orthopnea
CPT/HCPCS: 99214; G2211

== ENCOUNTER → 2025-02-08 15:10 | Outpatient (BNVA) | payer OTHER, SELFPAY | PROVIDERS: PCP Internal Medicine; Visit Provider Internal Medicine Pulmonary Disease | DX: J45.909 Unspecified asthma, uncomplicated (principal); R06.01 Orthopnea; G47.33 Obstructive sleep apnea (adult) (pediatric); E66.01 Morbid (severe) obesity due to excess calories; Z68.41 Body mass index [BMI] 40.0-44.9, adult; Z99.89 Dependence on other enabling machines and devices | CPT/HCPCS: 99212 ==

== ENCOUNTER 2025-04-04 16:10 | Outpatient (REF) | payer OTHER, SELFPAY ==
--- OUTSIDE RECORDS SUMMARY | 2025-04-04 13:30 | XMS_ITS | Encounter Summary ---
Author Organization [email or web address] Address [address] [place] [address] Care Team Providers Care Permanent Waver Name Role Phone Michelle Coombs MD Primary Care Provide r Encounter Details Date Type Department Care Team (Latest Contact Info) Description 04/04/2025 1:30 PM EST Office Visit [facility] [address] [place] [address] Michelle Coombs MD [address] [place] [address] Essential hypertension (Primary Dx); Prediabetes; Epigastric pain; Chronic right shoulder pain; Encounter for immunization; Allergic conjunctivitis of both eyes; Arthritis of both hands Social History Tobacco Use Types Packs/Day Years [...] Sign Reading Time Taken Comments Blood Pressure 140/82 04/04/2025 1:36 PM EST Pulse 66 04/04/2025 1:36 PM EST Temperature 36.1 C (96.9 F) 04/04/2025 1:36 PM EST Respiratory Rate 17 04/04/2025 1:36 PM EST Oxygen Saturation 94% 04/04/2025 1:36 PM EST Inhaled Oxygen Concentration - - Weight 93.9 kg (207 lb) 04/04/2025 1:36 PM EST Height 152.4 cm (5') 04/04/2025 1:36 PM EST Body Mass Index 40.43 04/04/2025 1:36 PM EST documented in this encounter Progress Notes * Michelle Ledesma MD - 04/04/2025 1:30 PM EST SUBJECTIVE: Chen Palma is a 70 y.o. year old female who presents for Chronic Disease Management . Chen Palma, 70 years Gastrointestinal symptoms - Burning sensation in the stomach and abdominal pain triggered by eating, ongoing for 2 weeks - Diarrhea associated with abdominal pain - History of Helicobacter pylori infection in 2020, treated with a 2-week course of antibiotics - Negative for Helicobacter pylori in 2021 after follow-up testing - Took Pepto-Bismol once for current symptoms, also tried lemon for diarrhea - Reports abnormal stool consistency with presence of defenses (mucus or undigested material) - Previous prescription for omeprazole for reflux, currently finished Musculoskeletal pain - Recurrent costochondritis, continues to take muscle spasm medication and Tylenol as needed - Reports pain in the middle of the chest, worsened by movement, sometimes with redness - Warm water provides some relief Hypertension - History of elevated blood pressure, currently on antihypertensive medications - Reports taking atenolol and losartan, with adjustments in timing and dosage - Also takes furosemide to prevent leg swelling Respiratory symptoms - Uses a mask for pulmonary condition, sometimes removes due to reflux or nasal itching - Reports shortness of breath when not using the mask Ophthalmologic symptoms - Reports eye itching, previously used prescribed eye drops with relief Misc - Reports cough-related allergy, uses prescribed inhaler with improvement Social History Social History Narrative Not on file Problem List[1] Family History[2] Review of Systems HENT: Negative. Respiratory: Negative. Cardiovascular: Negative. Gastrointestinal: Positive for abdominal pain, diarrhea and nausea. Negative for abdominal distention, anal bleeding, blood in stool, constipation, rectal pain and vomiting. Musculoskeletal: Positive for arthralgias and myalgias. OBJECTIVE: Vitals: 04/04/25 1336 BP: (!) 140/82 BP Location: Left arm Patient Position: Sitting BP Cuff Size: Adult Pulse: 66 Resp: 17 Temp: 96.9 ??F (36.1 ??C) TempSrc: Oral SpO2: 94% Weight: 207 lb (93.9 kg) Height: 5' (1.524 m) Physical Exam Constitutional: Appearance: Normal appearance. Cardiovascular: Rate and Rhythm: Normal rate and regular rhythm. Pulmonary: Effort: Pulmonary effort is normal. Breath sounds: Normal breath sounds. Abdominal: Tenderness: There is abdominal tenderness in the epigastric area. Musculoskeletal: Right lower leg: No edema. Left lower leg: No edema. Neurological: Mental Status: She is alert. Follow Up: Follow up in about 3 months (around 07/03/2025) for chronic conditons . Medications Ordered Prior to Encounter[3] Problem List Items Addressed This Visit Prediabetes Relevant Medications losartan (Cozaar) 100 MG tablet Other Relevant Orders POCT Glucose (Completed) POCT Hgb A1c (Completed) Epigastric pain Relevant Medications pantoprazole (Protonix) 40 MG EC tablet Other Relevant Orders Helicobacter pylori, Urea Breath Test Chronic right shoulder pain Relevant Medications tiZANidine (Zanaflex) 4 MG tablet Acetaminophen Extra Strength 500 MG tablet Essential hypertension - Primary Relevant Medications losartan (Cozaar) 100 MG tablet Allergic conjunctivitis of both eyes Relevant Medications Ketotifen Fumarate 0.035 % solution Arthritis of both hands Relevant Medications Acetaminophen Extra Strength 500 MG tablet Other Visit Diagnoses Encounter for immunization Relevant Medications Acetaminophen Extra Strength 500 MG tablet Other Relevant Orders FLU VACCINE TRIVALENT HIGH DOSE 3718-9178 (Fluzone) 65 yrs + (Completed) Epigastric pain: - Epigastric pain possibly related to prior Helicobacter pylori infection or gastrointestinal virus. - Ordered urea breath test to evaluate for gastrointestinal infection or recurrence of Helicobacterpylori. Prescribed pantoprazole 40 mg for gastric symptoms. Chronic right shoulder pain: - Chronic right shoulder pain consistent with costochondritis and muscle spasm. - Continue muscle relaxant as previously prescribed. Continue acetaminophen as needed for pain. Will send additional prescription for muscle relaxant if current supply is low. Essential hypertension: - Essential hypertension with suboptimal control. - Increased losartan dose from 50 mg to 100 mg. Continue atenolol and furosemide as previously prescribed. Pharmacy notified of losartan dose adjustment. Encounter for immunization: - Will administer indicated vaccine for influenza. Allergic conjunctivitis of both eyes: - Allergic conjunctivitis with intermittent pruritus and relief from prescribed eye drops. - Continue current ophthalmic drops as needed. Arthritis of both hands: - Arthritis of both hands with intermittent pain and erythema, exacerbated by activity and relievedby warm water. - Continue acetaminophen as needed for pain. Recommend warm water soaks for symptomatic relief. This note was drafted using [employer] technology. The patient/patient's guardian has been informed and has consented to the use of this technology: Yes [1] Patient Active Problem List Diagnosis Acquired hypothyroidism Fibromyalgia Constipation Dyspnea on exertion Essential hypertension Hyperlipidemia Osteoarthritis of hip Osteoarthritis of right knee Peripheral arterial occlusive disease Prediabetes Arthralgia of temporomandibular joint Rash and [...] index (BMI) of40.0 to 44.9 in adult (HCC) Acute pain of left knee Macrocytic anemia Vitamin D deficiency Chronic right shoulder pain Seasonal allergies Allergic conjunctivitis of both eyes Rash Arthritis of both hands [2] Family History Problem Relation Name Age of Onset Uterine cancer Mother Prostate cancer Father [3] Current Outpatient Medications on File Prior to Visit Medication Sig Dispense Refill atenolol (Tenormin) 50 MG tablet TAKE 1 TABLET BY MOUTH AT BEDTIME 90 tablet 3 atorvastatin (Lipitor) 40 MG tablet TAKE 1 TABLET BY MOUTH AT BEDTIME 90 tablet 3 cetirizine (ZyrTEC) 10 MG tablet TAKE 1 TABLET BY MOUTH EVERYDAY AT NOON 90 tablet 0 cyanocobalamin (Vitamin B-12) 1000 MCG tablet TAKE 1 TABLET BY MOUTH EVERY MORNING 30 tablet 2 diphenhydrAMINE (BENADryl) 25 MG tablet Take 1 tablet (25 mg) by mouth every 8 (eight) hours if needed for itching. 30 tablet 2 ergocalciferol (Vitamin D2) 1.25 MG (33931 UT) capsule TAKE 1 CAPSULE BY MOUTH ONCE WEEKLY ON Friday 4 capsule 3 folic acid (Folvite) 1 MG tablet TAKE 1 TABLET BY MOUTH EVERY MORNING 30 tablet 2 furosemide (Lasix) 40 MG tablet HM ClearLax 17 GM/SCOOP powder lidocaine (Lidoderm) 5 % patch Apply 1 patch topically Once per day. Remove & discard patch within 12 hours or as directed by MD. 30 patch 1 losartan (Cozaar) 50 MG tablet Take 1 tablet (50 mg) by mouth Once per day. 90 tablet 0 metFORMIN (Glucophage) 500 MG [...] 8.6 MG tablet Symbicort 160-4.5 MCG/ACT inhaler [DISCONTINUED] Acetaminophen Extra Strength 500 MG tablet Take 2 tablets (1,000 mg) by mouth every 8 (eight) hours if needed (take for pain as needed). 30 tablet 2 [DISCONTINUED] Ketotifen Fumarate 0.035 % solution Administer 1 drop into affected eye(s) every 12 (twelve) hours if needed (use for itchiness and tearing). 5 mL 1 [DISCONTINUED] levothyroxine (Synthroid, Levoxyl) 50 MCG tablet TAKE 1 TABLET BY MOUTH EVERY MORNING 90 tablet 3 [DISCONTINUED] tiZANidine (Zanaflex) 4 MG tablet TAKE 1 TABLET BY MOUTH EVERY 8 HOURS NEEDED FORMUSCLE SPASMS 30 tablet 2 No current facility-administered medications on file prior to visit. documented in this encounter Plan of Treatment Scheduled Orders Name Type Priority Associated Diagnoses Orde r Schedule Helicobacter pylori, Urea Breath Test Lab Routine Epigastric pain Expected: 04/04/2025 (Approximate), Expires: 04/04/2026 documented as of this encounter Procedures Procedure Name Priority Date/Time Associated Diagnosis Comments POCT GLYCATED HEMOGLOBIN, TOTAL Routine 04/04/2025 1:38 PM EST Prediabetes POCT GLUCOSE Routine 04/04/2025 1:37 PM EST Prediabetes documented in this encounter Results * (ABNORMAL) POCT Hgb A1c (04/04/2025 1:38 PM EST) Hemoglobin A1C 6.2(A) 4.0 - 5.7 % QC Media Lot # [id number] Lot# Expiration Date 52,327 Blood 04/04/2025 1:38 PM EST us Michelle Ledesma MD POINT OF CARE TEST EN TER/EDIT ORDERABLES Final Result * POCT Glucose (04/04/2025 1:37 PM EST) Glucose Blood, POC 95 60 - 200 mg/dL QC Media Lot # [id number] Lot# Expiration Date 72 Blood Capillary blood specimen / Unknown 04/04/2025 1:37 PM EST Michelle Ledesma MD POINT OF CARE TEST EN TER/EDIT ORDERABLES Final Result documented in this encounter Visit Diagnoses Diagnosis Essential hypertension- Primary Unspecified essential hypertension Prediabetes Other abnormal glucose Epigastric pain Abdominal pain, epigastric Chronic right shoulder pain Pain in joint, shoulder region Encounter for immunization Allergic conjunctivitis of both eyes Other chronic allergic conjunctivitis Arthritis of both hands documented in this encounter Additional Health Concerns Assessment Noted Time PHQ-9 Depression Total Score: 4 12/24/19 25 1:45 PM EDT documented as of this encounter Care Teams Permanent Waver Relationship Specialty Start Date End Date Michelle Coombs MD [address] [place] [id number] PCP - General Family Medicine 11/30/18 documented as of this encounter
--- OUTSIDE RECORDS SUMMARY | 2025-04-04 18:41 | XMS_ITS | Encounter Summary ---
Author Organization [employer] Address [address] [place] [address] Care Team Providers Care Heavy Equipment Operator/Paver Name Role Phone Michelle Coombs MD Primary Care Provide r Reason for Visit * Reason Onset Date Comments Triage 08/05/2022 Encounter Details Date Type Department Care Team ([facility] st Contact Info) Description 08/05/2022 Telephone [facility] [address] [place] [address] Michelle Coombs MD [address] [place] [address] Triage Social History Tobacco Use Types Packs/Day [...] 08/05/2022 1:09 PM EDT Triage call with [facility] Call Worker ID [id number] Pt spouse, Jose, reports Pt [...] paxlovid, though Pt is feeling better today. [phone] given to Pt spouse who wrote this down on a paper. Pt spouse is asking about home covid tests referred to [facility] pharmacy. No further questions offered. Protocol [...] this outcome Please contact pt Spouse at [phone] Requesting for the Treatment documented in this encounter Plan of Treatment Not on file documented as of this encounter Visit Diagnoses Not on filedocumented in this encounter Care Teams Heavy Equipment Operator/Paver Relationship Specialty Start Date End Date Michelle Coombs MD [address] [place] [address] PCP - General Family Medicine 11/30/18 documented as of this encounter
--- OUTSIDE RECORDS SUMMARY | 2025-04-04 18:41 | XMS_ITS | Encounter Summary ---
Author Organization [employer] Address [address] [place] [address] Care Team Providers Care Still Operator Gin Name Role Phone Michelle Coombs MD Primary Care Provide r Encounter Details Date Type Department Care Team (Latest Contact Info) Description 04/04/2025 Travel Social History Tobacco Use Types Packs/Day [...] is your housing situation today? I have erinnelia shirley 12/16/[address] you [...] documented as of this encounter Care Teams Still Operator Gin Relationship Specialty Start Date End Date Michelle Coombs MD [address] [place] [address] PCP - General Family Medicine 11/30/18 documented as of this encounter
--- OUTSIDE RECORDS SUMMARY | 2025-04-04 18:41 | XMS_ITS | Encounter Summary ---
Author Organization [employer] Address [address] [place] [address] Care Team Providers Care Diesel Technician Mechanic Name Role Phone Michelle Coombs MD Primary Care Provide r Reason for Visit * Reason Comments Med Refill Encounter Details Date Type Department Care Team ([facility] st Contact Info) Description 10/01/[address] [facility] [address] [place] [address] Michelle Coombs MD [address] [place], [place] [phone] Costochondritis Social History Tobacco Use Types Packs/Day [...] documented as of this encounter Care Teams Diesel Technician Mechanic Relationship Specialty Start Date End Date Michelle Coombs MD [address] [place] [id number] PCP - General Family Medicine 11/30/18 documented as of this encounter
--- OUTSIDE RECORDS SUMMARY | 2025-04-04 18:41 | XMS_ITS | Encounter Summary ---
Author Organization [employer] Address [address] [place] [address] Care Team Providers Care Balancing Machine Operator Name Role Phone Michelle Coombs MD Primary Care Provide r Encounter Details Date Type Department Care Team (Late st Contact Info) Description 05/21/2022 Orders Only [facility] [address] [place], [place] [phone] Florence Hahn, ANP [address] [place] [address] Social History Tobacco Use Types Packs/Day Years [...] on filedocumented in this encounter Care Teams Balancing Machine Operator Relationship Specialty Start Date End Date Michelle Coombs MD [address] [place], [place] [phone] PCP - General Family Medicine 11/30/18 documented as of this encounter
--- OUTSIDE RECORDS SUMMARY | 2025-04-04 18:41 | XMS_ITS | Clinical Summary ---
Author Organization [employer] Address [address] [facility] [address] [place] [address] Care Team Providers Care Civil Laboratory Technician Name Role Phone Michelle Coombs MD [...] by mouth in the morning. 023 Active atenolol (Tenormin) 50 MG tablet TAKE 1 TABLET BY MOUTH AT BEDTIME 90 tablet 3 025 Active lidocaine (Lidoderm) 5 % patchIndications: Acute pain of left knee Apply 1 patch topically Once per day. Remove & discard patch within 12 hours or as directed by MD. 30 patch 1 025 Active diphenhydrAMINE (BENADryl) 25 MG tabletIndications :Seasonal allergies Take 1 tablet (25 mg) by mouth every 8 (eight) hours if needed for itching. 30 tablet 2 025 Active ergocalciferol (Vitamin D2) 1.25 MG (42388 UT) capsuleIndication s:Vitamin D deficiency TAKE 1 CAPSULE BY MOUTH ONCE WEEKLY ON FRIDAY MORNING 4 capsule 3 5 2:37 PM EST 025 Active cetirizine (ZyrTEC) 10 MG tabletIndications :Seasonal allergic rhinitis, unspecified trigger TAKE 1 TABLET BY MOUTH EVERYDAY AT NOON 90 tablet 025 Active losartan (Cozaar) 50 MG tabletIndications :Essential hypertension Take 1 tablet (50 mg) by mouth Once per day. 90 tablet 025 Active folic acid (Folvite) 1 MG tabletIndications :Macrocytic anemia TAKE 1 TABLET BY MOUTH EVERY MORNING 30 tablet 2 5 2:37 PM EST 025 Active cyanocobalamin (Vitamin B-12) 1000 MCG tabletIndications :Macrocytic anemia TAKE 1 TABLET BY MOUTH EVERY MORNING 30 tablet 2 5 2:37 PM EST 025 Active atorvastatin (Lipitor) 40 MG tablet TAKE 1 TABLET BY MOUTH AT BEDTIME 90 tablet 3 025 Active metFORMIN (Glucophage) 500 MG tablet TAKE 1 TABLET BY MOUTH TWICE DAILY IN THE MORNING AND IN THE EVENING 180 tablet 3 025 Active tiZANidine (Zanaflex) 4 MG tabletIndications [...] as needed). 30 tablet 2 025 Active pantoprazole (Protonix) 40 MG EC tabletIndications :Epigastric pain Take 1 tablet (40 mg) by mouth before breakfast. Do not crush, chew, or split. 30 tablet 11 025 2025 Active losartan (Cozaar) 100 MG tabletIndications :Essential hypertension Take 1 tablet (100 mg) by mouth Once per day. 30 tablet 11 025 2025 Active Ketotifen Fumarate 0.035 % solutionIndicatio ns:Allergic conjunctivitis of both eyes Administer 1 drop into affected eye(s) every 12 (twelve) hours if needed (use for itchiness and tearing). 5 mL 1 Active atorvastatin (Lipitor) 40 MG tablet TAKE 1 TABLET BY MOUTH AT BEDTIME 90 tablet 3 2024 Discontinued metFORMIN (Glucophage) 500 MG tablet TAKE 1 TABLET BY MOUTH TWICE DAILY IN THE MORNING AND IN THE EVENING 180 tablet 3 2024 Discontinued levothyroxine (Synthroid, Levoxyl) 50 MCG tablet TAKE 1 TABLET BY MOUTH EVERY MORNING 90 tablet 3 024 2024 Discontinued folic acid (Folvite) 1 MG tabletIndications :Macrocytic anemia TAKE 1 TABLET BY MOUTH EVERY MORNING 30 tablet 2 025 2024 Discontinued cyanocobalamin (Vitamin B-12) 1000 MCG tabletIndications :Macrocytic anemia TAKE 1 TABLET BY MOUTH EVERY MORNING 30 tablet 2 025 2024 Discontinued tiZANidine (Zanaflex) 4 MG tabletIndications :Chronic right shoulder pain Take 1 tablet (4 mg) by mouth every 8 (eight) hours if needed for muscle spasms. 30 tablet 2 2:37 PM EST 2024 Discontinued Acetaminophen Extra Strength 500 MG tabletIndications :Chronic right shoulder pain Take 2 tablets (1,000 mg) by mouth every 8 (eight) hours if needed (take for pain as needed). 30 tablet 2 025 2024 Discontinued(R eorder (will not trigger notification to Pharmacy)) Ketotifen Fumarate 0.035 % solutionIndicatio ns:Allergic conjunctivitis of both eyes Administer 1 drop into affected eye(s) every 12 (twelve) hours if needed (use for itchiness and tearing). 5 mL 1 025 2024 Discontinued(R eorder (will not trigger notification to Pharmacy)) levothyroxine (Synthroid, Levoxyl) 50 MCG tablet TAKE 1 TABLET BY MOUTH EVERY MORNING 90 tablet 3 2:37 PM EST 025 2024 Discontinued tiZANidine (Zanaflex) 4 MG tabletIndications :Chronic right shoulder pain TAKE 1 TABLET BY MOUTH EVERY 8 HOURS NEEDED FOR MUSCLE SPASMS 30 tablet 2 025 2024 Discontinued(R eorder (will not trigger notification to Pharmacy)) Active Problems Problem Noted Date Diagnosed Date Arthritis of both hands 04/04/2025 Chronic right shoulder pain 12/23/2024 Seasonal allergies [...] Encounters Date Type Department Care Team Description 04/04/2025 1:30 PM EST Office Visit [facility] [address] [place] [phone] Michelle Coombs MD Essential hypertension (Primary Dx); Prediabetes; Epigastric pain; Chronic right shoulder pain; Encounter for immunization; Allergic conjunctivitis of both eyes; Arthritis of both hands 04/04/2025 Travel 03/22/2025 Patient Outreach [facility] [address] [place] [address] Michelle Coombs MD Pre-visit Planning (SDOH screening completed on 12/16/2024) 03/18/2025 Refill [facility] [address] [place] [address] Michelle Coombs MD Chronic right shoulder pain 03/08/2025 Refill [facility] [address] [place] [address] Michelle Coombs MD 03/05/2025 Refill [facility] [address] [place] [address] Michelle Coombs MD Macrocytic anemia 01/18/2025 Orders Only [facility] External Provider, [facility] 01/14/2025 Refill [facility] [address] [place] [address] Michelle Coombs MD Seasonal allergic rhinitis, unspecified trigger; Essential hypertension 01/13/2025 Telephone [facility] [address] [facility] [place] [address] Michelle Coombs MD NOV RECALL 01/10/2025 Refill [facility] [address] [place] [address] Michelle Coombs MD Vitamin D deficiency from Last 3 Months Immunizations Immunization Administration Dates Next Due Influenza High-dose Quadriva lent Preservative Free 03/19/2023,02/15/2022 Influenza injectable quadriv alent preservative free 04/10/2021,06/09/2018,02/25/2017 Influenza, High Dose Seasona l, Preservative Free 04/04/2025,03/25/2019 Pneumococcal Conjugate PCV 13 06/09/2018 Pneumococcal Conjugate [...] Mass Index 40.43 04/04/2025 1:36 PM EST Plan of Treatment Health Maintenance Due Date Last Done Comments CT Colonography 1955 FIT 1955 Sigmoidoscopy 1955 FOBT 03/31/2024 03/31/2023 COVID-19 Vaccine ( season) 2025 04/10/2021, 07/25/2020, 07/04/2020 Zoster Vaccines (3 of 3) 01/27/2025 12/02/2024, 03/06 Mammogram 09/15/2025 09/15/2024, 05/05, 05/14/2023, Additional history exists SDOH Screening 12/16/2025 12/16/2024 Alcohol/Substance Use Screening 12/23/2025 12/23/2024 Depression Screening 12/23/2025 12/23/2024, 12/24/19 FIT DNA/Cologuard 03/31/2026 03/31/2023 Diabetes: Hemoglobin A1C 04/04/2026 025, 12/23/2024, 07/22/2024, Additional history exists Tobacco Screening 04/04/2026 04/04/2025 DTaP/Tdap/Td Vaccines (2 - Td or Tdap) 11/18/2028 11/18/2018 Colonoscopy 07/08/2029 07/08/2024, 05/23/2017 Colorectal Cancer Screening 07/08/2029 Lipid Panel 07/22/2029 07/22/2024, 03/06, 02/20/2022, Additional history exists Pneumococcal Vaccine: 50+ Years Completed 03/19/2023, 06/09/2018 RSV Patients and Patients Aged 60 years or older Completed 07/04/2023 Hepatitis C Screening Completed 07/22/2024 Influenza Vaccine Completed 04/04/2025, , 02/15/2022, Additional history exists HIB Vaccines Aged Out No longer eligi [...] GLUCOSE Routine 04/04/2025 1:37 PM EST Prediabetes US RENAL COMPLETE Routine 01/18/2025 8:0 8 PM EDT BI MAMMOGRAM SCREENING TOMOSYNTHESIS BILATERAL Routine 09/15/2024 [...] to Health Maintenance Results * (ABNORMAL) POCT Hgb A1c (04/04/2025 1:38 PM EST) Hemoglobin A1C 6.2(A) 4.0 - 5.7 % QC Media Lot # [id number] Lot# Expiration Date 52,327 Blood 04/04/2025 1:38 PM EST Michelle Ledesma MD POINT OF CARE TEST EN TER/EDIT ORDERABLES Final Result * POCT Glucose (04/04/2025 1:37 PM EST) Glucose Blood, POC 95 60 - 200 mg/dL QC Media Lot # [id number] Lot# Expiration Date 7,726 Blood Capillary blood specimen / Unknown 04/04/2025 1:37 PM EST us Michelle Ledesma MD POINT OF CARE TEST EN TER/EDIT ORDERABLES Final Result * US Renal Complete (01/18/2025 8:08 PM EDT) Anatomical Region Laterality Modality Kidney Ultrasound 01/18/2025 8:08 PM EDT Narrative 01/18/2025 8:10 PM EDT [address] [address] Ultrasound Report Signed Patient: Chen Ascencio MR#: [id number] : 1955 Acct:[id number] Age/Sex: 69 / F ADM Date: 01/18/25 Loc: HO.US Attending Dr: Tia ARROYO Ordering Physician: Tia Iraheta Date of Service: 01/18/25 Procedure(s): US renal BI Accession Number(s): [id number] cc: Michelle Coombs MD; Tia Iraheta Reason [...] in OV> 01/18/252008 DD/ 07 TD/TT: 01/18/252007 Day Camp Counselor: Procedure Note Donotuseinterpreter, Image - 01/18/[address] [address] Ultrasound Report Signed Patient: Arlyn AscencioR#: [id number] : 1955cct:[id number] Age/Sex: 69 / FADM Date: 01/18/25 Loc: HO.US Attending Dr: Tia JACINTO Ordering Physician: Tia Iraheta Date of Service: 01/18/25 Procedure(s): US renal BI Accession Number(s): [id number] cc: Michelle Coombs MD; [facility] Reason for Exam: N20.0 - Calculus of [...] in OV> 01/18/252008 DD/ 07 TD/TT: 01/18/252007 Day Camp Counselor: [facility] External Provider IMG US PROCEDURES Edited Result - Final * BI Mammogram Screening Tomosynthesis Bilateral (09/15/2024 1:15 PM EDT) Anatomical Region Laterality Modality Breast Bilateral Mammography 09/15/2024 1:15 PM EDT Narrative 09/24/2024 2:32 PM EDT [facility] [address] [place] [address] Mammography Report Signed Patient: Chen Ascencio MR#: [id number] : 1955 Acct:[id number] Age/Sex: 69 / F ADM Date: 09/15/24 Loc: MAMMO Attending Dr: Michelle Ledesma MD Ordering Physician: Michelle Coombs MD Results: 1Negative Date of Service: 09/15/24 Follow Up: 1 Year From Orig ina Mammogram Procedure(s): MM tomosynthesis screening BI Accession Number(s): [id number] cc: Michelle Coombs MD EXAMINATION: MM SCREENING [...] 09/24/24 1429 DD/ 1315 TD/TT: 09/15/24 1333 Day Camp Counselor: Procedure Note Donotuseinterpreter, Image - 09/24/2024 [place] [facility] [address] [place], [place] [address] Mammography Report Signed Patient: Laith Ascencio#: [id number] : 1955cct:[id number] Age/Sex: 69 / FADM Date: 09/15/24 Loc: MAMMO Attending Dr: Michelle Ledesma MD Ordering Physician: Michelle Coombs MDResults: 1Negative Date of Service: 09/15/24Follow Up: 1 Year From Orig ina Mammogram Procedure(s): MM tomosynthesis screening BI Accession Number(s): [id number] cc: Michelle Coombs MD EXAMINATION: MM SCREENING [...] 09/24/24 1429 DD/ 1315 TD/TT: 09/15/24 1333 Day Camp Counselor: Michelle Ledesma MD IMG BI PROCEDURES Jj jayson Result - Final * Hepatitis C Antibody with Reflex to HCV, RNA, Quantitative, Real-Time PCR (07/22/2024 7:22 AM EDT) Hepatitis C Antibody Nonreactive Nonreactive [facility] Comment:Antibodies to HCV no t detected; does not exclude early acuteHCV infection. Blood Venous blood specimen / Unknown 07/22/2024 7:22 AM EDT 07/22/2024 11:21 AM EDT us Michelle Ledesma MD LAB BLOOD ORDERABLES Final Result Performing Organization Address City/[facility]/ZIP Co de Phone Number [facility] [address] [place] [address] [phone] * (ABNORMAL) Lipid Panel, Standard (07/22/2024 7:22 AM EDT) Triglycerides 170(H) <150 mg/dL [facility] Comment:Desirable Triglyceri de: less than 150 mg/dLBorderline High Triglyceride 150-199 mg/dLHigh Triglyceride: 200-499 mg/dLVery High Triglyceride: greater than or equal to 5OO mg/dL Cholesterol 147 <200 mg/dL [facility] Comment:Desirable Cholestero l: less than 200 mg/dLBorderline High Cholesterol: 200-239 mg/dLHigh Cholesterol: greater than 239 mg/dL LDL Cholesterol Calculated 71 <100 mg/dL [facility] Comment:Desirable LDL: less than 100 mg/dLNear Optimal/Above Optimal LDL: 110- 129 mg/dLBorderline High LDL: 130-159 mg/dLHigh LDL: 160-189 mg/dLVery High LDL: greater than or equal to 190 mg/dL HDL Cholesterol 42 >40 mg/dL [facility] Comment:Desirable HDL: great er than 40 mg/dL Note: This HDL assay may give artificially low results in patients with liver disease. Blood Venous blood specimen / Unknown 07/22/2024 7:22 AM EDT 07/22/2024 11:21 AM EDT us Michelle Ledesma MD LAB BLOOD ORDERABLES Final Result Performing Organization Address City/[facility]/ZIP Co de Phone Number [facility] [address] [place] [address] [phone] * Hm Colonoscopy (07/08/2024) Colonoscopy Normal Normal us Historical Provider HEALTH MAINTENANCE Final Result * (ABNORMAL) Cologuard?? colon cancer screening (03/31/2023 11:40 AM EST) Cologuard Result Positive( A) Negative 04/07/2023 5:40 PM EST [facility] (CLIA #:[id number]) Comment: POSITIVE TEST RESULT. A positive Cologuard [...] screened with both Cologuard and colonoscopy. (Urmila Nogueira et al, N Engl J Med 2014;370(14):5117-1006.) Cologuard may produce a false negative or false positive result (no colorectal cancer or precancerous polyp present at colonoscopy follow up). A negative Cologuard test result does not guarantee the absence of CRC or advanced adenoma (pre-cancer). The current Cologuard screening interval is every 3 years. ([place] [employer] and U.S. Multi-Society Task Force). Cologuard performance data in a 10,000 patient pivotal study using colonoscopy as the reference method can be accessed at the following location: www.[email or web address]/results. Additional description of the Cologuard test process, warnings and precautions can be found at [email or web address]. Stool specimen (specimen) 03/31/2023 11:40 AM EST 04/01/2023 5:06 PM EST Michelle Ledesma MD LAB MOLECULAR DIAGNOS TICS ORDERABLES Final Result [facility] (CLIA #:[id number]) [place] [address], from Last 3 Months or Most Recently Relevant to Health Maintenance Insurance [facility] [employer] OPT[employer] (HMO D-SNP) [place] [id number] Care Teams Civil Laboratory Technician Relationship Specialty Start Date End Date Michelle Coombs MD [address] [place], [place] PCP - General Family Medicine 7/29/19
--- OUTSIDE RECORDS SUMMARY | 2025-04-04 18:41 | XMS_ITS | Encounter Summary ---
Author Organization [employer] Address [address] [place] [address] Care Team Providers Care Mems Engineer Name Role Phone Michelle Coombs MD Primary Care Provide r Encounter Details Date Type Department Care Team (Late st Contact Info) Description 01/21/2023 Orders Only [facility] [address] [place] [address] Provider, Bubba, Social History Tobacco Use Types [...] in this encounter Results * Colonoscopy (05/23/2017) us Historical Provider HEALTH MAINTENANCE Final Result documented in this encounter Visit Diagnoses Not on filedocumented in this encounter Care Teams Mems Engineer Relationship Specialty Start Date End Date Michelle Coombs MD [address] [place] [address] PCP - General Family Medicine 11/30/18 documented as of this encounter
--- OUTSIDE RECORDS SUMMARY | 2025-04-04 18:41 | XMS_ITS | Encounter Summary ---
Author Organization [employer] Address [address] [facility] [address]t [place] [address] Care Team Providers Care Latex Dipper Name Role Phone Michelle Coombs MD Primary Care Provide r Reason for Visit * Reason Comments Med Refill Encounter Details Date Type Department Care Team (Late st Contact Info) Description 03/11/2023 Refill [facility] [address] [place] [address] Michelle Coombs MD [address] [place] [address] Social History Tobacco Use Types Packs/Day Years [...] on filedocumented in this encounter Care Teams Latex Dipper Relationship Specialty Start Date End Date Michelle Coombs MD [address] [place], [place] [phone] PCP - General Family Medicine 11/30/18 documented as of this encounter
== END 2025-04-04 16:11 | disposition home or self-care (01) ==
LOC: HO.LNP 16:10
PROVIDERS: Visit Provider Internal Medicine
DX: R10.13 Epigastric pain (principal)
CPT/HCPCS: 83013